=== PATIENT | male | born 1965 | race Caucasian/White ===

== ENCOUNTER 2017-10-09 16:19 | Emergency (ER) | payer OTHER ==
[2017-10-09] MEDS ORDERED: Nitrostat 0.4 MG (ED) SL ONE ×2 (16:45→17:06)
[2017-10-09] MEDS ORDERED: BABY ASPIRIN 81 MG CHEW PO ONE (16:45)
[2017-10-09] MEDS ORDERED: Sodium Chloride 0.9% 1000 ML 1,000 ML IV SCH (16:45)
--- NOTE | 2017-10-09 16:47 | ERPHSYRPT ---
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 pt ambulates with an upright steady gait, able to speak in clear full sentences. PT holding chest upon arrival. Physician History: PATIENT WITH A HISTORY OF HYPERTENSION, DIAGNOSED WITH A NONSTEMI 2 WEEKS AGO, HOSPITALIZED AT [facility]. MISSED HIS FOLLOWUP APPOINTMENT WITH [facility], NOW COMPLAINS OF SUBSTERNAL CHEST PAIN ASSOCIATED WITH DIAPHORESIS, PAIN SCALE 6/10. DENIES PALPITATIONS OR DYSPNEA. Timing/Duration: today Activities at Onset: activity Quality: pressure Location: substernal Chest Pain Radiation: neck Severity of Pain-Max: moderate Severity of Pain-Current: mild Modifying Factors: Improves With: exertion Associated Symptoms: diaphoresis Prior Chest Pain/Cardiac Workup: cardiac cath Nitro Today/Relief: 0.4 mg x 2, provided by ED Aspirin Treatment Today: no aspirin today, 81 mg x 4 Allergies/Adverse Reactions: No Known Drug Allergies Allergy (Verified 11/18/15 00:42) Home Medications: Aspirin 81 mg PO DAILY 11/18/15 [History] Lisinopril 10 mg PO DAILY 11/18/15 [History] Potassium Chloride 10 Meq Tab* [Klor Con 10 MEQ] 10 meq PO DAILY 11/18/15 [ History] Hx Tetanus, Diphtheria Vaccination/Date Given: Yes Hx Influenza Vaccination/Date Given: Yes Hx Pneumococcal Vaccination/Date Given: No Immunizations Up to Date: Yes - Review of Systems Constitutional: No Fever, No Chills Eyes: No Symptoms Ears, Nose, & Throat: No Symptoms Respiratory: No Cough, No Dyspnea Cardiac: Chest Pain Genitourinary Symptoms: No Dysuria Musculoskeletal: No Back Pain, No Neck Pain Skin: No Rash Neurological: No Dizziness, No Focal Weakness, No Sensory Changes Psychological: No Symptoms Endocrine: No Symptoms - Past Medical History Pertinent Past Medical History: Yes Neurological History: Stroke ENT History: Other Cardiac History: Hypertension, Myocardial Infarction ([place]), Other Respiratory History: No Pertinent History Endocrine Medical History: No Pertinent History Musculoskeletal History: Other GI Medical History: No Pertinent History History: No Pertinent History Psycho-Social History: Anxiety Male Reproductive Disorders: No Pertinent History Other Medical History: heart cath, "ministroke per pt report", back surgery when he was 16 - Past Surgical History Past Surgical History: Yes Neuro Surgical History: No Pertinent History Cardiac: Cardiac Catheterization Respiratory: No Pertinent History Gastrointestinal: Hernia Repair Genitourinary: No Pertinent History Musculoskeletal: Orthopedic Surgery Male Surgical History: No Pertinent History Other Surgical History: pt had bk surgery at 16. - Social History Smoking Status: Never smoker Exposure to second hand smoke: Yes Drug Use: none Patient Lives Alone: No - Nursing Vital Signs Nursing Vital Signs: Initial Vital Signs Temperature 98.6 F 10/09/17 16:23 Pulse Rate 90 10/09/17 16:23 Respiratory Rate 92 H 10/09/17 16:23 Blood Pressure 168/92 10/09/17 16:23 O2 Sat by Pulse Oximetry 97 10/09/17 16:23 Pain Scale Pain Intensity 7 - Physical Exam General Appearance: no apparent distress, alert Eye Exam: PERRL/EOMI, eyes nml inspection Ears, Nose, Throat Exam: normal ENT inspection, moist mucous membranes Neck Exam: normal inspection, non-tender, supple, full range of motion Respiratory Exam: normal breath sounds, lungs clear, No respiratory distress Cardiovascular Exam: regular rate/rhythm, normal heart sounds Gastrointestinal/Abdomen Exam: soft, No tenderness, No mass Back Exam: normal inspection, No CVA tenderness, No vertebral tenderness Extremity Exam: normal inspection, normal range of motion Neurologic Exam: alert, oriented x 3, cooperative, normal mood/affect, sensation nml, No motor deficits Skin Exam: normal color, warm, dry SpO2: 97 Oxygen Delivery: Room Air - Course EKG Interpreted by Me: RATE, Sinus Rhythm, NORMAL AXIS, Non-specific ST Changes (MINIMAL INFERIOR ST SEGMENT DEPRESSION) - Radiology Exams Chest X-ray Interpretation: Discussed w/ radiologist, Negative, No Infiltrates Ordered Tests: Active Orders 24 hr Category Date Time Status EKG-ER Only STAT Care 10/09/17 16:45 Active IV Insertion STAT Care 10/09/17 16:45 Active Oxygen-ED Only NASAL CANNULA 2 lpm Care 10/09/17 16:45 Active CHEST 1 VIEW (PORTABLE) Stat Exams 10/09/17 16:45 Completed CBC W DIFF Stat Lab 10/09/17 16:51 Completed CMP Stat Lab 10/09/17 16:51 Completed D-DIMER QUANTITATION Stat Lab 10/09/17 16:51 Completed NT PRO BNP Stat Lab 10/09/17 16:51 Completed PROTIME WITH INR Stat Lab 10/09/17 16:51 Completed TROPONIN Q3H Lab 10/09/17 16:51 Completed TROPONIN Q3H Lab 10/09/17 20:00 Completed TROPONIN Q3H Lab 10/09/17 22:45 Ordered TROPONIN Q3H Lab 10/10/17 01:45 Ordered TROPONIN Q3H Lab 10/10/17 04:45 Ordered Medication Summary Generic Name Dose Route Start Last Admin Trade Name Freq PRN Reason Stop Dose Admin Sodium Chloride 1,000 mls @ 100 mls/hr 10/09/17 16:45 10/09/17 17:11 Sodium Chloride 0.9% 1000 Ml IV 11/08/17 16:44 100 mls/hr .Q10H CIARAN Administration Discontinued Medications Generic Name Dose Route Start Last Admin Trade Name Freq PRN Reason Stop Dose Admin Aspirin 324 mg 10/09/17 16:45 10/09/17 17:11 Baby Aspirin 81 Mg Chew PO 10/09/17 16:46 324 mg STAT ONE Administration Aspirin Confirm 10/09/17 17:06 Baby Aspirin 81 Mg Chew Administered 10/09/17 17:07 Dose 324 mg .ROUTE .STK-MED ONE Fentanyl Citrate 50 mcg 10/09/17 18:44 10/09/17 18:55 Sublimaze 100 Mcg/2 Ml IV 10/09/17 18:45 50 mcg STAT ONE Administration Fentanyl Citrate Confirm 10/09/17 18:49 Sublimaze 100 Mcg/2 Ml Administered 10/09/17 18:50 Dose 100 mcg .ROUTE .STK-MED ONE Nitroglycerin 0.4 mg 10/09/17 16:45 10/09/17 17:13 Nitrostat 0.4 Mg (Ed) SL 10/09/17 16:46 0.4 mg STAT ONE Administration Nitroglycerin Confirm 10/09/17 17:06 Nitrostat 0.4 Mg (Ed) Administered 10/09/17 17:07 Dose 0.4 mg SL .STK-MED ONE Nitroglycerin 0.5 gm 10/09/17 18:44 10/09/17 18:52 Nitro-Bid 2% Ud Packets TOP 10/09/17 18:45 0.5 gm STAT ONE Administration Nitroglycerin Confirm 10/09/17 18:49 Nitro-Bid 2% Ud Packets Administered 10/09/17 18:50 Dose 1 gm .ROUTE .STK-MED ONE Ondansetron HCl 4 mg 10/09/17 18:45 10/09/17 18:53 Zofran 4 Mg/2 Ml Vial IV 10/09/17 18:46 4 mg STAT ONE Administration Ondansetron HCl Confirm 10/09/17 18:49 Zofran 4 Mg/2 Ml Vial Administered 10/09/17 18:50 Dose 4 mg .ROUTE .STK-MED ONE Lab/Rad Data: Laboratory Result Diagrams 10/09/17 16:51 10/09/17 16:51 Laboratory Results 10/09/17 10/09/17 10/09/17 Range/Units 20:00 16:51 16:51 WBC (4.0-10.5) K/mm3 RBC (4.1-5.6) M/mm3 Hgb (12.5-18.0) gm/dl Hct (42-50) % MCV (78-100) fl MCH (26-32) pg MCHC (32-36) g/dl RDW (11.5-14.0) % Plt Count (150-450) K/mm3 MPV (6-9.5) fl Gran % (36.0-66.0) % Eos # (Auto) (0-0.5) Absolute Lymphs (auto) (1.0-4.6) Absolute Monos (auto) (0.0-1.3) Lymphocytes % (24.0-44.0) % Monocytes % (0.0-12.0) % Eosinophils % (0.00-5.0) % Basophils % (0.0-0.4) % Absolute Granulocytes (1.4-6.9) Basophils # (0-0.4) PT 12.3 (8.83-12.87) SECONDS INR 1.06 (0.8-3.0) D-Dimer 317 (215-500) ng/mL Sodium 143 (137-145) mmol/L Potassium 3.7 (3.5-5.1) mmol/L Chloride 107 (98-107) mmol/L Carbon Dioxide 23 (22-30) mmol/L Anion Gap 16.0 H (5-15) MEQ/L BUN 25 H (9-20) mg/dL Creatinine 1.81 H (0.66-1.25) mg/dL Estimated GFR 42.1 ML/MIN Glucose 92 (74-106) mg/dL Calcium 9.5 (8.4-10.2) mg/dL Total Bilirubin 0.30 (0.2-1.3) mg/dL AST 20 (17-59) U/L ALT 16 (0-50) U/L Alkaline Phosphatase 84 (38-126) U/L Troponin I 0.019 (0.000-0.034) ng/mL NT-Pro-B Natriuret Pep 422 (0-900) pg/mL Serum Total Protein 7.5 (6.3-8.2) g/dL Albumin 4.5 (3.5-5.0) g/dL 10/09/17 10/09/17 Range/Units 16:51 16:51 WBC 13.6 H (4.0-10.5) K/mm3 RBC 4.19 (4.1-5.6) M/mm3 Hgb 12.5 (12.5-18.0) gm/dl Hct 37.0 L (42-50) % MCV 88.3 (78-100) fl MCH 29.8 (26-32) pg MCHC 33.8 (32-36) g/dl RDW 13.6 (11.5-14.0) % Plt Count 353 (150-450) K/mm3 MPV 9.2 (6-9.5) fl Gran % 72.0 H (36.0-66.0) % Eos # (Auto) 0.30 (0-0.5) Absolute Lymphs (auto) 2.50 (1.0-4.6) Absolute Monos (auto) 0.95 (0.0-1.3) Lymphocytes % 18.4 L (24.0-44.0) % Monocytes % 7.0 (0.0-12.0) % Eosinophils % 2.2 (0.00-5.0) % Basophils % 0.4 (0.0-0.4) % Absolute Granulocytes 9.78 H (1.4-6.9) Basophils # 0.06 (0-0.4) PT (8.83-12.87) SECONDS INR (0.8-3.0) D-Dimer (215-500) ng/mL Sodium (137-145) mmol/L Potassium (3.5-5.1) mmol/L Chloride (98-107) mmol/L Carbon Dioxide (22-30) mmol/L Anion Gap (5-15) MEQ/L BUN (9-20) mg/dL Creatinine (0.66-1.25) mg/dL Estimated GFR ML/MIN Glucose (74-106) mg/dL Calcium (8.4-10.2) mg/dL Total Bilirubin (0.2-1.3) mg/dL AST (17-59) U/L ALT (0-50) U/L Alkaline Phosphatase (38-126) U/L Troponin I 0.020 (0.000-0.034) ng/mL NT-Pro-B Natriuret Pep (0-900) pg/mL Serum Total Protein (6.3-8.2) g/dL Albumin (3.5-5.0) g/dL - Progress Progress Note: 10/09/17 19:33 PATIENT PAIN IMPROVED AFTER BABY ASA X 4, NTG SL 0.4MG AND FENTANYL 50MCG IV Discussed with DrAshley: Other (DISCUSSED WITH DR GUARDADO AT 2000 ACCEPTS TRANSFER TO [facility]IA [facility]) - Departure Time of Disposition: 21:03 Departure Disposition: Transfer Clinical Impression: ACUTE CHEST PAIN Condition: Stable Critical Care Time: No Referrals: DOCTOR,NO FAMILY [Primary Care Provider] -
[2017-10-09 16:59] LABS: BASOPHIL % 0.4 % (0.0-0.4); Basophil (Absolute #) 0.06 (0-0.4); Eosinophil % 2.2 % (0.00-5.0); Granulocyte Absolute (ANC) 9.78 (1.4-6.9); Hemoglobin 12.5 gm/dl (12.5-18.0); Lymphocytes % 18.4 % (24.0-44.0); Mean Cell Volume 88.3 fl (78-100); Mean Corpuscular Hemoglobin 29.8 pg (26-32); Mean Corpuscular Hgb Concent. 33.8 g/dl (32-36); Mean Platelet Volume 9.2 fl (6-9.5); Monocyte (Absolute #) 0.95 (0.0-1.3); Platelet Count 353 K/mm3 (150-450); Red Blood Count 4.19 M/mm3 (4.1-5.6); Red Cell Distribution Width 13.6 % (11.5-14.0); White Blood Count 13.6 K/mm3 (4.0-10.5)
[2017-10-09] MEDS ORDERED: Sodium Chloride 0.9% 1000 ML 1,000 ML ONE (17:06)
[2017-10-09] MEDS ORDERED: BABY ASPIRIN 81 MG CHEW ONE (17:06)
[2017-10-09 17:10] LABS: INR 1.06 (0.8-3.0)
--- NOTE | 2017-10-09 17:15 | XRAY ---
Exam: AP upright portable chest film from 10/09/2017. Comparison: Two-view chest from 11/18/2015. Indication: Shortness of breath, right arm numbness. Findings: The lungs are adequately expanded. The transverse heart size is within normal limits. Mild tortuosity of the descending thoracic aorta is seen representing no change. The remainder of the lexi and mediastinal structures appears unremarkable. Faint visualization of the minor fissure on the right is seen. There is nonspecific. No air space infiltrates, vascular congestion, pneumothorax, or pleural effusions are seen. No abnormal soft tissue lung nodularity is seen. EKG leads are noted in place. No acute osseous process is seen. There is minimal convexity of the lower thoracic spine toward the right representing no change. Impression: 1. No acute cardiopulmonary disease is seen. Prior tiny transverse strand of plate atelectasis within the medial right lower lung field has essentially resolved.
[2017-10-09 17:23] LABS: ALBUMIN 4.5 g/dL (3.5-5.0); BILIRUBIN,TOTAL 0.3 mg/dL (0.2-1.3); Calcium 9.5 mg/dL (8.4-10.2); Creatinine 1 1.81 mg/dL (0.66-1.25); Potassium 3.7 mmol/L (3.5-5.1); Total Protein 7.5 g/dL (6.3-8.2)
[2017-10-09] MEDS ORDERED: NITRO-BID 2% UD PACKETS TOP ONE (18:44)
[2017-10-09] MEDS ORDERED: SUBLIMAZE 100 MCG/2 ML IV ONE (18:44)
[2017-10-09] MEDS ORDERED: Zofran 4 MG/2 ML VIAL IV ONE (18:45)
[2017-10-09] MEDS ORDERED: NITRO-BID 2% UD PACKETS ONE (18:49)
[2017-10-09] MEDS ORDERED: SUBLIMAZE 100 MCG/2 ML ONE (18:49)
[2017-10-09] MEDS ORDERED: Zofran 4 MG/2 ML VIAL ONE (18:49)
[2017-10-09 20:21] VITALS: BP 176/94; PULSE 76
[2017-10-09 20:47] VITALS: O2SAT 97
== END 2017-10-09 21:14 | disposition short-term general hospital (02) ==
LOC: ED 16:19
DX: R07.89 Other chest pain (principal); I10 Essential (primary) hypertension; I25.2 Old myocardial infarction; Z79.899 Other long term (current) drug therapy; Z86.79 Personal history of other diseases of the circulatory system; F41.9 Anxiety disorder, unspecified
CPT/HCPCS: 36000; 36415; 71045; 80053; 83880; 84484; 85025; 85379; 85610; 93005; 96360; 96374; 96375; 99284; J2405; J3010; A9270-GY

== ENCOUNTER 2018-01-17 20:51 | Emergency (ER) | payer OTHER ==
--- NOTE | 2018-01-17 21:54 | ERPHSYRPT ---
- History of Present Illness Time Seen by Provider: 01/17/18 21:30 Historian: patient, family Exam Limitations: no limitations Physician History: 52 y/o white male presents with cp substernal sensation as something sitting on his chest. 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 cp has resolved. pt took 3 ntg. pt underwent a cardiac cath 2 months ago. per pt report 50% blockage. pt not on any other meds hes suppose to take because he lost his job and his insurance. pt denies cp now, denies soa, denies abd pain. he did not take any asa. Timing/Duration: today, hour(s) (1 hr ago), resolved prior to arrival Activities at Onset: none Quality: aching, fullness, pressure Location: substernal Chest Pain Radiation: no radiation Severity of Pain-Max: moderate Severity of Pain-Current: none Modifying Factors: Improves With: nitroglycerin Associated Symptoms: No nausea, No vomiting, No palpitations, No heartburn, No abdominal pain, No shortness of breath, No cough, No hurts to breathe, No diaphoresis, No chills, No fever, No fatigue, No weakness, No swelling/lump in chest, No syncope, No rash, No headache, No dizziness, No edema, No back pain Prior Chest Pain/Cardiac Workup: cardiac cath, heart attack Nitro Today/Relief: 0.4 mg x 3, provided at home, complete relief Aspirin Treatment Today: no aspirin today Allergies/Adverse Reactions: No Known Drug Allergies Allergy (Verified 11/18/15 00:42) Hx Tetanus, Diphtheria Vaccination/Date Given: Yes Hx Influenza Vaccination/Date Given: Yes Hx Pneumococcal Vaccination/Date Given: No - Review of Systems Constitutional: No Symptoms, No Fever, No Chills Eyes: No Symptoms, No Discharge Ears, Nose, & Throat: No Symptoms, No Ear Pain, No Ear Discharge Respiratory: No Symptoms, No Cough, No Dyspnea, No Stridor, No Wheezing Cardiac: Chest Pain, No Palpitations, No Syncope, No Orthopnea Abdominal/Gastrointestinal: No Symptoms, No Abdominal Pain, No Nausea, No Vomiting, No Diarrhea Genitourinary Symptoms: No Symptoms, No Dysuria, No Frequency, No Hematuria Musculoskeletal: No Symptoms, No Back Pain, No Neck Pain, No Deformity Skin: No Symptoms Neurological: No Symptoms, No Dizziness, No Gait Changes, No Headache Psychological: No Symptoms Endocrine: No Symptoms Hematologic/Lymphatic: No Symptoms Immunological/Allergic: No Symptoms All Other Systems: Reviewed and Negative - Past Medical History Pertinent Past Medical History: Yes Neurological History: Stroke ENT History: Other Cardiac History: Hypertension, Myocardial Infarction ([place]), Other Respiratory History: No Pertinent History Endocrine Medical History: No Pertinent History Musculoskeletal History: Other GI Medical History: No Pertinent History History: No Pertinent History Psycho-Social History: Anxiety Male Reproductive Disorders: No Pertinent History Other Medical History: heart cath, "ministroke per pt report", back surgery when he was 16 - Past Surgical History Past Surgical History: Yes Neuro Surgical History: No Pertinent History Cardiac: Cardiac Catheterization Respiratory: No Pertinent History Gastrointestinal: Hernia Repair Genitourinary: No Pertinent History Musculoskeletal: Orthopedic Surgery Male Surgical History: No Pertinent History Other Surgical History: pt had bk surgery at 16. - Social History Smoking Status: Never smoker Exposure to second hand smoke: Yes Drug Use: none Patient Lives Alone: No - Nursing Vital Signs Nursing Vital Signs: Initial Vital Signs Pulse Rate 96 H 01/17/18 21:49 Respiratory Rate 20 01/17/18 21:49 Blood Pressure 168/110 01/17/18 21:49 O2 Sat by Pulse Oximetry 100 01/17/18 21:49 Pain Scale Pain Intensity 0 - Physical Exam General Appearance: no apparent distress, alert, anxiety Eye Exam: PERRL/EOMI, eyes nml inspection Ears, Nose, Throat Exam: normal ENT inspection, TMs normal, moist mucous membranes Neck Exam: normal inspection, non-tender, supple, full range of motion Respiratory Exam: normal breath sounds, lungs clear, airway intact, No chest tenderness, No respiratory distress, No accessory muscle use, No rhonchi, No wheezing, No stridor Cardiovascular Exam: regular rate/rhythm, normal heart sounds, normal peripheral pulses Gastrointestinal/Abdomen Exam: soft, normal bowel sounds, rebound, No tenderness , No guarding Rectal Exam: not done Back Exam: normal inspection, normal range of motion, No CVA tenderness, No vertebral tenderness Extremity Exam: normal inspection, normal range of motion, pelvis stable Neurologic Exam: alert, oriented x 3, cooperative, bar pointer II-XII nml as tested Skin Exam: normal color, warm, dry Lymphatic Exam: No adenopathy SpO2 Interpretation: normal - Course Nursing assessment & vital signs reviewed: Yes EKG Interpreted by Me: RATE ([id number]), Sinus Tach, NORMAL AXIS, NORMAL INTERVALS, NORMAL QRS, NORMAL ST-T, Other (st segment changes.. compared to ekg 10/09/17 new sinus tach and ? st seg depression.) Ordered Tests: Active Orders 24 hr Category Date Time Status EKG-ER Only STAT Care 01/17/18 22:01 Active EKG-ER Only STAT Care 01/17/18 23:34 Active IV Insertion STAT Care 01/17/18 22:01 Active CHEST 1 VIEW (PORTABLE) Stat Exams 01/17/18 22:02 Taken CBC W DIFF Stat Lab 01/17/18 22:35 Completed CMP Stat Lab 01/17/18 22:35 Completed D-DIMER QUANTITATION Stat Lab 01/17/18 22:35 Completed NT PRO BNP Stat Lab 01/17/18 22:35 Completed PROTIME WITH INR Stat Lab 01/17/18 22:35 Completed TROPONIN Q3H Lab 01/17/18 22:35 Completed TROPONIN Q3H Lab 01/18/18 01:15 Ordered TROPONIN Q3H Lab 01/18/18 04:15 Ordered TROPONIN Q3H Lab 01/18/18 07:15 Ordered TROPONIN Q3H Lab 01/18/18 10:15 Ordered Medication Summary Generic Name Dose Route Start Last Admin Trade Name Freq PRN Reason Stop Dose Admin Sodium Chloride 1,000 mls @ 100 mls/hr 01/17/18 22:15 01/17/18 22:26 Sodium Chloride 0.9% 1000 Ml IV 02/16/18 22:14 100 mls/hr .Q10H CIARAN Administration Discontinued Medications Generic Name Dose Route Start Last Admin Trade Name Freq PRN Reason Stop Dose Admin Aspirin 324 mg 01/17/18 22:01 01/17/18 22:26 Baby Aspirin 81 Mg Chew PO 01/17/18 22:02 324 mg STAT ONE Administration Aspirin Confirm 01/17/18 22:12 Baby Aspirin 81 Mg Chew Administered 01/17/18 22:13 Dose 324 mg .ROUTE .STK-MED ONE Morphine Sulfate 2 mg 01/17/18 22:01 01/17/18 22:43 Morphine Sulfate 2 Mg Inj IV 01/17/18 22:02 Not Given STAT ONE Morphine Sulfate Confirm 01/17/18 22:12 Morphine Sulfate 2 Mg Inj Administered 01/17/18 22:13 Dose 2 mg .ROUTE .STK-MED ONE Nitroglycerin 0.4 mg 01/17/18 22:01 01/17/18 22:25 Nitrostat 0.4 Mg (Ed) SL 01/17/18 22:02 0.4 mg STAT ONE Administration Nitroglycerin Confirm 01/17/18 22:12 Nitrostat 0.4 Mg (Ed) Administered 01/17/18 22:13 Dose 0.4 mg SL .STK-MED ONE Ondansetron HCl 4 mg 01/17/18 22:01 01/17/18 22:26 Zofran 4 Mg/2 Ml Vial IV 01/17/18 22:02 4 mg STAT ONE Administration Ondansetron HCl Confirm 01/17/18 22:12 Zofran 4 Mg/2 Ml Vial Administered 01/17/18 22:13 Dose 4 mg .ROUTE .STK-MED ONE Potassium Bicarbonate 50 meq 01/17/18 23:35 01/17/18 23:45 K-Lyte 25 Meq PO 01/17/18 23:36 50 meq STAT ONE Administration Potassium Bicarbonate Confirm 01/17/18 23:37 K-Lyte 25 Meq Administered 01/17/18 23:38 Dose 50 meq .ROUTE .STK-MED ONE Lab/Rad Data: Laboratory Result Diagrams 01/17/18 22:35 01/17/18 22:35 Laboratory Results 01/17/18 01/17/18 01/17/18 Range/Units 22:35 22:35 22:35 WBC (4.0-10.5) K/mm3 RBC (4.1-5.6) M/mm3 Hgb (12.5-18.0) gm/dl Hct (42-50) % MCV (78-100) fl MCH (26-32) pg MCHC (32-36) g/dl RDW (11.5-14.0) % Plt Count (150-450) K/mm3 MPV (6-9.5) fl Gran % (36.0-66.0) % Eos # (Auto) (0-0.5) Absolute Lymphs (auto) (1.0-4.6) Absolute Monos (auto) (0.0-1.3) Lymphocytes % (24.0-44.0) % Monocytes % (0.0-12.0) % Eosinophils % (0.00-5.0) % Basophils % (0.0-0.4) % Absolute Granulocytes (1.4-6.9) Basophils # (0-0.4) PT 12.1 (8.83-12.87) SECONDS INR 1.04 (0.8-3.0) D-Dimer 326 (215-500) ng/mL Sodium 142 (137-145) mmol/L Potassium 3.2 L (3.5-5.1) mmol/L Chloride 106 (98-107) mmol/L Carbon Dioxide 26 (22-30) mmol/L Anion Gap 13.0 (5-15) MEQ/L BUN 17 (9-20) mg/dL Creatinine 0.81 (0.66-1.25) mg/dL Estimated GFR > 60.0 ML/MIN Glucose 115 H (74-106) mg/dL Calcium 9.1 (8.4-10.2) mg/dL Total Bilirubin 0.30 (0.2-1.3) mg/dL AST 21 (17-59) U/L ALT 16 (0-50) U/L Alkaline Phosphatase 93 (38-126) U/L Troponin I 0.063 H* (0.000-0.034) ng/mL NT-Pro-B Natriuret Pep 627 (0-900) pg/mL Serum Total Protein 7.2 (6.3-8.2) g/dL Albumin 4.2 (3.5-5.0) g/dL 01/17/18 Range/Units 22:35 WBC 13.0 H (4.0-10.5) K/mm3 RBC 4.65 (4.1-5.6) M/mm3 Hgb 14.0 (12.5-18.0) gm/dl Hct 40.5 L (42-50) % MCV 87.1 (78-100) fl MCH 30.1 (26-32) pg MCHC 34.6 (32-36) g/dl RDW 14.2 H (11.5-14.0) % Plt Count 331 (150-450) K/mm3 MPV 8.8 (6-9.5) fl Gran % 70.5 H (36.0-66.0) % Eos # (Auto) 0.51 H (0-0.5) Absolute Lymphs (auto) 2.40 (1.0-4.6) Absolute Monos (auto) 0.85 (0.0-1.3) Lymphocytes % 18.5 L (24.0-44.0) % Monocytes % 6.6 (0.0-12.0) % Eosinophils % 3.9 (0.00-5.0) % Basophils % 0.5 (0.0-0.4) % Absolute Granulocytes 9.12 H (1.4-6.9) Basophils # 0.07 (0-0.4) PT (8.83-12.87) SECONDS INR (0.8-3.0) D-Dimer (215-500) ng/mL Sodium (137-145) mmol/L Potassium (3.5-5.1) mmol/L Chloride (98-107) mmol/L Carbon Dioxide (22-30) mmol/L Anion Gap (5-15) MEQ/L BUN (9-20) mg/dL Creatinine (0.66-1.25) mg/dL Estimated GFR ML/MIN Glucose (74-106) mg/dL Calcium (8.4-10.2) mg/dL Total Bilirubin (0.2-1.3) mg/dL AST (17-59) U/L ALT (0-50) U/L Alkaline Phosphatase (38-126) U/L Troponin I (0.000-0.034) ng/mL NT-Pro-B Natriuret Pep (0-900) pg/mL Serum Total Protein (6.3-8.2) g/dL Albumin (3.5-5.0) g/dL - Progress Progress: improved, re-examined Air Movement: good Progress Note: 01/17/18 22:00 2130 i was able to first evaluate pt. this patient arrived at the same time a code arrest pt arrived. his cp has resolved completely. i did not think ekg showed elevation of st segment. i sent ekg to [place] ED to read same ekg per protocol. ED doctor agrees no st elevation. will repeat ekg. 01/18/18 00:12 pts 2nd and 3rd ekg show persistent but improved st depression, no st segment elevation. pt continues to have no cp. 01/18/18 00:[address] 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 i reviewed pt hx, condition, lab, ekg, and cxr results with dr. valdes. he accepts pt for transfer/admission. no further recommendations. dr. valdes said he would call transfer center. Antibiotics given: No Discussed with Dr.: Other (Dr. Valdes) Counseled pt/family regarding: lab results, diagnosis, need for follow-up, rad results - Departure Time of Disposition: 00:22 Departure Disposition: Home, Transfer Clinical Impression: Elevated troponin, Chest pain at rest, ST segment depression, Hypokalemia Condition: Stable Critical Care Time: Yes Critical Care Time(excluding separately billable procedures): 30-74 minutes Referrals: DOCTOR,NO FAMILY [Primary Care Provider] -
[2018-01-17] MEDS ORDERED: BABY ASPIRIN 81 MG CHEW PO ONE (22:01)
[2018-01-17] MEDS ORDERED: Zofran 4 MG/2 ML VIAL IV ONE (22:01)
[2018-01-17] MEDS ORDERED: Nitrostat 0.4 MG (ED) SL ONE ×2 (22:01→22:12)
[2018-01-17] MEDS ORDERED: MORPHINE SULFATE 2 MG INJ IV ONE (22:01)
[2018-01-17] MEDS ORDERED: Sodium Chloride 0.9% 1000 ML 1,000 ML ONE (22:12)
[2018-01-17] MEDS ORDERED: Zofran 4 MG/2 ML VIAL ONE (22:12)
[2018-01-17] MEDS ORDERED: BABY ASPIRIN 81 MG CHEW ONE (22:12)
[2018-01-17] MEDS ORDERED: MORPHINE SULFATE 2 MG INJ ONE (22:12)
[2018-01-17] MEDS ORDERED: Sodium Chloride 0.9% 1000 ML 1,000 ML IV SCH (22:15)
[2018-01-17 22:42] LABS: BASOPHIL % 0.5 % (0.0-0.4); Basophil (Absolute #) 0.07 (0-0.4); Eosinophil % 3.9 % (0.00-5.0); Eosinophil (Absolute #) 0.51 (0-0.5); Granulocyte Absolute (ANC) 9.12 (1.4-6.9); Granulocytes % 70.5 % (36.0-66.0); Hematocrit 40.5 % (42-50); Lymphocytes % 18.5 % (24.0-44.0); Mean Cell Volume 87.1 fl (78-100); Mean Corpuscular Hemoglobin 30.1 pg (26-32); Mean Corpuscular Hgb Concent. 34.6 g/dl (32-36); Mean Platelet Volume 8.8 fl (6-9.5); Monocyte (Absolute #) 0.85 (0.0-1.3); Monocytes % 6.6 % (0.0-12.0); Platelet Count 331 K/mm3 (150-450); Red Blood Count 4.65 M/mm3 (4.1-5.6); Red Cell Distribution Width 14.2 % (11.5-14.0)
[2018-01-17 22:52] LABS: INR 1.04 (0.8-3.0)
[2018-01-17 23:05] LABS: ALBUMIN 4.2 g/dL (3.5-5.0); ALKALINE PHOSPHATASE 93 U/L (38-126); BLOOD UREA NITROGEN 17 mg/dL (9-20); CHLORIDE 106 mmol/L (98-107); Calcium 9.1 mg/dL (8.4-10.2); Carbon Dioxide 26 mmol/L (22-30); Creatinine 1 0.81 mg/dL (0.66-1.25); Glucose 115 mg/dL (74-106); NT PRO BNP 627 pg/mL (0-900); Potassium 3.2 mmol/L (3.5-5.1); SGOT/AST 21 U/L (17-59); SGPT/ALT 16 U/L (0-50); SODIUM 142 mmol/L (137-145); Total Protein 7.2 g/dL (6.3-8.2)
[2018-01-17] MEDS ORDERED: K-LYTE 25 MEQ PO ONE (23:35)
[2018-01-17] MEDS ORDERED: K-LYTE 25 MEQ ONE (23:37)
[2018-01-17 23:48] VITALS: O2SAT 96
[2018-01-18 02:00] VITALS: BP 164/96; PULSE 80
--- NOTE | 2018-01-18 08:54 | XRAY ---
Indication: Chest pain. Hypertension. Comparison: October 09, 2017. Portable apical lordotic chest slightly uninflated and clear. Heart is not enlarged. New small hiatal hernia suggested. Bony thorax intact. Impression: Suspect new small hiatal hernia. No new/acute cardiopulmonary abnormalities.
== END 2018-01-18 01:55 | disposition short-term general hospital (02) ==
LOC: ED 20:51
DX: R77.8 Other specified abnormalities of plasma proteins (principal); R07.9 Chest pain, unspecified; E87.6 Hypokalemia; I25.2 Old myocardial infarction
CPT/HCPCS: 36000; 36415; 71045; 80053; 83880; 84484; 85025; 85379; 85610; 93005; 96374; 96375; 99285; J2270; J2405; A9270-GY

== ENCOUNTER 2018-02-19 11:29 | Emergency (ER) | payer OTHER ==
--- NOTE | 2018-02-19 12:39 | ERPHSYRPT ---
- History of Present Illness Time Seen by Provider: 02/19/18 12:29 Historian: patient Exam Limitations: no limitations Patient Subjective Stated Complaint: pt here for right sided abd pain for a week now,pain getting worse, was seen at [facility] twice for this problems,was given antibotics. he also co nausea and vomiting Triage Nursing Assessment: pt alert, resp easy, skin w/d/p. abd soft but tender to palpate, he states he vomited blood last week, but none now, no edema Physician History: The patient is a 53-year-old male complaining of nausea, vomiting, and right- sided abdominal pain. The day after he was seen at [facility] for vomiting. He was discharged to home. He had a UTI and given abx. Then on Monday while at work he vomited bright red blood and went back to [facility]. He was discharged home again. He tells me that he was told if he had pain in his right side of his abdomen to come back. Today he has pain on the right side of his abdomen. He hasn't been eating well because of the vomiting. They gave him Zofran which doesn't work real well. He denies shortness of breath or chest pain. He denies diarrhea. He denies fever. His past history is significant for stroke, [place], CAD, back surgery, and HTN. Timing/Duration: week(s) (1) Activities at Onset: none Quality: sharpness Abdominal Pain Onset Location: RLQ, LLQ Pain Radiation: no radiation Severity of Pain-Max: moderate Severity of Pain-Current: moderate Modifying Factors: Improves With: nothing Associated Symptoms: back, loss of appetite, nausea, vomiting Previous symptoms: same symptoms as today, recently seen, recently treated Allergies/Adverse Reactions: No Known Drug Allergies Allergy (Verified 02/19/18 12:18) Home Medications: Nitrofurantoin Macro 100 mg [Macrobid 100MG Capsule] 100 mg BID 02/19/18 [ History] Ondansetron ODT 4 MG [Zofran Odt 4 mg] 4 mg DAILY 02/19/18 [History] Hx Tetanus, Diphtheria Vaccination/Date Given: Yes Hx Influenza Vaccination/Date Given: Yes Hx Pneumococcal Vaccination/Date Given: No Immunizations Up to Date: Yes - Review of Systems Constitutional: No Fever, No Chills Eyes: No Symptoms Ears, Nose, & Throat: No Symptoms Respiratory: No Cough, No Dyspnea Cardiac: No Chest Pain, No Edema, No Syncope Abdominal/Gastrointestinal: Abdominal Pain, Nausea, Vomiting, No Diarrhea Genitourinary Symptoms: No Dysuria Musculoskeletal: No Back Pain, No Neck Pain Skin: No Rash Neurological: No Dizziness, No Focal Weakness, No Sensory Changes Psychological: No Symptoms Endocrine: No Symptoms Hematologic/Lymphatic: No Symptoms Immunological/Allergic: No Symptoms All Other Systems: Reviewed and Negative - Past Medical History Pertinent Past Medical History: Yes Neurological History: Stroke ENT History: Other Cardiac History: Hypertension, Myocardial Infarction ([place]), Other Respiratory History: No Pertinent History Endocrine Medical History: No Pertinent History Musculoskeletal History: Other GI Medical History: No Pertinent History History: No Pertinent History Psycho-Social History: Anxiety Male Reproductive Disorders: No Pertinent History Other Medical History: heart cath, "ministroke per pt report", back surgery when he was 16 - Past Surgical History Past Surgical History: Yes Neuro Surgical History: No Pertinent History Cardiac: Cardiac Catheterization Respiratory: No Pertinent History Gastrointestinal: Hernia Repair Genitourinary: No Pertinent History Musculoskeletal: Orthopedic Surgery Male Surgical History: No Pertinent History Other Surgical History: pt had bk surgery at 16. - Social History Smoking Status: Never smoker Exposure to second hand smoke: No Drug Use: none Patient Lives Alone: Yes - Nursing Vital Signs Nursing Vital Signs: Initial Vital Signs Temperature 97.7 F 02/19/18 12:11 Pulse Rate 74 02/19/18 12:11 Respiratory Rate 16 02/19/18 12:11 Blood Pressure 172/96 02/19/18 12:11 O2 Sat by Pulse Oximetry 97 02/19/18 12:11 Pain Scale Pain Intensity 4 - Physical Exam General Appearance: no apparent distress, alert Eye Exam: PERRL/EOMI, eyes nml inspection Ears, Nose, Throat Exam: normal ENT inspection, pharynx normal, moist mucous membranes Neck Exam: normal inspection, non-tender, supple, full range of motion Respiratory Exam: normal breath sounds, lungs clear, No respiratory distress Cardiovascular Exam: regular rate/rhythm, normal heart sounds Gastrointestinal/Abdomen Exam: soft, tenderness (RLQ), No mass Rectal Exam: not done Back Exam: normal inspection, normal range of motion, No CVA tenderness, No vertebral tenderness Extremity Exam: normal inspection, normal range of motion, pelvis stable Neurologic Exam: alert, oriented x 3, cooperative, normal mood/affect, nml cerebellar function, sensation nml, No motor deficits Skin Exam: normal color, warm, dry SpO2 Interpretation: normal SpO2: 97 Oxygen Delivery: Room Air - Course EKG Interpreted by Me: RATE, Sinus Rhythm, NORMAL AXIS, NORMAL INTERVALS, NORMAL QRS, NORMAL ST-T, Other (no comp to EKG from 01/17/18.) - CT Exams Abdomen/Pelvis CT Interpretation: Negative, Tele-radiologist Report (per Dr Leal), Other (fecal stasis without obstruction; stable small hiatal hernia; colonic diverticulosis; remaining CT neg.) Ordered Tests: Active Orders 24 hr Category Date Time Status Clean Catch Urine Specimen STAT Care 02/19/18 12:45 Active EKG-ER Only STAT Care 02/19/18 12:45 Active IV Insertion STAT Care 02/19/18 12:45 Active ABDOMEN AND PELVIS W/0 CONTRAS [CT] Stat Exams 02/19/18 13:29 Completed AMYLASE Stat Lab 02/19/18 12:30 Completed CBC W DIFF Stat Lab 02/19/18 12:30 Completed CMP Stat Lab 02/19/18 12:30 Completed LIPASE Stat Lab 02/19/18 12:30 Completed Lactic Acid Stat Lab 02/19/18 12:45 Completed TROPONIN Q3H Lab 02/20/18 00:45 Ordered TROPONIN Q3H Lab 02/19/18 12:30 Completed TROPONIN Q3H Lab 02/19/18 15:45 Ordered TROPONIN Q3H Lab 02/19/18 18:45 Ordered TROPONIN Q3H Lab 02/19/18 21:45 Ordered UA W/RFX UR CULTURE Stat Lab 02/19/18 13:04 Completed Urine Triage Profile Stat Lab 02/19/18 13:04 Completed Medication Summary Discontinued Medications Generic Name Dose Route Start Last Admin Trade Name Freq PRN Reason Stop Dose Admin Sodium Chloride 1,000 mls @ 999 mls/hr 02/19/18 12:45 02/19/18 13:13 Sodium Chloride 0.9% 1000 Ml IV 02/19/18 13:45 999 mls/hr .Q1H1M STA Administration Sodium Chloride Confirm 02/19/18 13:07 Sodium Chloride 0.9% 1000 Ml Administered 02/19/18 13:08 Dose 1,000 mls @ ud .ROUTE .STK-MED ONE Morphine Sulfate 4 mg 02/19/18 12:45 02/19/18 13:32 Morphine Sulfate 4 Mg Inj IV 02/19/18 12:46 Not Given STAT ONE Morphine Sulfate Confirm 02/19/18 13:07 Morphine Sulfate 4 Mg Inj Administered 02/19/18 13:08 Dose 4 mg .ROUTE .STK-MED ONE Pantoprazole Sodium 40 mg 02/19/18 12:45 02/19/18 13:10 Protonix 40 Mg Iv IV 02/19/18 12:46 40 mg STAT ONE Administration Pantoprazole Sodium Confirm 02/19/18 13:07 Protonix 40 Mg Iv Administered 02/19/18 13:08 Dose 40 mg IV .STK-MED ONE Promethazine HCl 12.5 mg 02/19/18 12:45 02/19/18 13:10 Phenergan 25 Mg Inj IV 02/19/18 12:46 12.5 mg STAT ONE Administration Promethazine HCl Confirm 02/19/18 13:07 Phenergan 25 Mg Inj Administered 02/19/18 13:08 Dose 25 mg .ROUTE .STK-MED ONE Lab/Rad Data: Laboratory Result Diagrams 02/19/18 12:30 02/19/18 12:30 Laboratory Results 02/19/18 02/19/18 02/19/18 Range/Units 13:04 13:04 12:45 WBC (4.0-10.5) K/mm3 RBC (4.1-5.6) M/mm3 Hgb (12.5-18.0) gm/dl Hct (42-50) % MCV (78-100) fl MCH (26-32) pg MCHC (32-36) g/dl RDW (11.5-14.0) % Plt Count (150-450) K/mm3 MPV (6-9.5) fl Gran % (36.0-66.0) % Eos # (Auto) (0-0.5) Absolute Lymphs (auto) (1.0-4.6) Absolute Monos (auto) (0.0-1.3) Lymphocytes % (24.0-44.0) % Monocytes % (0.0-12.0) % Eosinophils % (0.00-5.0) % Basophils % (0.0-0.4) % Absolute Granulocytes (1.4-6.9) Basophils # (0-0.4) Sodium (137-145) mmol/L Potassium (3.5-5.1) mmol/L Chloride (98-107) mmol/L Carbon Dioxide (22-30) mmol/L Anion Gap (5-15) MEQ/L BUN (9-20) mg/dL Creatinine (0.66-1.25) mg/dL Estimated GFR ML/MIN Glucose (74-106) mg/dL Lactic Acid 1.5 (0.4-2.0) Calcium (8.4-10.2) mg/dL Total Bilirubin (0.2-1.3) mg/dL AST (17-59) U/L ALT (0-50) U/L Alkaline Phosphatase (38-126) U/L Troponin I (0.000-0.034) ng/mL Serum Total Protein (6.3-8.2) g/dL Albumin (3.5-5.0) g/dL Amylase (30-110) U/L Lipase (23-300) U/L Urine Color YELLOW (YELLOW) Urine Appearance CLEAR (CLEAR) Urine pH 7.0 (5-6) Ur Specific [place] 1.014 (1.005-1.025) Urine Protein NEGATIVE (Negative) Urine Ketones NEGATIVE (NEGATIVE) Urine Blood NEGATIVE (0-5) Tuan/ul Urine Nitrite NEGATIVE (NEGATIVE) Urine Bilirubin NEGATIVE (NEGATIVE) Urine Urobilinogen NEGATIVE (0-1) mg/dL Ur Leukocyte Esterase NEGATIVE (NEGATIVE) Urine WBC (Auto) 0-2 (0-5) /HPF Urine RBC (Auto) 6-10 (0-2) /HPF U Epithel Cells (Auto) NONE (FEW) /HPF Urine Bacteria (Auto) NONE SEEN (NEGATIVE) /HPF Urine Mucus (Auto) SLIGHT (NEGATIVE) /HPF Urine Culture Reflexed NO (NO) Urine Glucose 50 (NEGATIVE) mg/dL Urine Opiates Level NEGATIVE (NEGATIVE) Ur Methadone NEGATIVE (NEGATIVE) Urine Barbiturates NEGATIVE (NEGATIVE) Ur Phencyclidine (PCP) NEGATIVE (NEGATIVE) Urine Amphetamine NEGATIVE (NEGATIVE) U Benzodiazepine Level NEGATIVE (NEGATIVE) Urine Cocaine NEGATIVE (NEGATIVE) Urine Marijuana (THC) NEGATIVE (NEGATIVE) 02/19/18 02/19/1802/19/18 Range/Units 12:30 12:30 12:30 WBC 10.8 H (4.0-10.5) K/mm3 RBC 4.52 (4.1-5.6) M/mm3 Hgb 13.4 (12.5-18.0) gm/dl Hct 39.8 L (42-50) % MCV 88.1 (78-100) fl MCH 29.6 (26-32) pg MCHC 33.7 (32-36) g/dl RDW 13.9 (11.5-14.0) % Plt Count 356 (150-450) K/mm3 MPV 9.0 (6-9.5) fl Gran % 65.7 (36.0-66.0) % Eos # (Auto) 0.46 (0-0.5) Absolute Lymphs (auto) 2.48 (1.0-4.6) Absolute Monos (auto) 0.69 (0.0-1.3) Lymphocytes % 23.0 L (24.0-44.0) % Monocytes % 6.4 (0.0-12.0) % Eosinophils % 4.3 (0.00-5.0) % Basophils % 0.6 (0.0-0.4) % Absolute Granulocytes 7.10 H (1.4-6.9) Basophils # 0.06 (0-0.4) Sodium 144 (137-145) mmol/L Potassium 3.3 L (3.5-5.1) mmol/L Chloride 107 (98-107) mmol/L Carbon Dioxide 26 (22-30) mmol/L Anion Gap 13.7 (5-15) MEQ/L BUN 17 (9-20) mg/dL Creatinine 0.67 (0.66-1.25) mg/dL Estimated GFR > 60.0 ML/MIN Glucose 94 (74-106) mg/dL Lactic Acid (0.4-2.0) Calcium 9.0 (8.4-10.2) mg/dL Total Bilirubin 0.70 (0.2-1.3) mg/dL AST 23 (17-59) U/L ALT 20 (0-50) U/L Alkaline Phosphatase 124 (38-126) U/L Troponin I < 0.012 (0.000-0.034) ng/mL Serum Total Protein 7.4 (6.3-8.2) g/dL Albumin 4.2 (3.5-5.0) g/dL Amylase 84 (30-110) U/L Lipase 52 (23-300) U/L Urine Color (YELLOW) Urine Appearance (CLEAR) Urine pH (5-6) Ur Specific [place] (1.005-1.025) Urine Protein (Negative) Urine Ketones (NEGATIVE) Urine Blood (0-5) Tuan/ul Urine Nitrite (NEGATIVE) Urine Bilirubin (NEGATIVE) Urine Urobilinogen (0-1) mg/dL Ur Leukocyte Esterase (NEGATIVE) Urine WBC (Auto) (0-5) /HPF Urine RBC (Auto) (0-2) /HPF U Epithel Cells (Auto) (FEW) /HPF Urine Bacteria (Auto) (NEGATIVE) /HPF Urine Mucus (Auto) (NEGATIVE) /HPF Urine Culture Reflexed (NO) Urine Glucose (NEGATIVE) mg/dL Urine Opiates Level (NEGATIVE) Ur Methadone (NEGATIVE) Urine Barbiturates (NEGATIVE) Ur Phencyclidine (PCP) (NEGATIVE) Urine Amphetamine (NEGATIVE) U Benzodiazepine Level (NEGATIVE) Urine Cocaine (NEGATIVE) Urine Marijuana (THC) (NEGATIVE) - Progress Progress: improved Progress Note: 02/19/18 15:06 The patient was given Protonix orally milligrams, Phenergan 12.5 mg, and fluids by IV in the ER. The patient declined morphine 4 mg. He has been resting comfortably and sleeping most of the time the ER. Counseled pt/family regarding: lab results, diagnosis, need for follow-up, rad results - Departure Time of Disposition: 15:06 Departure Disposition: Home Clinical Impression: Abdominal pain, Hypokalemia Condition: Stable Critical Care Time: No Referrals: EDWIN RATLIFF MD [Primary Care Provider] - Additional Instructions: You have abdominal pain from an unknown cause. You were given Protonix 40 mg, Phenergan 12.5 mg, and fluids by IV in the ER. You also had mildly low serum potassium. You were given potassium chloride 20 mEq orally. You declined morphine in the ER. Take tramadol 50 mg every 6 hours as needed. Take Phenergan 25 mg every 8 hours as needed. Follow-up with Dr. Ratliff as previously scheduled on . Prescriptions: Tramadol HCl 50 mg [Ultram 50 mg] 50 mg PO Q6H PRN PRN #10 tablet PRN Reason: Pain Promethazine HCl 25 mg [Phenergan 25 mg] 25 mg PO Q8H PRN PRN #12 tablet PRN Reason: Nausea/Vomiting
[2018-02-19] MEDS ORDERED: PROTONIX 40 MG IV IV ONE ×2 (12:45→13:07)
[2018-02-19] MEDS ORDERED: Sodium Chloride 0.9% 1000 ML 1,000 ML IV STA (12:45)
[2018-02-19] MEDS ORDERED: MORPHINE SULFATE 4 MG INJ IV ONE (12:45)
[2018-02-19] MEDS ORDERED: Phenergan 25 MG INJ IV ONE (12:45)
[2018-02-19 13:07] LABS: BASOPHIL % 0.6 % (0.0-0.4); Basophil (Absolute #) 0.06 (0-0.4); Eosinophil % 4.3 % (0.00-5.0); Eosinophil (Absolute #) 0.46 (0-0.5); Granulocytes % 65.7 % (36.0-66.0); Hematocrit 39.8 % (42-50); Hemoglobin 13.4 gm/dl (12.5-18.0); Lymphocyte (Absolute #) 2.48 (1.0-4.6); Mean Cell Volume 88.1 fl (78-100); Mean Corpuscular Hemoglobin 29.6 pg (26-32); Mean Corpuscular Hgb Concent. 33.7 g/dl (32-36); Monocyte (Absolute #) 0.69 (0.0-1.3); Monocytes % 6.4 % (0.0-12.0); Platelet Count 356 K/mm3 (150-450); Red Blood Count 4.52 M/mm3 (4.1-5.6); Red Cell Distribution Width 13.9 % (11.5-14.0); White Blood Count 10.8 K/mm3 (4.0-10.5)
[2018-02-19] MEDS ORDERED: Phenergan 25 MG INJ ONE (13:07)
[2018-02-19] MEDS ORDERED: Sodium Chloride 0.9% 1000 ML 1,000 ML ONE (13:07)
[2018-02-19] MEDS ORDERED: MORPHINE SULFATE 4 MG INJ ONE (13:07)
[2018-02-19 13:23] LABS: ALBUMIN 4.2 g/dL (3.5-5.0); ALKALINE PHOSPHATASE 124 U/L (38-126); AMYLASE 84 U/L (30-110); ANION GAP 13.7 MEQ/L (5-15); BLOOD UREA NITROGEN 17 mg/dL (9-20); CHLORIDE 107 mmol/L (98-107); Carbon Dioxide 26 mmol/L (22-30); Creatinine 1 0.67 mg/dL (0.66-1.25); Glucose 94 mg/dL (74-106); LIPASE 52 U/L (23-300); Potassium 3.3 mmol/L (3.5-5.1); SGOT/AST 23 U/L (17-59); SGPT/ALT 20 U/L (0-50); SODIUM 144 mmol/L (137-145); Total Protein 7.4 g/dL (6.3-8.2)
[2018-02-19 13:24] LABS: Appearance CLEAR (CLEAR); Bilirubin NEGATIVE (NEGATIVE); Blood NEGATIVE Ery/ul (0-5); Glucose 50 mg/dL (NEGATIVE); Ketones NEGATIVE (NEGATIVE); Leukocyte Esterase NEGATIVE (NEGATIVE); Nitrite NEGATIVE (NEGATIVE); Protein,Urine Dip NEGATIVE (Negative); Specific Gravity 1.014 (1.005-1.025); Urobilinogen NEGATIVE mg/dL (0-1)
[2018-02-19 13:31] LABS: Amphetamine,Urine NEGATIVE (NEGATIVE); Barbiturate,Urine NEGATIVE (NEGATIVE); Benzodiazepine,Urine NEGATIVE (NEGATIVE); Cocaine,Urine NEGATIVE (NEGATIVE); Methadone,Urine NEGATIVE (NEGATIVE); Opiate,Urine NEGATIVE (NEGATIVE); PCP,Urine NEGATIVE (NEGATIVE); THC,Urine NEGATIVE (NEGATIVE)
--- NOTE | 2018-02-19 13:36 | XRAY ---
Indication: Right lower quadrant pain 6 days. Nausea and vomiting. Multiple contiguous axial images obtained through the abdomen and pelvis without contrast as ordered. Comparison: August 06, 2010. Lung bases essentially clear. Heart is not enlarged. Again small hiatal hernia. Noncontrasted stomach and bowel loops appear nonobstructed. Normal appendix. Mild diffuse scattered colonic fecal debris throughout including rectum. Again mild scattered colonic diverticulosis without diverticulitis. No free fluid/air. Remaining liver, gallbladder, pancreas, spleen, adrenal glands, kidneys, ureters, and bladder appear unremarkable for noncontrast exam. Stable mild aortoiliac calcifications without AAA. Osseous structures intact again with mild degenerative changes throughout the spine. No ventral or inguinal hernias. Impression: 1. Fecal stasis without obstruction. 2. Stable small hiatal hernia and colonic diverticulosis. 3. Remaining CT abdomen/pelvis without contrast exam is negative. CT DI 23.42
[2018-02-19] MEDS ORDERED: Klor Con 10 MEQ PO ONE ×2 (14:55→15:13)
[2018-02-19 15:31] VITALS: BP 120/70; PULSE 70; O2SAT 98
== END 2018-02-19 15:50 | disposition home or self-care (01) ==
LOC: ED 11:29
DX: R10.31 Right lower quadrant pain (principal); R10.32 Left lower quadrant pain; E87.6 Hypokalemia; R11.2 Nausea with vomiting, unspecified; Z79.899 Other long term (current) drug therapy
CPT/HCPCS: 36415; 74176; 80053; 80307; 81001; 82150; 83605; 83690; 84484; 85025; 93005; 96360; 96374; 96375; 99284; J2270; J2550; A9270-GY

== ENCOUNTER 2018-06-30 19:48 | Emergency (ER) | payer MEDICAID, OTHER ==
[2018-06-30] MEDS: Nitrostat 0.4 MG Tablet SL PRN ×3 (20:00→21:50)
[2018-06-30] MEDS ORDERED: BABY ASPIRIN 81 MG CHEW PO ONE (20:01)
[2018-06-30] MEDS ORDERED: MORPHINE SULFATE 4 MG INJ IV ONE (20:07)
--- NOTE | 2018-06-30 20:13 | ERPHSYRPT ---
- History of Present Illness Time Seen by Provider: 06/30/18 19:55 Historian: patient Exam Limitations: no limitations Patient Subjective Stated Complaint: pt states he began having chest pain this morning while doing yard work and its gotten worse throughout the day. states he has been having pain into the lt arm also Triage Nursing Assessment: pt alert and oriented, asnwers questions approp. pt ambulatory with steady gait noted. respirations nonlabored with lungs cta. heart rate 96 on monitor sinus rhythm. skin pink warm and dry. Physician History: 53 y/o white male with h/o htn, mi, cadz, ministroke and anxiety presents with nonradiating central substernal cp since this am. pt underwent a cardiac cath which, per pt report, revealed 50% blockage. in 01/07 pt seen in this ED for cp. pt sent to [facility] for elevated troponin and ekg changes. 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 Timing/Duration: today Activities at Onset: none Quality: pressure, tightness Chest Pain Radiation: no radiation Severity of Pain-Max: moderate Severity of Pain-Current: mild Modifying Factors: Improves With: nothing Associated Symptoms: denies symptoms Prior Chest Pain/Cardiac Workup: cardiac cath Nitro Today/Relief: no nitro taken today Aspirin Treatment Today: 81 mg x 1, provided at home Allergies/Adverse Reactions: No Known Drug Allergies Allergy (Verified 06/30/18 20:06) Home Medications: Aspirin EC 81 mg [Ecotrin 81 mg] 81 mg PO DAILY 06/30/18 [History] Hx Tetanus, Diphtheria Vaccination/Date Given: Yes Hx Influenza Vaccination/Date Given: Yes Hx Pneumococcal Vaccination/Date Given: No Immunizations Up to Date: Yes - Review of Systems Constitutional: No Symptoms Eyes: No Symptoms Ears, Nose, & Throat: No Symptoms Respiratory: No Symptoms Cardiac: Chest Pain Abdominal/Gastrointestinal: No Symptoms Genitourinary Symptoms: No Symptoms Musculoskeletal: No Symptoms Skin: No Symptoms Neurological: No Symptoms Psychological: No Symptoms Endocrine: No Symptoms Hematologic/Lymphatic: No Symptoms Immunological/Allergic: No Symptoms All Other Systems: Reviewed and Negative - Past Medical History Pertinent Past Medical History: Yes Neurological History: Stroke ENT History: Other Cardiac History: Hypertension, Myocardial Infarction ([place]), Other Respiratory History: No Pertinent History Endocrine Medical History: No Pertinent History Musculoskeletal History: Other GI Medical History: No Pertinent History History: No Pertinent History Psycho-Social History: Anxiety Male Reproductive Disorders: No Pertinent History Other Medical History: heart cath, "ministroke per pt report", back surgery when he was 16 - Past Surgical History Past Surgical History: Yes Neuro Surgical History: No Pertinent History Cardiac: Cardiac Catheterization Respiratory: No Pertinent History Gastrointestinal: Hernia Repair Genitourinary: No Pertinent History Musculoskeletal: Orthopedic Surgery Male Surgical History: No Pertinent History Other Surgical History: pt had bk surgery at 16. - Social History Smoking Status: Never smoker Exposure to second hand smoke: No Drug Use: none Patient Lives Alone: No - Nursing Vital Signs Nursing Vital Signs: Initial Vital Signs Pulse Rate 96 H 06/30/18 19:49 Respiratory Rate 18 06/30/18 19:49 Blood Pressure 241/126 06/30/18 19:49 O2 Sat by Pulse Oximetry 99 06/30/18 19:49 Pain Scale Pain Intensity 9 - Physical Exam General Appearance: mild distress, alert, anxiety Eye Exam: PERRL/EOMI, eyes nml inspection Ears, Nose, Throat Exam: normal ENT inspection, moist mucous membranes Neck Exam: normal inspection, non-tender, supple, full range of motion Respiratory Exam: normal breath sounds, chest tenderness, lungs clear, airway intact, No respiratory distress Cardiovascular Exam: regular rate/rhythm, normal heart sounds, normal peripheral pulses Gastrointestinal/Abdomen Exam: soft, normal bowel sounds, No tenderness Rectal Exam: not done Back Exam: normal inspection, normal range of motion, No CVA tenderness, No vertebral tenderness Extremity Exam: normal inspection, normal range of motion, pelvis stable Neurologic Exam: alert, oriented x 3, cooperative, terminal system operator II-XII nml as tested Skin Exam: normal color, warm, dry Lymphatic Exam: No adenopathy SpO2 Interpretation: normal SpO2: 99 O2 Delivery: Room Air - Course EKG Interpreted by Me: RATE (95), Sinus Rhythm, NORMAL AXIS, NORMAL INTERVALS, Other (st segment depression II, V4, V5, V6) Ordered Tests: Active Orders 24 hr Category Date Time Status Warehouse Stocker STAT Care 06/30/18 20:05 Active EKG-ER Only STAT Care 06/30/18 20:01 Active IV Insertion STAT Care 06/30/18 20:01 Active CBC W DIFF Stat Lab 06/30/18 20:13 Completed CMP Stat Lab 06/30/18 20:13 Completed D-DIMER QUANTITATION Stat Lab 06/30/18 20:13 Completed NT PRO BNP Stat Lab 06/30/18 20:13 Completed TROPONIN Q3H Lab 06/30/18 20:13 Completed TROPONIN Q3H Lab 06/30/18 23:15 Ordered TROPONIN Q3H Lab 07/01/18 02:15 Ordered TROPONIN Q3H Lab 07/01/18 05:15 Ordered TROPONIN Q3H Lab 07/01/18 08:15 Ordered Medication Summary Generic Name Dose Route Start Last Admin Trade Name Freurvashi PRN Reason Stop Dose Admin Sodium Chloride 1,000 mls @ 50 mls/hr 06/30/18 20:15 06/30/18 20:16 Sodium Chloride 0.9% 1000 Ml IV 07/30/18 20:14 50 mls/hr .Q20H CIARAN Administration Potassium Chloride 20 meq in 100 mls @ 50 mls/hr 06/30/18 20:43 Potassium Chloride 20 Meq In Water 100ml IV 06/30/18 22:42 STAT ONE Nitroglycerin 0.4 mg 06/30/18 20:07 06/30/18 20:08 Nitrostat 0.4 Mg Tablet SL 07/30/18 20:06 0.4 mg Q5MIN PRN MR X 3 PRN Administration CHEST PAIN Discontinued Medications Generic Name Dose Route Start Last Admin Trade Name Wendy PRN Reason Stop Dose Admin Aspirin 243 mg 06/30/18 20:01 06/30/18 20:08 Baby Aspirin 81 Mg Chew PO 06/30/18 20:02 243 mg STAT ONE Administration Potassium Chloride Confirm 06/30/18 20:52 Potassium Chloride 20 Meq In Water 100ml Administered 06/30/18 20:53 Dose 100 mls @ ud IV .STK-MED ONE Morphine Sulfate 4 mg 06/30/18 20:07 06/30/18 20:17 Morphine Sulfate 4 Mg Inj IV 06/30/18 20:08 4 mg STAT ONE Administration Morphine Sulfate Confirm 06/30/18 20:15 Morphine Sulfate 4 Mg Inj Administered 06/30/18 20:16 Dose 4 mg .ROUTE .STK-MED ONE Potassium Bicarbonate 50 meq 06/30/18 20:42 K-Lyte 25 Meq PO 06/30/18 20:43 STAT ONE Potassium Bicarbonate Confirm 06/30/18 20:52 K-Lyte 25 Meq Administered 06/30/18 20:53 Dose 50 meq .ROUTE .STK-MED ONE Lab/Rad Data: Laboratory Result Diagrams 06/30/18 20:13 06/30/18 20:13 Laboratory Results 06/30/18 06/30/18 06/30/18 Range/Units 20:13 20:13 20:13 WBC (4.0-10.5) K/mm3 RBC (4.1-5.6) M/mm3 Hgb (12.5-18.0) gm/dl Hct (42-50) % MCV (78-100) fl MCH (26-32) pg MCHC (32-36) g/dl RDW (11.5-14.0) % Plt Count (150-450) K/mm3 MPV (6-9.5) fl Gran % (36.0-66.0) % Eos # (Auto) (0-0.5) Absolute Lymphs (auto) (1.0-4.6) Absolute Monos (auto) (0.0-1.3) Lymphocytes % (24.0-44.0) % Monocytes % (0.0-12.0) % Eosinophils % (0.00-5.0) % Basophils % (0.0-0.4) % Absolute Granulocytes (1.4-6.9) Basophils # (0-0.4) D-Dimer 394 (215-500) ng/mL Sodium 142 (137-145) mmol/L Potassium 2.8 L* (3.5-5.1) mmol/L Chloride 104 (98-107) mmol/L Carbon Dioxide 27 (22-30) mmol/L Anion Gap 14.2 (5-15) MEQ/L BUN 22 H (9-20) mg/dL Creatinine 0.87 (0.66-1.25) mg/dL Estimated GFR > 60.0 ML/MIN Glucose 87 (74-106) mg/dL Calcium 10.3 H (8.4-10.2) mg/dL Total Bilirubin 0.80 (0.2-1.3) mg/dL AST 29 (17-59) U/L ALT 22 (0-50) U/L Alkaline Phosphatase 119 (38-126) U/L Troponin I 0.057 H* (0.000-0.034) ng/mL NT-Pro-B Natriuret Pep 403 (0-900) pg/mL Serum Total Protein 8.3 H (6.3-8.2) g/dL Albumin 4.4 (3.5-5.0) g/dL 06/30/18 Range/Units 20:13 WBC 15.8 H (4.0-10.5) K/mm3 RBC 4.82 (4.1-5.6) M/mm3 Hgb 14.6 (12.5-18.0) gm/dl Hct 41.3 L (42-50) % MCV 85.7 (78-100) fl MCH 30.3 (26-32) pg MCHC 35.4 (32-36) g/dl RDW 14.4 H (11.5-14.0) % Plt Count 366 (150-450) K/mm3 MPV 8.9 (6-9.5) fl Gran % 74.6 H (36.0-66.0) % Eos # (Auto) 0.33 (0-0.5) Absolute Lymphs (auto) 2.59 (1.0-4.6) Absolute Monos (auto) 1.03 (0.0-1.3) Lymphocytes % 16.4 L (24.0-44.0) % Monocytes % 6.5 (0.0-12.0) % Eosinophils % 2.1 (0.00-5.0) % Basophils % 0.4 (0.0-0.4) % Absolute Granulocytes 11.73 H (1.4-6.9) Basophils # 0.07 (0-0.4) D-Dimer (215-500) ng/mL Sodium (137-145) mmol/L Potassium (3.5-5.1) mmol/L Chloride (98-107) mmol/L Carbon Dioxide (22-30) mmol/L Anion Gap (5-15) MEQ/L BUN (9-20) mg/dL Creatinine (0.66-1.25) mg/dL Estimated GFR ML/MIN Glucose (74-106) mg/dL Calcium (8.4-10.2) mg/dL Total Bilirubin (0.2-1.3) mg/dL AST (17-59) U/L ALT (0-50) U/L Alkaline Phosphatase (38-126) U/L Troponin I (0.000-0.034) ng/mL NT-Pro-B Natriuret Pep (0-900) pg/mL Serum Total Protein (6.3-8.2) g/dL Albumin (3.5-5.0) g/dL - Progress Progress: improved Air Movement: good Progress Note: 06/30/18 21:[address] barrios, hospitalist at [facility], and reviewed pt hx, condition, labs, ekg results. she accepts pt in transfer. recommends statin drug and lovenox. Blood Culture(s) Obtained: No Antibiotics given: No Counseled pt/family regarding: lab results, diagnosis - Departure Departure Disposition: Transfer Clinical Impression: Hypertensive urgency, Non-ST elevated myocardial infarction (non-STEMI), Elevated troponin, Hypokalemia, ST segment depression Condition: Stable Critical Care Time: Yes Critical Care Time(excluding separately billable procedures): 30-74 minutes Referrals: EDWIN RATLIFF MD [Primary Care Provider] -
[2018-06-30 20:14] LABS: BASOPHIL % 0.4 % (0.0-0.4); Basophil (Absolute #) 0.07 (0-0.4); Eosinophil % 2.1 % (0.00-5.0); Eosinophil (Absolute #) 0.33 (0-0.5); Granulocyte Absolute (ANC) 11.73 (1.4-6.9); Granulocytes % 74.6 % (36.0-66.0); Hematocrit 41.3 % (42-50); Hemoglobin 14.6 gm/dl (12.5-18.0); Lymphocyte (Absolute #) 2.59 (1.0-4.6); Lymphocytes % 16.4 % (24.0-44.0); Mean Cell Volume 85.7 fl (78-100); Mean Corpuscular Hemoglobin 30.3 pg (26-32); Mean Corpuscular Hgb Concent. 35.4 g/dl (32-36); Mean Platelet Volume 8.9 fl (6-9.5); Monocyte (Absolute #) 1.03 (0.0-1.3); Monocytes % 6.5 % (0.0-12.0); Platelet Count 366 K/mm3 (150-450); Red Blood Count 4.82 M/mm3 (4.1-5.6); Red Cell Distribution Width 14.4 % (11.5-14.0); White Blood Count 15.8 K/mm3 (4.0-10.5)
[2018-06-30] MEDS ORDERED: Sodium Chloride 0.9% 1000 ML 1,000 ML ONE (20:15)
[2018-06-30] MEDS ORDERED: MORPHINE SULFATE 4 MG INJ ONE (20:15)
[2018-06-30] MEDS ORDERED: Sodium Chloride 0.9% 1000 ML 1,000 ML IV SCH (20:15)
[2018-06-30 20:40] LABS: ALBUMIN 4.4 g/dL (3.5-5.0); ALKALINE PHOSPHATASE 119 U/L (38-126); ANION GAP 14.2 MEQ/L (5-15); BLOOD UREA NITROGEN 22 mg/dL (9-20); CHLORIDE 104 mmol/L (98-107); Calcium 10.3 mg/dL (8.4-10.2); Carbon Dioxide 27 mmol/L (22-30); Creatinine 1 0.87 mg/dL (0.66-1.25); Glucose 87 mg/dL (74-106); NT PRO BNP 403 pg/mL (0-900); SGOT/AST 29 U/L (17-59); SGPT/ALT 22 U/L (0-50); SODIUM 142 mmol/L (137-145); Total Protein 8.3 g/dL (6.3-8.2)
[2018-06-30 20:41] LABS: Potassium 2.8 mmol/L (3.5-5.1)
[2018-06-30] MEDS ORDERED: K-LYTE 25 MEQ PO ONE (20:42)
[2018-06-30] MEDS ORDERED: POTASSIUM CHLORIDE 20 mEq IN WATER 100ML 20 MEQ/100 ML BAG IV ONE (20:43)
[2018-06-30] MEDS ORDERED: POTASSIUM CHLORIDE 20 mEq IN WATER 100ML 100 ML IV ONE (20:52)
[2018-06-30] MEDS ORDERED: K-LYTE 25 MEQ ONE (20:52)
[2018-06-30] MEDS ORDERED: ENOXAPARIN SODIUM SQ STA (21:09)
[2018-06-30] MEDS ORDERED: Zetia 10 MG** 10 MG, ZOCOR 20MG** 40 MG PO SCH ×2 (21:23)
[2018-06-30] MEDS ORDERED: ENOXAPARIN SODIUM SQ ONE (21:23)
[2018-06-30] MEDS ORDERED: ZOCOR 20MG ONE (21:27)
[2018-06-30] MEDS ORDERED: Zetia 10 MG ONE (21:27)
[2018-06-30] MEDS ORDERED: LOPRESSOR 5 MG/5 ML INJECTION IV ONE ×2 (22:16→22:17)
[2018-06-30 22:26] VITALS: BP 184/120; PULSE 83; O2SAT 98
== END 2018-06-30 22:35 | disposition short-term general hospital (02) ==
LOC: ED 19:48
DX: I16.0 Hypertensive urgency (principal); I21.4 Non-ST elevation (NSTEMI) myocardial infarction; R74.8 Abnormal levels of other serum enzymes; E87.6 Hypokalemia; F32.9 Major depressive disorder, single episode, unspecified; Z79.82 Long term (current) use of aspirin; F41.9 Anxiety disorder, unspecified
CPT/HCPCS: 36000; 36415; 80053; 83880; 84484; 85025; 85379; 93005; 93041; 96360; 96361; 96365; 96372; 96374; 96375; 99285; 99291; J1650; J2270; J3480; A9270-GY

== ENCOUNTER 2018-07-27 22:07 | Emergency (ER) | payer MEDICAID ==
[2018-07-27] MEDS ORDERED: Zofran 4 MG/2 ML VIAL IV ONE (23:27)
--- NOTE | 2018-07-27 23:27 | ERPHSYRPT ---
- History of Present Illness Time Seen by Provider: 07/27/18 23:00 Source: patient Exam Limitations: clinical condition Patient Subjective Stated Complaint: Headache Triage Nursing Assessment: Patient ambulated back to ED and transferred to bed per self. Patient A+O X 3. Patient's skin pink, warm and dry. Patient complains of headache after waking up from sleeping at 2200. Patient states his pain is constant dull in the back of head 10/10. 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 Patient smile slightly droops to left side. Right eye equal and reactive with left eye sluggish. Patient states he was recently at [facility] from a stroke. Physician History: PATIENT WITH A HISTORY OF CVA WITH LEFT HEMIPARESIS COMPLAINS OF GENERALIZED HEADACHES FOR 6 MONTHS, RESIDUAL LEFT HEMIPARESIS. DENIES BLURRED VISION, SLURRED SPEECH, OR INCREASING NUMBNESS, TINGLING OR WEAKNESS IN EXTREMITIES, ADMITS TO NO RELIEF WITH CURRENT MEDICATIONS. EVALUATED IN [facility] ON 07/15/2018 WITH A MRI OF HIS BRAIN CONSISTENT WITH NO EVIDENCE OF ACUTE ISCHEMIA OR INFARCTION, ENCEPHALOMALACIA SEEN OF THE POSTERIOR RIGHT PARIETAL, RIGHT OCCIPITAL AND RIGHT TEMPORAL LOBES. PATIENT WAS EVALUATED BY HIS PRIMARY CARE PROVIDER TODAY IN HIS OFFICE. Timing/Duration: week(s) Quality: throbbing Head Pain Location: global Severity of Pain-Max: moderate Severity of Pain-Current: moderate Recent Head Trauma: chronic headaches Modifying Factors: Improves With: exposure to light Associated Symptoms: sensitive to light Previous symptoms: same symptoms as today Allergies/Adverse Reactions: No Known Drug Allergies Allergy (Verified 07/27/18 22:45) Home Medications: Aspirin EC 81 mg [Ecotrin 81 mg] 81 mg PO DAILY 06/30/18 [History] Hx Tetanus, Diphtheria Vaccination/Date Given: No Hx Influenza Vaccination/Date Given: Yes Hx Pneumococcal Vaccination/Date Given: No Immunizations Up to Date: Yes - Review of Systems Constitutional: No Fever, No Chills Eyes: No Symptoms Ears, Nose, & Throat: No Symptoms Respiratory: No Symptoms, No Cough, No Dyspnea Cardiac: No Symptoms, No Chest Pain, No Edema, No Syncope Abdominal/Gastrointestinal: No Symptoms, No Abdominal Pain, No Nausea, No Vomiting, No Diarrhea Genitourinary Symptoms: No Symptoms, No Dysuria Musculoskeletal: No Symptoms, No Back Pain, No Neck Pain Skin: No Symptoms, No Rash Neurological: Headache, No Dizziness, No Focal Weakness, No Sensory Changes Psychological: No Symptoms Endocrine: No Symptoms Hematologic/Lymphatic: No Symptoms All Other Systems: Reviewed and Negative - Past Medical History Pertinent Past Medical History: Yes Neurological History: Stroke ENT History: Other Cardiac History: Hypertension, Myocardial Infarction ([place]), Other Respiratory History: No Pertinent History Endocrine Medical History: No Pertinent History Musculoskeletal History: Other GI Medical History: No Pertinent History History: No Pertinent History Psycho-Social History: Anxiety Male Reproductive Disorders: No Pertinent History Other Medical History: heart cath, "ministroke per pt report", back surgery when he was 16 - Past Surgical History Past Surgical History: Yes Neuro Surgical History: No Pertinent History Cardiac: Cardiac Catheterization Respiratory: No Pertinent History Gastrointestinal: Hernia Repair Genitourinary: No Pertinent History Musculoskeletal: Orthopedic Surgery Male Surgical History: No Pertinent History Other Surgical History: pt had bk surgery at 16. - Social History Smoking Status: Never smoker Exposure to second hand smoke: Yes Drug Use: none Patient Lives Alone: No - Nursing Vital Signs Nursing Vital Signs: Initial Vital Signs Temperature 98.4 F 07/27/18 22:45 Pulse Rate 73 07/27/18 22:45 Respiratory Rate 23 07/27/18 22:45 Blood Pressure 134/81 07/27/18 22:45 O2 Sat by Pulse Oximetry 95 07/27/18 22:45 Pain Scale Pain Intensity 10 - Physical Exam General Appearance: mild distress Eye Exam: eyes nml inspection, other (LEFT PUPIL DILATED 3MM, RIGHT 2MM, REACTIVE) Ears, Nose, Throat Exam: normal ENT inspection, moist mucous membranes Neck Exam: normal inspection, supple, full range of motion, No meningismus Respiratory Exam: normal breath sounds, lungs clear Cardiovascular Exam: regular rate/rhythm, normal heart sounds Gastrointestinal/Abdominal Exam: soft, normal bowel sounds, No tenderness, No distention Back Exam: normal inspection, normal range of motion Mental Status Exam: alert, oriented x 3, cooperative medical scheduler Exam: normal hearing, normal speech, PERRL, No facial droop Coordination/Gait Exam: normal finger to nose, normal cerebellar function Motor/Sensory Exam: no sensory deficit (NO CHANGE IN PATIENT'S DEFICITS), weak motor strength LUE, weak motor strength LLE DTR Exam: bicep (R): 2+, bicep (L): 2+, tricep (R): 2+, tricep (L): 2+, knee (R) : 2+, knee (L): 2+, ankle (R): 2+, ankle (L): 2+ Skin Exam: normal color, warm, dry, No rash SpO2 Interpretation: normal SpO2: 95 - Course EKG Interpreted by Me: Sinus Rhythm - CT Exams Head CT Interpretation: Tele-radiologist Report (NO EVIDENCE OF ACUTE INTRACRANIAL ABNORMALITY, OLD RIGHT TEMPOROPARIETAL OCCIPITAL INFARCT AGAIN DEMONSTRATED WITH ASSOCIATED ENCEPHALOMALACIA) Ordered Tests: Active Orders 24 hr Category Date Time 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 Care 07/27/18 23:28 Active IV Insertion STAT Care 07/27/18 23:27 Active Oxygen-ED Only Nasal Cannula 2 lpm Care 07/27/18 23:27 Active HEAD WITHOUT CONTRAST [CT] Stat Exams 07/27/18 23:28 Taken BMP Stat Lab 07/27/18 00:39 Completed CBC W DIFF Stat Lab 07/27/18 00:39 Completed CULTURE,URINE Stat Lab 07/28/18 00:39 Received MAGNESIUM Stat Lab 07/27/18 00:39 Completed PROTIME WITH INR Stat Lab 07/27/18 00:39 Received UA W/RFX UR CULTURE Stat Lab 07/28/18 00:39 Completed Urine Triage Profile Stat Lab 07/28/18 00:39 Completed Medication Summary Generic Name Dose Route Start Last Admin Trade Name Freq PRN Reason Stop Dose Admin Sodium Chloride 1,000 mls @ 50 mls/hr 07/27/18 23:30 07/28/18 00:20 Sodium Chloride 0.9% 1000 Ml IV 08/26/18 23:29 50 mls/hr .Q20H CIARAN Administration Discontinued Medications Generic Name Dose Route Start Last Admin Trade Name Freq PRN Reason Stop Dose Admin Hydromorphone HCl 1 mg 07/27/18 23:30 07/28/18 00:23 Hydromorphone 1 Mg/Ml Ampule IV 07/27/18 23:31 1 mg STAT ONE Administration Hydromorphone HCl Confirm 07/28/18 00:11 Hydromorphone 1 Mg/Ml Ampule Administered 07/28/18 00:12 Dose 1 mg .ROUTE .STK-MED ONE Ondansetron HCl 4 mg 07/27/18 23:27 07/28/18 00:23 Zofran 4 Mg/2 Ml Vial IV 07/27/18 23:28 4 mg STAT ONE Administration Ondansetron HCl Confirm 07/28/18 00:11 Zofran 4 Mg/2 Ml Vial Administered 07/28/18 00:12 Dose 4 mg .ROUTE .STK-MED ONE Lab/Rad Data: Laboratory Result Diagrams 07/27/18 00:39 07/27/18 00:39 Laboratory Results 07/28/18 07/28/18 07/27/18 Range/Units 00:39 00:39 00:39 WBC (4.0-10.5) K/mm3 RBC (4.1-5.6) M/mm3 Hgb (12.5-18.0) gm/dl Hct (42-50) % MCV (78-100) fl MCH (26-32) pg MCHC (32-36) g/dl RDW (11.5-14.0) % Plt Count (150-450) K/mm3 MPV (6-9.5) fl Gran % (36.0-66.0) % Eos # (Auto) (0-0.5) Absolute Lymphs (auto) (1.0-4.6) Absolute Monos (auto) (0.0-1.3) Lymphocytes % (24.0-44.0) % Monocytes % (0.0-12.0) % Eosinophils % (0.00-5.0) % Basophils % (0.0-0.4) % Absolute Granulocytes (1.4-6.9) Basophils # (0-0.4) Sodium 142 (137-145) mmol/L Potassium 3.7 (3.5-5.1) mmol/L Chloride 105 (98-107) mmol/L Carbon Dioxide 26 (22-30) mmol/L Anion Gap 14.5 (5-15) MEQ/L BUN 25 H (9-20) mg/dL Creatinine 1.58 H (0.66-1.25) mg/dL Estimated GFR 49.0 ML/MIN Glucose 98 (74-106) mg/dL Calcium 9.5 (8.4-10.2) mg/dL Magnesium 1.9 (1.6-2.3) mg/dL Urine Color YELLOW (YELLOW) Urine Appearance SLIGHTLY CLOUDY (CLEAR) Urine pH 5.0 (5-6) Ur Specific [place] 1.017 (1.005-1.025) Urine Protein 30 (Negative) Urine Ketones NEGATIVE (NEGATIVE) Urine Blood SMALL (0-5) Tuan/ul Urine Nitrite NEGATIVE (NEGATIVE) Urine Bilirubin SMALL (NEGATIVE) Urine Urobilinogen 4 (0-1) mg/dL Ur Leukocyte Esterase NEGATIVE (NEGATIVE) Urine WBC (Auto) 3-5 (0-5) /HPF Urine RBC (Auto) 3-5 (0-2) /HPF U Hyaline Cast (Auto) 11-25 (0-2) /LPF U Epithel Cells (Auto) NONE (FEW) /HPF Urine Bacteria (Auto) NONE (NEGATIVE) /HPF Urine Mucus (Auto) SLIGHT (NEGATIVE) /HPF Urine Culture Reflexed YES (NO) Urine Glucose NEGATIVE (NEGATIVE) mg/dL Urine Opiates Level NEGATIVE (NEGATIVE) Ur Methadone NEGATIVE (NEGATIVE) Urine Barbiturates NEGATIVE (NEGATIVE) Ur Phencyclidine (PCP) NEGATIVE (NEGATIVE) Urine Amphetamine NEGATIVE (NEGATIVE) U Benzodiazepine Level NEGATIVE (NEGATIVE) Urine Cocaine NEGATIVE (NEGATIVE) Urine Marijuana (THC) NEGATIVE (NEGATIVE) 07/27/18 Range/Units 00:39 WBC 12.6 H (4.0-10.5) K/mm3 RBC 4.21 (4.1-5.6) M/mm3 Hgb 12.6 (12.5-18.0) gm/dl Hct 37.5 L (42-50) % MCV 89.1 (78-100) fl MCH 29.9 (26-32) pg MCHC 33.6 (32-36) g/dl RDW 13.8 (11.5-14.0) % Plt Count 305 (150-450) K/mm3 MPV 9.3 (6-9.5) fl Gran % 65.1 (36.0-66.0) % Eos # (Auto) 0.44 (0-0.5) Absolute Lymphs (auto) 2.89 (1.0-4.6) Absolute Monos (auto) 1.01 (0.0-1.3) Lymphocytes % 22.9 L (24.0-44.0) % Monocytes % 8.0 (0.0-12.0) % Eosinophils % 3.5 (0.00-5.0) % Basophils % 0.5 (0.0-0.4) % Absolute Granulocytes 8.24 H (1.4-6.9) Basophils # 0.06 (0-0.4) Sodium (137-145) mmol/L Potassium (3.5-5.1) mmol/L Chloride (98-107) mmol/L Carbon Dioxide (22-30) mmol/L Anion Gap (5-15) MEQ/L BUN (9-20) mg/dL Creatinine (0.66-1.25) mg/dL Estimated GFR ML/MIN Glucose (74-106) mg/dL Calcium (8.4-10.2) mg/dL Magnesium (1.6-2.3) mg/dL Urine Color (YELLOW) Urine Appearance (CLEAR) Urine pH (5-6) Ur Specific [place] (1.005-1.025) Urine Protein (Negative) Urine Ketones (NEGATIVE) Urine Blood (0-5) Tuan/ul Urine Nitrite (NEGATIVE) Urine Bilirubin (NEGATIVE) Urine Urobilinogen (0-1) mg/dL Ur Leukocyte Esterase (NEGATIVE) Urine WBC (Auto) (0-5) /HPF Urine RBC (Auto) (0-2) /HPF U Hyaline Cast (Auto) (0-2) /LPF U Epithel Cells (Auto) (FEW) /HPF Urine Bacteria (Auto) (NEGATIVE) /HPF Urine Mucus (Auto) (NEGATIVE) /HPF Urine Culture Reflexed (NO) Urine Glucose (NEGATIVE) mg/dL Urine Opiates Level (NEGATIVE) Ur Methadone (NEGATIVE) Urine Barbiturates (NEGATIVE) Ur Phencyclidine (PCP) (NEGATIVE) Urine Amphetamine (NEGATIVE) U Benzodiazepine Level (NEGATIVE) Urine Cocaine (NEGATIVE) Urine Marijuana (THC) (NEGATIVE) - Progress Progress: re-examined Progress Note: 07/28/18 01:17 IV NORMAL SALINE AT 100 ML/HR ZOFRAN 4MG IV, DILAUDID 1MG IV Discussed with : Gurinder (DISCUSSED RESULTS WITH DR RATLIFF AT 0115) - Departure Departure Disposition: Home Clinical Impression: CHRONIC RECURRENT CEPHALGIA Condition: Stable Critical Care Time: No Referrals: EDWIN RATLIFF MD [Primary Care Provider] - Additional Instructions: CONTINUE ALL CURRENT MEDICATIONS. FOLLOWUP WITH YOUR PRIMARY CARE PROVIDER FOR REFERRAL TO NEUROLOGIST. NORCO 5/325 EVERY 6 HOURS DISPENSED 2 TABLETS TAKE HOME.
[2018-07-27] MEDS ORDERED: Hydromorphone 1 mg/ml Ampule IV ONE (23:30)
[2018-07-27] MEDS ORDERED: Sodium Chloride 0.9% 1000 ML 1,000 ML IV SCH (23:30)
[2018-07-28] MEDS ORDERED: Zofran 4 MG/2 ML VIAL ONE (00:11)
[2018-07-28] MEDS ORDERED: Hydromorphone 1 mg/ml Ampule ONE (00:11)
[2018-07-28] MEDS ORDERED: Sodium Chloride 0.9% 1000 ML 1,000 ML ONE (00:12)
[2018-07-28 00:34] LABS: BASOPHIL % 0.5 % (0.0-0.4); Basophil (Absolute #) 0.06 (0-0.4); Eosinophil % 3.5 % (0.00-5.0); Eosinophil (Absolute #) 0.44 (0-0.5); Granulocyte Absolute (ANC) 8.24 (1.4-6.9); Granulocytes % 65.1 % (36.0-66.0); Hematocrit 37.5 % (42-50); Hemoglobin 12.6 gm/dl (12.5-18.0); Lymphocyte (Absolute #) 2.89 (1.0-4.6); Lymphocytes % 22.9 % (24.0-44.0); Mean Cell Volume 89.1 fl (78-100); Mean Corpuscular Hemoglobin 29.9 pg (26-32); Mean Corpuscular Hgb Concent. 33.6 g/dl (32-36); Mean Platelet Volume 9.3 fl (6-9.5); Monocyte (Absolute #) 1.01 (0.0-1.3); Platelet Count 305 K/mm3 (150-450); Red Blood Count 4.21 M/mm3 (4.1-5.6); Red Cell Distribution Width 13.8 % (11.5-14.0); White Blood Count 12.6 K/mm3 (4.0-10.5)
[2018-07-28 00:46] LABS: ANION GAP 14.5 MEQ/L (5-15); Calcium 9.5 mg/dL (8.4-10.2); Creatinine 1 1.58 mg/dL (0.66-1.25); MAGNESIUM 1.9 mg/dL (1.6-2.3); Potassium 3.7 mmol/L (3.5-5.1)
[2018-07-28 00:47] LABS: Appearance SLIGHTLY CLOUDY (CLEAR); Bilirubin SMALL (NEGATIVE); Blood SMALL Ery/ul (0-5); Glucose NEGATIVE (NEGATIVE); Ketones NEGATIVE (NEGATIVE); Leukocyte Esterase NEGATIVE (NEGATIVE); Mucus SLIGHT /HPF (NEGATIVE); Nitrite NEGATIVE (NEGATIVE); Protein,Urine Dip 30 (Negative); Specific Gravity 1.017 (1.005-1.025); Urobilinogen 4 mg/dL (0-1)
[2018-07-28 00:54] LABS: Amphetamine,Urine NEGATIVE (NEGATIVE); Barbiturate,Urine NEGATIVE (NEGATIVE); Benzodiazepine,Urine NEGATIVE (NEGATIVE); Cocaine,Urine NEGATIVE (NEGATIVE); Methadone,Urine NEGATIVE (NEGATIVE); Opiate,Urine NEGATIVE (NEGATIVE); PCP,Urine NEGATIVE (NEGATIVE); THC,Urine NEGATIVE (NEGATIVE)
[2018-07-28 01:10] VITALS: O2SAT 95
[2018-07-28 01:15] VITALS: BP 131/80; PULSE 64
[2018-07-28] MEDS ORDERED: NORCO 5/325 MG PO ONE (01:21)
[2018-07-28] MEDS ORDERED: NORCO 5/325 MG ONE (01:26)
--- NOTE | 2018-07-28 08:22 | XRAY ---
Indication: Severe headache. Right-sided stroke. Multiple contiguous axial images obtained through the head without contrast. Comparison: May 05, 2012. Stable old right temporoparietal infarct. Minimal periventricular degenerative micro-ischemia bilaterally. No acute intracranial hemorrhage, hydrocephalus, or mass effect. Fourth ventricle is midline without hydrocephalus. Garcia-white matter differentiation preserved. Bony calvarium intact with incidental old nasal bone fracture deformity. Mild mucosal thickening of both ethmoid sinuses. Remaining visualized paranasal sinuses and mastoid air cells are clear. Impression: 1. Stable old right temporal parietal infarct. Normal aging degenerative micro-ischemia. 2. No acute intracranial abnormalities. 3. Incidental paranasal sinus disease. Comment: Preliminary interpretation was made by [facility]. No discrepancy. CTDI 67.60
== END 2018-07-28 01:38 | disposition home or self-care (01) ==
LOC: ED 22:07
DX: R51 Headache (principal); I69.854 Hemiplegia and hemiparesis following other cerebrovascular disease affecting left non-dominant side; I10 Essential (primary) hypertension; I25.2 Old myocardial infarction; Z79.82 Long term (current) use of aspirin
CPT/HCPCS: 36000; 36415; 70450; 80048; 80307; 81001; 83735; 85025; 87086; 93041; 96360; 96374; 96375; 99284; J1170; J2405; A9270-GY

== ENCOUNTER 2018-07-29 12:26 | Observation (INO) | payer MEDICAID ==
[2018-07-29] MEDS ORDERED: Sodium Chloride 0.9% 1000 ML 1,000 ML IV SCH (12:45)
--- NOTE | 2018-07-29 12:56 | ERPHSYRPT ---
- History of Present Illness Time Seen by Provider: 07/29/18 12:45 Source: patient Exam Limitations: no limitations Patient Subjective Stated Complaint: Pt states "I have this heart monitor on from Dr. Jhon Whitney [facility], and I passed out this morning, then went to [employer] and I got a call from the monitoring people and they said to get to the ER." Triage Nursing Assessment: Pt presented through the front doors, alert and oriented X3, skin pwd. PT ambulates with an upright steady gait, able to speak in clear full sentences. Pt in no apparent respiratory distress. Pt stated he is extremely tired. Physician History: 53-year-old white male with history of CVA, high blood pressure, myocardial infarction, anxiety, heart catheter, many strokes, back surgery Who apparently has a electronic device monitor. He states that he passed out this morning at about 10:00 he does not know how long he was out. He states that he was contacted by the people who run the monitor telling him that he needed to proceed to the emergency room. He is denying any shortness of breath no chest pain he does state that he is tired. Past medical history includes CVA high blood pressure myocardial infarction, anxiety, heart catheter, mini stroke, back surgery Past surgical history includes cardiac catheter, orthopedic surgery, back surgery at 16 years old, hernia. Social history patient denies tobacco alcohol or illicit drug use. Timing/Duration: today (10:00 this morning) Severity: moderate Modifying Factors: Improves With: nothing Associated Symptoms: headaches (chronic headache), syncope, No nausea, No vomiting, No abdominal pain, No shortness of breath, No heartburn, No diaphoresis, No cough, No chills, No chest pain, No fever, No loss of appetite, No malaise, No rash, No seizure, No weakness, No other Allergies/Adverse Reactions: No Known Drug Allergies Allergy (Verified 07/27/18 22:45) Home Medications: Aspirin EC 81 mg [Ecotrin 81 mg] 81 mg PO DAILY 06/30/18 [History] Etodolac 400 mg [Lodine 400 mg] 400 mg PO DAILY 07/29/18 [History] Potassium Chloride 10 Meq Tab* [Klor Con 10 MEQ] 20 meq PO DAILY 07/29/18 [ History] Hx Tetanus, Diphtheria Vaccination/Date Given: Yes Hx Influenza Vaccination/Date Given: Yes Hx Pneumococcal Vaccination/Date Given: No Immunizations Up to Date: Yes - Review of Systems Constitutional: No Fever, No Chills Eyes: No Symptoms Ears, Nose, & Throat: No Symptoms Respiratory: No Cough, No Dyspnea Cardiac: Syncope, No Chest Pain, No Edema, No Palpitations, No Orthopnea Abdominal/Gastrointestinal: No Abdominal Pain, No Nausea, No Vomiting, No Diarrhea Genitourinary Symptoms: No Dysuria Musculoskeletal: No Back Pain, No Neck Pain Skin: No Rash Neurological: Dizziness, No Focal Weakness, No Sensory Changes Psychological: No Symptoms Endocrine: No Symptoms All Other Systems: Reviewed and Negative - Past Medical History Pertinent Past Medical History: Yes Neurological History: Stroke ENT History: Other Cardiac History: Hypertension, Myocardial Infarction ([place]), Other Respiratory History: No Pertinent History Endocrine Medical History: No Pertinent History Musculoskeletal History: Other GI Medical History: No Pertinent History History: No Pertinent History Psycho-Social History: Anxiety Male Reproductive Disorders: No Pertinent History Other Medical History: heart cath, "ministroke per pt report", back surgery when he was 16 - Past Surgical History Past Surgical History: Yes Neuro Surgical History: No Pertinent History Cardiac: Cardiac Catheterization Respiratory: No Pertinent History Gastrointestinal: Hernia Repair Genitourinary: No Pertinent History Musculoskeletal: Orthopedic Surgery Male Surgical History: No Pertinent History Other Surgical History: pt had bk surgery at 16. - Social History Smoking Status: Never smoker Exposure to second hand smoke: Yes Drug Use: none Patient Lives Alone: No - Nursing Vital Signs Nursing Vital Signs: Initial Vital Signs Temperature 97.8 F 07/29/18 12:27 Pulse Rate 80 07/29/18 12:27 Respiratory Rate 16 07/29/18 12:27 Blood Pressure 154/97 07/29/18 12:27 O2 Sat by Pulse Oximetry 98 07/29/18 12:27 Pain Scale Pain Intensity 0 - Physical Exam General Appearance: no apparent distress, alert Eye Exam: other (eyes left pupil permanently somewhat dilated, right pupil reactive extraocular muscles intact) Ears, Nose, Throat Exam: normal ENT inspection, TMs normal, pharynx normal, moist mucous membranes Neck Exam: normal inspection, non-tender, supple, full range of motion Respiratory Exam: normal breath sounds, lungs clear, No respiratory distress Cardiovascular Exam: regular rate/rhythm, normal heart sounds, normal peripheral pulses, capillary refill <2 sec Gastrointestinal/Abdomen Exam: soft, normal bowel sounds, No tenderness, No mass Back Exam: normal inspection, normal range of motion, No CVA tenderness, No vertebral tenderness Extremity Exam: normal inspection, normal range of motion, pelvis stable Neurologic Exam: alert, oriented x 3, cooperative, tax senior 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 II-XII nml as tested, normal mood/affect, nml cerebellar function, nml station & gait, sensation nml, No motor deficits Skin Exam: normal color, warm, dry, No rash SpO2 Interpretation: normal (98%) SpO2: 98 - Course Nursing assessment & vital signs reviewed: Yes EKG Interpreted by Me: RATE (69 bpm), Sinus Rhythm, NORMAL AXIS, Other (EKG: Sinus rhythm, 69 beats per minute, normal axis, left ventricular hypertrophy no acute ST or T wave changes compared to June 30, 2018) Ordered Tests: Active Orders 24 hr Category Date Time Status EKG-ER Only STAT Care 07/29/18 12:45 Active IV Insertion STAT Care 07/29/18 12:45 Active CBC W DIFF Stat Lab 07/29/18 13:24 Completed CMP Stat Lab 07/29/18 13:24 Completed D-DIMER QUANTITATION Stat Lab 07/29/18 13:24 Completed PROTIME WITH INR Stat Lab 07/29/18 13:24 Completed PTT Stat Lab 07/29/18 13:24 Completed TROPONIN Q3H Lab 07/29/18 13:24 Completed TROPONIN Q3H Lab 07/29/18 15:45 Ordered TROPONIN Q3H Lab 07/29/18 18:45 Ordered TROPONIN Q3H Lab 07/29/18 21:45 Ordered TROPONIN Q3H Lab 07/30/18 00:45 Ordered Medication Summary Generic Name Dose Route Start Last Admin Trade Name Freq PRN Reason Stop Dose Admin Sodium Chloride 1,000 mls @ 100 mls/hr 07/29/18 12:45 07/29/18 12:58 Sodium Chloride 0.9% 1000 Ml IV 08/28/18 12:44 100 mls/hr .Q10H CIARAN Administration Lab/Rad Data: Laboratory Result Diagrams 07/29/18 13:24 07/29/18 13:24 Laboratory Results 07/29/18 07/29/18 07/29/18 Range/Units 13:24 13:24 13:24 WBC 12.3 H (4.0-10.5) K/mm3 RBC 3.99 L (4.1-5.6) M/mm3 Hgb 12.1 L (12.5-18.0) gm/dl Hct 35.6 L (42-50) % MCV 89.2 (78-100) fl MCH 30.3 (26-32) pg MCHC 34.0 (32-36) g/dl RDW 13.4 (11.5-14.0) % Plt Count 282 (150-450) K/mm3 MPV 9.5 (6-9.5) fl Gran % 70.1 H (36.0-66.0) % Eos # (Auto) 0.46 (0-0.5) Absolute Lymphs (auto) 2.39 (1.0-4.6) Absolute Monos (auto) 0.79 (0.0-1.3) Lymphocytes % 19.4 L (24.0-44.0) % Monocytes % 6.4 (0.0-12.0) % Eosinophils % 3.7 (0.00-5.0) % Basophils % 0.4 (0.0-0.4) % Absolute Granulocytes 8.62 H (1.4-6.9) Basophils # 0.05 (0-0.4) PT 14.1 H (8.83-12.87) SECONDS INR 1.21 (0.8-3.0) APTT 31.4 (24.1-36.1) SECONDS D-Dimer < 215 L (215-500) ng/mL Sodium 141 (137-145) mmol/L Potassium 3.6 (3.5-5.1) mmol/L Chloride 106 (98-107) mmol/L Carbon Dioxide 24 (22-30) mmol/L Anion Gap 15.1 H (5-15) MEQ/L BUN 25 H (9-20) mg/dL Creatinine 1.08 (0.66-1.25) mg/dL Estimated GFR > 60.0 ML/MIN Glucose 93 (74-106) mg/dL Calcium 9.4 (8.4-10.2) mg/dL Total Bilirubin 0.40 (0.2-1.3) mg/dL AST 18 (17-59) U/L ALT 19 (0-50) U/L Alkaline Phosphatase 106 (38-126) U/L Troponin I (0.000-0.034) ng/mL Serum Total Protein 7.2 (6.3-8.2) g/dL Albumin 3.9 (3.5-5.0) g/dL 07/29/18 Range/Units 13:24 WBC (4.0-10.5) K/mm3 RBC (4.1-5.6) M/mm3 Hgb (12.5-18.0) gm/dl Hct (42-50) % MCV (78-100) fl MCH (26-32) pg MCHC (32-36) g/dl RDW (11.5-14.0) % Plt Count (150-450) K/mm3 MPV (6-9.5) fl Gran % (36.0-66.0) % Eos # (Auto) (0-0.5) Absolute Lymphs (auto) (1.0-4.6) Absolute Monos (auto) (0.0-1.3) Lymphocytes % (24.0-44.0) % Monocytes % (0.0-12.0) % Eosinophils % (0.00-5.0) % Basophils % (0.0-0.4) % Absolute Granulocytes (1.4-6.9) Basophils # (0-0.4) PT (8.83-12.87) SECONDS INR (0.8-3.0) APTT (24.1-36.1) SECONDS D-Dimer (215-500) ng/mL Sodium (137-145) mmol/L Potassium (3.5-5.1) mmol/L Chloride (98-107) mmol/L Carbon Dioxide (22-30) mmol/L Anion Gap (5-15) MEQ/L BUN (9-20) mg/dL Creatinine (0.66-1.25) mg/dL Estimated GFR ML/MIN Glucose (74-106) mg/dL Calcium (8.4-10.2) mg/dL Total Bilirubin (0.2-1.3) mg/dL AST (17-59) U/L ALT (0-50) U/L Alkaline Phosphatase (38-126) U/L Troponin I < 0.012 (0.000-0.034) ng/mL Serum Total Protein (6.3-8.2) g/dL Albumin (3.5-5.0) g/dL - Progress Progress: improved Progress Note: 07/29/18 14:58 53-year-old white male with a history of CVA, high blood pressure, myocardial infarction, heart catheter, mini stroke, back surgery. Patient arrives with complaint that he passed out this morning prior to discharge he apparently had a electronic device monitor and place and had pushed the button he went to [employer] and while at [employer] he was contacted by the pacemaker monitoring service and he was told to present to the emergency room. Patient arrives he has a chronic headache which he has had since his stroke in the past. He apparently had a MRI done at [facility] on July 15, 2018. Patient had a head CT done here 2 days ago when he presented with a complaint of a headache. The patient's nurse contacted the monitoring service for the patient's pacemaker they stated that there were no dysrhythmias at the time of his syncope this morning. Patient arrived he was alert oriented x3 his main complaint is that he feels extremely tired. He has full range of motion to his extremities and normal finger-nose and speech is normal. Patient's EKG remarkable for sinus rhythm 69 beats per minute normal axis left ventricular hypertrophy no acute ST or T wave changes Patient's white count 12.3 hemoglobin 12.1 hematocrit 35.6 platelets 282 Patient's chemistry sodium 141 potassium 36 chloride 106 bicarbonate 24 BUN 25 creatinine 108 glucose 93 troponin is within normal limits I discussed the patient's case with Dr. Ratliff he requests that I go ahead and place patient on observation. Will go ahead and order a neurologist consult on the patient we'll also go ahead and asked to have records from the patient's recent head CT at [facility] placed on the patient's chart. - Departure Departure Disposition: Observation Clinical Impression: Syncope Condition: Fair Critical Care Time: No Referrals: EDWIN RATLIFF MD [Primary Care Provider] -
[2018-07-29] MEDS ORDERED: Sodium Chloride 0.9% 1000 ML 1,000 ML ONE (12:57)
[2018-07-29 13:28] LABS: BASOPHIL % 0.4 % (0.0-0.4); Basophil (Absolute #) 0.05 (0-0.4); Eosinophil % 3.7 % (0.00-5.0); Eosinophil (Absolute #) 0.46 (0-0.5); Granulocyte Absolute (ANC) 8.62 (1.4-6.9); Granulocytes % 70.1 % (36.0-66.0); Hematocrit 35.6 % (42-50); Hemoglobin 12.1 gm/dl (12.5-18.0); Lymphocyte (Absolute #) 2.39 (1.0-4.6); Lymphocytes % 19.4 % (24.0-44.0); Mean Cell Volume 89.2 fl (78-100); Mean Corpuscular Hemoglobin 30.3 pg (26-32); Mean Platelet Volume 9.5 fl (6-9.5); Monocyte (Absolute #) 0.79 (0.0-1.3); Monocytes % 6.4 % (0.0-12.0); Platelet Count 282 K/mm3 (150-450); Red Blood Count 3.99 M/mm3 (4.1-5.6); Red Cell Distribution Width 13.4 % (11.5-14.0); White Blood Count 12.3 K/mm3 (4.0-10.5)
[2018-07-29 13:34] LABS: INR 1.21 (0.8-3.0); PROTIME 14.1 SECONDS (8.83-12.87)
[2018-07-29 13:37] LABS: PTT 31.4 SECONDS (24.1-36.1)
[2018-07-29 13:38] LABS: ALBUMIN 3.9 g/dL (3.5-5.0); ALKALINE PHOSPHATASE 106 U/L (38-126); ANION GAP 15.1 MEQ/L (5-15); BLOOD UREA NITROGEN 25 mg/dL (9-20); CHLORIDE 106 mmol/L (98-107); Calcium 9.4 mg/dL (8.4-10.2); Carbon Dioxide 24 mmol/L (22-30); Creatinine 1 1.08 mg/dL (0.66-1.25); Glucose 93 mg/dL (74-106); Potassium 3.6 mmol/L (3.5-5.1); SGOT/AST 18 U/L (17-59); SGPT/ALT 19 U/L (0-50); SODIUM 141 mmol/L (137-145); Total Protein 7.2 g/dL (6.3-8.2)
[2018-07-29 13:39] LABS: D-DIMER QUANTITATION < 215 ng/mL (215-500)
[2018-07-29] MEDS ORDERED: ENOXAPARIN SODIUM SQ ONE (21:22)
[2018-07-29] MEDS: Klor Con 10 MEQ PO SCH (21:43)
[2018-07-29] MEDS: Topamax 25 MG PO SCH (21:43)
[2018-07-29] MEDS: ZOCOR 20MG PO SCH (21:46)
[2018-07-29] MEDS: XARELTO 10 MG TABLET PO SCH (21:47)
[2018-07-29] MEDS ORDERED: ENOXAPARIN SODIUM SQ SCH (22:00)
[2018-07-29] MEDS: Sodium Chloride 0.9% 1000 ML 1,000 ML IV SCH (23:39)
[2018-07-30 00:34] LABS: Appearance CLEAR (CLEAR); Bilirubin NEGATIVE (NEGATIVE); Blood NEGATIVE Ery/ul (0-5); Glucose NEGATIVE (NEGATIVE); Ketones NEGATIVE (NEGATIVE); Leukocyte Esterase NEGATIVE (NEGATIVE); Nitrite NEGATIVE (NEGATIVE); Protein,Urine Dip NEGATIVE (Negative); Specific Gravity 1.012 (1.005-1.025); Urobilinogen 2 mg/dL (0-1)
[2018-07-30 00:47] LABS: Amphetamine,Urine NEGATIVE (NEGATIVE); Barbiturate,Urine NEGATIVE (NEGATIVE); Benzodiazepine,Urine NEGATIVE (NEGATIVE); Cocaine,Urine NEGATIVE (NEGATIVE); Methadone,Urine NEGATIVE (NEGATIVE); Opiate,Urine NEGATIVE (NEGATIVE); PCP,Urine NEGATIVE (NEGATIVE); THC,Urine NEGATIVE (NEGATIVE)
[2018-07-30 05:25] LABS: BASOPHIL % 0.4 % (0.0-0.4); Basophil (Absolute #) 0.05 (0-0.4); Eosinophil % 4.8 % (0.00-5.0); Eosinophil (Absolute #) 0.55 (0-0.5); Granulocyte Absolute (ANC) 7.38 (1.4-6.9); Granulocytes % 64.1 % (36.0-66.0); Hematocrit 36.7 % (42-50); Hemoglobin 12.3 gm/dl (12.5-18.0); Lymphocyte (Absolute #) 2.79 (1.0-4.6); Lymphocytes % 24.2 % (24.0-44.0); Mean Cell Volume 89.7 fl (78-100); Mean Corpuscular Hgb Concent. 33.5 g/dl (32-36); Mean Platelet Volume 9.1 fl (6-9.5); Monocyte (Absolute #) 0.75 (0.0-1.3); Monocytes % 6.5 % (0.0-12.0); Platelet Count 266 K/mm3 (150-450); Red Blood Count 4.09 M/mm3 (4.1-5.6); Red Cell Distribution Width 13.4 % (11.5-14.0); White Blood Count 11.5 K/mm3 (4.0-10.5)
[2018-07-30 06:00] LABS: ALBUMIN 3.6 g/dL (3.5-5.0); ALKALINE PHOSPHATASE 111 U/L (38-126); ANION GAP 13.1 MEQ/L (5-15); BLOOD UREA NITROGEN 18 mg/dL (9-20); CHLORIDE 111 mmol/L (98-107); Calcium 9.2 mg/dL (8.4-10.2); Carbon Dioxide 22 mmol/L (22-30); Cholesterol 164 mg/dL (50-200); Creatinine 1 0.92 mg/dL (0.66-1.25); Glucose 90 mg/dL (74-106); HDL CHOLESTEROL 25 mg/dL (40-60); LDL, DIRECT 102 mg/dL (30-100); MAGNESIUM 1.8 mg/dL (1.6-2.3); Potassium 3.9 mmol/L (3.5-5.1); Risk Ratio 6.6; SGOT/AST 17 U/L (17-59); SGPT/ALT 16 U/L (0-50); SODIUM 142 mmol/L (137-145); TRIGLYCERIDE 197 mg/dL (30-150); Total Protein 6.8 g/dL (6.3-8.2)
[2018-07-30 06:03] LABS: Erythrocyte Sedimentation Rate 26 mm/hr (0-15)
[2018-07-30] MEDS ORDERED: MEDICATION INTERVENTION MC SCH (07:15)
--- NOTE | 2018-07-30 08:41 | XRAY ---
Indication: Headache and dizziness. Possible aspiration. Comparison: January 17, 2018. AP/lateral chest obtained in wheelchair remains clear. Heart is not enlarged. Bony thorax intact again with mild degenerative changes. New electronic device projects over the cardiac silhouette. Impression: Nonacute hyperinflated chest with chronic features.
[2018-07-30] MEDS: Sodium Chloride 0.9% 1000 ML 1,000 ML IV SCH (09:43)
[2018-07-30] MEDS: XARELTO 10 MG TABLET PO SCH ×2 (09:44→21:39)
[2018-07-30] MEDS: ECOTRIN 81 MG PO SCH (09:45)
[2018-07-30] MEDS: Klor Con 10 MEQ PO SCH ×2 (09:45→21:39)
[2018-07-30] MEDS ORDERED: ETODOLAC 400 MG PO SCH (10:00)
--- NOTE | 2018-07-30 12:41 | PCM.HP ---
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 He states that he passed out this morning at about 10:00 he does not know how long he was out. He states that he was contacted by the people who run the monitor telling him that he needed to proceed to the emergency room. He is denying any shortness of breath no chest pain he does state that he is tired. Past medical history includes CVA high blood pressure myocardial infarction, anxiety, heart catheter, mini stroke, back surgery - Review of Systems Constitutional: No Fever, No Chills Eyes: No Symptoms Ears, Nose, & Throat: No Symptoms Respiratory: No Cough, No Short Of Breath Cardiac: No Chest Pain, No Edema, No Syncope Abdominal/Gastrointestinal: No Abdominal Pain, No Nausea, No Vomiting, No Diarrhea Genitourinary Symptoms: No Dysuria Musculoskeletal: No Back Pain, No Neck Pain Skin: No Rash Neurological: No Dizziness, No Focal Weakness, No Sensory Changes Psychological: No Symptoms Endocrine: No Symptoms Hematologic/Lymphatic: No Symptoms Immunological/Allergic: No Symptoms Medications & Allergies Home Medications: Home Medication List Aspirin EC 81 mg [Ecotrin 81 mg] 81 mg PO DAILY 06/30/18 [History Confirmed 07/29/18] Etodolac 400 mg [Lodine 400 mg] 400 mg PO BID 07/29/18 [History Confirmed ] Potassium Chloride 10 Meq Tab* [Klor Con 10 MEQ] 20 meq PO BID 07/29/18 [ History Confirmed 07/29/18] Allergies/Adverse Reactions: Allergies Allergy/AdvReac Type Severity Reaction Status Date / Time No Known Drug Allergies Allergy Verified 07/27/18 22:45 - Past Medical History Past Medical History: Yes Neurological History: Stroke ENT History: Other Cardiac History: Hypertension, Myocardial Infarction ([place]), Other Respiratory History: No Pertinent History Endocrine Medical History: No Pertinent History Musculoskelatal History: Other GI Medical History: GERD History: No Pertinent History Pyscho-Social History: Anxiety Male Reproductive Disorders: No Pertinent History Comment: heart cath, CVA, back surgery when he was 16, blood poisoning when in 4th grade, bitten by brown recluse spider, kidney stones x 9 - Past Surgical History Past Surgical History: Yes Neuro Surgical History: No Pertinent History Cardiac History: Cardiac Catheterization Respiratory Surgery: No Pertinent History GI Surgical History: Hernia Repair Genitourinary Surgical Hx: No Pertinent History Musculskeletal Surgical Hx: Orthopedic Surgery Male Surgical History: No Pertinent History Other Surgical History: pt had bk surgery at 16. - Social History Smoking Status: Never smoker Exposure to second hand smoke: Yes Alcohol: None Drug Use: none - Physical Exam Vital Signs: Vital Signs - 24 hr Temp Pulse Resp BP Pulse Ox 07/30/18 08:00 98.3 F 66 19 170/80 93 L 07/30/18 04:05 98.1 F 63 18 128/73 97 07/30/18 00:00 18 07/29/18 23:56 98.5 F 55 L 18 138/67 97 07/29/18 20:00 98.3 F 60 18 127/69 96 07/29/18 17:03 97.8 F 92 H 20 151/86 94 L 07/29/18 16:04 97.8 F 92 H 20 151/86 94 L 07/29/18 15:56 97.8 F 92 H 20 151/86 94 L 07/29/18 15:55 97.8 F 92 H 20 151/86 94 L 07/29/18 15:06 97.8 F 66 16 152/70 98 07/29/18 15:05 98 07/29/18 14:24 62 16 137/65 98 General Appearance: no apparent distress, alert Neurologic Exam: alert, oriented x 3, cooperative, normal mood/affect, nml cerebellar function, nml station & gait, sensation nml, No motor deficits Eye Exam: PERRL/EOMI, eyes nml inspection Ears, Nose, Throat Exam: normal ENT inspection, TMs normal, pharynx normal, moist mucous membranes Neck Exam: normal inspection, non-tender, supple, full range of motion Respiratory Exam: normal breath sounds, lungs clear, No respiratory distress Cardiovascular Exam: regular rate/rhythm, normal heart sounds, normal peripheral pulses Gastrointestinal/Abdomen Exam: soft, normal bowel sounds, No tenderness, No mass Back Exam: normal inspection, normal range of motion, No CVA tenderness, No vertebral tenderness Extremity Exam: normal inspection, normal range of motion, pelvis stable Skin Exam: normal color, warm, dry, No rash Lymphatic Exam: No adenopathy Results - Labs Lab/Micro Results: Lab Results-Last 24 Hours 07/29/18 07/29/18 07/29/18 Range/Units 00:22 00:22 13:24 WBC (4.0-10.5) K/mm3 RBC (4.1-5.6) M/mm3 Hgb (12.5-18.0) gm/dl Hct (42-50) % MCV (78-100) fl MCH (26-32) pg MCHC (32-36) g/dl RDW (11.5-14.0) % Plt Count (150-450) K/mm3 MPV (6-9.5) fl Gran % (36.0-66.0) % Eos # (Auto) (0-0.5) Absolute Lymphs (auto) (1.0-4.6) Absolute Monos (auto) (0.0-1.3) Lymphocytes % (24.0-44.0) % Monocytes % (0.0-12.0) % Eosinophils % (0.00-5.0) % Basophils % (0.0-0.4) % Absolute Granulocytes (1.4-6.9) Basophils # (0-0.4) ESR (0-15) mm/hr PT (8.83-12.87) SECONDS INR (0.8-3.0) APTT (24.1-36.1) SECONDS D-Dimer (215-500) ng/mL Sodium (137-145) mmol/L Potassium (3.5-5.1) mmol/L Chloride (98-107) mmol/L Carbon Dioxide (22-30) mmol/L Anion Gap (5-15) MEQ/L BUN (9-20) mg/dL Creatinine (0.66-1.25) mg/dL Estimated GFR ML/MIN Glucose (74-106) mg/dL Hemoglobin A1c (4.5-6.0) % Calcium (8.4-10.2) mg/dL Magnesium (1.6-2.3) mg/dL Total Bilirubin (0.2-1.3) mg/dL AST (17-59) U/L ALT (0-50) U/L Alkaline Phosphatase (38-126) U/L Troponin I < 0.012 (0.000-0.034) ng/mL Serum Total Protein (6.3-8.2) g/dL Albumin (3.5-5.0) g/dL Triglycerides (30-150) mg/dL Cholesterol (50-200) mg/dL LDL Cholesterol (30-100) mg/dL HDL Cholesterol (40-60) mg/dL Heart Disease Risk Ratio Urine Color YELLOW (YELLOW) Urine Appearance CLEAR (CLEAR) Urine pH 7.0 (5-6) Ur Specific Dutton 1.012 (1.005-1.025) Urine Protein NEGATIVE (Negative) Urine Ketones NEGATIVE (NEGATIVE) Urine Blood NEGATIVE (0-5) Tuan/ul Urine Nitrite NEGATIVE (NEGATIVE) Urine Bilirubin NEGATIVE (NEGATIVE) Urine Urobilinogen 2 (0-1) mg/dL Ur Leukocyte Esterase NEGATIVE (NEGATIVE) Urine WBC (Auto) NONE (0-5) /HPF Urine RBC (Auto) NONE (0-2) /HPF U Epithel Cells (Auto) NONE (FEW) /HPF Urine Bacteria (Auto) NONE (NEGATIVE) /HPF Urine Culture Reflexed NO (NO) Urine Glucose NEGATIVE (NEGATIVE) mg/dL Urine Opiates Level NEGATIVE (NEGATIVE) Ur Methadone NEGATIVE (NEGATIVE) Urine Barbiturates NEGATIVE (NEGATIVE) Ur Phencyclidine (PCP) NEGATIVE (NEGATIVE) Urine Amphetamine NEGATIVE (NEGATIVE) U Benzodiazepine Level NEGATIVE (NEGATIVE) Urine Cocaine NEGATIVE (NEGATIVE) Urine Marijuana (THC) NEGATIVE (NEGATIVE) 07/29/18 07/29/18 07/29/18 Range/Units 13:24 13:24 13:24 WBC 12.3 H (4.0-10.5) K/mm3 RBC 3.99 L (4.1-5.6) M/mm3 Hgb 12.1 L (12.5-18.0) gm/dl Hct 35.6 L (42-50) % MCV 89.2 (78-100) fl MCH 30.3 (26-32) pg MCHC 34.0 (32-36) g/dl RDW 13.4 (11.5-14.0) % Plt Count 282 (150-450) K/mm3 MPV 9.5 (6-9.5) fl Gran % 70.1 H (36.0-66.0) % Eos # (Auto) 0.46 (0-0.5) Absolute Lymphs (auto) 2.39 (1.0-4.6) Absolute Monos (auto) 0.79 (0.0-1.3) Lymphocytes % 19.4 L (24.0-44.0) % Monocytes % 6.4 (0.0-12.0) % Eosinophils % 3.7 (0.00-5.0) % Basophils % 0.4 (0.0-0.4) % Absolute Granulocytes 8.62 H (1.4-6.9) Basophils # 0.05 (0-0.4) ESR (0-15) mm/hr PT 14.1 H (8.83-12.87) SECONDS INR 1.21 (0.8-3.0) APTT 31.4 (24.1-36.1) SECONDS D-Dimer < 215 L (215-500) ng/mL Sodium 141 (137-145) mmol/L Potassium 3.6 (3.5-5.1) mmol/L Chloride 106 (98-107) mmol/L Carbon Dioxide 24 (22-30) mmol/L Anion Gap 15.1 H (5-15) MEQ/L BUN 25 H (9-20) mg/dL Creatinine 1.08 (0.66-1.25) mg/dL Estimated GFR > 60.0 ML/MIN Glucose 93 (74-106) mg/dL Hemoglobin A1c (4.5-6.0) % Calcium 9.4 (8.4-10.2) mg/dL Magnesium (1.6-2.3) mg/dL Total Bilirubin 0.40 (0.2-1.3) mg/dL AST 18 (17-59) U/L ALT 19 (0-50) U/L Alkaline Phosphatase 106 (38-126) U/L Troponin I (0.000-0.034) ng/mL Serum Total Protein 7.2 (6.3-8.2) g/dL Albumin 3.9 (3.5-5.0) g/dL Triglycerides (30-150) mg/dL Cholesterol (50-200) mg/dL LDL Cholesterol (30-100) mg/dL HDL Cholesterol (40-60) mg/dL Heart Disease Risk Ratio Urine Color (YELLOW) Urine Appearance (CLEAR) Urine pH (5-6) Ur Specific Dutton (1.005-1.025) Urine Protein (Negative) Urine Ketones (NEGATIVE) Urine Blood (0-5) Tuan/ul Urine Nitrite (NEGATIVE) Urine Bilirubin (NEGATIVE) Urine Urobilinogen (0-1) mg/dL Ur Leukocyte Esterase (NEGATIVE) Urine WBC (Auto) (0-5) /HPF Urine RBC (Auto) (0-2) /HPF U Epithel Cells (Auto) (FEW) /HPF Urine Bacteria (Auto) (NEGATIVE) /HPF Urine Culture Reflexed (NO) Urine Glucose (NEGATIVE) mg/dL Urine Opiates Level (NEGATIVE) Ur Methadone (NEGATIVE) Urine Barbiturates (NEGATIVE) Ur Phencyclidine (PCP) (NEGATIVE) Urine Amphetamine (NEGATIVE) U Benzodiazepine Level (NEGATIVE) Urine Cocaine (NEGATIVE) Urine Marijuana (THC) (NEGATIVE) 07/29/18 07/29/18 07/29/18 Range/Units 15:44 18:35 22:31 WBC (4.0-10.5) K/mm3 RBC (4.1-5.6) M/mm3 Hgb (12.5-18.0) gm/dl Hct (42-50) % MCV (78-100) fl MCH (26-32) pg MCHC (32-36) g/dl RDW (11.5-14.0) % Plt Count (150-450) K/mm3 MPV (6-9.5) fl Gran % (36.0-66.0) % Eos # (Auto) (0-0.5) Absolute Lymphs (auto) (1.0-4.6) Absolute Monos (auto) (0.0-1.3) Lymphocytes % (24.0-44.0) % Monocytes % (0.0-12.0) % Eosinophils % (0.00-5.0) % Basophils % (0.0-0.4) % Absolute Granulocytes (1.4-6.9) Basophils # (0-0.4) ESR (0-15) mm/hr PT (8.83-12.87) SECONDS INR (0.8-3.0) APTT (24.1-36.1) SECONDS D-Dimer (215-500) ng/mL Sodium (137-145) mmol/L Potassium (3.5-5.1) mmol/L Chloride (98-107) mmol/L Carbon Dioxide (22-30) mmol/L Anion Gap (5-15) MEQ/L BUN (9-20) mg/dL Creatinine (0.66-1.25) mg/dL Estimated GFR ML/MIN Glucose (74-106) mg/dL Hemoglobin A1c (4.5-6.0) % Calcium (8.4-10.2) mg/dL Magnesium (1.6-2.3) mg/dL Total Bilirubin (0.2-1.3) mg/dL AST (17-59) U/L ALT (0-50) U/L Alkaline Phosphatase (38-126) U/L Troponin I 0.012 < 0.012 0.013 (0.000-0.034) ng/mL Serum Total Protein (6.3-8.2) g/dL Albumin (3.5-5.0) g/dL Triglycerides (30-150) mg/dL Cholesterol (50-200) mg/dL LDL Cholesterol (30-100) mg/dL HDL Cholesterol (40-60) mg/dL Heart Disease Risk Ratio Urine Color (YELLOW) Urine Appearance (CLEAR) Urine pH (5-6) Ur Specific Dutton (1.005-1.025) Urine Protein (Negative) Urine Ketones (NEGATIVE) Urine Blood (0-5) Tuan/ul Urine Nitrite (NEGATIVE) Urine Bilirubin (NEGATIVE) Urine Urobilinogen (0-1) mg/dL Ur Leukocyte Esterase (NEGATIVE) Urine WBC (Auto) (0-5) /HPF Urine RBC (Auto) (0-2) /HPF U Epithel Cells (Auto) (FEW) /HPF Urine Bacteria (Auto) (NEGATIVE) /HPF Urine Culture Reflexed (NO) Urine Glucose (NEGATIVE) mg/dL Urine Opiates Level (NEGATIVE) Ur Methadone (NEGATIVE) Urine Barbiturates (NEGATIVE) Ur Phencyclidine (PCP) (NEGATIVE) Urine Amphetamine (NEGATIVE) U Benzodiazepine Level (NEGATIVE) Urine Cocaine (NEGATIVE) Urine Marijuana (THC) (NEGATIVE) 07/30/18 07/30/18 07/30/18 Range/Units 00:45 05:22 05:22 WBC 11.5 H (4.0-10.5) K/mm3 RBC 4.09 L (4.1-5.6) M/mm3 Hgb 12.3 L (12.5-18.0) gm/dl Hct 36.7 L (42-50) % MCV 89.7 (78-100) fl MCH 30.0 (26-32) pg MCHC 33.5 (32-36) g/dl RDW 13.4 (11.5-14.0) % Plt Count 266 (150-450) K/mm3 MPV 9.1 (6-9.5) fl Gran % 64.1 (36.0-66.0) % Eos # (Auto) 0.55 H (0-0.5) Absolute Lymphs (auto) 2.79 (1.0-4.6) Absolute Monos (auto) 0.75 (0.0-1.3) Lymphocytes % 24.2 (24.0-44.0) % Monocytes % 6.5 (0.0-12.0) % Eosinophils % 4.8 (0.00-5.0) % Basophils % 0.4 (0.0-0.4) % Absolute Granulocytes 7.38 H (1.4-6.9) Basophils # 0.05 (0-0.4) ESR 26 H (0-15) mm/hr PT (8.83-12.87) SECONDS INR (0.8-3.0) APTT (24.1-36.1) SECONDS D-Dimer (215-500) ng/mL Sodium 142 (137-145) mmol/L Potassium 3.9 (3.5-5.1) mmol/L Chloride 111 H (98-107) mmol/L Carbon Dioxide 22 (22-30) mmol/L Anion Gap 13.1 (5-15) MEQ/L BUN 18 (9-20) mg/dL Creatinine 0.92 (0.66-1.25) mg/dL Estimated GFR > 60.0 ML/MIN Glucose 90 (74-106) mg/dL Hemoglobin A1c (4.5-6.0) % Calcium 9.2 (8.4-10.2) mg/dL Magnesium 1.8 (1.6-2.3) mg/dL Total Bilirubin 0.70 (0.2-1.3) mg/dL AST 17 (17-59) U/L ALT 16 (0-50) U/L Alkaline Phosphatase 111 (38-126) U/L Troponin I 0.015 (0.000-0.034) ng/mL Serum Total Protein 6.8 (6.3-8.2) g/dL Albumin 3.6 (3.5-5.0) g/dL Triglycerides 197 H (30-150) mg/dL Cholesterol 164 (50-200) mg/dL LDL Cholesterol 102 H (30-100) mg/dL HDL Cholesterol 25 L (40-60) mg/dL Heart Disease Risk Ratio 6.6 Urine Color (YELLOW) Urine Appearance (CLEAR) Urine pH (5-6) Ur Specific Dutton (1.005-1.025) Urine Protein (Negative) Urine Ketones (NEGATIVE) Urine Blood (0-5) Tuan/ul Urine Nitrite (NEGATIVE) Urine Bilirubin (NEGATIVE) Urine Urobilinogen (0-1) mg/dL Ur Leukocyte Esterase (NEGATIVE) Urine WBC (Auto) (0-5) /HPF Urine RBC (Auto) (0-2) /HPF U Epithel Cells (Auto) (FEW) /HPF Urine Bacteria (Auto) (NEGATIVE) /HPF Urine Culture Reflexed (NO) Urine Glucose (NEGATIVE) mg/dL Urine Opiates Level (NEGATIVE) Ur Methadone (NEGATIVE) Urine Barbiturates (NEGATIVE) Ur Phencyclidine (PCP) (NEGATIVE) Urine Amphetamine (NEGATIVE) U Benzodiazepine Level (NEGATIVE) Urine Cocaine (NEGATIVE) Urine Marijuana (THC) (NEGATIVE) 07/30/18 Range/Units 05:22 WBC (4.0-10.5) K/mm3 RBC (4.1-5.6) M/mm3 Hgb (12.5-18.0) gm/dl Hct (42-50) % MCV (78-100) fl MCH (26-32) pg MCHC (32-36) g/dl RDW (11.5-14.0) % Plt Count (150-450) K/mm3 MPV (6-9.5) fl Gran % (36.0-66.0) % Eos # (Auto) (0-0.5) Absolute Lymphs (auto) (1.0-4.6) Absolute Monos (auto) (0.0-1.3) Lymphocytes % (24.0-44.0) % Monocytes % (0.0-12.0) % Eosinophils % (0.00-5.0) % Basophils % (0.0-0.4) % Absolute Granulocytes (1.4-6.9) Basophils # (0-0.4) ESR (0-15) mm/hr PT (8.83-12.87) SECONDS INR (0.8-3.0) APTT (24.1-36.1) SECONDS D-Dimer (215-500) ng/mL Sodium (137-145) mmol/L Potassium (3.5-5.1) mmol/L Chloride (98-107) mmol/L Carbon Dioxide (22-30) mmol/L Anion Gap (5-15) MEQ/L BUN (9-20) mg/dL Creatinine (0.66-1.25) mg/dL Estimated GFR ML/MIN Glucose (74-106) mg/dL Hemoglobin A1c 5.01 (4.5-6.0) % Calcium (8.4-10.2) mg/dL Magnesium (1.6-2.3) mg/dL Total Bilirubin (0.2-1.3) mg/dL AST (17-59) U/L ALT (0-50) U/L Alkaline Phosphatase (38-126) U/L Troponin I (0.000-0.034) ng/mL Serum Total Protein (6.3-8.2) g/dL Albumin (3.5-5.0) g/dL Triglycerides (30-150) mg/dL Cholesterol (50-200) mg/dL LDL Cholesterol (30-100) mg/dL HDL Cholesterol (40-60) mg/dL Heart Disease Risk Ratio Urine Color (YELLOW) Urine Appearance (CLEAR) Urine pH (5-6) Ur Specific Dutton (1.005-1.025) Urine Protein (Negative) Urine Ketones (NEGATIVE) Urine Blood (0-5) Tuan/ul Urine Nitrite (NEGATIVE) Urine Bilirubin (NEGATIVE) Urine Urobilinogen (0-1) mg/dL Ur Leukocyte Esterase (NEGATIVE) Urine WBC (Auto) (0-5) /HPF Urine RBC (Auto) (0-2) /HPF U Epithel Cells (Auto) (FEW) /HPF Urine Bacteria (Auto) (NEGATIVE) /HPF Urine Culture Reflexed (NO) Urine Glucose (NEGATIVE) mg/dL Urine Opiates Level (NEGATIVE) Ur Methadone (NEGATIVE) Urine Barbiturates (NEGATIVE) Ur Phencyclidine (PCP) (NEGATIVE) Urine Amphetamine (NEGATIVE) U Benzodiazepine Level (NEGATIVE) Urine Cocaine (NEGATIVE) Urine Marijuana (THC) (NEGATIVE) - Radiology Impressions Radiology Exams & Impressions: Radiology Procedures Category Date Time Status CHEST 2 VIEWS (PA AND LAT) Routine Exams 07/29/18 22:00 Completed ECHO W/2D AND DOPPLER [US] Routine Exams 07/30/18 12:15 Taken MRA BRAIN WITHOUT CONTRAST [MRI] Routine Exams 07/30/18 08:00 Taken MRA NECK WITH CONTRAST [MRI] Routine Exams 07/30/18 08:00 Taken Assessment/Plan (1) Syncope Current Visit: Yes Status: Acute Qualifiers: Syncope type: unspecified Qualified Code(s): R55 - Syncope and collapse Assessment & Plan: Last Vital Signs Temp 98.3 F 07/30/18 08:00 Pulse 66 07/30/18 08:00 Resp 19 07/30/18 08:00 BP 170/80 07/30/18 08:00 Pulse Ox 93 L 07/30/18 08:00 Allergies No Known Drug Allergies Allergy (Verified 07/27/18 22:45) Active Medications Hydrocodone Bitart/Acetaminophen (Kersey 10/325 Mg Tablet) 1 tab PO Q4H PRN PRN PRN Reason: PAIN Stop: 08/03/18 20:57 Aspirin (Ecotrin 81 Mg) 81 mg PO DAILY [facility] Stop: 08/29/18 09:59 Last Admin: 07/30/18 09:45 Dose: 81 mg Sodium Chloride (Sodium Chloride 0.9% 1000 Ml) 1,000 mls @ 100 mls/hr IV .Q10H [facility] Stop: 08/28/18 15:46 Last Admin: 07/30/18 09:43 Dose: 100 mls/hr Miscellaneous Information (Medication Intervention) 1 each MC .RN TO CHECK WITH PT [facility] Stop: 08/29/18 07:14 Potassium Chloride (Klor Con 10 Meq) 20 meq PO BID [facility] Stop: 08/28/18 21:59 Last Admin: 07/30/18 09:45 Dose: 20 meq Rivaroxaban (Xarelto 10 Mg Tablet) 15 mg PO BID [facility] Stop: 08/28/18 21:59 Last Admin: 07/30/18 09:44 Dose: 15 mg Simvastatin (Zocor 20mg) 20 mg PO HS [facility] Stop: 08/28/18 21:59 Last Admin: 07/29/18 21:46 Dose: 20 mg Topiramate (Topamax 25 Mg) 25 mg PO HS [facility] Stop: 08/28/18 21:59 Last Admin: 07/29/18 21:43 Dose: 25 mg Intake & Output 07/30/18 07/31/18 11:59 11:59 Intake Total 1711 Output Total 1350 Balance 361 Weight 96.1 kg Orders 07/29/18 20:49 Miscellaneous Nursing Order ROUTINE 07/29/18 20:58 Hydrocodone/APAP 10/325 mg [Kersey 10/325 MG Tablet] 1 tab PO Q4H PRN PRN 07/29/18 21:21 Nursing [Miscellaneous Nursing Order] ROUTINE 07/29/18 22:00 Potassium Chloride 10 Meq Tab* [Klor Con 10 MEQ] 20 meq PO BID Rivaroxaban 10 mg Tablet [Xarelto 10 mg Tablet] 15 mg PO BID Simvastatin 20Mg [Zocor 20Mg] 20 mg PO HS Topiramate 25 mg [Topamax 25 MG] 25 mg PO HS 07/30/18 05:22 C-Reactive Protein, Quant Routine 07/30/18 07:15 Medication Intervention 1 each MC .RN TO CHECK WITH PT 07/30/18 08:00 Cardio-Pulmonary Rehab .as ordered [employer] Seat/Discharge Plan ROUTINE MRA BRAIN WITHOUT CONTRAST [MRI] Routine MRA NECK WITH CONTRAST [MRI] Routine 07/30/18 10:00 Aspirin EC 81 mg [Ecotrin 81 mg] 81 mg PO DAILY 07/30/18 12:15 ECHO W/2D AND DOPPLER [US] Routine Lab Tests 07/29/18 07/29/18 07/29/18 00:22 00:22 13:24 WBC RBC Hgb Hct MCV MCH MCHC RDW Plt Count MPV Gran % Eos # (Auto) Absolute Lymphs (auto) Absolute Monos (auto) Lymphocytes % Monocytes % Eosinophils % Basophils % Absolute Granulocytes Basophils # ESR PT INR APTT D-Dimer Sodium Potassium Chloride Carbon Dioxide Anion Gap BUN Creatinine Estimated GFR Glucose Hemoglobin A1c Calcium Magnesium Total Bilirubin AST ALT Alkaline Phosphatase Troponin I < 0.012 Serum Total Protein Albumin Triglycerides Cholesterol LDL Cholesterol HDL Cholesterol Heart Disease Risk Ratio Urine Color YELLOW Urine Appearance CLEAR Urine pH 7.0 Ur Specific Dutton 1.012 Urine Protein NEGATIVE Urine Ketones NEGATIVE Urine Blood NEGATIVE Urine Nitrite NEGATIVE Urine Bilirubin NEGATIVE Urine Urobilinogen 2 Ur Leukocyte Esterase NEGATIVE Urine WBC (Auto) NONE Urine RBC (Auto) NONE U Epithel Cells (Auto) NONE Urine Bacteria (Auto) NONE Urine Culture Reflexed NO Urine Glucose NEGATIVE Urine Opiates Level NEGATIVE Ur Methadone NEGATIVE Urine Barbiturates NEGATIVE Ur Phencyclidine (PCP) NEGATIVE Urine Amphetamine NEGATIVE U Benzodiazepine Level NEGATIVE Urine Cocaine NEGATIVE Urine Marijuana (THC) NEGATIVE 07/29/18 07/29/18 07/29/18 13:24 13:24 13:24 WBC 12.3 H RBC 3.99 L Hgb 12.1 L Hct 35.6 L MCV 89.2 MCH 30.3 MCHC 34.0 RDW 13.4 Plt Count 282 MPV 9.5 Gran % 70.1 H Eos # (Auto) 0.46 Absolute Lymphs (auto) 2.39 Absolute Monos (auto) 0.79 Lymphocytes % 19.4 L Monocytes % 6.4 Eosinophils % 3.7 Basophils % 0.4 Absolute Granulocytes 8.62 H Basophils # 0.05 ESR PT 14.1 H INR 1.21 APTT 31.4 D-Dimer < 215 L Sodium 141 Potassium 3.6 Chloride 106 Carbon Dioxide 24 Anion Gap 15.1 H BUN 25 H Creatinine 1.08 Estimated GFR > 60.0 Glucose 93 Hemoglobin A1c Calcium 9.4 Magnesium Total Bilirubin 0.40 AST 18 ALT 19 Alkaline Phosphatase 106 Troponin I Serum Total Protein 7.2 Albumin 3.9 Triglycerides Cholesterol LDL Cholesterol HDL Cholesterol Heart Disease Risk Ratio Urine Color Urine Appearance Urine pH Ur Specific Dutton Urine Protein Urine Ketones Urine Blood Urine Nitrite Urine Bilirubin Urine Urobilinogen Ur Leukocyte Esterase Urine WBC (Auto) Urine RBC (Auto) U Epithel Cells (Auto) Urine Bacteria (Auto) Urine Culture Reflexed Urine Glucose Urine Opiates Level Ur Methadone Urine Barbiturates Ur Phencyclidine (PCP) Urine Amphetamine U Benzodiazepine Level Urine Cocaine Urine Marijuana (THC) 07/29/18 07/29/18 07/29/18 15:44 18:35 22:31 WBC RBC Hgb Hct MCV MCH MCHC RDW Plt Count MPV Gran % Eos # (Auto) Absolute Lymphs (auto) Absolute Monos (auto) Lymphocytes % Monocytes % Eosinophils % Basophils % Absolute Granulocytes Basophils # ESR PT INR APTT D-Dimer Sodium Potassium Chloride Carbon Dioxide Anion Gap BUN Creatinine Estimated GFR Glucose Hemoglobin A1c Calcium Magnesium Total Bilirubin AST ALT Alkaline Phosphatase Troponin I 0.012 < 0.012 0.013 Serum Total Protein Albumin Triglycerides Cholesterol LDL Cholesterol HDL Cholesterol Heart Disease Risk Ratio Urine Color Urine Appearance Urine pH Ur Specific Dutton Urine Protein Urine Ketones Urine Blood Urine Nitrite Urine Bilirubin Urine Urobilinogen Ur Leukocyte Esterase Urine WBC (Auto) Urine RBC (Auto) U Epithel Cells (Auto) Urine Bacteria (Auto) Urine Culture Reflexed Urine Glucose Urine Opiates Level Ur Methadone Urine Barbiturates Ur Phencyclidine (PCP) Urine Amphetamine U Benzodiazepine Level Urine Cocaine Urine Marijuana (THC) 07/30/18 07/30/18 07/30/18 00:45 05:22 05:22 WBC 11.5 H RBC 4.09 L Hgb 12.3 L Hct 36.7 L MCV 89.7 MCH 30.0 MCHC 33.5 RDW 13.4 Plt Count 266 MPV 9.1 Gran % 64.1 Eos # (Auto) 0.55 H Absolute Lymphs (auto) 2.79 Absolute Monos (auto) 0.75 Lymphocytes % 24.2 Monocytes % 6.5 Eosinophils % 4.8 Basophils % 0.4 Absolute Granulocytes 7.38 H Basophils # 0.05 ESR 26 H PT INR APTT D-Dimer Sodium 142 Potassium 3.9 Chloride 111 H Carbon Dioxide 22 Anion Gap 13.1 BUN 18 Creatinine 0.92 Estimated GFR > 60.0 Glucose 90 Hemoglobin A1c Calcium 9.2 Magnesium 1.8 Total Bilirubin 0.70 AST 17 ALT 16 Alkaline Phosphatase 111 Troponin I 0.015 Serum Total Protein 6.8 Albumin 3.6 Triglycerides 197 H Cholesterol 164 LDL Cholesterol 102 H HDL Cholesterol 25 L Heart Disease Risk Ratio 6.6 Urine Color Urine Appearance Urine pH Ur Specific [place] Urine Protein Urine Ketones Urine Blood Urine Nitrite Urine Bilirubin Urine Urobilinogen Ur Leukocyte Esterase Urine WBC (Auto) Urine RBC (Auto) U Epithel Cells (Auto) Urine Bacteria (Auto) Urine Culture Reflexed Urine Glucose Urine Opiates Level Ur Methadone Urine Barbiturates Ur Phencyclidine (PCP) Urine Amphetamine U Benzodiazepine Level Urine Cocaine Urine Marijuana (THC) 07/30/18 05:22 WBC RBC Hgb Hct MCV MCH MCHC RDW Plt Count MPV Gran % Eos # (Auto) Absolute Lymphs (auto) Absolute Monos (auto) Lymphocytes % Monocytes % Eosinophils % Basophils % Absolute Granulocytes Basophils # ESR PT INR APTT D-Dimer Sodium Potassium Chloride Carbon Dioxide Anion Gap BUN Creatinine Estimated GFR Glucose Hemoglobin A1c 5.01 Calcium Magnesium Total Bilirubin AST ALT Alkaline Phosphatase Troponin I Serum Total Protein Albumin Triglycerides Cholesterol LDL Cholesterol HDL Cholesterol Heart Disease Risk Ratio Urine Color Urine Appearance Urine pH Ur Specific [place] Urine Protein Urine Ketones Urine Blood Urine Nitrite Urine Bilirubin Urine Urobilinogen Ur Leukocyte Esterase Urine WBC (Auto) Urine RBC (Auto) U Epithel Cells (Auto) Urine Bacteria (Auto) Urine Culture Reflexed Urine Glucose Urine Opiates Level Ur Methadone Urine Barbiturates Ur Phencyclidine (PCP) Urine Amphetamine U Benzodiazepine Level Urine Cocaine Urine Marijuana (THC) Code(s): R55 - SYNCOPE AND COLLAPSE (2) History of CVA (cerebrovascular accident) without residual deficits Current Visit: Yes Status: Acute (3) HTN (hypertension) Current Visit: Yes Status: Chronic Qualifiers: Hypertension type: essential hypertension Qualified Code(s): I10 - Essential (primary) hypertension Code(s): I10 - ESSENTIAL (PRIMARY) HYPERTENSION
--- NOTE | 2018-07-30 12:47 | XRAY ---
Indication: Headache and syncope. Intermittent slurred speech. History old stroke. Conventional MRA [place] was performed. Axial diffusion images of the whole brain also performed. Comparison: None MRA neck reported separately. Distal internal carotid arteries are bilaterally symmetric without critical stenosis, dissection, or AV malformation. Normal carotid terminus bilaterally. Absent right MCA branch presumed occluded from known old right temporoparietal infarct. Remaining visualized anterior cerebral, left middle cerebral, and anterior communicating arteries are normal in MRA appearance. Faint/attenuated right posterior communicating artery. Left posterior communicating artery not seen either too small for resolution of scan, absent, or occluded. Examination of the posterior circulation demonstrates basilar artery normal in course and caliber. Absent right posterior cerebral artery presumed occluded from known old right temporoparietal occipital lobe infarcts. Normal MRA appearance to the basilar tip, left posterior cerebral, and superior cerebellar arteries. Diffusion images negative for restricted signal. Impression: 1. Absent right MCA and right [employer] both presumed occluded from known old infarcts. 2. Remaining MRA [place] is negative.
--- NOTE | 2018-07-30 12:48 | XRAY ---
Indication: Headache and syncope. Intermittent slurred speech. History old stroke. Conventional MRA carotid arteries of the neck was performed. Comparison: None Visualized aortic arch is normal in course and caliber with normal patent branching right brachiocephalic, left common carotid, and left subclavian arteries. Left and right MRA carotid arteries of the neck are normal in course and caliber. No critical stenosis, obstruction, or AV malformation. Vertebral basilar arteries demonstrates dominant larger right circulation. No critical stricture, obstruction, or AV malformation. MRA [place]/brain reported separately. Impression: Negative MRA carotid arteries of the neck.
[2018-07-30] MEDS: Norco 10/325 MG Tablet PO PRN (21:38)
[2018-07-30] MEDS: ZOCOR 20MG PO SCH (21:38)
[2018-07-30] MEDS: Topamax 25 MG PO SCH (21:39)
[2018-07-31] MEDS: Sodium Chloride 0.9% 1000 ML 1,000 ML IV SCH (00:51)
[2018-07-31 07:19] VITALS: BP 155/75; PULSE 86; O2SAT 99
[2018-07-31] MEDS: ECOTRIN 81 MG PO SCH (08:48)
[2018-07-31] MEDS: Klor Con 10 MEQ PO SCH (08:48)
[2018-07-31] MEDS: Norco 10/325 MG Tablet PO PRN (08:48)
[2018-07-31] MEDS: XARELTO 10 MG TABLET PO SCH (08:49)
--- NOTE | 2018-07-31 11:59 | PCM.DS ---
Discharge Summary Date of Admission: 07/29/18 15:46 Admitting Physician: EDWIN RATLIFF Consults: Consults on Case 07/29/18 15:47 Consult Neurology ROUTINE Primary Care Provider: EDWIN RATLIFF Allergies Allergies No Known Drug Allergies Allergy (Verified 07/27/18 22:45) Hospital Summary - Hospital Course Hospital Course: Chief Complaint Diagnosis Syncope Allergies Allergy/AdvReac Type Severity Reaction Status Date / Time No Known Drug Allergies Allergy Verified 07/27/18 22:45 Vital Signs (Last 24 hours) Temp Pulse Resp BP Pulse Ox 07/31/18 07:18 98 F 86 18 155/75 99 07/31/18 04:00 98.3 F 60 21 143/72 97 07/31/18 00:00 98.7 F 82 24 140/67 96 07/30/18 21:00 20 07/30/18 20:00 98.4 F 68 20 160/76 96 07/30/18 17:00 18 07/30/18 16:00 97.5 F 67 18 146/79 94 L 07/30/18 13:00 18 07/30/18 12:00 97.8 F 57 L 18 176/77 93 L Home Medications Medication Instructions Recorded Confirmed Last Taken Type Etodolac 400 mg [Lodine 400 mg] 400 mg PO BID 07/29/18 07/29/18 07/29/18 09:00 History Potassium Chloride 10 Meq Tab* 20 meq PO BID 07/29/18 07/29/18 07/29/18 09:00 History [Klor Con 10 MEQ] Rivaroxaban 10 mg Tablet 15 mg PO BID 30 Days #60 tablet 07/31/18 Unknown Rx [Xarelto 10 mg Tablet] Sertraline HCl 50 mg [Zoloft 50 50 mg PO HS #30 tab 07/31/18 Unknown Rx mg Tablet] Simvastatin 20Mg [Zocor 20Mg] 20 mg PO HS #30 tablet 07/31/18 Unknown Rx Topiramate 25 mg [Topamax 25 25 mg PO HS #30 capsule 07/31/18 Unknown Rx MG] Current Medications Discontinued Medications Generic Name Dose Route Start Last Admin Trade Name Freq PRN Reason Stop Dose Admin Hydrocodone Bitart/Acetaminophen 1 tab 07/29/18 20:58 07/31/18 08:48 Leona 10/325 Mg Tablet PO 08/03/18 20:57 1 tab Q4H PRN PRN Administration PAIN Aspirin 81 mg 07/30/18 10:00 07/31/18 08:48 Ecotrin 81 Mg PO 08/29/18 09:59 81 mg DAILY CIARAN Administration Enoxaparin Sodium 40 mg 07/29/18 22:00 Enoxaparin Sodium SQ 08/28/18 21:59 DAILY CIARAN Enoxaparin Sodium Confirm 07/29/18 21:22 Enoxaparin Sodium Administered 07/29/18 21:23 Dose 40 mg SQ .STK-MED ONE Sodium Chloride 1,000 mls @ 100 mls/hr 07/29/18 12:45 07/29/18 12:58 Sodium Chloride 0.9% 1000 Ml IV 08/28/18 12:44 100 mls/hr .Q10H CIARAN Administration Sodium Chloride Confirm 07/29/18 12:57 Sodium Chloride 0.9% 1000 Ml Administered 07/29/18 12:58 Dose 1,000 mls @ ud .ROUTE .STK-MED ONE Sodium Chloride 1,000 mls @ 100 mls/hr 07/29/18 15:47 07/31/18 00:51 Sodium Chloride 0.9% 1000 Ml IV 08/28/18 15:46 100 mls/hr .Q10H CIARAN Administration Miscellaneous Information 1 each 07/30/18 07:15 Medication Intervention 08/29/18 07:14 .RN TO CHECK WITH PT [facility] Potassium Chloride 20 meq 07/29/18 22:00 07/31/18 08:48 Klor Con 10 Meq PO 08/28/18 21:59 20 meq BID CIARAN Administration Rivaroxaban 15 mg 07/29/18 22:00 07/31/18 08:49 Xarelto 10 Mg Tablet PO 08/28/18 21:59 15 mg BID CIARAN Administration Simvastatin 20 mg 07/29/18 22:00 07/30/18 21:38 Zocor 20mg PO 08/28/18 21:59 20 mg HS CIARAN Administration Topiramate 25 mg 07/29/18 22:00 07/30/18 21:39 Topamax 25 Mg PO 08/28/18 21:59 25 mg HS CIARAN Administration Intake & Output (Last 24 hours) 07/28/18 07/29/18 07/30/18 07/31/18 11:59 11:59 11:59 11:59 Intake Total 1711 2979 Output Total 1350 2050 Balance 361 929 Weight 96.1 kg 95.4 kg Laboratory Results (Last 24 hours) 07/30/18 05:22 C-Reactive Prot, Quant 6.48 Orders (Last 24 hours) Category Date Time Status Discharge Routine Discharge 07/31/18 Ordered ECHO W/2D AND DOPPLER [US] Routine Exams 07/30/18 12:15 Taken Patient Care Notes (Last 24 hours) 07/31/18 10:39 Nursing Note by Kary Viera 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 Initialized on 07/31/18 10:39 - END OF NOTE 07/31/18 09:45 (created 07/31/18 10:33) Case Management Note by Lacey Velazco MD ORDER TO DC HOME TODAY, DENIES ADDNL NEEDS FOR DISCHARGE. INDEPENDENT WITH ALL ADL'S. Initialized on 07/31/18 10:33 - END OF NOTE 07/30/18 12:30 (created 07/30/18 13:01) Case Management Note by Lacey Velazco DR. ROUNDED AND EVALUATED, DISCUSSED TREATMENT AND PLAN OF CARE WITH PT. AWAIT RESULTS FOR DIAGNOSTICS ORDERED. PT VERBALIZED UNDERSTANDING, PT REPORTS THAT HE FEELS EXHAUSTED. DR. RATLIFF REPORTS THAT PT WILL LIKELY DC HOME TOMORROW. Initialized on 07/30/18 13:01 - END OF NOTE - Vitals & Intake/Output Vital Signs: Vital Signs Temperature 98 F 07/31/18 07:18 Pulse Rate 86 07/31/18 07:18 Respiratory Rate 18 07/31/18 07:18 Blood Pressure 155/75 07/31/18 07:18 O2 Sat by Pulse Oximetry 99 07/31/18 07:18 Intake & Output: Intake & Output 07/28/18 07/29/18 07/30/18 07/31/18 11:59 11:59 11:59 11:59 Intake Total 0174 2979 Output Total 7961 4790 Balance 361 929 Weight 96.1 kg 95.4 kg - Lab Result Diagrams: 07/30/18 05:22 07/30/18 05:22 Lab Results-Last 24 Hrs: Lab Results-Last 24 Hours 07/30/18 Range/Units 05:22 C-Reactive Prot, Quant 6.48 (0.00-10.00) mg/L - Radiology Exams Ordered Rad Exams-Entire Visit: Radiology Procedures Category Date Time Status CHEST 2 VIEWS (PA AND LAT) Routine Exams 07/29/18 22:00 Completed ECHO W/2D AND DOPPLER [US] Routine Exams 07/30/18 12:15 Taken MRA BRAIN WITHOUT CONTRAST [MRI] Routine Exams 07/30/18 08:00 Completed MRA NECK WITH CONTRAST [MRI] Routine Exams 07/30/18 08:00 Completed - Procedures and Test Procedures and Tests throughout Hospitalization: Therapy Orders & Screens 07/30/18 08:00 EEG 41-60 Minutes (Normal) ONCE Comment: recommended by neurologist Reason For Exam: syncope, headaches Diagnosis: Syncope Discharge Exam General Appearance: no apparent distress, alert Neurologic Exam: alert, oriented x 3, cooperative, normal mood/affect, nml cerebellar function, sensation nml, No motor deficits Eye Exam: PERRL, EOMI, eyes nml inspection Ears, Nose, Throat Exam: normal ENT inspection, pharynx normal, moist mucous membranes Neck Exam: normal inspection, non-tender, supple, full range of motion Respiratory Exam: normal breath sounds, lungs clear, No respiratory distress Cardiovascular Exam: regular rate/rhythm, normal heart sounds Gastrointestinal/Abdomen Exam: soft, No tenderness, No mass Male Genitalia Exam: deferred Rectal Exam: deferred Back Exam: normal inspection, normal range of motion, No CVA tenderness, No vertebral tenderness Extremity Exam: normal inspection, normal range of motion Skin Exam: normal color, warm, dry Final Diagnosis/Problem List - Final Discharge Diagnosis/Problem (1) Syncope Status: Resolved Code(s): R55 - SYNCOPE AND COLLAPSE (2) History of CVA (cerebrovascular accident) without residual deficits Status: Chronic (3) HTN (hypertension) Status: Chronic Code(s): I10 - ESSENTIAL (PRIMARY) HYPERTENSION - Discharge Discharge Date: 07/31/18 Disposition: Home, Self-Care Condition: Stable Prescriptions: New Topiramate 25 mg [Topamax 25 MG] 25 mg PO HS #30 capsule Rivaroxaban 10 mg Tablet [Xarelto 10 mg Tablet] 15 mg PO BID 30 Days # 60 tablet Simvastatin 20Mg [Zocor 20Mg] 20 mg PO HS #30 tablet Sertraline HCl 50 mg [Zoloft 50 mg Tablet] 50 mg PO HS #30 tab Continue Aspirin EC 81 mg [Ecotrin 81 mg] 81 mg PO DAILY Potassium Chloride 10 Meq Tab* [Klor Con 10 MEQ] 20 meq PO BID Etodolac 400 mg [Lodine 400 mg] 400 mg PO BID Instructions: Rivaroxaban, Syncope (Fainting) (DC), Cluster Headache (DC), Sertraline, Simvastatin, Topiramate Follow up with: EDWIN RATLIFF MD [Primary Care Provider] - 08/02/18 2:00 pm (KEEP FOLLOWUP APPOINTMENT WITH DR. RATLIFF THIS July AT 2:00 PM, AT [facility].) Forms: Discharge Instructions
== END 2018-07-31 10:42 | disposition home or self-care (01) ==
LOC: ED 12:26 → MED SURG 15:46
PROVIDERS: ADMIT General Practice; ATTEND General Practice
DX: R55 Syncope and collapse (principal); R42 Dizziness and giddiness; R51 Headache; I10 Essential (primary) hypertension; Z86.73 Personal history of transient ischemic attack (TIA), and cerebral infarction without residual deficits; Z79.899 Other long term (current) drug therapy; I25.2 Old myocardial infarction; Z79.01 Long term (current) use of anticoagulants
CPT/HCPCS: 36000; 36415; 70544; 70548; 71046; 80053; 80061; 80307; 81001; 83036; 83721; 83735; 84484; 85025; 85379; 85610; 85652; 85730; 86140; 93005; 93268; 93306; 95812; 99285; G0378; Q3014; J1650; A9270-GY

== ENCOUNTER 2018-08-06 20:57 | Emergency (ER) | payer MEDICAID ==
[2018-08-06] MEDS ORDERED: SUBLIMAZE 100 MCG/2 ML IV ONE (21:31)
[2018-08-06] MEDS ORDERED: Zofran 4 MG/2 ML VIAL IV ONE (21:31)
[2018-08-06] MEDS ORDERED: Sodium Chloride 0.9% 1000 ML 1,000 ML IV STA (21:31)
[2018-08-06] MEDS ORDERED: BENADRYL 50 MG/ML IV ONE (21:31)
--- NOTE | 2018-08-06 21:41 | ERPHSYRPT ---
- History of Present Illness Time Seen by Provider: 08/06/18 21:17 Source: patient Exam Limitations: no limitations Patient Subjective Stated Complaint: pt c/o headache....pt states, "I've had a headache since January, but today is the worst it's ever been". Pt has hx of stroke in January. Pt has rt sided neck pain and feels a pulse going thru his head today. Triage Nursing Assessment: pt aetox3, pleasant, pt ambulated into ER. Lungs clear, heart tones reg, abd soft with active bs x4 quad. Pt c/o headache to the front and back of head, feels an electrical pulsating in his head, and pain to both sides of neck. Lights and noise make it worse. Physician History: Pt has been c/o headaches since January last year. Apparently he was diagnosed with CVA, and developed chronic headaches. He was seen here 10 days ago with similar problem, CT head revealed old CVA, no bleeding. He takes Xarelto daily provided by his roll picker for Afib. He states, the [place] was given for his headaches does not control it anymore, and would not let him sleep. He denies other changes, the headache is located in the left occipital and cervial area, denies new weakness, numbness, seizures, LOC, no visual changes, slurred speech , other complaints, except vomited x4 today. Timing/Duration: constant, gradual onset Quality: sharpness, throbbing Head Pain Location: occipital Severity of Pain-Max: severe Severity of Pain-Current: severe Recent Head Trauma: frequent headaches, chronic headaches Associated Symptoms: nausea/vomiting Previous symptoms: same symptoms as today Allergies/Adverse Reactions: No Known Drug Allergies Allergy (Verified 07/27/18 22:45) Home Medications: Aspirin EC 81 mg [Ecotrin 81 mg] 81 mg PO DAILY 06/30/18 [History] Etodolac 400 mg [Lodine 400 mg] 400 mg PO BID 07/29/18 [History] Potassium Chloride 10 Meq Tab* [Klor Con 10 MEQ] 20 meq PO BID 07/29/18 [ History] Sildenafil Citrate [Viagra] 25 mg PO DAILY 08/06/18 [History] Hx Tetanus, Diphtheria Vaccination/Date Given: Yes Hx Influenza Vaccination/Date Given: Yes Hx Pneumococcal Vaccination/Date Given: Yes Immunizations Up to Date: No - Review of Systems Constitutional: No Symptoms Eyes: No Symptoms Ears, Nose, & Throat: No Symptoms Respiratory: No Symptoms Cardiac: No Symptoms Abdominal/Gastrointestinal: Nausea, Vomiting Genitourinary Symptoms: No Symptoms Musculoskeletal: No Symptoms Skin: No Symptoms Neurological: Dizziness, Headache Psychological: No Symptoms All Other Systems: Reviewed and Negative - Past Medical History Pertinent Past Medical History: Yes Neurological History: Stroke ENT History: Other Cardiac History: Hypertension, Myocardial Infarction ([place]), Other Respiratory History: No Pertinent History Endocrine Medical History: No Pertinent History Musculoskeletal History: Other GI Medical History: GERD History: No Pertinent History Psycho-Social History: Anxiety, Depression Male Reproductive Disorders: No Pertinent History Other Medical History: heart cath, CVA, back surgery when he was 16, blood poisoning when in 4th grade, bitten by brown recluse spider, kidney stones x 9 - Past Surgical History Past Surgical History: Yes Neuro Surgical History: No Pertinent History Cardiac: Cardiac Catheterization Respiratory: No Pertinent History Gastrointestinal: Hernia Repair Genitourinary: No Pertinent History Musculoskeletal: Orthopedic Surgery Male Surgical History: No Pertinent History Other Surgical History: pt had bk surgery at 16. - Social History Smoking Status: Never smoker Exposure to second hand smoke: Yes Drug Use: none Patient Lives Alone: No - Nursing Vital Signs Nursing Vital Signs: Initial Vital Signs Temperature 98.4 F 08/06/18 21:25 Pulse Rate 74 08/06/18 21:25 Respiratory Rate 18 08/06/18 21:25 Blood Pressure 177/93 08/06/18 21:25 O2 Sat by Pulse Oximetry 98 08/06/18 21:25 Pain Scale Pain Intensity 6 - Physical Exam General Appearance: no apparent distress Eye Exam: PERRL/EOMI, eyes nml inspection Ears, Nose, Throat Exam: normal ENT inspection, pharynx normal, moist mucous membranes Neck Exam: normal inspection, non-tender, supple, No meningismus, No carotid bruit, No JVD Respiratory Exam: normal breath sounds, lungs clear, airway intact, No chest tenderness Cardiovascular Exam: regular rate/rhythm, normal heart sounds, normal peripheral pulses, No murmur Gastrointestinal/Abdominal Exam: soft, normal bowel sounds, No tenderness Extremity Exam: normal inspection Mental Status Exam: alert, oriented x 3, 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: normal speech, PERRL, No facial weakness Coordination/Gait Exam: normal gait Motor/Sensory Exam: no motor deficit DTR Exam: bicep (R): 2+, bicep (L): 2+, knee (R): 2+, knee (L): 2+ Skin Exam: normal color, warm, dry, No rash, No petechiae, No cyanosis Lymphatic Exam: No adenopathy SpO2 Interpretation: normal SpO2: 98 O2 Delivery: Room Air - Course Nursing assessment & vital signs reviewed: Yes - CT Exams Head CT Interpretation: Tele-radiologist Report, Other (stable, old ,right temporo- parietal infarct,) Ordered Tests: Active Orders 24 hr Category Date Time Status IV Insertion STAT Care 08/06/18 21:31 Active HEAD WITHOUT CONTRAST [CT] Stat Exams 08/06/18 21:32 Taken CBC W DIFF Stat Lab 08/06/18 21:45 Completed CMP Stat Lab 08/06/18 21:45 Completed Erythrocyte Sedimentation Rate Stat Lab 08/06/18 21:45 Completed PROTIME WITH INR Stat Lab 08/06/18 21:45 Completed UA W/RFX UR CULTURE Stat Lab 08/06/18 21:45 Completed Urine Triage Profile Stat Lab 08/06/18 21:45 Completed Medication Summary Generic Name Dose Route Start Last Admin Trade Name Freq PRN Reason Stop Dose Admin Potassium Chloride 40 meq 08/06/18 23:15 Potassium Chloride 20 Meq Powder For Oral [place] PO 08/06/18 23:16 NOW ONE Discontinued Medications Generic Name Dose Route Start Last Admin Trade Name Freq PRN Reason Stop Dose Admin Diphenhydramine HCl 25 mg 08/06/18 21:31 08/06/18 21:45 Benadryl 50 Mg/Ml IV 08/06/18 21:32 25 mg STAT ONE Administration Diphenhydramine HCl Confirm 08/06/18 21:42 Benadryl 50 Mg/Ml Administered 08/06/18 21:43 Dose 50 mg .ROUTE .STK-MED ONE Fentanyl Citrate 50 mcg 08/06/18 21:31 08/06/18 21:46 Sublimaze 100 Mcg/2 Ml IV 08/06/18 21:32 50 mcg STAT ONE Administration Fentanyl Citrate Confirm 08/06/18 21:42 Sublimaze 100 Mcg/2 Ml Administered 08/06/18 21:43 Dose 100 mcg .ROUTE .STK-MED ONE Sodium Chloride 1,000 mls @ 999 mls/hr 08/06/18 21:31 08/06/18 22:46 Sodium Chloride 0.9% 1000 Ml IV 08/06/18 22:31 Infused .Q1H1M STA Infusion Sodium Chloride Confirm 08/06/18 21:43 Sodium Chloride 0.9% 1000 Ml Administered 08/06/18 21:44 Dose 1,000 mls @ ud .ROUTE .STK-MED ONE Morphine Sulfate 4 mg 08/06/18 22:42 08/06/18 22:47 Morphine Sulfate 4 Mg Inj IV 08/06/18 22:43 4 mg STAT ONE Administration Morphine Sulfate Confirm 08/06/18 22:45 Morphine Sulfate 4 Mg Inj Administered 08/06/18 22:46 Dose 4 mg .ROUTE .STK-MED ONE Ondansetron HCl 4 mg 08/06/18 21:31 08/06/18 21:46 Zofran 4 Mg/2 Ml Vial IV 08/06/18 21:32 4 mg STAT ONE Administration Ondansetron HCl Confirm 08/06/18 21:42 Zofran 4 Mg/2 Ml Vial Administered 08/06/18 21:43 Dose 4 mg .ROUTE .STK-MED ONE Lab/Rad Data: Laboratory Result Diagrams 08/06/18 21:45 08/06/18 21:45 Laboratory Results 08/06/18 08/06/18 08/06/18 Range/Units 21:45 21:45 21:45 WBC (4.0-10.5) K/mm3 RBC (4.1-5.6) M/mm3 Hgb (12.5-18.0) gm/dl Hct (42-50) % MCV (78-100) fl MCH (26-32) pg MCHC (32-36) g/dl RDW (11.5-14.0) % Plt Count (150-450) K/mm3 MPV (6-9.5) fl Gran % (36.0-66.0) % Eos # (Auto) (0-0.5) Absolute Lymphs (auto) (1.0-4.6) Absolute Monos (auto) (0.0-1.3) Lymphocytes % (24.0-44.0) % Monocytes % (0.0-12.0) % Eosinophils % (0.00-5.0) % Basophils % (0.0-0.4) % Absolute Granulocytes (1.4-6.9) Basophils # (0-0.4) ESR (0-15) mm/hr PT 21.0 H (8.83-12.87) SECONDS INR 1.84 (0.8-3.0) Sodium (137-145) mmol/L Potassium (3.5-5.1) mmol/L Chloride (98-107) mmol/L Carbon Dioxide (22-30) mmol/L Anion Gap (5-15) MEQ/L BUN (9-20) mg/dL Creatinine (0.66-1.25) mg/dL Estimated GFR ML/MIN Glucose (74-106) mg/dL Calcium (8.4-10.2) mg/dL Total Bilirubin (0.2-1.3) mg/dL AST (17-59) U/L ALT (0-50) U/L Alkaline Phosphatase (38-126) U/L Serum Total Protein (6.3-8.2) g/dL Albumin (3.5-5.0) g/dL Urine Color YELLOW (YELLOW) Urine Appearance CLEAR (CLEAR) Urine pH 7.0 (5-6) Ur Specific [place] 1.015 (1.005-1.025) Urine Protein NEGATIVE (Negative) Urine Ketones NEGATIVE (NEGATIVE) Urine Blood NEGATIVE (0-5) Tuan/ul Urine Nitrite NEGATIVE (NEGATIVE) Urine Bilirubin NEGATIVE (NEGATIVE) Urine Urobilinogen 4 (0-1) mg/dL Ur Leukocyte Esterase NEGATIVE (NEGATIVE) Urine WBC (Auto) 0-2 (0-5) /HPF Urine RBC (Auto) 11-15 (0-2) /HPF U Hyaline Cast (Auto) 0-2 (0-2) /LPF U Epithel Cells (Auto) RARE (FEW) /HPF Urine Bacteria (Auto) RARE (NEGATIVE) /HPF Urine Mucus (Auto) SLIGHT (NEGATIVE) /HPF Urine Culture Reflexed NO (NO) Urine Glucose NEGATIVE (NEGATIVE) mg/dL Urine Opiates Level POSITIVE (NEGATIVE) Ur Methadone NEGATIVE (NEGATIVE) Urine Barbiturates NEGATIVE (NEGATIVE) Ur Phencyclidine (PCP) NEGATIVE (NEGATIVE) Urine Amphetamine NEGATIVE (NEGATIVE) U Benzodiazepine Level NEGATIVE (NEGATIVE) Urine Cocaine NEGATIVE (NEGATIVE) Urine Marijuana (THC) NEGATIVE (NEGATIVE) 08/06/18 08/06/18 Range/Units 21:45 21:45 WBC 11.1 H (4.0-10.5) K/mm3 RBC 4.10 (4.1-5.6) M/mm3 Hgb 12.7 (12.5-18.0) gm/dl Hct 36.3 L (42-50) % MCV 88.5 (78-100) fl MCH 31.0 (26-32) pg MCHC 35.0 (32-36) g/dl RDW 13.9 (11.5-14.0) % Plt Count 325 (150-450) K/mm3 MPV 9.1 (6-9.5) fl Gran % 63.1 (36.0-66.0) % Eos # (Auto) 0.44 (0-0.5) Absolute Lymphs (auto) 2.83 (1.0-4.6) Absolute Monos (auto) 0.76 (0.0-1.3) Lymphocytes % 25.5 (24.0-44.0) % Monocytes % 6.9 (0.0-12.0) % Eosinophils % 4.0 (0.00-5.0) % Basophils % 0.5 (0.0-0.4) % Absolute Granulocytes 7.00 H (1.4-6.9) Basophils # 0.06 (0-0.4) ESR 28 H (0-15) mm/hr PT (8.83-12.87) SECONDS INR (0.8-3.0) Sodium 144 (137-145) mmol/L Potassium 3.2 L (3.5-5.1) mmol/L Chloride 108 H (98-107) mmol/L Carbon Dioxide 23 (22-30) mmol/L Anion Gap 16.7 H (5-15) MEQ/L BUN 18 (9-20) mg/dL Creatinine 1.07 (0.66-1.25) mg/dL Estimated GFR > 60.0 ML/MIN Glucose 106 (74-106) mg/dL Calcium 9.3 (8.4-10.2) mg/dL Total Bilirubin 0.50 (0.2-1.3) mg/dL AST 16 L (17-59) U/L ALT 17 (0-50) U/L Alkaline Phosphatase 108 (38-126) U/L Serum Total Protein 7.1 (6.3-8.2) g/dL Albumin 3.8 (3.5-5.0) g/dL Urine Color (YELLOW) Urine Appearance (CLEAR) Urine pH (5-6) Ur Specific [place] (1.005-1.025) Urine Protein (Negative) Urine Ketones (NEGATIVE) Urine Blood (0-5) Tuan/ul Urine Nitrite (NEGATIVE) Urine Bilirubin (NEGATIVE) Urine Urobilinogen (0-1) mg/dL Ur Leukocyte Esterase (NEGATIVE) Urine WBC (Auto) (0-5) /HPF Urine RBC (Auto) (0-2) /HPF U Hyaline Cast (Auto) (0-2) /LPF U Epithel Cells (Auto) (FEW) /HPF Urine Bacteria (Auto) (NEGATIVE) /HPF Urine Mucus (Auto) (NEGATIVE) /HPF Urine Culture Reflexed (NO) Urine Glucose (NEGATIVE) mg/dL Urine Opiates Level (NEGATIVE) Ur Methadone (NEGATIVE) Urine Barbiturates (NEGATIVE) Ur Phencyclidine (PCP) (NEGATIVE) Urine Amphetamine (NEGATIVE) U Benzodiazepine Level (NEGATIVE) Urine Cocaine (NEGATIVE) Urine Marijuana (THC) (NEGATIVE) - Progress Progress: improved Air Movement: good Progress Note: 08/06/18 23:01 Pt was given IV NS, Fentanyl, Benadryl, Zofran and Morphine, headache improved, nausea resolved, explained our findings, and after PO Potassium was replaced he is being discharged on Fioricet, advised to rest x 2-3 days, and follow up with his physician in 2-3 days. Blood Culture(s) Obtained: No Antibiotics given: No Counseled pt/family regarding: lab results, diagnosis, need for follow-up, rad results - Departure Departure Disposition: Home Clinical Impression: Headache Qualifiers: Headache type: unspecified Headache chronicity pattern: chronic headache Intractability: not intractable Qualified Code(s): R51 - Headache Condition: Stable Critical Care Time: No Referrals: EDWIN RATLIFF MD [Primary Care Provider] - Instructions: Headache, Adult (DC), Tension Headache Additional Instructions: Rest x 2-3 days, apply moist heat o sore neck area, and follow up with your physician in 2-3 days, return if severe headaches, vomiting, focal weakness, lethargy ! Prescriptions: Butalbital/Aspirin/Caffeine [[id number] Cap] 1 each PO TID PRN #10 capsule PRN Reason: Pain
[2018-08-06] MEDS ORDERED: SUBLIMAZE 100 MCG/2 ML ONE (21:42)
[2018-08-06] MEDS ORDERED: Zofran 4 MG/2 ML VIAL ONE (21:42)
[2018-08-06] MEDS ORDERED: BENADRYL 50 MG/ML ONE (21:42)
[2018-08-06] MEDS ORDERED: Sodium Chloride 0.9% 1000 ML 1,000 ML ONE (21:43)
[2018-08-06 21:52] LABS: BASOPHIL % 0.5 % (0.0-0.4); Basophil (Absolute #) 0.06 (0-0.4); Eosinophil (Absolute #) 0.44 (0-0.5); Granulocytes % 63.1 % (36.0-66.0); Hematocrit 36.3 % (42-50); Hemoglobin 12.7 gm/dl (12.5-18.0); Lymphocyte (Absolute #) 2.83 (1.0-4.6); Lymphocytes % 25.5 % (24.0-44.0); Mean Cell Volume 88.5 fl (78-100); Mean Platelet Volume 9.1 fl (6-9.5); Monocytes % 6.9 % (0.0-12.0); Platelet Count 325 K/mm3 (150-450); Red Cell Distribution Width 13.9 % (11.5-14.0); White Blood Count 11.1 K/mm3 (4.0-10.5)
[2018-08-06 21:57] LABS: Appearance CLEAR (CLEAR); Bacteria RARE /HPF (NEGATIVE); Bilirubin NEGATIVE (NEGATIVE); Blood NEGATIVE Ery/ul (0-5); Epithelial Cells RARE /HPF (FEW); Glucose NEGATIVE (NEGATIVE); Hyaline Casts 0-2 /LPF (0-2); Ketones NEGATIVE (NEGATIVE); Leukocyte Esterase NEGATIVE (NEGATIVE); Mucus SLIGHT /HPF (NEGATIVE); Nitrite NEGATIVE (NEGATIVE); Protein,Urine Dip NEGATIVE (Negative); Specific Gravity 1.015 (1.005-1.025); Urobilinogen 4 mg/dL (0-1); WBC 0-2 /HPF (0-5)
[2018-08-06 22:02] LABS: INR 1.84 (0.8-3.0)
[2018-08-06 22:07] LABS: ALBUMIN 3.8 g/dL (3.5-5.0); ALKALINE PHOSPHATASE 108 U/L (38-126); ANION GAP 16.7 MEQ/L (5-15); BLOOD UREA NITROGEN 18 mg/dL (9-20); CHLORIDE 108 mmol/L (98-107); Calcium 9.3 mg/dL (8.4-10.2); Carbon Dioxide 23 mmol/L (22-30); Creatinine 1 1.07 mg/dL (0.66-1.25); Glucose 106 mg/dL (74-106); Potassium 3.2 mmol/L (3.5-5.1); SGOT/AST 16 U/L (17-59); SGPT/ALT 17 U/L (0-50); SODIUM 144 mmol/L (137-145); Total Protein 7.1 g/dL (6.3-8.2)
[2018-08-06 22:10] LABS: Amphetamine,Urine NEGATIVE (NEGATIVE); Barbiturate,Urine NEGATIVE (NEGATIVE); Benzodiazepine,Urine NEGATIVE (NEGATIVE); Cocaine,Urine NEGATIVE (NEGATIVE); Methadone,Urine NEGATIVE (NEGATIVE); Opiate,Urine POSITIVE (NEGATIVE); PCP,Urine NEGATIVE (NEGATIVE); THC,Urine NEGATIVE (NEGATIVE)
[2018-08-06 22:12] LABS: Erythrocyte Sedimentation Rate 28 mm/hr (0-15)
[2018-08-06] MEDS ORDERED: MORPHINE SULFATE 4 MG INJ IV ONE (22:42)
[2018-08-06] MEDS ORDERED: MORPHINE SULFATE 4 MG INJ ONE (22:45)
[2018-08-06 22:53] VITALS: BP 170/102; PULSE 80
[2018-08-06 23:03] VITALS: O2SAT 98
[2018-08-06] MEDS ORDERED: PERCOCET TABLET 5/325MG PO STA (23:03)
[2018-08-06] MEDS ORDERED: PERCOCET TABLET 5/325MG ONE (23:13)
[2018-08-06] MEDS ORDERED: Klor Con 10 MEQ PO ONE ×2 (23:13→23:16)
[2018-08-06] MEDS ORDERED: POTASSIUM CHLORIDE 20 MEQ POWDER FOR ORAL SOL PO ONE (23:15)
--- NOTE | 2018-08-07 08:34 | XRAY ---
Indication: Severe headache, blurry vision, and weakness. Multiple contiguous axial images obtained through the head without contrast. Comparison: July 27, 2018. Stable minimal periventricular degenerative micro-ischemia and old right temporoparietal infarct. No acute intracranial hemorrhage, hydrocephalus, or mass effect. Fourth ventricle is midline. Garcia-white matter differentiation preserved. Bony calvarium intact. Again mild mucosal thickening of both ethmoid and both maxillary sinuses. Mastoid air cells are clear. Impression: 1. Stable degenerative micro-ischemia and old right temporoparietal infarct. 2. Again incidental paranasal sinus disease. 3. No new or acute intracranial abnormalities. CT DI 70.91
== END 2018-08-06 23:27 | disposition home or self-care (01) ==
LOC: ED 20:57
DX: R51 Headache (principal); R42 Dizziness and giddiness; I10 Essential (primary) hypertension; I25.2 Old myocardial infarction; K21.9 Gastro-esophageal reflux disease without esophagitis; Z79.899 Other long term (current) drug therapy
CPT/HCPCS: 36000; 36415; 70450; 80053; 80307; 81001; 85025; 85610; 85652; 96360; 96374; 96375; 99284; J1200; J2270; J2405; J3010; A9270-GY

== ENCOUNTER 2018-08-09 16:38 | Emergency (ER) | payer MEDICAID ==
[2018-08-09 17:12] VITALS: O2SAT 96
[2018-08-09 17:55] VITALS: PULSE 55
[2018-08-09] MEDS ORDERED: Hydromorphone 1 mg/ml Ampule IM ONE (19:18)
[2018-08-09] MEDS ORDERED: ZOFRAN ODT 4 MG PO ONE (19:19)
--- NOTE | 2018-08-09 19:24 | ERPHSYRPT ---
- History of Present Illness Time Seen by Provider: 08/09/18 19:15 Source: patient Exam Limitations: no limitations Patient Subjective Stated Complaint: continuous headache for months. was seen here 1 week ago for the same.. problems since having a stroke in January.. states has had 20 CT scans and 4 MRIs in the past 2 months and cannot find what is wrong. light sensitive. nausea with no vomiting Triage Nursing Assessment: alert and awake able to answer questions.. neuro intact. states his right pupil is dilated since his stroke. was seen here 1 week ago for the same. states is light sensitive. nausea with no vomiting. Physician History: 53 year old white male arrives with headache for months has had multiple imaging studies for same .headache and photophobia since thias am, positive nausea no fever Pmh included cva, hypertensionMi Gerd anxiety, depressionheart cath cva, back surgerykidney stones. Psh cardiac catheterization, hernia repair, orthopedic surgery back surgery. Timing/Duration: today Severity: moderate Modifying Factors: Improves With: eating, nothing. Worsens With: medication, movement, rest, acetaminophen, ibuprofen Associated Symptoms: nausea, headaches, No vomiting, No abdominal pain, No shortness of breath, No heartburn, No diaphoresis, No cough, No chills, No chest pain, No fever, No loss of appetite, No malaise, No rash, No syncope, No seizure Allergies/Adverse Reactions: No Known Drug Allergies Allergy (Verified 07/27/18 22:45) Home Medications: Aspirin EC 81 mg [Ecotrin 81 mg] 81 mg PO DAILY 06/30/18 [History] Etodolac 400 mg [Lodine 400 mg] 400 mg PO BID 07/29/18 [History] Potassium Chloride 10 Meq Tab* [Klor Con 10 MEQ] 20 meq PO BID 07/29/18 [ History] Sildenafil Citrate [Viagra] 25 mg PO DAILY 08/06/18 [History] Hx Tetanus, Diphtheria Vaccination/Date Given: Yes Hx Influenza Vaccination/Date Given: Yes Hx Pneumococcal Vaccination/Date Given: Yes - Review of Systems Constitutional: No Fever, No Chills Eyes: Photophobia, No Discharge, No Eye Pain, No Eye Redness, No Itchy, No Tearing, No Vision Changes, No Double Vision, No Foreign Body Sensation Ears, Nose, & Throat: No Symptoms Respiratory: No Cough, No Dyspnea Cardiac: No Chest Pain, No Edema, No Syncope Abdominal/Gastrointestinal: Nausea, No Abdominal Pain, No Vomiting, No Diarrhea Genitourinary Symptoms: No Dysuria Musculoskeletal: No Back Pain, No Neck Pain Skin: No Symptoms, No Rash Neurological: Headache, No Dizziness, No Focal Weakness, No Sensory Changes Psychological: No Symptoms Endocrine: No Symptoms All Other Systems: Reviewed and Negative - Past Medical History Pertinent Past Medical History: Yes Neurological History: Stroke ENT History: Other Cardiac History: Hypertension, Myocardial Infarction ([place]), Other Respiratory History: No Pertinent History Endocrine Medical History: No Pertinent History Musculoskeletal History: Other GI Medical History: GERD History: No Pertinent History Psycho-Social History: Anxiety, Depression Male Reproductive Disorders: No Pertinent History Other Medical History: heart cath, CVA, back surgery when he was 16, blood poisoning when in 4th grade, bitten by brown recluse spider, kidney stones x 9 - Past Surgical History Past Surgical History: Yes Neuro Surgical History: No Pertinent History Cardiac: Cardiac Catheterization Respiratory: No Pertinent History Gastrointestinal: Hernia Repair Genitourinary: No Pertinent History Musculoskeletal: Orthopedic Surgery Male Surgical History: No Pertinent History Other Surgical History: pt had bk surgery at 16. - Social History Smoking Status: Never smoker Exposure to second hand smoke: No Drug Use: none Patient Lives Alone: No - Nursing Vital Signs Nursing Vital Signs: Initial Vital Signs Pulse Rate 80 08/09/18 16:38 Respiratory Rate 16 08/09/18 16:38 Blood Pressure 111/60 08/09/18 16:38 O2 Sat by Pulse Oximetry 96 08/09/18 16:38 Pain Scale Pain Intensity 7 - Physical Exam General Appearance: mild distress, alert Eye Exam: PERRL/EOMI, eyes nml inspection, other (left pupil chronically dialated) Ears, Nose, Throat Exam: normal ENT inspection, TMs normal, pharynx normal, moist mucous membranes Neck Exam: normal inspection, non-tender, supple, full range of motion Respiratory Exam: normal breath sounds, lungs clear, No respiratory distress Cardiovascular Exam: regular rate/rhythm, normal heart sounds, normal peripheral pulses, capillary refill <2 sec Gastrointestinal/Abdomen Exam: soft, normal bowel sounds, No tenderness, No mass Back Exam: normal inspection, normal range of motion, No CVA tenderness, No vertebral tenderness Extremity Exam: normal inspection, normal range of motion, pelvis stable Neurologic Exam: alert, oriented x 3, cooperative, coupler II-XII nml as tested, normal mood/affect, nml cerebellar function, nml station & gait, sensation nml, No motor deficits Skin Exam: normal color, warm, dry, No rash Lymphatic Exam: No adenopathy SpO2 Interpretation: normal (96%) SpO2: 96 Ordered Tests: Medication Summary Discontinued Medications Generic Name Dose Route Start Last Admin Trade Name Wendy PRN Reason Stop Dose Admin Hydromorphone HCl 1 mg 08/09/18 19:18 08/09/18 19:38 Hydromorphone 1 Mg/Ml Ampule IM 08/09/18 19:19 1 mg STAT ONE Administration Hydromorphone HCl Confirm 08/09/18 19:31 Hydromorphone 1 Mg/Ml Ampule Administered 08/09/18 19:32 Dose 1 mg .ROUTE .STK-MED ONE Ondansetron HCl 4 mg 08/09/18 19:19 08/09/18 19:38 Zofran Odt 4 Mg PO 08/09/18 19:20 4 mg STAT ONE Administration Ondansetron HCl Confirm 08/09/18 19:31 Zofran Odt 4 Mg Administered 08/09/18 19:32 Dose 4 mg .ROUTE .STK-MED ONE - Progress Progress: improved Progress Note: 08/09/18 20:35 Patient is improved but not completely pain-free after hydromorphone 1 mg IM and Zofran 4 mg by mouth. Will discharge patient. Diagnosis migraine headache. Patient is to return home rest dark quiet room he has pain medications at home he is to followup with his family . Return for any problems. - Departure Departure Disposition: Home Clinical Impression: Migraine headache Qualifiers: Migraine type: unspecified Status migrainosus presence: without status migrainosus Intractability: not intractable Qualified Code(s): G43.909 - Migraine, unspecified, not intractable, without status migrainosus Condition: Fair Critical Care Time: No Referrals: EDWIN RATLIFF MD [Primary Care Provider] - Additional Instructions: Return home. Rest in a dark quiet room. 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 Followup with your family . Return for acute distress severe symptoms or for any problems.
[2018-08-09] MEDS ORDERED: ZOFRAN ODT 4 MG ONE (19:31)
[2018-08-09] MEDS ORDERED: Hydromorphone 1 mg/ml Ampule ONE (19:31)
[2018-08-09 20:55] VITALS: BP 110/56
== END 2018-08-09 20:58 | disposition home or self-care (01) ==
LOC: ED 16:38
DX: G43.909 Migraine, unspecified, not intractable, without status migrainosus (principal)
CPT/HCPCS: 96372; 99284; J1170; Q0162

== ENCOUNTER 2018-08-14 22:16 | Emergency (ER) | payer MEDICAID ==
--- NOTE | 2018-08-14 22:24 | ERPHSYRPT ---
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 he walked 30 minutes to this ED despite having cp. pt is under a lot of stress and has anxiety issues. cp is sharp and substernal without radiation. pt was here on 07/29/18 for same issue. Timing/Duration: hour(s) (1/2 hour tours captain) Quality: sharpness Location: substernal, central Chest Pain Radiation: no radiation Severity of Pain-Max: mild Severity of Pain-Current: mild Associated Symptoms: denies symptoms Prior Chest Pain/Cardiac Workup: cardiac cath, heart attack Nitro Today/Relief: no nitro taken today Aspirin Treatment Today: no aspirin today Allergies/Adverse Reactions: No Known Drug Allergies Allergy (Verified 08/14/18 22:18) Home Medications: Aspirin EC 81 mg [Ecotrin 81 mg] 81 mg PO DAILY 06/30/18 [History] Etodolac 400 mg [Lodine 400 mg] 400 mg PO BID 07/29/18 [History] Potassium Chloride 10 Meq Tab* [Klor Con 10 MEQ] 20 meq PO BID 07/29/18 [ History] Sildenafil Citrate [Viagra] 25 mg PO DAILY 08/06/18 [History] Hx Tetanus, Diphtheria Vaccination/Date Given: Yes Hx Influenza Vaccination/Date Given: Yes Hx Pneumococcal Vaccination/Date Given: Yes - Review of Systems Constitutional: No Symptoms Eyes: No Symptoms Ears, Nose, & Throat: No Symptoms Respiratory: No Symptoms Cardiac: Chest Pain Abdominal/Gastrointestinal: No Symptoms Genitourinary Symptoms: No Symptoms Musculoskeletal: No Symptoms Skin: No Symptoms Neurological: No Symptoms Psychological: No Symptoms Endocrine: No Symptoms Hematologic/Lymphatic: No Symptoms Immunological/Allergic: No Symptoms All Other Systems: Reviewed and Negative - Past Medical History Pertinent Past Medical History: Yes Neurological History: Stroke ENT History: Other Cardiac History: Hypertension, Myocardial Infarction ([place]), Other Respiratory History: No Pertinent History Endocrine Medical History: No Pertinent History Musculoskeletal History: Other GI Medical History: GERD History: No Pertinent History Psycho-Social History: Anxiety, Depression Male Reproductive Disorders: No Pertinent History Other Medical History: heart cath, CVA, back surgery when he was 16, blood poisoning when in 4th grade, bitten by brown recluse spider, kidney stones x 9 - Past Surgical History Past Surgical History: Yes Neuro Surgical History: No Pertinent History Cardiac: Cardiac Catheterization Respiratory: No Pertinent History Gastrointestinal: Hernia Repair Genitourinary: No Pertinent History Musculoskeletal: Orthopedic Surgery Male Surgical History: No Pertinent History Other Surgical History: pt had bk surgery at 16. - Social History Smoking Status: Never smoker Exposure to second hand smoke: No Drug Use: none Patient Lives Alone: No - Nursing Vital Signs Nursing Vital Signs: Initial Vital Signs Temperature 98.7 F 08/14/18 22:17 Pulse Rate 72 08/14/18 22:17 Respiratory Rate 18 08/14/18 22:17 Blood Pressure 138/82 08/14/18 22:17 O2 Sat by Pulse Oximetry 97 08/14/18 22:17 Pain Scale Pain Intensity 0 - Physical Exam General Appearance: no apparent distress, alert, anxiety Eye Exam: PERRL/EOMI Ears, Nose, Throat Exam: normal ENT inspection, moist mucous membranes Neck Exam: normal inspection, non-tender, supple, full range of motion Respiratory Exam: normal breath sounds, chest tenderness, lungs clear, airway intact, No respiratory distress Cardiovascular Exam: regular rate/rhythm, normal heart sounds, normal peripheral pulses Gastrointestinal/Abdomen Exam: soft, normal bowel sounds, No tenderness, No guarding Rectal Exam: not done Back Exam: normal inspection, normal range of motion, No CVA tenderness, No vertebral tenderness Extremity Exam: normal inspection, normal range of motion, pelvis stable Neurologic Exam: alert, oriented x 3, cooperative, chemical engraver II-XII nml as tested, nml cerebellar function, nml station & gait Skin Exam: normal color, warm, dry Lymphatic Exam: No adenopathy SpO2 Interpretation: normal SpO2: 97 O2 Delivery: Room Air - Course EKG Interpreted by Me: RATE (75), Sinus Rhythm, NORMAL AXIS, NORMAL INTERVALS, NORMAL QRS, Non-specific ST Changes, Other (no change from comparison ekg dated 07/29/18) Ordered Tests: Active Orders 24 hr Category Date Time Status Security Site Supervisor STAT Care 08/14/18 22:25 Active EKG-ER Only STAT Care 08/14/18 22:24 Active IV Insertion STAT Care 08/14/18 22:24 Active Pulse Oximetry (ED) STAT Care 08/14/18 23:08 Active CHEST 1 VIEW (PORTABLE) Stat Exams 08/14/18 23:09 Taken CBC W DIFF Stat Lab 08/14/18 22:33 Completed CMP Stat Lab 08/14/18 22:33 Completed D-DIMER QUANTITATION Stat Lab 08/14/18 22:33 Completed NT PRO BNP Stat Lab 08/14/18 22:33 Completed PROTIME WITH INR Stat Lab 08/14/18 22:33 Completed TROPONIN Q3H Lab 08/14/18 22:33 Completed TROPONIN Q3H Lab 08/15/18 01:30 Completed Medication Summary Discontinued Medications Generic Name Dose Route Start Last Admin Trade Name Freq PRN Reason Stop Dose Admin Al Hydrox/Mg Hydrox/Simethicone Confirm 08/15/18 01:40 Maalox Es 30 Ml Unit Dose Administered 08/15/18 01:41 Dose 30 ml .ROUTE .STK-MED ONE Aspirin 324 mg 08/14/18 22:24 08/14/18 22:36 Baby Aspirin 81 Mg Chew PO 08/14/18 22:25 162 mg STAT ONE Administration Aspirin Confirm 08/14/18 22:28 Baby Aspirin 81 Mg Chew Administered 08/14/18 22:29 Dose 162 mg .ROUTE .STK-MED ONE Sodium Chloride 1,000 mls @ 50 mls/hr 08/14/18 22:30 08/14/18 22:36 Sodium Chloride 0.9% 1000 Ml IV 09/13/18 22:29 50 mls/hr .Q20H CIARAN Administration Sodium Chloride Confirm 08/14/18 22:28 Sodium Chloride 0.9% 1000 Ml Administered 08/14/18 22:29 Dose 1,000 mls @ ud .ROUTE .STK-MED ONE Lidocaine HCl Confirm 08/15/18 01:40 Xylocaine Hcl Viscous * Administered 08/15/18 01:41 Dose 15 ml .ROUTE .STK-MED ONE Magnesium Hydroxide 45 ml 08/15/18 01:45 08/15/18 01:45 Gi Cocktail 45 Ml (Maalox/Lidocaine) PO 08/15/18 01:46 45 ml STAT ONE Administration Ondansetron HCl 4 mg 08/14/18 22:24 08/14/18 22:36 Zofran 4 Mg/2 Ml Vial IV 08/14/18 22:25 4 mg STAT ONE Administration Ondansetron HCl Confirm 08/14/18 22:28 Zofran 4 Mg/2 Ml Vial Administered 08/14/18 22:29 Dose 4 mg .ROUTE .STK-MED ONE Lab/Rad Data: Laboratory Result Diagrams 08/14/18 22:33 08/14/18 22:33 Laboratory Results 08/15/18 08/14/18 08/14/18 Range/Units 01:30 22:33 22:33 WBC (4.0-10.5) K/mm3 RBC (4.1-5.6) M/mm3 Hgb (12.5-18.0) gm/dl Hct (42-50) % MCV (78-100) fl MCH (26-32) pg MCHC (32-36) g/dl RDW (11.5-14.0) % Plt Count (150-450) K/mm3 MPV (6-9.5) fl Gran % (36.0-66.0) % Eos # (Auto) (0-0.5) Absolute Lymphs (auto) (1.0-4.6) Absolute Monos (auto) (0.0-1.3) Lymphocytes % (24.0-44.0) % Monocytes % (0.0-12.0) % Eosinophils % (0.00-5.0) % Basophils % (0.0-0.4) % Absolute Granulocytes (1.4-6.9) Basophils # (0-0.4) PT 22.0 H (8.83-12.87) SECONDS INR 1.92 (0.8-3.0) D-Dimer < 162 L (215-500) ng/mL Sodium (137-145) mmol/L Potassium (3.5-5.1) mmol/L Chloride (98-107) mmol/L Carbon Dioxide (22-30) mmol/L Anion Gap (5-15) MEQ/L BUN (9-20) mg/dL Creatinine (0.66-1.25) mg/dL Estimated GFR ML/MIN Glucose (74-106) mg/dL Calcium (8.4-10.2) mg/dL Total Bilirubin (0.2-1.3) mg/dL AST (17-59) U/L ALT (0-50) U/L Alkaline Phosphatase (38-126) U/L Troponin I 0.015 0.015 (0.000-0.034) ng/mL NT-Pro-B Natriuret Pep (0-900) pg/mL Serum Total Protein (6.3-8.2) g/dL Albumin (3.5-5.0) g/dL 08/14/18 08/14/18 Range/Units 22:33 22:33 WBC 14.5 H (4.0-10.5) K/mm3 RBC 3.98 L (4.1-5.6) M/mm3 Hgb 12.1 L (12.5-18.0) gm/dl Hct 35.5 L (42-50) % MCV 89.2 (78-100) fl MCH 30.4 (26-32) pg MCHC 34.1 (32-36) g/dl RDW 13.7 (11.5-14.0) % Plt Count 305 (150-450) K/mm3 MPV 9.5 (6-9.5) fl Gran % 67.4 H (36.0-66.0) % Eos # (Auto) 0.31 (0-0.5) Absolute Lymphs (auto) 3.08 (1.0-4.6) Absolute Monos (auto) 1.29 (0.0-1.3) Lymphocytes % 21.3 L (24.0-44.0) % Monocytes % 8.9 (0.0-12.0) % Eosinophils % 2.1 (0.00-5.0) % Basophils % 0.3 (0.0-0.4) % Absolute Granulocytes 9.73 H (1.4-6.9) Basophils # 0.05 (0-0.4) PT (8.83-12.87) SECONDS INR (0.8-3.0) D-Dimer (215-500) ng/mL Sodium 142 (137-145) mmol/L Potassium 3.4 L (3.5-5.1) mmol/L Chloride 105 (98-107) mmol/L Carbon Dioxide 23 (22-30) mmol/L Anion Gap 16.8 H (5-15) MEQ/L BUN 37 H (9-20) mg/dL Creatinine 2.15 H (0.66-1.25) mg/dL Estimated GFR 34.3 ML/MIN Glucose 64 L (74-106) mg/dL Calcium 9.7 (8.4-10.2) mg/dL Total Bilirubin 0.60 (0.2-1.3) mg/dL AST 15 L (17-59) U/L ALT 15 (0-50) U/L Alkaline Phosphatase 96 (38-126) U/L Troponin I (0.000-0.034) ng/mL NT-Pro-B Natriuret Pep 101 (0-900) pg/mL Serum Total Protein 7.4 (6.3-8.2) g/dL Albumin 4.2 (3.5-5.0) g/dL - Progress Progress: improved Air Movement: good Progress Note: 08/15/18 06:41 this is a delayed entry for 0200. computers went down. pts cp not sig per pt. 3 hour troponin unchanged and normal. pt has chronic angina and chronic leukocytosis. pt was discharged to home. Blood Culture(s) Obtained: No Antibiotics given: No Counseled pt/family regarding: lab results, diagnosis, need for follow-up, rad results - Departure Departure Disposition: Home Clinical Impression: Chest pain, Leukocytosis Condition: Stable Critical Care Time: No Referrals: EDWIN RATLIFF MD [Primary Care Provider] -
[2018-08-14] MEDS ORDERED: BABY ASPIRIN 81 MG CHEW ONE (22:28)
[2018-08-14] MEDS ORDERED: Zofran 4 MG/2 ML VIAL ONE (22:28)
[2018-08-14] MEDS ORDERED: Sodium Chloride 0.9% 1000 ML 1,000 ML ONE (22:28)
[2018-08-14 22:34] LABS: BASOPHIL % 0.3 % (0.0-0.4); Basophil (Absolute #) 0.05 (0-0.4); Eosinophil % 2.1 % (0.00-5.0); Eosinophil (Absolute #) 0.31 (0-0.5); Granulocyte Absolute (ANC) 9.73 (1.4-6.9); Granulocytes % 67.4 % (36.0-66.0); Hematocrit 35.5 % (42-50); Hemoglobin 12.1 gm/dl (12.5-18.0); Lymphocyte (Absolute #) 3.08 (1.0-4.6); Lymphocytes % 21.3 % (24.0-44.0); Mean Cell Volume 89.2 fl (78-100); Mean Corpuscular Hemoglobin 30.4 pg (26-32); Mean Corpuscular Hgb Concent. 34.1 g/dl (32-36); Mean Platelet Volume 9.5 fl (6-9.5); Monocyte (Absolute #) 1.29 (0.0-1.3); Monocytes % 8.9 % (0.0-12.0); Platelet Count 305 K/mm3 (150-450); Red Blood Count 3.98 M/mm3 (4.1-5.6); Red Cell Distribution Width 13.7 % (11.5-14.0); White Blood Count 14.5 K/mm3 (4.0-10.5)
[2018-08-14] MEDS: BABY ASPIRIN 81 MG CHEW PO ONE (22:36)
[2018-08-14] MEDS: Sodium Chloride 0.9% 1000 ML 1,000 ML IV SCH (22:36)
[2018-08-14] MEDS: Zofran 4 MG/2 ML VIAL IV ONE (22:36)
[2018-08-14 22:41] LABS: INR 1.92 (0.8-3.0)
[2018-08-14 23:00] LABS: ALBUMIN 4.2 g/dL (3.5-5.0); ANION GAP 16.8 MEQ/L (5-15); BILIRUBIN,TOTAL 0.6 mg/dL (0.2-1.3); Calcium 9.7 mg/dL (8.4-10.2); Creatinine 1 2.15 mg/dL (0.66-1.25); Potassium 3.4 mmol/L (3.5-5.1); Total Protein 7.4 g/dL (6.3-8.2)
[2018-08-15] MEDS ORDERED: XYLOCAINE HCl Viscous ONE (01:40)
[2018-08-15] MEDS ORDERED: MAALOX ES 30 ML UNIT DOSE ONE (01:40)
[2018-08-15] MEDS: GI COCKTAIL 45 ML (Maalox/Lidocaine) PO ONE (01:45)
[2018-08-15 03:33] VITALS: BP 149/76; PULSE 68
[2018-08-15 06:45] VITALS: O2SAT 97
--- NOTE | 2018-08-15 09:14 | XRAY ---
Indication: Chest pain. Comparison: July 29, 2018. Portable apical lordotic chest remains clear. Heart and mediastinal structures within normal limits. No new/acute findings.
== END 2018-08-15 02:50 | disposition home or self-care (01) ==
LOC: ED 22:16
DX: R07.9 Chest pain, unspecified (principal); D72.829 Elevated white blood cell count, unspecified; Z86.73 Personal history of transient ischemic attack (TIA), and cerebral infarction without residual deficits; Z79.899 Other long term (current) drug therapy
CPT/HCPCS: 36000; 36415; 71045; 80053; 82962; 83880; 84484; 85025; 85379; 85610; 93005; 93041; 96360; 96361; 96374; 99284; J2405; A9270-GY

== ENCOUNTER 2018-10-09 18:19 | Observation (INO) | payer MEDICAID ==
[2018-10-09 18:56] LABS: BASOPHIL % 0.6 % (0.0-0.4); Basophil (Absolute #) 0.08 (0-0.4); Eosinophil % 5.2 % (0.00-5.0); Eosinophil (Absolute #) 0.68 (0-0.5); Granulocyte Absolute (ANC) 8.77 (1.4-6.9); Granulocytes % 67.5 % (36.0-66.0); Hematocrit 38.9 % (42-50); Hemoglobin 13.2 gm/dl (12.5-18.0); Lymphocyte (Absolute #) 2.46 (1.0-4.6); Lymphocytes % 18.9 % (24.0-44.0); Mean Cell Volume 90.9 fl (78-100); Mean Corpuscular Hemoglobin 30.8 pg (26-32); Mean Corpuscular Hgb Concent. 33.9 g/dl (32-36); Monocyte (Absolute #) 1.01 (0.0-1.3); Monocytes % 7.8 % (0.0-12.0); Platelet Count 330 K/mm3 (150-450); Red Blood Count 4.28 M/mm3 (4.1-5.6); Red Cell Distribution Width 14.6 % (11.5-14.0)
--- NOTE | 2018-10-09 18:58 | ERPHSYRPT ---
- History of Present Illness Time Seen by Provider: 10/09/18 18:38 Historian: patient Exam Limitations: no limitations Patient Subjective Stated Complaint: STATES BEGAN HAVING CHEST PAIN APPROX ONE HOUR AGO. HX HEART DISEASE. ALSO HAVING A MIGRAINE Triage Nursing Assessment: AMBULATED TO ROOM PER SELF. SKIN W/D, COLOR NORMAL, RESP EASY. NO EDEMA NOTED. SB ON MONITOR Physician History: Pt started c/o mid sternal chest pain 2 hours ago, radiating to his left arm, denies severe SOB, nausea, vomiting, fever, other complaints. He did not take any medications. Activities at Onset: none Quality: pressure Location: substernal Chest Pain Radiation: arm (left) Severity of Pain-Max: moderate Severity of Pain-Current: moderate Modifying Factors: Improves With: nothing Associated Symptoms: denies symptoms Nitro Today/Relief: no nitro taken today Aspirin Treatment Today: no aspirin today Allergies/Adverse Reactions: No Known Drug Allergies Allergy (Verified 10/09/18 18:36) Home Medications: Aspirin EC 81 mg [Ecotrin 81 mg] 81 mg PO DAILY 06/30/18 [History] Etodolac 400 mg [Lodine 400 mg] 400 mg PO BID 07/29/18 [History] Potassium Chloride 10 Meq Tab* [Klor Con 10 MEQ] 20 meq PO BID 07/29/18 [ History] Sildenafil Citrate [Viagra] 25 mg PO DAILY 08/06/18 [History] Amlodipine Besylate [Norvasc] 10 mg PO DAILY 10/09/18 [History] Carvedilol [Coreg] 25 mg PO BID 10/09/18 [History] Hydrochlorothiazide 25 mg [hydroDIURIL 25 MG] 25 mg PO DAILY 10/09/18 [ History] Lisinopril 20 mg [Zestril 20 MG] 20 mg PO DAILY 10/09/18 [History] Hx Tetanus, Diphtheria Vaccination/Date Given: Yes Hx Influenza Vaccination/Date Given: Yes Hx Pneumococcal Vaccination/Date Given: Yes - Review of Systems Constitutional: No Symptoms Ears, Nose, & Throat: No Symptoms Respiratory: No Symptoms Cardiac: Chest Pain Abdominal/Gastrointestinal: No Symptoms Genitourinary Symptoms: No Symptoms Musculoskeletal: No Symptoms Skin: No Symptoms Neurological: No Symptoms All Other Systems: Reviewed and Negative - Past Medical History Pertinent Past Medical History: Yes Neurological History: Stroke ENT History: Other Cardiac History: Hypertension, Myocardial Infarction ([place]), Other Respiratory History: No Pertinent History Endocrine Medical History: No Pertinent History Musculoskeletal History: Other GI Medical History: GERD History: No Pertinent History Psycho-Social History: Anxiety, Depression Male Reproductive Disorders: No Pertinent History Other Medical History: heart cath, CVA, back surgery when he was 16, blood poisoning when in 4th grade, bitten by brown recluse spider, kidney stones x 9 - Past Surgical History Past Surgical History: Yes Neuro Surgical History: No Pertinent History Cardiac: Cardiac Catheterization Respiratory: No Pertinent History Gastrointestinal: Hernia Repair Genitourinary: No Pertinent History Musculoskeletal: Orthopedic Surgery Male Surgical History: No Pertinent History Other Surgical History: pt had bk surgery at 16. - Social History Smoking Status: Never smoker Exposure to second hand smoke: Yes Drug Use: none Patient Lives Alone: Yes - Nursing Vital Signs Nursing Vital Signs: Initial Vital Signs Temperature 98 F 10/09/18 18:25 Pulse Rate 58 L 10/09/18 18:25 Respiratory Rate 16 10/09/18 18:25 Blood Pressure 182/106 10/09/18 18:25 O2 Sat by Pulse Oximetry 96 10/09/18 18:25 Pain Scale Pain Intensity 8 - Physical Exam General Appearance: no apparent distress Ears, Nose, Throat Exam: normal ENT inspection, moist mucous membranes Neck Exam: normal inspection, non-tender, supple, No carotid bruit, No JVD Respiratory Exam: normal breath sounds, lungs clear, airway intact, No chest tenderness Cardiovascular Exam: regular rate/rhythm, normal heart sounds, normal peripheral pulses, No murmur Gastrointestinal/Abdomen Exam: soft, normal bowel sounds, No tenderness, No distention, No mass, No guarding Back Exam: normal inspection, No CVA tenderness Extremity Exam: normal inspection Neurologic Exam: alert, oriented x 3 Skin Exam: normal color, warm, dry, No rash, No diaphoresis Lymphatic Exam: No adenopathy SpO2 Interpretation: normal SpO2: 96 O2 Delivery: Room Air - Course Nursing assessment & vital signs reviewed: Yes EKG Interpreted by Me: RATE (60/min), Left [place] Comfort Deviation, NORMAL INTERVALS, NORMAL QRS, Non-specific ST Changes - Radiology Exams Chest X-ray Interpretation: Interpreted by me, Negative Ordered Tests: Active Orders 24 hr Category Date Time Status Supervisor Dumping STAT Care 10/09/18 18:45 Active EKG-ER Only STAT Care 10/09/18 18:44 Active IV Insertion STAT Care 10/09/18 18:44 Active Oxygen-ED Only Nasal Cannula 2 lpm Care 10/09/18 18:44 Active CHEST 1 VIEW (PORTABLE) Stat Exams 10/09/18 18:56 Taken CBC W DIFF Stat Lab 10/09/18 18:55 Completed CK-Creatinine Phosphokinase Stat Lab 10/09/18 18:55 Completed CMP Stat Lab 10/09/18 18:55 Completed D-DIMER QUANTITATION Stat Lab 10/09/18 18:55 Completed MAGNESIUM Stat Lab 10/09/18 18:55 Completed NT PRO BNP Stat Lab 10/09/18 18:55 Completed PROTIME WITH INR Stat Lab 10/09/18 18:55 Completed PTT Stat Lab 10/09/18 18:55 Completed TROPONIN Q3H Lab 10/09/18 18:55 Completed TROPONIN Q3H Lab 10/09/18 21:45 Ordered TROPONIN Q3H Lab 10/10/18 00:45 Ordered TROPONIN Q3H Lab 10/10/18 03:45 Ordered TROPONIN Q3H Lab 10/10/18 06:45 Ordered Medication Summary Generic Name Dose Route Start Last Admin Trade Name Freq PRN Reason Stop Dose Admin Aspirin 325 mg 10/10/18 20:47 Ecotrin 325 Mg PO 10/10/18 20:48 NOW ONE Discontinued Medications Generic Name Dose Route Start Last Admin Trade Name Freurvashi PRN Reason Stop Dose Admin Morphine Sulfate 4 mg 10/09/18 20:44 Morphine Sulfate 4 Mg Inj IV 10/09/18 20:45 STAT ONE Ondansetron HCl 4 mg 10/09/18 20:44 Zofran 4 Mg/2 Ml Vial IV 10/09/18 20:45 STAT ONE Lab/Rad Data: Laboratory Result Diagrams 10/09/18 18:55 10/09/18 18:55 Laboratory Results 10/09/18 10/09/18 10/09/18 Range/Units 18:55 18:55 18:55 WBC (4.0-10.5) K/mm3 RBC (4.1-5.6) M/mm3 Hgb (12.5-18.0) gm/dl Hct (42-50) % MCV (78-100) fl MCH (26-32) pg MCHC (32-36) g/dl RDW (11.5-14.0) % Plt Count (150-450) K/mm3 MPV (6-9.5) fl Gran % (36.0-66.0) % Eos # (Auto) (0-0.5) Absolute Lymphs (auto) (1.0-4.6) Absolute Monos (auto) (0.0-1.3) Lymphocytes % (24.0-44.0) % Monocytes % (0.0-12.0) % Eosinophils % (0.00-5.0) % Basophils % (0.0-0.4) % Absolute Granulocytes (1.4-6.9) Basophils # (0-0.4) PT 13.0 H (8.83-12.87) SECONDS INR 1.15 (0.8-3.0) APTT 29.7 (24.1-36.1) SECONDS D-Dimer 230 (215-500) ng/mL Sodium 142 (137-145) mmol/L Potassium 3.8 (3.5-5.1) mmol/L Chloride 111 H (98-107) mmol/L Carbon Dioxide 23 (22-30) mmol/L Anion Gap 12.3 (5-15) MEQ/L BUN 15 (9-20) mg/dL Creatinine 0.85 (0.66-1.25) mg/dL Estimated GFR > 60.0 ML/MIN Glucose 81 (74-106) mg/dL Calcium 9.5 (8.4-10.2) mg/dL Magnesium 2.1 (1.6-2.3) mg/dL Total Bilirubin 0.70 (0.2-1.3) mg/dL AST 25 (17-59) U/L ALT 14 (0-50) U/L Alkaline Phosphatase 74 (38-126) U/L Creatine Kinase 67 (55-170) U/L Troponin I < 0.012 (0.000-0.034) ng/mL NT-Pro-B Natriuret Pep 558 (0-900) pg/mL Serum Total Protein 7.6 (6.3-8.2) g/dL Albumin 4.2 (3.5-5.0) g/dL 10/09/18 Range/Units 18:55 WBC 13.0 H (4.0-10.5) K/mm3 RBC 4.28 (4.1-5.6) M/mm3 Hgb 13.2 (12.5-18.0) gm/dl Hct 38.9 L (42-50) % MCV 90.9 (78-100) fl MCH 30.8 (26-32) pg MCHC 33.9 (32-36) g/dl RDW 14.6 H (11.5-14.0) % Plt Count 330 (150-450) K/mm3 MPV 9.0 (6-9.5) fl Gran % 67.5 H (36.0-66.0) % Eos # (Auto) 0.68 H (0-0.5) Absolute Lymphs (auto) 2.46 (1.0-4.6) Absolute Monos (auto) 1.01 (0.0-1.3) Lymphocytes % 18.9 L (24.0-44.0) % Monocytes % 7.8 (0.0-12.0) % Eosinophils % 5.2 H (0.00-5.0) % Basophils % 0.6 (0.0-0.4) % Absolute Granulocytes 8.77 H (1.4-6.9) Basophils # 0.08 (0-0.4) PT (8.83-12.87) SECONDS INR (0.8-3.0) APTT (24.1-36.1) SECONDS D-Dimer (215-500) ng/mL Sodium (137-145) mmol/L Potassium (3.5-5.1) mmol/L Chloride (98-107) mmol/L Carbon Dioxide (22-30) mmol/L Anion Gap (5-15) MEQ/L BUN (9-20) mg/dL Creatinine (0.66-1.25) mg/dL Estimated GFR ML/MIN Glucose (74-106) mg/dL Calcium (8.4-10.2) mg/dL Magnesium (1.6-2.3) mg/dL Total Bilirubin (0.2-1.3) mg/dL AST (17-59) U/L ALT (0-50) U/L Alkaline Phosphatase (38-126) U/L Creatine Kinase (55-170) U/L Troponin I (0.000-0.034) ng/mL NT-Pro-B Natriuret Pep (0-900) pg/mL Serum Total Protein (6.3-8.2) g/dL Albumin (3.5-5.0) g/dL - Progress Progress: improved Air Movement: good Progress Note: 10/09/18 20:57 Pt states, he improved after Morphine and Zofran, no severe pain or distress, reviewed his labs and X ray results, called Dr Ratliff, discussed our findings and his current condition, he agreed to admit him for observation, patient was informed and agreed. Blood Culture(s) Obtained: No Antibiotics given: No Discussed with .: Gurinder Will see patient in: hospital (observation) Counseled pt/family regarding: lab results, diagnosis, need for follow-up, rad results - Departure Departure Disposition: Observation Clinical Impression: Chest pain Qualifiers: Chest pain type: unspecified Qualified Code(s): R07.9 - Chest pain, unspecified Condition: Stable Critical Care Time: No Referrals: EDWIN RATLIFF MD [Primary Care Provider] - Instructions: Chest Pain (DC)
[2018-10-09 19:04] LABS: INR 1.15 (0.8-3.0)
[2018-10-09 19:08] LABS: PTT 29.7 SECONDS (24.1-36.1)
[2018-10-09 19:17] LABS: ALBUMIN 4.2 g/dL (3.5-5.0); ALKALINE PHOSPHATASE 74 U/L (38-126); ANION GAP 12.3 MEQ/L (5-15); BLOOD UREA NITROGEN 15 mg/dL (9-20); CHLORIDE 111 mmol/L (98-107); CK-Creatinine Phosphokinase 67 U/L (55-170); Calcium 9.5 mg/dL (8.4-10.2); Carbon Dioxide 23 mmol/L (22-30); Creatinine 1 0.85 mg/dL (0.66-1.25); Glucose 81 mg/dL (74-106); MAGNESIUM 2.1 mg/dL (1.6-2.3); NT PRO BNP 558 pg/mL (0-900); Potassium 3.8 mmol/L (3.5-5.1); SGOT/AST 25 U/L (17-59); SGPT/ALT 14 U/L (0-50); SODIUM 142 mmol/L (137-145); Total Protein 7.6 g/dL (6.3-8.2)
[2018-10-09] MEDS ORDERED: MORPHINE SULFATE 4 MG INJ IV ONE (20:44)
[2018-10-09] MEDS ORDERED: Zofran 4 MG/2 ML VIAL IV ONE (20:44)
[2018-10-09] MEDS ORDERED: MILK OF MAGNESIA 30 ML PO PRN (21:01)
[2018-10-09] MEDS ORDERED: MAALOX ES 30 ML UNIT DOSE PO PRN (21:01)
[2018-10-09] MEDS ORDERED: Senokot-S Tablet PO PRN (21:01)
[2018-10-09] MEDS ORDERED: Zofran 4 MG/2 ML VIAL IV PRN (21:01)
[2018-10-09] MEDS ORDERED: MORPHINE SULFATE 4 MG INJ ONE (21:08)
[2018-10-09] MEDS ORDERED: Ecotrin 325 MG ONE (21:12)
[2018-10-09] MEDS: Ecotrin 325 MG PO ONE ×2 (21:17→21:27)
[2018-10-10] MEDS: TYLENOL 325 MG PO PRN ×3 (02:59→11:52)
[2018-10-10 04:36] LABS: Risk Ratio 7.2
--- NOTE | 2018-10-10 08:38 | XRAY ---
Indication: Chest pain. Comparison: August 14, 2018. Portable apical lordotic chest again demonstrates normal heart and lungs. Bony thorax intact with mild degenerative changes. No new/acute findings.
[2018-10-10] MEDS ORDERED: Ecotrin 325 MG PO SCH (10:00)
[2018-10-10] MEDS ORDERED: MEDICATION INTERVENTION PO SCH (10:30)
[2018-10-10] MEDS ORDERED: XARELTO 10 MG TABLET PO SCH (11:00)
[2018-10-10] MEDS ORDERED: hydroDIURIL 25 MG PO SCH (11:00)
[2018-10-10] MEDS ORDERED: NORVASC 5 MG PO SCH (11:00)
[2018-10-10] MEDS ORDERED: Zestril 20 MG PO SCH (11:00)
[2018-10-10] MEDS: Klor Con 10 MEQ PO SCH ×2 (11:01→21:48)
[2018-10-10] MEDS: ECOTRIN 81 MG PO SCH ×2 (11:02→11:03)
[2018-10-10] MEDS: COREG 12.5 MG PO SCH ×2 (11:03→21:48)
[2018-10-10] MEDS ORDERED: NAPROSYN 375 MG PO PRN (12:07)
--- NOTE | 2018-10-10 21:13 | PCM.SSS ---
History of Present Illness - Chief Complaint Chief Complaint: Chest Pain for 1-2 days History of Present Illness: is a 53 year old male.Pt started c/o mid sternal chest pain 2 hours ago, radiating to his left arm, denies severe SOB, nausea, vomiting, fever , other complaints. He did not take any medications. Activities at Onset: none Quality: pressure Location: substernal Chest Pain Radiation: arm (left) Severity of Pain-Max: moderate Severity of Pain-Current: moderate Modifying Factors: Improves With: nothing Associated Symptoms: denies symptoms Nitro Today/Relief: no nitro taken today Aspirin Treatment Today: no aspirin today - Review of Systems Constitutional: No Fever, No Chills Eyes: No Symptoms Ears, Nose, & Throat: No Symptoms Respiratory: No Cough, No Short Of Breath Cardiac: Chest Pain, No Edema, No Syncope Abdominal/Gastrointestinal: No Abdominal Pain, No Nausea, No Vomiting, No Diarrhea Genitourinary Symptoms: No Dysuria Musculoskeletal: No Back Pain, No Neck Pain Skin: No Rash Neurological: No Dizziness, No Focal Weakness, No Sensory Changes Psychological: No Symptoms Endocrine: No Symptoms Hematologic/Lymphatic: No Symptoms Immunological/Allergic: No Symptoms Medications & Allergies Home Medications: Home Medication List Aspirin EC 81 mg [Ecotrin 81 mg] 81 mg PO DAILY 06/30/18 [History Confirmed 10/09/18] Etodolac 400 mg [Lodine 400 mg] 400 mg PO BID 07/29/18 [History Confirmed ] Potassium Chloride 10 Meq Tab* [Klor Con 10 MEQ] 20 meq PO BID 07/29/18 [ History Confirmed 10/09/18] Sertraline HCl 50 mg [Zoloft 50 mg Tablet] 50 mg PO HS #30 tab 07/31/18 [Rx Confirmed 10/09/18] Sildenafil Citrate [Viagra] 25 mg PO DAILY 08/06/18 [History Confirmed 10/09/18] Carvedilol [Coreg] 25 mg PO BID 10/09/18 [History Confirmed 10/09/18] Hydrochlorothiazide 25 mg [hydroDIURIL 25 MG] 25 mg PO DAILY 10/09/18 [ History Confirmed 10/09/18] Rivaroxaban 10 mg Tablet [Xarelto 10 mg Tablet] 20 mg PO DAILY 10/10/18 [ History Confirmed 10/10/18] Amlodipine Besylate [Norvasc] 10 mg PO DAILY #30 tablet 10/11/18 [Rx] Lisinopril 20 mg [Zestril 20 MG] 20 mg PO DAILY #30 tablet 10/11/18 [Rx] Rivaroxaban 10 mg Tablet [Xarelto 10 mg Tablet] 20 mg PO DAILY #30 tablet 10/11/18 [Rx] Simvastatin 20Mg [Zocor 20Mg] 20 mg PO HS #30 tablet 10/11/18 [Rx] Topiramate 25 mg [Topamax 25 MG] 25 mg PO HS #30 capsule 10/11/18 [Rx] Allergies/Adverse Reactions: Allergies Allergy/AdvReac Type Severity Reaction Status Date / Time No Known Drug Allergies Allergy Verified 10/09/18 18:36 - Past Medical History Past Medical History: Yes Neurological History: Stroke ENT History: Other Cardiac History: Hypertension, Myocardial Infarction (HI), Other Respiratory History: No Pertinent History Endocrine Medical History: No Pertinent History Musculoskelatal History: Arthritis, Other GI Medical History: GERD History: Other Pyscho-Social History: Anxiety, Depression Male Reproductive Disorders: No Pertinent History Comment: CVA, blood poisoning when in 4th grade, bitten by brown recluse spider , kidney stones x 9 - Past Surgical History Past Surgical History: Yes Neuro Surgical History: No Pertinent History Cardiac History: Cardiac Catheterization Respiratory Surgery: No Pertinent History GI Surgical History: Hernia Repair Genitourinary Surgical Hx: No Pertinent History Musculskeletal Surgical Hx: Orthopedic Surgery Male Surgical History: No Pertinent History Other Surgical History: pt had bk surgery at 16. - Social History Smoking Status: Never smoker Exposure to second hand smoke: Yes Alcohol: None Drug Use: none - Physical Exam Vital Signs: Vital Signs - 24 hr Temp Pulse Resp BP Pulse Ox 10/10/18 20:25 92 L 10/10/18 16:00 99.1 F 63 20 126/61 99 10/10/18 12:00 99.0 F 54 L 18 185/84 92 L 10/10/18 08:29 98 10/10/18 08:00 98.0 F 60 19 175/91 95 10/10/18 04:20 98.2 F 58 L 18 170/80 95 10/10/18 03:00 95 10/09/18 23:46 97 10/09/18 23:13 98.0 F 47 L 20 178/90 98 General Appearance: no apparent distress, alert Neurologic Exam: alert, oriented x 3, cooperative, normal mood/affect, nml cerebellar function, nml station & gait, sensation nml, No motor deficits Eye Exam: PERRL/EOMI, eyes nml inspection Ears, Nose, Throat Exam: normal ENT inspection, TMs normal, pharynx normal, moist mucous membranes Neck Exam: normal inspection, non-tender, supple, full range of motion Respiratory Exam: normal breath sounds, lungs clear, No respiratory distress Cardiovascular Exam: regular rate/rhythm, normal heart sounds, normal peripheral pulses Gastrointestinal/Abdomen Exam: soft, normal bowel sounds, No tenderness, No mass Back Exam: normal inspection, normal range of motion, No CVA tenderness, No vertebral tenderness Extremity Exam: normal inspection, normal range of motion, pelvis stable Skin Exam: normal color, warm, dry, No rash Lymphatic Exam: No adenopathy Results - Labs Lab/Micro Results: Lab Results-Last 24 Hours 10/09/18 10/10/18 10/10/18 Range/Units 22:38 01:13 04:14 Troponin I 0.012 0.014 0.015 (0.000-0.034) ng/mL Triglycerides (30-150) mg/dL Cholesterol (50-200) mg/dL LDL Cholesterol (30-100) mg/dL HDL Cholesterol (40-60) mg/dL Heart Disease Risk Ratio 10/10/18 10/10/18 Range/Units 04:14 06:45 Troponin I 0.016 (0.000-0.034) ng/mL Triglycerides 297 H (30-150) mg/dL Cholesterol 170 (50-200) mg/dL LDL Cholesterol 101 H (30-100) mg/dL HDL Cholesterol 24 L (40-60) mg/dL Heart Disease Risk Ratio 7.2 - Radiology Impressions Radiology Exams & Impressions: Radiology Procedures Category Date Time Status CHEST 1 VIEW (PORTABLE) Stat Exams 10/09/18 18:56 Completed - Other Procedures and Tests Respiratory Therapy 10/09/18 21:02 Oxygen NASAL CANNULA 2 lpm 10/11/18 05:00 EKG DAILY 10/12/18 05:00 EKG DAILY 10/13/18 05:00 EKG DAILY Assessment/Plan (1) Non-ST elevated myocardial infarction (non-STEMI) Status: Acute Assessment & Plan: Abnormal Lab Results 10/10/18 Range/Units 04:14 Triglycerides 297 H (30-150) mg/dL LDL Cholesterol 101 H (30-100) mg/dL HDL Cholesterol 24 L (40-60) mg/dL Chief Complaint Diagnosis Chest Pain Allergies Allergy/AdvReac Type Severity Reaction Status Date / Time No Known Drug Allergies Allergy Verified 10/09/18 18:36 Vital Signs (Last 24 hours) Temp Pulse Resp BP Pulse Ox 10/10/18 20:25 92 L 10/10/18 16:00 99.1 F 63 20 126/61 99 10/10/18 12:00 99.0 F 54 L 18 185/84 92 L 10/10/18 08:29 98 10/10/18 08:00 98.0 F 60 19 175/91 95 10/10/18 04:20 98.2 F 58 L 18 170/80 95 10/10/18 03:00 95 10/09/18 23:46 97 10/09/18 23:13 98.0 F 47 L 20 178/90 98 Home Medications Medication Instructions Recorded Confirmed Last Taken Type Amlodipine Besylate [Norvasc] 10 mg PO DAILY 10/09/18 10/09/18 10/05/18 History Carvedilol [Coreg] 25 mg PO BID 10/09/18 10/09/18 10/09/18 History Hydrochlorothiazide 25 mg 25 mg PO DAILY 10/09/18 10/09/18 10/05/18 History [hydroDIURIL 25 MG] Lisinopril 20 mg [Zestril 20 20 mg PO DAILY 10/09/18 10/09/18 10/05/18 History MG] Rivaroxaban 10 mg Tablet 20 mg PO DAILY 10/10/18 10/10/18 10/10/18 History [Xarelto 10 mg Tablet] 15 mg Current Medications Generic Name Dose Route Start Last Admin Trade Name Freq PRN Reason Stop Dose Admin Acetaminophen 650 mg 10/09/18 21:01 10/10/18 11:52 Tylenol 325 Mg PO 11/08/18 21:00 650 mg Q4H PRN PRN Administration PAIN AND/OR FEVER Al Hydrox/Mg Hydrox/Simethicone 30 ml 10/09/18 21:01 Maalox Es 30 Ml Unit Dose PO 11/08/18 21:00 Q4H PRN PRN INDIGESTION Amlodipine Besylate 10 mg 10/10/18 11:00 10/10/18 11:02 Norvasc 5 Mg PO 11/09/18 10:59 10 mg DAILY CIARAN Administration Aspirin 81 mg 10/10/18 11:00 10/10/18 11:03 Ecotrin 81 Mg PO 11/09/18 10:59 81 mg DAILY CIARAN Administration Carvedilol 25 mg 10/10/18 11:00 10/10/18 11:03 Coreg 12.5 Mg PO 11/09/18 10:59 25 mg BID CIARAN Administration Hydrochlorothiazide 25 mg 10/10/18 11:00 10/10/18 11:03 Hydrodiuril 25 Mg PO 11/09/18 10:59 25 mg DAILY CI[facility]AN Administration Lisinopril 20 mg 10/10/18 11:00 10/10/18 11:02 Zestril 20 Mg PO 11/09/18 10:59 20 mg DAILY [facility]AN Administration Magnesium Hydroxide 30 - 60 ml 10/09/18 21:01 Milk Of Magnesia 30 Ml PO 11/08/18 21:00 QDP PRN CONSTIPATION Naproxen 375 mg 10/10/18 12:07 10/10/18 12:44 Naprosyn 375 Mg PO 11/09/18 12:14 375 mg TIDPRN PRN Administration PAIN Ondansetron HCl 4 mg 10/09/18 21:01 Zofran 4 Mg/2 Ml Vial IV 11/08/18 21:00 Q4H PRN PRN NAUSEA/VOMITING Potassium Chloride 20 meq 10/10/18 11:00 10/10/18 11:01 Klor Con 10 Meq PO 11/09/18 10:59 20 meq BID CIARAN Administration Rivaroxaban 20 mg 10/11/18 10:00 Xarelto 10 Mg Tablet PO 11/10/18 09:59 DAILY [facility]AN Senna/Docusate Sodium 2 udtab 10/09/18 21:01 Senokot-S Tablet PO 11/08/18 21:00 BID PRN PRN CONSTIPATION Sertraline HCl 50 mg 10/10/18 22:00 Zoloft 50 Mg Tablet PO 11/09/18 21:59 HS [facility] Simvastatin 20 mg 10/10/18 22:00 Zocor 20mg PO 11/09/18 21:59 HS [facility] Topiramate 25 mg 10/10/18 22:00 Topamax 25 Mg PO 11/09/18 21:59 HS [facility] Discontinued Medications Generic Name Dose Route Start Last Admin Trade Name Freq PRN Reason Stop Dose Admin Aspirin 325 mg 10/10/18 20:47 10/09/18 21:27 Ecotrin 325 Mg PO 10/10/18 20:48 325 mg NOW ONE Administration Aspirin 325 mg 10/10/18 10:00 Ecotrin 325 Mg PO 10/10/18 12:00 DAILY [facility] Aspirin Confirm 10/09/18 21:12 Ecotrin 325 Mg Administered 10/09/18 21:13 Dose 325 mg .ROUTE .STK-MED ONE Miscellaneous Information 1 each 10/10/18 10:30 Medication Intervention PO 11/09/18 10:29 .RN TO CHECK ON [facility] Morphine Sulfate 4 mg 10/09/18 20:44 10/09/18 21:09 Morphine Sulfate 4 Mg Inj IV 10/09/18 20:45 4 mg STAT ONE Administration Morphine Sulfate Confirm 10/09/18 21:08 Morphine Sulfate 4 Mg Inj Administered 10/09/18 21:09 Dose 4 mg .ROUTE .STK-MED ONE Ondansetron HCl 4 mg 10/09/18 20:44 10/09/18 21:09 Zofran 4 Mg/2 Ml Vial IV 10/09/18 20:45 4 mg STAT ONE Administration Rivaroxaban 15 mg 10/10/18 11:00 10/10/18 11:00 Xarelto 10 Mg Tablet PO 11/09/18 10:59 15 mg BID [facility] Administration Intake & Output (Last 24 hours) 10/08/18 10/09/18 10/10/18 10/11/18 11:59 11:59 11:59 11:59 Intake Total 200 800 Balance 200 800 Weight 93.7 kg Laboratory Results (Last 24 hours) 10/10/18 10/10/18 10/10/18 06:45 04:14 04:14 Troponin I 0.016 0.015 Triglycerides 297 H Cholesterol 170 LDL Cholesterol 101 H HDL Cholesterol 24 L Heart Disease Risk Ratio 7.2 10/10/18 10/09/18 01:13 22:38 Troponin I 0.014 0.012 Triglycerides Cholesterol LDL Cholesterol HDL Cholesterol Heart Disease Risk Ratio Orders (Last 24 hours) Category Date Time Status Bedrest with BRP/BSC ROUTINE Activity 10/09/18 21:01 Active Code Status Order ROUTINE Care 10/09/18 21:01 Active IV Care Q6H Care 10/09/18 21:01 Active Implement Chest Pain Pathway ROUTINE Care 10/09/18 21:[address] in Observation ROUTINE Care 10/09/18 21:02 Active Bruce Pierre, Apply ROUTINE Care 10/09/18 21:01 Active Telemetry q6h Care 10/09/18 21:01 Active Weight,Daily 0600 Care 10/09/18 21:01 Active Cardio-Pulmonary Rehab .as ordered Cons 10/09/18 23:13 Active Consult Cardiology ROUTINE Cons 10/10/18 09:55 Completed LIPID PROFILE AM.LAB Lab 10/10/18 04:14 Completed TROPONIN Q3H Lab 10/09/18 22:38 Completed TROPONIN Q3H Lab 10/10/18 01:13 Completed TROPONIN Q3H Lab 10/10/18 04:14 Completed TROPONIN Q3H Lab 10/10/18 06:45 Completed Acetaminophen 325 mg [Tylenol 325 mg] Med 10/09/18 21:01 Active 650 mg PO Q4H PRN PRN Amlodipine Besylate 5 mg [Norvasc 5 mg] Med 10/10/18 11:00 Active 10 mg PO DAILY Aspirin EC 325 mg [Ecotrin 325 MG] Med 10/09/18 21:12 Discontinued 325 mg .ROUTE .STK-MED ONE Aspirin EC 325 mg [Ecotrin 325 MG] Med 10/10/18 10:00 Discontinued 325 mg PO DAILY Aspirin EC 325 mg [Ecotrin 325 MG] Med 10/10/18 20:47 Discontinued 325 mg PO NOW ONE Aspirin EC 81 mg [Ecotrin 81 mg] Med 10/10/18 11:00 Active 81 mg PO DAILY Carvedilol 12.5 mg [Coreg 12.5 mg] Med 10/10/18 11:00 Active 25 mg PO BID Hydrochlorothiazide 25 mg [hydroDIURIL 25 MG] Med 10/10/18 11:00 Active 25 mg PO DAILY Lisinopril 20 mg [Zestril 20 MG] Med 10/10/18 11:00 Active 20 mg PO DAILY Mag Hydrox/Al Hydrox/Simeth [Maalox Es 30 ml Unit Med 10/09/18 21:01 Active Dose] 30 ml PO Q4H PRN PRN Magnesium Hydroxide 30 ml [Milk of Magnesia 30 ml Med 10/09/18 21:01 Active ] 30 - 60 ml PO QDP PRN Medication Intervention Med 10/10/18 10:30 Discontinued 1 each PO .RN TO CHECK ON Morphine Sulfate 4 mg Inj Med 10/09/18 21:08 Discontinued 4 mg .ROUTE .STK-MED ONE Morphine Sulfate 4 mg Inj Med 10/09/18 20:44 Discontinued 4 mg IV STAT ONE Naproxen 375 mg [Naprosyn 375 mg] Med 10/10/18 12:07 Active 375 mg PO TIDPRN PRN Ondansetron HCl 4 mg/2 ml [Zofran 4 MG/2 ML VIAL] Med 10/09/18 21:01 Active 4 mg IV Q4H PRN PRN Ondansetron HCl 4 mg/2 ml [Zofran 4 MG/2 ML VIAL] Med 10/09/18 20:44 Discontinued 4 mg IV STAT ONE Potassium Chloride 10 Meq Tab* [Klor Con 10 MEQ] Med 10/10/18 11:00 Active 20 meq PO BID Rivaroxaban 10 mg Tablet [Xarelto 10 mg Tablet] Med 10/10/18 11:00 Discontinued 15 mg PO BID Rivaroxaban 10 mg Tablet [Xarelto 10 mg Tablet] Med 10/11/18 10:00 Ordered 20 mg PO DAILY Senna/Docusate Sodium Tab [Senokot-S Tablet] Med 10/09/18 21:01 Active 2 udtab PO BID PRN PRN Sertraline HCl 50 mg [Zoloft 50 mg Tablet] Med 10/10/18 22:00 Active 50 mg PO HS Simvastatin 20Mg [Zocor 20Mg] Med 10/10/18 22:00 Active 20 mg PO HS Topiramate 25 mg [Topamax 25 MG] Med 10/10/18 22:00 Active 25 mg PO HS EKG DAILY RT 10/11/18 05:00 Active EKG DAILY RT 10/12/18 05:00 Active EKG DAILY RT 10/13/18 05:00 Active EKG Q8HX2,QAMX3,PRN RT 10/09/18 21:01 Completed EKG ROUTINE RT 10/10/18 02:30 Completed Oxygen NASAL CANNULA 2 lpm RT 10/09/18 21:02 Active Pulse Oximetry Q4H RT 10/09/18 21:01 Active Patient Care Notes (Last 24 hours) 10/10/18 20:27 Nursing Note by Nicko Mcallister Received in report that pt told Dr Abimael Kang that he did not have a phone. Last night during admission process this nurse witnessed pt using a cellphone, he also had a panel fitter and asked if he could plug it in the outlet and did so Initialized on 10/10/18 20:27 - END OF NOTE 10/10/18 18:25 (created 10/10/18 18:50) Nursing Note by Mary Sandoval Dr, tele cardiology completed with pt. Recommendations to keep home meds the same; xarlto home dose is 20 mg daily not 15 mg BID; pt did not know how med was changed on his home med list. Dr Jhon Kang would like the cyanide case hardener review pt's meds; most are $4.00 at [facility]; $10.00 for 3 months supply and Xarlto $1.[address] Jhon Kang reminded pt that they have set him up 4 times to get his meds. Pt stated he was just now waiting on his medicaid. Pt stated he didn't have a car or phone and living with friends. stated that as far as he was concerning at this time pt could be discharged and he would see him next Monday at [facility]'s office; just show up on Monday without an appointment since pt not having away to be contacted. Initialized on 10/10/18 18:50 - END OF NOTE 10/10/18 12:19 Nursing Note by Mary Sandoval Dr aware of pt's c/o chest pain ; new order received. Initialized on 10/10/18 12:19 - END OF NOTE Code(s): I21.4 - NON-ST ELEVATION (NSTEMI) MYOCARDIAL INFARCTION (2) Chest pain Status: Acute Qualifiers: Chest pain type: unspecified Qualified Code(s): R07.9 - Chest pain, unspecified Code(s): R07.9 - CHEST PAIN, UNSPECIFIED (3) Chest pain at rest Status: Acute Code(s): R07.9 - CHEST PAIN, UNSPECIFIED (4) Elevated troponin Status: Acute Code(s): R79.89 - OTHER SPECIFIED ABNORMAL FINDINGS OF BLOOD CHEMISTRY (5) Hypertensive urgency Status: Acute Code(s): I10 - ESSENTIAL (PRIMARY) HYPERTENSION (6) History of CVA (cerebrovascular accident) without residual deficits Status: Chronic Hospital Summary - Hospital Course Hospital Course: Chief Complaint Diagnosis Chest Pain for 1-2 days Allergies Allergy/AdvReac Type Severity Reaction Status Date / Time No Known Drug Allergies Allergy Verified 10/09/18 18:36 Vital Signs (Last 24 hours) Temp Pulse Resp BP Pulse Ox 10/11/18 08:00 98.5 F 50 L 18 145/76 97 10/11/18 07:07 94 L 10/11/18 04:24 98.1 F 53 L 18 144/80 96 10/11/18 00:10 98.0 F 60 16 120/72 96 10/10/18 20:25 92 L 10/10/18 20:00 98.2 F 55 L 18 155/75 95 Home Medications Medication Instructions Recorded Confirmed Last Taken Type Carvedilol [Coreg] 25 mg PO BID 10/09/18 10/09/18 10/09/18 History Hydrochlorothiazide 25 mg 25 mg PO DAILY 10/09/18 10/09/18 10/05/18 History [hydroDIURIL 25 MG] Rivaroxaban 10 mg Tablet 20 mg PO DAILY 10/10/18 10/10/18 10/10/18 History [Xarelto 10 mg Tablet] 15 mg Amlodipine Besylate [Norvasc] 10 mg PO DAILY #30 tablet 10/11/18 Unknown Rx Lisinopril 20 mg [Zestril 20 20 mg PO DAILY #30 tablet 10/11/18 Unknown Rx MG] Rivaroxaban 10 mg Tablet 20 mg PO DAILY #30 tablet 10/11/18 Unknown Rx [Xarelto 10 mg Tablet] Simvastatin 20Mg [Zocor 20Mg] 20 mg PO HS #30 tablet 10/11/18 Unknown Rx Topiramate 25 mg [Topamax 25 25 mg PO HS #30 capsule 10/11/18 Unknown Rx MG] Current Medications Discontinued Medications Generic Name Dose Route Start Last Admin Trade Name [facility] PRN Reason Stop Dose Admin Acetaminophen 650 mg 10/09/18 21:01 10/11/18 02:51 Tylenol 325 Mg PO 11/08/18 21:00 650 mg Q4H PRN PRN Administration PAIN AND/OR FEVER Al Hydrox/Mg Hydrox/Simethicone 30 ml 10/09/18 21:01 Maalox Es 30 Ml Unit Dose PO 11/08/18 21:00 Q4H PRN PRN INDIGESTION Amlodipine Besylate 10 mg 10/10/18 11:00 10/10/18 11:02 Norvasc 5 Mg PO 11/09/18 10:59 10 mg DAILY CIARAN Administration Aspirin 325 mg 10/10/18 20:47 10/09/18 21:27 Ecotrin 325 Mg PO 10/10/18 20:48 325 mg NOW ONE Administration Aspirin 325 mg 10/10/18 10:00 Ecotrin 325 Mg PO 10/10/18 12:00 DAILY [facility] Aspirin Confirm 10/09/18 21:12 Ecotrin 325 Mg Administered 10/09/18 21:13 Dose 325 mg .ROUTE .STK-MED ONE Aspirin 81 mg 10/10/18 11:00 10/10/18 11:03 Ecotrin 81 Mg PO 11/09/18 10:59 81 mg DAILY CIARAN Administration Carvedilol 25 mg 10/10/18 11:00 10/10/18 21:48 Coreg 12.5 Mg PO 11/09/18 10:59 25 mg BID CIARAN Administration Hydrochlorothiazide 25 mg 10/10/18 11:00 10/10/18 11:03 Hydrodiuril 25 Mg PO 11/09/18 10:59 25 mg DAILY CIARAN Administration Lisinopril 20 mg 10/10/18 11:00 10/10/18 11:02 Zestril 20 Mg PO 11/09/18 10:59 20 mg DAILY CIARAN Administration Magnesium Hydroxide 30 - 60 ml 10/09/18 21:01 Milk Of Magnesia 30 Ml PO 11/08/18 21:00 QDP PRN CONSTIPATION Miscellaneous Information 1 each 10/10/18 10:30 Medication Intervention PO 11/09/18 10:29 .RN TO CHECK ON [facility] Morphine Sulfate 4 mg 10/09/18 20:44 10/09/18 21:09 Morphine Sulfate 4 Mg Inj IV 10/09/18 20:45 4 mg STAT ONE Administration Morphine Sulfate Confirm 10/09/18 21:08 Morphine Sulfate 4 Mg Inj Administered 10/09/18 21:09 Dose 4 mg .ROUTE .STK-MED ONE Naproxen 375 mg 10/10/18 12:07 10/10/18 12:44 Naprosyn 375 Mg PO 11/09/18 12:14 375 mg TIDPRN PRN Administration PAIN Ondansetron HCl 4 mg 10/09/18 20:44 10/09/18 21:09 Zofran 4 Mg/2 Ml Vial IV 10/09/18 20:45 4 mg STAT ONE Administration Ondansetron HCl 4 mg 10/09/18 21:01 Zofran 4 Mg/2 Ml Vial IV 11/08/18 21:00 Q4H PRN PRN NAUSEA/VOMITING Potassium Chloride 20 meq 10/10/18 11:00 10/10/18 21:48 Klor Con 10 Meq PO 11/09/18 10:59 20 meq BID CIARAN Administration Rivaroxaban 15 mg 10/10/18 11:00 10/10/18 11:00 Xarelto 10 Mg Tablet PO 11/09/18 10:59 15 mg BID CIARAN Administration Rivaroxaban 20 mg 10/11/18 10:00 Xarelto 10 Mg Tablet PO 11/10/18 09:59 DAILY CIARAN Senna/Docusate Sodium 2 udtab 10/09/18 21:01 Senokot-S Tablet PO 11/08/18 21:00 BID PRN PRN CONSTIPATION Sertraline HCl 50 mg 10/10/18 22:00 10/10/18 21:48 Zoloft 50 Mg Tablet PO 11/09/18 21:59 50 mg HS CIARAN Administration Simvastatin 20 mg 10/10/18 22:00 10/10/18 21:49 Zocor 20mg PO 11/09/18 21:59 20 mg HS CIARAN Administration Topiramate 25 mg 10/10/18 22:00 10/10/18 21:49 Topamax 25 Mg PO 11/09/18 21:59 25 mg HS CIARAN Administration Intake & Output (Last 24 hours) 10/09/18 10/10/18 10/11/18 10/12/18 11:59 11:59 11:59 11:59 Intake Total 200 1560 Balance 200 1560 Weight 93.7 kg 93.3 kg Orders (Last 24 hours) Category Date Time Status Discharge Routine Discharge 10/11/18 Ordered Aspirin EC 325 mg [Ecotrin 325 MG] Med 10/10/18 20:47 Discontinued 325 mg PO NOW ONE Rivaroxaban 10 mg Tablet [Xarelto 10 mg Tablet] Med 10/11/18 10:00 Discontinued 20 mg PO DAILY Sertraline HCl 50 mg [Zoloft 50 mg Tablet] Med 10/10/18 22:00 Discontinued 50 mg PO HS Simvastatin 20Mg [Zocor 20Mg] Med 10/10/18 22:00 Discontinued 20 mg PO HS Topiramate 25 mg [Topamax 25 MG] Med 10/10/18 22:00 Discontinued 25 mg PO HS EKG DAILY RT 10/11/18 05:00 Completed EKG DAILY RT 10/12/18 05:00 Active EKG DAILY RT 10/13/18 05:00 Active Patient Care Notes (Last 24 hours) 10/11/18 09:37 (created 10/11/18 09:38) Nursing Note by Mary Sandoval Discharged at this time. Initialized on 10/11/18 09:38 - END OF NOTE 10/11/18 09:28 Nursing Note by Mary Sandoval Discharge instructions and education given and understood. Initialized on 10/11/18 09:28 - END OF NOTE 10/10/18 20:27 Nursing Note by Nicko Mcallister Received in report that pt told Dr Abimael Kang that he did not have a phone. Last night during admission process this nurse witnessed pt using a cellphone, he also had a panel fitter and asked if he could plug it in the outlet and did so Initialized on 10/10/18 20:27 - END OF NOTE 10/10/18 18:25 (created 10/10/18 18:50) Nursing Note by Mary Sandoval Dr, tele cardiology completed with pt. Recommendations to keep home meds the same; xarlto home dose is 20 mg daily not 15 mg BID; pt did not know how med was changed on his home med list. Dr Jhon Kang would like the cyanide case hardener review pt's meds; most are $4.00 at [facility]; $10.00 for 3 months supply and Xarlto $1.[address] Jhon Kang reminded pt that they have set him up 4 times to get his meds. Pt stated he was just now waiting on his medicaid. Pt stated he didn't have a car or phone and living with friends. stated that as far as he was concerning at this time pt could be discharged and he would see him next Monday at [facility]'s office; just show up on Monday without an appointment since pt not having away to be contacted. Initialized on 10/10/18 18:50 - END OF NOTE - Vitals & Intake/Output Vital Signs: Vital Signs Temperature 99.1 F 10/10/18 16:00 Pulse Rate 63 10/10/18 16:00 Respiratory Rate 20 10/10/18 16:00 Blood Pressure 126/61 10/10/18 16:00 O2 Sat by Pulse Oximetry 92 L 10/10/18 20:25 Oxygen-Last Documented O2 Percentage 2 Liters = 28% Intake & Output: Intake & Output 10/08/18 10/09/18 10/10/18 10/11/18 11:59 11:59 11:59 11:59 Intake Total 200 800 Balance 200 800 Weight 93.7 kg - Lab Result Diagrams: 10/09/18 18:55 10/09/18 18:55 Lab Results-Last 24 Hrs: Lab Results-Last 24 Hours 10/09/18 10/10/18 10/10/18 Range/Units 22:38 01:13 04:14 Troponin I 0.012 0.014 0.015 (0.000-0.034) ng/mL Triglycerides (30-150) mg/dL Cholesterol (50-200) mg/dL LDL Cholesterol (30-100) mg/dL HDL Cholesterol (40-60) mg/dL Heart Disease Risk Ratio 10/10/18 10/10/18 Range/Units 04:14 06:45 Troponin I 0.016 (0.000-0.034) ng/mL Triglycerides 297 H (30-150) mg/dL Cholesterol 170 (50-200) mg/dL LDL Cholesterol 101 H (30-100) mg/dL HDL Cholesterol 24 L (40-60) mg/dL Heart Disease Risk Ratio 7.2 - Radiology Exams Ordered Rad Exams-Entire Visit: Radiology Procedures Category Date Time Status CHEST 1 VIEW (PORTABLE) Stat Exams 10/09/18 18:56 Completed - Procedures and Test Procedures and Tests throughout Hospitalization: Therapy Orders & Screens 10/09/18 21:01 EKG Q8HX2,QAMX3,PRN Comment: 10/09/18 21:02 Oxygen NASAL CANNULA 2 lpm Comment: chest pain Diagnosis: CP R/O HI 10/10/18 02:30 EKG ROUTINE Comment: Diagnosis: Chest Pain 10/11/18 05:00 EKG DAILY Comment: Diagnosis: Chest Pain 10/12/18 05:00 EKG DAILY Comment: Diagnosis: Chest Pain 10/13/18 05:00 EKG DAILY Comment: Diagnosis: Chest Pain - Discharge Discharge Date: 10/11/18 Disposition: Home, Self-Care Condition: Stable Prescriptions: New Rivaroxaban 10 mg Tablet [Xarelto 10 mg Tablet] 20 mg PO DAILY #30 tablet Continue Aspirin EC 81 mg [Ecotrin 81 mg] 81 mg PO DAILY Potassium Chloride 10 Meq Tab* [Klor Con 10 MEQ] 20 meq PO BID Etodolac 400 mg [Lodine 400 mg] 400 mg PO BID Sertraline HCl 50 mg [Zoloft 50 mg Tablet] 50 mg PO HS #30 tab Sildenafil Citrate [Viagra] 25 mg PO DAILY Hydrochlorothiazide 25 mg [hydroDIURIL 25 MG] 25 mg PO DAILY Carvedilol [Coreg] 25 mg PO BID Rivaroxaban 10 mg Tablet [Xarelto 10 mg Tablet] 20 mg PO DAILY Amlodipine Besylate [Norvasc] 10 mg PO DAILY #30 tablet Topiramate 25 mg [Topamax 25 MG] 25 mg PO HS #30 capsule Lisinopril 20 mg [Zestril 20 MG] 20 mg PO DAILY #30 tablet Simvastatin 20Mg [Zocor 20Mg] 20 mg PO HS #30 tablet Instructions: Angina, Chest Pain Additional Instructions: [facility] in. Follow up with: EDWIN RATLIFF MD [Primary Care Provider] - 10/18/18 3:00 pm Forms: Discharge Instructions
[2018-10-10] MEDS ORDERED: ZOLOFT 50 MG TABLET PO SCH (22:00)
[2018-10-10] MEDS ORDERED: ETODOLAC 400 MG PO SCH (22:00)
[2018-10-10] MEDS ORDERED: Topamax 25 MG PO SCH (22:00)
[2018-10-10] MEDS ORDERED: ZOCOR 20MG PO SCH (22:00)
[2018-10-11] MEDS: TYLENOL 325 MG PO PRN (02:51)
[2018-10-11 08:09] VITALS: BP 145/76; PULSE 50; O2SAT 97
[2018-10-11] MEDS ORDERED: SILDENAFIL CITRATE 25 MG PO SCH (10:00)
[2018-10-11] MEDS ORDERED: XARELTO 10 MG TABLET PO SCH (10:00)
[2018-10-11] MEDS ORDERED: NON-FORMULARY ITEM (Amlodipine Besylate [Norvasc] 10 MG) PO SCH (10:00)
--- NOTE | 2018-10-11 13:27 | CONS ---
CONSULT DATE: 10/10/2018 REASON FOR TELE-CARDIOLOGY CONSULT: Chest pain, hypertension. HISTORY: Carlos Garland is very well known to me from multiple previous hospitalizations. He has a history of severe hypertension with medication noncompliance. He has had multiple hospitalizations for hypertensive urgency/emergency. Due to medication noncompliance he reports being in and out of jobs and has not been able to afford his medications in the past. He was started on all generic medications except for Xarelto which was started for paroxysmal atrial fibrillation and in fact, even his Xarelto is provided by the inpatient [facility] for $1 a month. Despite every effort, he continues to complain that he is unable to obtain or afford his medication. He presented to [facility] with chest pain and severely elevated blood pressures. He was resumed on his home medications and his blood pressure has normalized. His troponins are negative. EKG unremarkable. Renal function is stable. His previous echo from June 2018 demonstrated preserved ejection fraction with mild concentric left ventricular hypertrophy and he also underwent cardiac catheterization on 10/27/2017 which demonstrated mild to moderate nonobstructive pulmonary disease with 50% lesion in the mid LAD and 50% mid right coronary artery stenosis and distal 60% right PDA stenosis. His ejection fraction was 55 to 60%. He has been complaining of intermittent dull chest pains but as noted his troponins have been negative. He denies any orthopnea, paroxysmal nocturnal dyspnea or any other congestive heart failure symptoms. His blood pressure is in the 120/80's while I was interviewing him via video conference. PAST MEDICAL HISTORY: As noted in the history of present illness. REVIEW OF SYSTEMS: Fourteen system review performed. Pertinent positives as noted in history of present illness otherwise negative. MEDICATIONS: Hospital medications reviewed, see EMR for full details. He apparently has been on Xarelto 50 mg b.i.d. However, he has not had any recent thrombus and I advised the nurse to reduce this to 20 mg daily. SOCIAL HISTORY: He has been in and out of jobs. There are significant socioeconomic barriers to his health care as he has had significant issues obtaining his medications despite being placed on very inexpensive generic medications and being provided Xarelto for $1 a month. PHYSICAL EXAMINATION: Vital signs reviewed and they are stable. Blood pressure is now normal. GENERAL: No acute distress. Conversant in bed. HEENT: Eyes- Nonicteric sclera, conjunctiva normal. NEURO: Grossly nonfocal per gross examination over video conferencing. LAB DATA AND TESTS: Laboratory data reviewed. EKG personally reviewed. No ischemic changes. IMPRESSION: 1) Hypertensive urgency/emergency due to medication noncompliance. 2) History of mild to moderate two-vessel coronary disease which is stable. 3) Paroxysmal atrial fibrillation for which he is on Xarelto. 4) History of transient ischemic attack/stroke. 5) Recurrent issues with medication noncompliance. RECOMMENDATIONS: Continue Coreg 25 mg b.i.d., lisinopril 20 mg daily and reduce Xarelto to 20 mg daily for treatment of paroxysmal atrial fibrillation. I have explained to the patient that he needs to contact me or his primary care provider regarding issues with medications including getting low supply. He should not call us after the fact. I advised him to call us one to two weeks prior to him running out of medication. There has been extensive effort by case management at [facility] as well as [facility] to insure that this patient receives his medication. He is not on any expensive medications except for Xarelto which has been provided to him for $1 a month at the [facility]. When he is on his medications his blood pressure is well controlled and this is clearly recurrent noncompliance. I have explained to the patient that this could all be avoided if he gets his medicines and he does not provide any real explanation other than he cannot drive. He lost his car and he is out of a job. However, he does live with friends around the [facility] and I have advised him that he should ask them to give him a ride to the pharmacy to get his medicines at least once every three months. I advised that he receive three months supplies of his medications to limit the issues in obtaining medications with more frequent refills considering his socioeconomic issues. Otherwise, I feel he is stable for discharge from a cardiovascular perspective and I will see him in my [place] outreach clinic next Monday at noon.
== END 2018-10-11 09:37 | disposition home or self-care (01) ==
LOC: ED 18:19 → MED SURG 22:00
PROVIDERS: ADMIT General Practice; ATTEND General Practice
DX: I21.3 ST elevation (STEMI) myocardial infarction of unspecified site (principal); R07.9 Chest pain, unspecified; I16.0 Hypertensive urgency; I10 Essential (primary) hypertension; Z91.14 Patient's other noncompliance with medication regimen; I48.0 Paroxysmal atrial fibrillation; Z79.01 Long term (current) use of anticoagulants; Z86.73 Personal history of transient ischemic attack (TIA), and cerebral infarction without residual deficits; I25.2 Old myocardial infarction; Z79.899 Other long term (current) drug therapy
CPT/HCPCS: 36000; 36415; 71045; 80053; 80061; 82550; 83721; 83735; 83880; 84484; 85025; 85379; 85610; 85730; 93005; 93041; 93268; 94760; 96374; 96375; 99285; G0378; Q3014; J2270; J2405; A9270-GY

== ENCOUNTER 2020-01-04 17:08 | Emergency (ER) | payer MEDICAID, OTHER ==
--- NOTE | 2020-01-04 17:27 | ERPHSYRPT ---
- History of Present Illness Time Seen by Provider: 01/04/20 17:27 Source: patient Exam Limitations: no limitations Patient Subjective Stated Complaint: pt here for pain to left ankle today. twisted ankle trying not to step on dog, Triage Nursing Assessment: pt co pain to knee. alert, resp easy, skin w/d/p. face pradeep in place, no swelling or bruising noted to knee Physician History: This is a 54-year-old white male who was moving to avoid his dog to keep from tripping and twisted his left knee. This occurred prior to arrival today. He is having pain in his left knee. He did not fall. There is no other complaints of injured areas to his body. Occurred: this morning Quality: intermittent, aching Severity of Pain-Max: mild Severity of Pain-Current: mild Lower Extremities Pain: knee: left Modifying Factors: Improves With: movement Associated Symptoms: other (To bear weight) Allergies/Adverse Reactions: No Known Drug Allergies Allergy (Verified 01/04/20 17:15) Home Medications: Aspirin EC 81 mg [Ecotrin 81 mg] 81 mg PO DAILY 06/30/18 [History] Etodolac 400 mg [Lodine 400 mg] 400 mg PO BID 07/29/18 [History] Potassium Chloride 10 Meq Tab* [Klor Con 10 MEQ] 20 meq PO BID 07/29/18 [History] Sildenafil Citrate [Viagra] 25 mg PO DAILY 08/06/18 [History] Carvedilol [Coreg] 25 mg PO BID 10/09/18 [History] Hydrochlorothiazide 25 mg [hydroDIURIL 25 MG] 25 mg PO DAILY 10/09/18 [History] Hx Tetanus, Diphtheria Vaccination/Date Given: No Hx Influenza Vaccination/Date Given: No Hx Pneumococcal Vaccination/Date Given: Yes Travel Risk - International Travel Have you traveled outside of the country in past 3 weeks: No - Coronavirus Screening Are you exhibiting any of the following symptoms?: No Close contact with a COVID-19 positive Pt in past 14-21 Days: No - Review of Systems Constitutional: No Symptoms Eyes: No Symptoms Ears, Nose, & Throat: No Symptoms Respiratory: No Symptoms Cardiac: No Symptoms Abdominal/Gastrointestinal: No Symptoms Genitourinary Symptoms: No Symptoms Musculoskeletal: Injury (Left knee) Skin: No Symptoms Neurological: No Symptoms Psychological: No Symptoms Endocrine: No Symptoms Hematologic/Lymphatic: No Symptoms Immunological/Allergic: No Symptoms All Other Systems: Reviewed and Negative - Past Medical History Pertinent Past Medical History: Yes Neurological History: Stroke ENT History: Other Cardiac History: Hypertension, Myocardial Infarction ([place]), Other Respiratory History: No Pertinent History Endocrine Medical History: No Pertinent History Musculoskeletal History: Arthritis, Other GI Medical History: GERD History: Other Psycho-Social History: Anxiety, Depression Male Reproductive Disorders: No Pertinent History Other Medical History: CVA, blood poisoning when in 4th grade, bitten by brown recluse spider, kidney stones x 9 - Past Surgical History Past Surgical History: Yes Neuro Surgical History: No Pertinent History Cardiac: Cardiac Catheterization Respiratory: No Pertinent History Gastrointestinal: Hernia Repair Genitourinary: No Pertinent History Musculoskeletal: Orthopedic Surgery Male Surgical History: No Pertinent History Other Surgical History: pt had bk surgery at 16. - Social History Smoking Status: Never smoker Exposure to second hand smoke: Yes Drug Use: none Patient Lives Alone: No - Nursing Vital Signs Nursing Vital Signs: Initial Vital Signs Temperature 97.8 F 01/04/20 17:16 Pulse Rate 99 H 01/04/20 17:16 Respiratory Rate 18 01/04/20 17:16 Blood Pressure 131/82 01/04/20 17:16 O2 Sat by Pulse Oximetry 95 01/04/20 17:16 Pain Scale Pain Intensity 8 - Physical Exam General Appearance: no apparent distress, alert, anxiety Eyes, Ears, Nose, Throat Exam: normal ENT inspection, moist mucous membranes Neck Exam: normal inspection, non-tender, supple, full range of motion Cardiovascular/Respiratory Exam: chest non-tender Gastrointestinal/Abdominal Exam: non-tender Back Exam: normal inspection, normal range of motion, No CVA tenderness, No vertebral tenderness Hips Exam: bilateral: non-tender, normal inspection, normal range of motion, no evidence of injury Legs Exam: bilateral leg: non-tender, normal inspection, normal range of motion, no evidence of injury Knees Exam: right knee: non-tender, normal range of motion, left knee: normal inspection, no evidence of injury, pain, soft tissue tenderness Ankle Exam: bilateral ankle: non-tender, normal inspection, normal range of motion, no evidence of injury Foot Exam: bilateral foot: non-tender, normal inspection, normal range of motion, no evidence of injury Neuro/Tendon Exam: normal sensation, normal motor functions, normal tendon functions Mental Status Exam: alert, oriented x 3, cooperative Skin Exam: normal color, warm, dry SpO2 Interpretation: normal SpO2: 95 O2 Delivery: Room Air - Course Nursing assessment & vital signs reviewed: Yes Ordered Tests: Active Orders 24 hr Category Date Time Status KNEE (1 OR 2 VIEW) Stat Exams 01/04/20 17:29 Taken - Progress Progress: unchanged, pain not gone completely, re-examined Progress Note: 01/04/20 18:15 X-ray left knee does not reveal an acute fracture or dislocation. Patient is refusing any kind of narcotic. He only wants knee support and crutches. Counseled pt/family regarding: diagnosis, need for follow-up, rad results - Departure Departure Disposition: Home Clinical Impression: Sprain of left knee Condition: Stable Critical Care Time: No Referrals: EDWIN RATLIFF MD [Primary Care Provider] - [facility] M-F [id number] Additional Instructions: Weightbearing as tolerated. Use crutches and Jairo wrap for comfort and to assist ambulation. Follow-up with [facility] orthopedic clinic or your primary care physician for further management. Use ice pack to the left knee 3 times a day for the next 48 hours. If not allergic, use Tylenol, ibuprofen for pain control.
[2020-01-04 17:32] VITALS: O2SAT 95
[2020-01-04 18:24] VITALS: BP 135/82; PULSE 88
--- NOTE | 2020-01-04 21:52 | XRAY ---
Indication: Pain following tripping injury. Comparison: None 2 view left knee demonstrates minimal posterior vascular calcifications. No other bony, articular, or soft tissue abnormalities.
== END 2020-01-04 18:30 | disposition home or self-care (01) ==
LOC: ED 17:08
DX: S83.92XA Sprain of unspecified site of left knee, initial encounter (principal); X50.1XXA Overexertion from prolonged static or awkward postures, initial encounter; Y93.K9 Activity, other involving animal care; M25.572 Pain in left ankle and joints of left foot
CPT/HCPCS: 73560; 99284

== ENCOUNTER 2021-02-12 23:34 | Emergency (ER) | payer MEDICARE, OTHER ==
--- NOTE | 2021-02-12 23:45 | ERPHSYRPT ---
- History of Present Illness Time Seen by Provider: 02/12/21 23:40 Source: patient, EMS Exam Limitations: no limitations Physician History: pt has frequent migraines but this one was more and like when he had a prior CVA several years ago. old visual defect left eye with pupil dilatoin without change per pr. speech is normal face is symmetrical with grimace and smile, no pronator drift or weakness of gri[p. no CP or SOB but has reported dizzy feeling so will ask for teleneuro but gait/coord hand coord appear normal chest clear , abd nontender without peritoneal signs or masses. Timing/Duration: today Quality: aching, dullness Severity of Pain-Max: moderate Severity of Pain-Current: moderate Recent Head Trauma: frequent headaches, chronic headaches Modifying Factors: Improves With: exposure to light, noise Associated Symptoms: dizziness Previous symptoms: different symptoms Allergies/Adverse Reactions: No Known Drug Allergies Allergy (Verified 02/12/21 23:36) Home Medications: Aspirin EC 81 mg [Ecotrin 81 mg] 81 mg PO DAILY 06/30/18 [History] Etodolac 400 mg [Lodine 400 mg] 400 mg PO BID 07/29/18 [History] Potassium Chloride 10 Meq Tab* [Klor Con 10 MEQ] 20 meq PO BID 07/29/18 [Hist ory] Sildenafil Citrate [Viagra] 25 mg PO DAILY 08/06/18 [History] Hydrochlorothiazide 25 mg [hydroDIURIL 25 MG] 25 mg PO DAILY 10/09/18 [History] carvediloL [Coreg] 25 mg PO BID 10/09/18 [History] Hx Tetanus, Diphtheria Vaccination/Date Given: No Hx Influenza Vaccination/Date Given: No Hx Pneumococcal Vaccination/Date Given: Yes - Review of Systems Constitutional: No Fever, No Chills Eyes: No Symptoms Ears, Nose, & Throat: No Symptoms Respiratory: No Cough, No Dyspnea Cardiac: No Chest Pain, No Edema, No Syncope Abdominal/Gastrointestinal: No Abdominal Pain, No Nausea, No Vomiting, No Diarrhea Genitourinary Symptoms: No Dysuria Musculoskeletal: No Back Pain, No Neck Pain Skin: No Symptoms, No Rash Neurological: No Dizziness, No Focal Weakness, No Sensory Changes Psychological: No Symptoms Endocrine: No Symptoms Hematologic/Lymphatic: No Symptoms Immunological/Allergic: No Symptoms All Other Systems: Reviewed and Negative - Past Medical History Pertinent Past Medical History: Yes Neurological History: Stroke ENT History: Other Cardiac History: Hypertension, Myocardial Infarction ([place]), Other Respiratory History: No Pertinent History Endocrine Medical History: No Pertinent History Musculoskeletal History: Arthritis, Other GI Medical History: GERD History: Other Psycho-Social History: Anxiety, Depression Male Reproductive Disorders: No Pertinent History Other Medical History: CVA, blood poisoning when in 4th grade, bitten by brown recluse spider, kidney stones x 9 - Past Surgical History Past Surgical History: Yes Neuro Surgical History: No Pertinent History Cardiac: Cardiac Catheterization Respiratory: No Pertinent History Gastrointestinal: Hernia Repair Genitourinary: No Pertinent History Musculoskeletal: Orthopedic Surgery Male Surgical History: No Pertinent History Other Surgical History: pt had bk surgery at 16. - Social History Smoking Status: Never smoker Exposure to second hand smoke: Yes Drug Use: none Patient Lives Alone: No - Nursing Vital Signs Nursing Vital Signs: Initial Vital Signs Temperature 98.3 F 02/12/21 23:38 Pulse Rate 107 H 02/12/21 23:38 Respiratory Rate 20 02/12/21 23:38 Blood Pressure 228/75 02/12/21 23:38 O2 Sat by Pulse Oximetry 97 02/12/21 23:38 Pain Scale Pain Intensity 5 - Physical Exam General Appearance: no apparent distress Eye Exam: other (old defect by Hx left puil and visual colmenares) Ears, Nose, Throat Exam: normal ENT inspection, moist mucous membranes Neck Exam: normal inspection, supple, full range of motion, No meningismus Respiratory Exam: normal breath sounds, lungs clear Cardiovascular Exam: regular rate/rhythm, normal heart sounds Gastrointestinal/Abdominal Exam: soft, No tenderness, No distention Back Exam: normal inspection, normal range of motion Extremity Exam: normal inspection, normal range of motion Mental Status Exam: alert, oriented x 3, 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: normal speech, PERRL, No facial droop Coordination/Gait Exam: normal finger to nose, normal cerebellar function Motor/Sensory Exam: no motor deficit, no sensory deficit DTR Exam: bicep (R): 2+, bicep (L): 2+, tricep (R): 2+, tricep (L): 2+, knee (R): 2+, knee (L): 2+, ankle (R): 2+, ankle (L): 2+ Skin Exam: normal color, warm, dry, No rash SpO2 Interpretation: normal SpO2: 96 O2 Delivery: Room Air - Course Nursing assessment & vital signs reviewed: Yes EKG Interpreted by Me: Sinus Tach, NORMAL INTERVALS, Non-specific ST Changes, Other (apc) Ordered Tests: Active Orders 24 hr Category Date Time Status EKG-ER Only STAT Care 02/12/21 23:47 Active IV Insertion STAT Care 02/12/21 23:47 Active NPO (ED) STAT Care 02/12/21 23:47 Active Pulse Oximetry (ED) STAT Care 02/12/21 23:47 Active Tele-Health Consult ROUTINE Cons 02/12/21 23:51 Active HEAD WITHOUT CONTRAST [CT] Stat Exams 02/12/21 23:46 Taken SED RATE [Erythrocyte Sedimentation Rate] Stat Lab 02/13/21 00:10 Completed TROPONIN Q3H Lab 02/13/21 03:25 Received TROPONIN Q3H Lab 02/13/21 05:47 Ordered TROPONIN Q3H Lab 02/13/21 08:47 Ordered TROPONIN Q3H Lab 02/13/21 11:47 Ordered Medication Summary Discontinued Medications Generic Name Dose Route Start Last Admin Trade Name Freq PRN Reason Stop Dose Admin Diphenhydramine HCl 25 mg 02/12/21 23:49 02/13/21 00:09 Diphenhydramine Hcl 50 Mg/Ml Vial IV 02/12/21 23:50 25 mg STAT ONE Administration Diphenhydramine HCl Confirm 02/12/21 23:53 Diphenhydramine Hcl 50 Mg/Ml Vial Administered 02/12/21 23:54 Dose 50 mg .ROUTE .STK-MED ONE Potassium Chloride 20 meq in 100 mls @ 50 mls/hr 02/13/21 00:50 02/13/21 01:07 Potassium Chloride 20 Meq In Water 100ml IV 02/13/21 02:49 50 mls/hr STAT ONE Administration Potassium Chloride Confirm 02/13/21 01:04 Potassium Chloride 20 Meq In Water 100ml Administered 02/13/21 01:05 Dose 100 mls @ ud IV .STK-MED ONE Metoclopramide HCl 10 mg 02/12/21 23:49 02/13/21 00:10 Metoclopramide Hcl 10 Mg/2 Ml Vial IV 02/12/21 23:50 10 mg STAT ONE Administration Metoclopramide HCl Confirm 02/12/21 23:53 Metoclopramide Hcl 10 Mg/2 Ml Vial Administered 02/12/21 23:54 Dose 10 mg .ROUTE .STK-MED ONE Potassium Bicarbonate 25 meq 02/13/21 00:50 02/13/21 01:07 Potassium Bicarbonate 25 Meq Tab PO 02/13/21 00:51 25 meq STAT ONE Administration Potassium Bicarbonate Confirm 02/13/21 01:04 Potassium Bicarbonate 25 Meq Tab Administered 02/13/21 01:05 Dose 25 meq .ROUTE .STK-MED ONE Lab/Rad Data: Laboratory Result Diagrams 02/12/21 00:10 02/12/21 00:10 Laboratory Results 02/13/21 02/12/21 02/12/21 Range/Units 00:10 00:10 00:10 WBC 18.3 H (4.0-10.5) K/mm3 RBC 4.67 (4.1-5.6) M/mm3 Hgb 13.6 (12.5-18.0) gm/dl Hct 41.1 L (42-50) % MCV 88.0 (78-100) fl MCH 29.1 (26-32) pg MCHC 33.1 (32-36) g/dl RDW 14.6 H (11.5-14.0) % Plt Count 399 (150-450) K/mm3 MPV 8.8 (7.5-11.0) fl Segmented Neutrophils 74 H (36.-66.) % Lymphocytes (Manual) 17 L (24-44) % Monocytes (Manual) 8 (0.0-12.0) % Eosinophils (Manual) 1 (0.00-3.0) % Platelet Estimate NORMAL (NORMAL) RBC Morphology NORMAL ESR 51 H (0-15) mm/hr Sodium 136 L (137-145) mmol/L Potassium 2.7 L* (3.5-5.1) mmol/L Chloride 106 (98-107) mmol/L Carbon Dioxide 19 L (22-30) mmol/L Anion Gap 14.1 (5-15) MEQ/L BUN 26 H (9-20) mg/dL Creatinine 1.47 H (0.66-1.25) mg/dL Estimated GFR 52.9 ML/MIN Glucose 183 H (74-106) mg/dL Calcium 8.9 (8.4-10.2) mg/dL Total Bilirubin 0.50 (0.2-1.3) mg/dL AST 27 (17-59) U/L ALT 21 (0-50) U/L Alkaline Phosphatase 98 (38-126) U/L Troponin I (0.000-0.034) ng/mL Serum Total Protein 6.9 (6.3-8.2) g/dL Albumin 3.4 L (3.5-5.0) g/dL 02/12/21 Range/Units 00:10 WBC (4.0-10.5) K/mm3 RBC (4.1-5.6) M/mm3 Hgb (12.5-18.0) gm/dl Hct (42-50) % MCV (78-100) fl MCH (26-32) pg MCHC (32-36) g/dl RDW (11.5-14.0) % Plt Count (150-450) K/mm3 MPV (7.5-11.0) fl Segmented Neutrophils (36.-66.) % Lymphocytes (Manual) (24-44) % Monocytes (Manual) (0.0-12.0) % Eosinophils (Manual) (0.00-3.0) % Platelet Estimate (NORMAL) RBC Morphology ESR (0-15) mm/hr Sodium (137-145) mmol/L Potassium (3.5-5.1) mmol/L Chloride (98-107) mmol/L Carbon Dioxide (22-30) mmol/L Anion Gap (5-15) MEQ/L BUN (9-20) mg/dL Creatinine (0.66-1.25) mg/dL Estimated GFR ML/MIN Glucose (74-106) mg/dL Calcium (8.4-10.2) mg/dL Total Bilirubin (0.2-1.3) mg/dL AST (17-59) U/L ALT (0-50) U/L Alkaline Phosphatase (38-126) U/L Troponin I 0.062 H* (0.000-0.034) ng/mL Serum Total Protein (6.3-8.2) g/dL Albumin (3.5-5.0) g/dL - Progress Progress: improved, re-examined Air Movement: good Progress Note: 02/13/21 03:25 awaiting teleneuro which is requiring some time . 02/13/21 04:[address] Hennessy Cardiology at [facility] and pt and all agree best to transfer to [facility] for further cardiac workup and monitoring. Blood Culture(s) Obtained: No Antibiotics given: Yes Discussed with Dr.: Other (Dr. Hennessy - cardiology [facility]) Will see patient in: hospital (full admit) Counseled pt/family regarding: lab results, diagnosis, need for follow-up, rad results - Departure Departure Disposition: Transfer Clinical Impression: Non-ST elevated myocardial infarction (non-STEMI), Hypokalemia, Elevated troponin, Headache, Old cerebrovascular accident (CVA) without late effect Condition: Good Critical Care Time: No Referrals: EDWIN RATLIFF MD [Primary Care Provider] - Follow up/PCP as directed
[2021-02-12] MEDS ORDERED: BENADRYL 50 MG/ML IV ONE (23:49)
[2021-02-12] MEDS ORDERED: Reglan 10 MG/2 ML IV ONE (23:49)
[2021-02-12] MEDS ORDERED: BENADRYL 50 MG/ML ONE (23:53)
[2021-02-12] MEDS ORDERED: Reglan 10 MG/2 ML ONE (23:53)
[2021-02-13 00:25] LABS: Hematocrit 41.1 % (42-50); Hemoglobin 13.6 gm/dl (12.5-18.0); Mean Corpuscular Hemoglobin 29.1 pg (26-32); Mean Corpuscular Hgb Concent. 33.1 g/dl (32-36); Mean Platelet Volume 8.8 fl (7.5-11.0); Platelet Count 399 K/mm3 (150-450); Red Blood Count 4.67 M/mm3 (4.1-5.6); Red Cell Distribution Width 14.6 % (11.5-14.0); White Blood Count 18.3 K/mm3 (4.0-10.5)
[2021-02-13 00:38] LABS: ALBUMIN 3.4 g/dL (3.5-5.0); ANION GAP 14.1 MEQ/L (5-15); BILIRUBIN,TOTAL 0.5 mg/dL (0.2-1.3); Calcium 8.9 mg/dL (8.4-10.2); Creatinine 1 1.47 mg/dL (0.66-1.25); EST GLOMERULAR FILTRATION RATE 52.9 ML/MIN; Total Protein 6.9 g/dL (6.3-8.2)
[2021-02-13 00:49] LABS: Potassium 2.7 mmol/L (3.5-5.1)
[2021-02-13] MEDS ORDERED: K-LYTE 25 MEQ PO ONE (00:50)
[2021-02-13] MEDS ORDERED: POTASSIUM CHLORIDE 20 mEq IN WATER 100ML 20 MEQ/100 ML BAG IV ONE (00:50)
[2021-02-13] MEDS ORDERED: K-LYTE 25 MEQ ONE (01:04)
[2021-02-13] MEDS ORDERED: POTASSIUM CHLORIDE 20 mEq IN WATER 100ML 100 ML IV ONE (01:04)
[2021-02-13 01:28] LABS: Eosinophil 1 % (0.00-3.0); Lymphocytes 17 % (24-44); Monocyte 8 % (0.0-12.0); Neutrophils 74 % (36.-66.); Platelet Estimate NORMAL (NORMAL); Total Cells Counted 100
[2021-02-13 03:25] VITALS: O2SAT 96
[2021-02-13 04:14] VITALS: BP 108/62; PULSE 87
--- NOTE | 2021-02-13 08:32 | XRAY ---
Indication: Headache and dizziness. Stroke. Multiple contiguous axial images obtained through the head without contrast. Comparison: August 06, 2018. Again old right temporoparietal infarct and progressive worsening mild periventricular degenerative micro-ischemia bilaterally. No acute intracranial hemorrhage, hydrocephalus, or mass effect. Fourth ventricle is midline. Garcia-white matter differentiation preserved. Bony calvarium intact. Again mild mucosal thickening of both ethmoid and both maxillary sinuses. Mastoid air cells are clear. Impression: 1. Again old right temporoparietal infarct, degenerative micro-ischemia, and paranasal sinuses disease. 2. No new/acute intracranial abnormalities. Comment: Preliminary interpretation made by [facility]. No critical discrepancy.
== END 2021-02-13 04:48 | disposition short-term general hospital (02) ==
LOC: ED 23:34
DX: I21.4 Non-ST elevation (NSTEMI) myocardial infarction (principal); I10 Essential (primary) hypertension; I25.2 Old myocardial infarction; E87.6 Hypokalemia; R77.8 Other specified abnormalities of plasma proteins; R51.9 Headache, unspecified; Z86.73 Personal history of transient ischemic attack (TIA), and cerebral infarction without residual deficits; Z79.899 Other long term (current) drug therapy
CPT/HCPCS: 36000; 36415; 70450; 80053; 84484; 85025; 85652; 93005; 94760; 96374; 99285; J1200; J3480; A9270-GY

== ENCOUNTER 2021-07-15 09:11 | Day surgery (SDC) | payer MEDICARE, OTHER ==
--- NOTE | 2021-07-08 08:36 | HP ---
DATE OF SURGERY: 07/15/2021 HISTORY OF PRESENT ILLNESS: The patient is a 56-year-old male who presents with bilateral breast pain and nodules. The patient had an ultrasound mammogram demonstrating bilateral breast tissue with some suspicious masses not indicated on location from the nipple. It looks like they did give a Bi-RADS IV score suspicious for abnormality recommending a biopsy. I believe that the patient's sister has had breast cancer. PAST MEDICAL HISTORY: Atrial fibrillation, stroke, myocardial infarction, coronary artery disease, hyperlipidemia, hypertension. PAST SURGICAL HISTORY: Spinal fusion. Hernia repair. Stent. ALLERGIES: NKDA. MEDICATIONS: Aspirin, amlodipine, Xarelto, carvedilol, hydrochlorothiazide, Topamax, sildenafil, tadalafil. FAMILY HISTORY: Heart disease, diabetes, hypertension, stroke. SOCIAL HISTORY: None. REVIEW OF SYSTEMS: CONSTITUTIONAL: Denies fever or chills. CHEST: Denies shortness of breath. CVS: Denies chest pain. ABDOMEN: Denies abdominal pain. PHYSICAL EXAMINATION: GENERAL: No acute distress. CHEST: Nonlabored. No shortness of breath. CVS: Regular rate and rhythm. ABDOMEN: Soft. IMPRESSION: Bilateral breast masses favoring abnormality. PLAN: Bilateral breast mass biopsy with Dr. Roger Benitez. As dictated by Felicia Fermin NP.
[~2021-07-15 09:11] MED LIST: Lactated Ringers 1,000 ML IV ONE; Sensorcaine 0.25% 10 ML ONE
[2021-07-15] MEDS ORDERED: CEFAZOLIN 2 GM-D5W BAG** 2 GM/50 ML ML IV SCH (09:30)
[2021-07-15] MEDS ORDERED: Lactated Ringers 1,000 ML IV SCH (09:30)
[2021-07-15 10:05] VITALS: BP 119/71; PULSE 80; O2SAT 100
== END 2021-07-15 09:52 | disposition still patient (30) ==
LOC: SDC 09:11
PROVIDERS: ATTEND Surgery
DX: Z53.8 Procedure and treatment not carried out for other reasons (principal); Z83.3 Family history of diabetes mellitus
CPT/HCPCS: 82947

== ENCOUNTER 2021-07-15 09:56 | Emergency (ER) | payer MEDICARE, OTHER ==
[2021-07-15] MEDS ORDERED: Sodium Chloride 0.9% 1000 ML 1,000 ML IV STA (10:07)
--- NOTE | 2021-07-15 10:14 | ERPHSYRPT ---
- History of Present Illness Time Seen by Provider: 07/15/21 10:10 Source: patient Exam Limitations: no limitations Patient Subjective Stated Complaint: Weakness Triage Nursing Assessment: Patient brought down to ER per outpatient surgery on stretcher. Patient getting ready to have biopsey's of gabrielle breasts to rule on malignency. Patient has been NPO all night and has held his xarelto for 2 days. RNs stated patient's blood pressure dropped and O2 dropped in the 80s which required O2 at 2 liters. RNs also stated patient's skin was hernandez. Patient A+O X 3. Patient's skin pale, cool and dry. Patient complains of being thirsty and very tired. Patient denies pain or discomfort. Physician History: Patient is a 56-year-old male presents to our ED from preop holding. Patient was being prepped for a surgical procedure. Patient informs us that he was going to have bilateral breast biopsy to rule out breast malignancy. While in preop area staff observed patient's vitals to be abnormal. Patient's blood pressure was low. Oxygen was in the 80s. Patient appeared hernandez and diaphoretic. Patient complains of feeling tired and thirsty. Patient states he has not slept at all because of anxiety from today's surgery. Patient has been n.p.o. Patient has a history of atrial fibrillation. Patient's Xarelto has been held for 2 days. Patient denies pain. Symptoms are mild to moderate in intensity. No specific worsening or improving factors. Patient voices no other complaints or concerns at this time. Timing/Duration: today Severity: moderate Modifying Factors: Improves With: nothing Associated Symptoms: denies symptoms, diaphoresis, No nausea, No vomiting, No abdominal pain, No shortness of breath, No chest pain, No headaches, No syncope, No seizure Allergies/Adverse Reactions: No Known Drug Allergies Allergy (Verified 07/15/21 10:00) Home Medications: Aspirin EC 81 mg [Ecotrin 81 mg] 81 mg PO DAILY 06/30/18 [History] Potassium Chloride Tab* [Klor Con] 20 meq PO BID 07/29/18 [History] Hydrochlorothiazide 25 mg [hydroDIURIL 25 MG] 25 mg PO DAILY 10/09/18 [History] Carvedilol [Coreg] 25 mg PO DAILY 07/08/21 [History] Rivaroxaban [Xarelto] 20 mg PO DAILY 07/08/21 [History] Topiramate 25 mg [Topamax 25 MG] 100 mg PO BID 07/08/21 [History] Hx Tetanus, Diphtheria Vaccination/Date Given: No Hx Influenza Vaccination/Date Given: No Hx Pneumococcal Vaccination/Date Given: Yes Immunizations Up to Date: Yes Travel Risk - International Travel Have you traveled outside of the country in past 3 weeks: No - Coronavirus Screening Are you exhibiting any of the following symptoms?: No Close contact with a COVID-19 positive Pt in past 14-21 Days: No - Vaccine Status Have you recieved a Covid-19 vaccination: No - Review of Systems Constitutional: No Symptoms, No Fever, No Chills Eyes: No Symptoms Ears, Nose, & Throat: No Symptoms Respiratory: No Symptoms, No Cough, No Dyspnea Cardiac: No Symptoms, No Chest Pain, No Edema, No Syncope Abdominal/Gastrointestinal: No Symptoms, No Abdominal Pain, No Nausea, No Vomiting, No Diarrhea Genitourinary Symptoms: No Symptoms, No Dysuria Musculoskeletal: No Symptoms, No Back Pain, No Neck Pain Skin: No Symptoms, No Rash Neurological: No Symptoms, No Dizziness, No Focal Weakness, No Sensory Changes Psychological: No Symptoms Endocrine: No Symptoms Hematologic/Lymphatic: No Symptoms Immunological/Allergic: No Symptoms All Other Systems: Reviewed and Negative - Past Medical History Pertinent Past Medical History: Yes Neurological History: Stroke ENT History: Other Cardiac History: Arrhythmia, Hypertension, Myocardial Infarction (MS), Other Respiratory History: No Pertinent History Endocrine Medical History: No Pertinent History Musculoskeletal History: Arthritis, Other GI Medical History: GERD History: Other Psycho-Social History: No Pertinent History Male Reproductive Disorders: No Pertinent History Other Medical History: CVA, blood poisoning when in 4th grade, bitten by brown recluse spider, kidney stones x 9,A-FIB - Past Surgical History Past Surgical History: Yes Neuro Surgical History: No Pertinent History Cardiac: Cardiac Catheterization Respiratory: No Pertinent History Gastrointestinal: Hernia Repair Genitourinary: No Pertinent History Musculoskeletal: Orthopedic Surgery Male Surgical History: No Pertinent History Other Surgical History: pt had bk surgery at 16. SPINAL FUSION, HEART CATH, HERNIA REPAIR, lithotripsy multiple times - Social History Smoking Status: Never smoker Exposure to second hand smoke: Yes Drug Use: none Patient Lives Alone: No - Nursing Vital Signs Nursing Vital Signs: Initial Vital Signs Temperature 97.8 F 07/15/21 10:02 Pulse Rate 64 07/15/21 10:02 Respiratory Rate 21 07/15/21 10:02 Blood Pressure 83/49 07/15/21 10:02 O2 Sat by Pulse Oximetry 95 07/15/21 10:02 Pain Scale Pain Intensity 0 - Physical Exam General Appearance: no apparent distress, alert Eye Exam: PERRL/EOMI, eyes nml inspection Ears, Nose, Throat Exam: normal ENT inspection, TMs normal, pharynx normal, moist mucous membranes Neck Exam: normal inspection, non-tender, supple, full range of motion Respiratory Exam: normal breath sounds, lungs clear, airway intact, No respiratory distress Cardiovascular Exam: regular rate/rhythm, normal heart sounds, normal peripheral pulses Gastrointestinal/Abdomen Exam: soft, normal bowel sounds, No tenderness, No mass Back Exam: normal inspection, normal range of motion, No CVA tenderness, No vertebral tenderness Extremity Exam: normal inspection, normal range of motion, pelvis stable Neurologic Exam: alert, oriented x 3, cooperative, normal mood/affect, nml cerebellar function, nml station & gait, sensation nml, No motor deficits Skin Exam: normal color, warm, dry, No rash Lymphatic Exam: No adenopathy SpO2 Interpretation: normal SpO2: 95 O2 Delivery: Room Air - Course Nursing assessment & vital signs reviewed: Yes EKG Interpreted by Me: RATE ([id number]), Sinus Rhythm, NORMAL AXIS, NORMAL INTERVALS Ordered Tests: Active Orders 24 hr Category Date Time Status AMA [Release AMA] OM.NOW Care 07/15/21 10:39 Ordered [employer] Underwriter STAT Care 07/15/21 10:07 Active EKG-ER Only STAT Care 07/15/21 10:05 Active IV Insertion STAT Care 07/15/21 10:05 Active Pulse Oximetry (ED) STAT Care 07/15/21 10:05 Active CBC W DIFF Stat Lab 07/15/21 10:16 Received CMP Stat Lab 07/15/21 10:16 Received NT PRO BNP Stat Lab 07/15/21 10:16 Received TROPONIN Q3H Lab 07/15/21 10:16 Received TROPONIN Q3H Lab 07/15/21 13:15 Ordered TROPONIN Q3H Lab 07/15/21 16:15 Ordered TROPONIN Q3H Lab 07/15/21 19:15 Ordered TROPONIN Q3H Lab 07/15/21 22:15 Ordered UA W/RFX CULTURE Stat Lab 07/15/21 Ordered Medication Summary Generic Name Dose Route Start Last Admin Trade Name Wendy PRN Reason Stop Dose Admin Sodium Chloride 1,000 mls @ 999 mls/hr 07/15/21 10:07 Sodium Chloride 0.9% 1000 Ml IV 07/15/21 11:07 .Q1H1M STA - Progress Progress: improved Progress Note: Patient requesting to leave AMA. Patient states he is thirsty and hungry. We offered to give him something to eat and drink if he would be willing to stay to complete his work-up. Patient states that he just wants to go home and rest. Labs still pending. Patient receiving IV fluids. Blood pressure up to 105 systolic. Oxygen saturation on monitor is 100%. Heart rate is 66. Blood pressure 102/75. Significant other at bedside. Patient is adamant about going home and getting some rest. Patient states he wants to get something to eat as well. Patient is of sound mind. Patient is appropriate to make informed and independent medical decisions. Patient understands that leaving AGAINST MEDICAL ADVICE can result in delayed diagnosis, increased risk of morbidity, mortality, short and long-term disability including . In spite of these risks, patient has decided to leave AGAINST MEDICAL ADVICE. Patient understands that he may return to our ED at any point if he reconsiders. Patient agrees to follow-up with his primary care doctor within 48 hours for reevaluation. Patient voices no other complaints or concerns at this time. We will release patient AGAINST MEDICAL ADVICE per their request. Portions of this note were created with voice recognition technology. There may be grammatical, spelling, punctuation or sound alike errors 07/15/21 10:40 - Departure Departure Disposition: AMA Clinical Impression: Hypotension, Generalized weakness, Hypoxia Condition: Stable Critical Care Time: No Referrals: EDWIN RATLIFF MD [Primary Care Provider] - Follow up/PCP as directed Additional Instructions: Please follow-up with your family doctor within 48 hours for reevaluation. Discharge/Care Plan FATMATA PHELAN was seen on 07/15/21 in the Emergency Room. The patient was counseled regarding Diagnosis,Lab results, Imaging studies, need for follow up and when to return to the Emergency Room. Prescriptions given: Discharge Note I have spoken with the patient and/or caregivers. I have explained the patient's condition, diagnosis and treatment plan based on the information available to me at this time. I have answered the patient's and/or caregiver's questions and addressed any concerns. The patient and/or caregivers have as good understanding of the patient's diagnosis, condition and treatment plan as can be expected at this point. The vital signs have been stable. The patient's condition is stable and appropriate for discharge from the emergency department. The patient will pursue further outpatient evaluation with the primary care physician or other designated or consulting physician as outlined in the discharge instructions. The patient and/or caregivers are agreeable to this plan of care and follow-up instructions have been explained in detail. The patient and/or caregivers have received these instruction. The patient/and or caregivers are aware that any significant change in condition or worsening of symptoms should prompt an immediate return to this or the closest emergency department or call 911.
[2021-07-15 10:49] LABS: Absolute Neutrophil Ct (ANC) 12.11 x10^3/uL (1.4-6.9); Eosinophil % 4.2 % (0.00-5.0); Hematocrit 39.7 % (42-50); Hemoglobin 13.5 g/dL (12.5-18.0); Lymphocyte (Absolute #) 2.74 x10^3/uL (1.0-4.6); Lymphocytes % 16.5 % (24.0-44.0); Mean Cell Volume 87.4 fL (78-100); Mean Corpuscular Hemoglobin 29.7 pg (26-32); Mean Platelet Volume 9.1 fL (7.5-11.0); Monocyte (Absolute #) 0.79 x10^3/uL (0.0-1.3); Monocytes % 4.8 % (0.0-12.0); Neutrophil % 73.1 % (36.0-66.0); Platelet Count 414 x10^3/uL (150-450); Red Blood Count 4.54 x10^6/uL (4.1-5.6); Red Cell Distribution Width 14.3 % (11.5-14.0); White Blood Count 16.6 x10^3/uL (4.0-10.5)
[2021-07-15 10:53] VITALS: BP 102/75; PULSE 65; O2SAT 99
[2021-07-15 11:03] LABS: ALBUMIN 3.3 g/dL (3.5-5.0); ANION GAP 13.2 MEQ/L (5-15); Calcium 9.2 mg/dL (8.4-10.2); Creatinine 1 1.87 mg/dL (0.66-1.25); EST GLOMERULAR FILTRATION RATE 39.9 ML/MIN; Potassium 3.3 mmol/L (3.5-5.1); Total Protein 6.5 g/dL (6.3-8.2)
== END 2021-07-15 10:55 | disposition left against medical advice (07) ==
LOC: ED 09:56
DX: I95.9 Hypotension, unspecified (principal); R53.1 Weakness; R09.02 Hypoxemia; Z79.01 Long term (current) use of anticoagulants; Z79.899 Other long term (current) drug therapy; I10 Essential (primary) hypertension
CPT/HCPCS: 36415; 80053; 82947; 83880; 84484; 85025; 93005; 93041; 94760; 99284

== ENCOUNTER 2022-08-01 15:00 | Emergency (ER) | payer MEDICARE, OTHER ==
[2022-08-01] MEDS ORDERED: CARDIZEM DRIP 100 MG/100 ML D5W 100 ML IV PRN (15:14)
[2022-08-01] MEDS ORDERED: CARDIZEM DRIP 100 MG/100 ML D5W 100 ML IV ONE (15:29)
--- NOTE | 2022-08-01 15:35 | XRAY ---
Indication: Dyspnea. Comparison: October 09, 2018 Portable chest now demonstrates cardiomegaly, diffuse central vascular congestion, and small bilateral effusions right greater than left favoring cardiac decompensation/CHF. Superimposed pneumonia not completely excluded. Bony thorax intact.
[2022-08-01 15:48] LABS: BASOPHIL % 0.4 % (0.0-0.4); Basophil (Absolute #) 0.07 x10^3/uL (0-0.4); Eosinophil % 0.1 % (0.00-5.0); Eosinophil (Absolute #) 0.01 x10^3/uL (0-0.5); Hematocrit 37.4 % (42-50); Hemoglobin 11.9 g/dL (12.5-18.0); IMMATURE GRAN # 0.19 x10^3u/L (0.00-0.03); Lymphocytes % 8.1 % (24.0-44.0); Mean Cell Volume 88.2 fL (78-100); Mean Corpuscular Hemoglobin 28.1 pg (26-32); Mean Corpuscular Hgb Concent. 31.8 g/dL (32-36); Mean Platelet Volume 8.8 fL (7.5-11.0); Monocyte (Absolute #) 0.65 x10^3/uL (0.0-1.3); Monocytes % 3.3 % (0.0-12.0); Neutrophil % 87.1 % (36.0-66.0); Platelet Count 427 x10^3/uL (150-450); Red Blood Count 4.24 x10^6/uL (4.1-5.6); Red Cell Distribution Width 15.3 % (11.5-14.0); White Blood Count 19.8 x10^3/uL (4.0-10.5)
--- NOTE | 2022-08-01 15:49 | ERPHSYRPT ---
- History of Present Illness Source: patient, EMS Exam Limitations: no limitations Patient Subjective Stated Complaint: Patient states " I have been getting worse with not being able to breath for last couple of days and I have been having intermittent fevers last couple of days. Triage Nursing Assessment: . Physician History: 57 yo WM brought into ER by EMS for dyspnea/Afib w RVR. Pt was given IV Cardizem 15mg/10mg Iv in route. He has been dyspneic x 3 days and states that he has had a cough that has resolved and a fever. He denies chest p ain/N/V/D/melena/hematochezia/abdominal pain. Pt has a PMH of Afib/HTN but denies DM/DE/CAD. Timing/Duration: other (3 days) Activities at Onset: rest Severity of Dyspnea-Max: moderate Severity of Dyspnea-Current: moderate Possible Cause: occasional episodes Modifying Factors: Improves With: activity Associated Symptoms: denies symptoms Allergies/Adverse Reactions: No Known Drug Allergies Allergy (Verified 08/01/22 15:27) Home Medications: Aspirin EC 81 mg [Ecotrin 81 mg] 81 mg PO DAILY 06/30/18 [History] Potassium Chloride Tab* [Klor Con] 20 meq PO BID 07/29/18 [History] Hydrochlorothiazide 25 mg [hydroDIURIL 25 MG] 25 mg PO DAILY 10/09/18 [His tory] Carvedilol [Coreg] 25 mg PO DAILY 07/08/21 [History] Rivaroxaban [Xarelto] 20 mg PO DAILY 07/08/21 [History] Topiramate 25 mg [Topamax 25 MG] 100 mg PO BID 07/08/21 [History] Hx Tetanus, Diphtheria Vaccination/Date Given: No Hx Influenza Vaccination/Date Given: No Hx Pneumococcal Vaccination/Date Given: Yes Immunizations Up to Date: Yes Travel Risk - International Travel Have you traveled outside of the country in past 3 weeks: No - Coronavirus Screening Are you exhibiting any of the following symptoms?: Yes Symptoms: Fever, Shortness of Breath Close contact with a COVID-19 positive Pt in past 14-21 Days: No - Vaccine Status Have you recieved a Covid-19 vaccination: No - Review of Systems Constitutional: No Symptoms, Fever, Chills, Malaise Eyes: No Symptoms Ears, Nose, & Throat: No Symptoms Respiratory: No Symptoms, Cough, Dyspnea Cardiac: No Symptoms, Palpitations Abdominal/Gastrointestinal: No Symptoms Genitourinary Symptoms: No Symptoms Musculoskeletal: No Symptoms Skin: No Symptoms Neurological: No Symptoms Psychological: No Symptoms Endocrine: No Symptoms Hematologic/Lymphatic: No Symptoms Immunological/Allergic: No Symptoms - Past Medical History Pertinent Past Medical History: Yes Neurological History: Stroke ENT History: Other Cardiac History: Arrhythmia, Hypertension, Myocardial Infarction (DE), Other Respiratory History: No Pertinent History Endocrine Medical History: No Pertinent History Musculoskeletal History: Arthritis, Other GI Medical History: GERD History: Other Psycho-Social History: No Pertinent History Male Reproductive Disorders: No Pertinent History Other Medical History: CVA, blood poisoning when in 4th grade, bitten by brown recluse spider, kidney stones x 9,A-FIB - Past Surgical History Past Surgical History: Yes Neuro Surgical History: No Pertinent History Cardiac: Cardiac Catheterization Respiratory: No Pertinent History Gastrointestinal: Hernia Repair Genitourinary: No Pertinent History Musculoskeletal: Orthopedic Surgery Male Surgical History: No Pertinent History Other Surgical History: pt had bk surgery at 16. SPINAL FUSION, HEART CATH, HERNIA REPAIR, lithotripsy multiple times - Social History Smoking Status: Never smoker Exposure to second hand smoke: Yes Drug Use: none Patient Lives Alone: No - Nursing Vital Signs Nursing Vital Signs: Initial Vital Signs Temperature 98.0 F 08/01/22 15:01 Pulse Rate 88 08/01/22 15:01 Respiratory Rate 24 08/01/22 15:01 Blood Pressure 138/94 08/01/22 15:01 O2 Sat by Pulse Oximetry 88 L 08/01/22 15:01 Pain Scale Pain Intensity 5 Low sats/hypertensive - Physical Exam General Appearance: mild distress Eye Exam: PERRL/EOMI, eyes nml inspection Ears, Nose, Throat Exam: hearing grossly normal, normal ENT inspection, normal pharynx Neck Exam: normal inspection, non-tender, supple, full range of motion, No Brudzinski, No Kernig's, No meningismus, No carotid bruit Respiratory Exam: crackles/rales (L base/scattered wheezes) Cardiovascular/Chest Exam: irregular (Ir-Ir) Abdominal/Gastrointestinal Exam: soft, normal bowel sounds, No tenderness Extremity Exam: non-tender, normal range of motion, normal inspection, normal capillary refill Peripheral Pulses Exam: carotid (R): 2+, carotid (L): 2+ Neurologic Exam: alert, oriented x 3, 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, 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, sensation nml, No motor deficits, No sensory deficit Skin Exam: normal color, warm, dry Lymphatic Exam: No adenopathy SpO2 Interpretation: hypoxic SpO2: 88 - Course Nursing assessment & vital signs reviewed: Yes EKG Interpreted by Me: RATE (Afib/Rate 91/Normal QT0QTc/Poor Rwave pregression V1-V2/Flat Twaves/No acute ST segment changes) - Radiology Exams Chest X-ray Interpretation: Reviewed by me, Discussed w/ radiologist (CHF) Ordered Tests: Active Orders 24 hr Category Date Time Status EKG-ER Only STAT Care 08/01/22 15:13 Active CHEST 1 VIEW (PORTABLE) Stat Exams 08/01/22 15:13 Completed ABG [ARTERIAL BLOOD GASES] Stat Lab 08/01/22 16:15 Completed BLOOD CULTURE Stat Lab 08/01/22 17:10 Received CBC W DIFF Stat Lab 08/01/22 15:35 Completed CMP Stat Lab 08/01/22 15:45 Completed Lactic Acid Stat Lab 08/01/22 15:33 Completed NT PRO BNPII Stat Lab 08/01/22 15:45 Completed PROTIME WITH INR Stat Lab 08/01/22 15:35 Completed PTT Stat Lab 08/01/22 15:35 Completed TROPONIN Q4H Lab 08/01/22 15:35 Completed TROPONIN Q4H Lab 08/01/22 19:15 Ordered TROPONIN Q4H Lab 08/01/22 23:15 Ordered Medication Summary Generic Name Dose Route Start Last Admin Trade Name Freq PRN Reason Stop Dose Admin Diltiazem HCl 100 mls @ 5 mls/hr 08/01/22 15:14 08/01/22 15:32 Cardizem Drip 100 Mg/100 Ml D5w IV 08/31/22 15:13 5 mg/hr .Q20H PRN 5 mls/hr HEART RATE/ A-FIB Administration Protocol 5 MG/HR Discontinued Medications Generic Name Dose Route Start Last Admin Trade Name Freq PRN Reason Stop Dose Admin Aspirin 324 mg 08/01/22 17:17 08/01/22 17:23 Aspirin 81 Mg Tab.Chew PO 08/01/22 17:18 324 mg STAT ONE Administration Furosemide 60 mg 08/01/22 15:51 08/01/22 15:54 Furosemide 40 Mg/4 Ml Vial IV 08/01/22 15:52 60 mg STAT ONE Administration Furosemide Confirm 08/01/22 15:53 Furosemide 40 Mg/4 Ml Vial Administered 08/01/22 15:54 Dose 80 mg .ROUTE .STK-MED ONE Furosemide 40 mg 08/01/22 17:09 08/01/22 17:23 Furosemide 40 Mg/4 Ml Vial IV 08/01/22 17:10 40 mg STAT ONE Administration Furosemide Confirm 08/01/22 17:21 Furosemide 40 Mg/4 Ml Vial Administered 08/01/22 17:22 Dose 40 mg .ROUTE .STK-MED ONE Ceftriaxone Sodium/Dextrose 1 g in 50 mls @ 100 mls/hr 08/01/22 16:45 08/01/22 17:22 Rocephin 1 Gm-D5w 50 Ml Bag IV 08/01/22 17:14 100 mls/hr STAT STA 100 mls/hr Administration Ceftriaxone Sodium/Dextrose Confirm 08/01/22 17:21 Rocephin 1 Gm-D5w 50 Ml Bag Administered 08/01/22 17:22 Dose 1 g in 50 mls @ ud IV .STK-MED ONE Nitroglycerin 0.4 mg 08/01/22 17:17 08/01/22 17:23 Nitroglycerin 0.4 Mg (Ed) 0.4 Mg Tab.Subl SL 08/01/22 17:18 0.4 mg STAT ONE Administration Lab/Rad Data: Laboratory Result Diagrams 08/01/22 15:35 08/01/22 15:45 Laboratory Results 08/01/22 08/01/22 08/01/22 Range/Units 16:15 15:45 15:35 WBC (4.0-10.5) x10^3/uL RBC (4.1-5.6) x10^6/uL Hgb (12.5-18.0) g/dL Hct (42-50) % MCV (78-100) fL MCH (26-32) pg MCHC (32-36) g/dL RDW (11.5-14.0) % Plt Count (150-450) x10^3/uL MPV (7.5-11.0) fL Gran % (36.0-66.0) % Immature Gran % (Auto) (0.00-0.4) % Nucleat RBC Rel Count (0.00-0.1) % Eos # (Auto) (0-0.5) x10^3/uL Immature Gran # (Auto) (0.00-0.03) x10^3u/L Absolute Lymphs (auto) (1.0-4.6) x10^3/uL Absolute Monos (auto) (0.0-1.3) x10^3/uL Absolute Nucleated RBC (0.00-0.01) x10^3u/L Lymphocytes % (24.0-44.0) % Monocytes % (0.0-12.0) % Eosinophils % (0.00-5.0) % Basophils % (0.0-0.4) % Absolute Granulocytes (1.4-6.9) x10^3/uL Basophils # (0-0.4) x10^3/uL PT (9.4-12.5) SECONDS INR (0.8-3.0) APTT (25.1-36.5) SECONDS Puncture Site LEFT RADIAL pCO2 32 L (35-45) mmHg pO2 92 (75-100) mmHg Base Excess -2.9 L (-2.0-2.0) O2 Saturation 96.2 (94-100) g/dF ABG pH 7.42 (7.35-7.45) ABG HCO3 20.8 L (22-28) ABG O2 Sat (Measured) 98.2 (95-100) % Timur Test YES A-a Gradient 581 a/A Ratio 0.14 Hemoglobin 12.8 Carboxyhemoglobin 1.2 (0.0-6.9) % THgb Methemoglobin 0.8 L (1.4-1.5) % Temperature 37.0 C POC O2 Flow Rate 100 % Sodium 142 (137-145) mmol/L Potassium 3.5 3.3 L (3.5-5.1) mmol/L Chloride 108 H (98-107) mmol/L Carbon Dioxide 22 (22-30) mmol/L Anion Gap 15.1 H (5-15) MEQ/L BUN 25 H (9-20) mg/dL Creatinine 1.39 H (0.66-1.25) mg/dL Estimated GFR 56.0 ML/MIN Glucose 157 H (74-106) mg/dL Lactic Acid (0.4-2.0) Calcium 8.5 (8.4-10.2) mg/dL Total Bilirubin 0.70 (0.2-1.3) mg/dL AST 57 (17-59) U/L ALT 51 H (0-50) U/L Alkaline Phosphatase 99 (38-126) U/L Troponin I (0.000-0.034) ng/mL NT-Pro-B Natriuret Pep 6230 (<300) pg/mL Serum Total Protein 7.5 (6.3-8.2) g/dL Albumin 3.7 (3.5-5.0) g/dL Influenza Type A Ag NEGATIVE (NEGATIVE) Influenza Type B Ag NEGATIVE (NEGATIVE) RSV (PCR) NEGATIVE (NEGATIVE) SARS-CoV-2 (PCR) NEGATIVE (NEGATIVE) 08/01/22 08/01/22 08/01/22 Range/Units 15:35 15:35 15:35 WBC 19.8 H (4.0-10.5) x10^3/uL RBC 4.24 (4.1-5.6) x10^6/uL Hgb 11.9 L (12.5-18.0) g/dL Hct 37.4 L (42-50) % MCV 88.2 (78-100) fL MCH 28.1 (26-32) pg MCHC 31.8 L (32-36) g/dL RDW 15.3 H (11.5-14.0) % Plt Count 427 (150-450) x10^3/uL MPV 8.8 (7.5-11.0) fL Gran % 87.1 H (36.0-66.0) % Immature Gran % (Auto) 1.0 H (0.00-0.4) % Nucleat RBC Rel Count 0.0 (0.00-0.1) % Eos # (Auto) 0.01 (0-0.5) x10^3/uL Immature Gran # (Auto) 0.19 H (0.00-0.03) x10^3u/L Absolute Lymphs (auto) 1.60 (1.0-4.6) x10^3/uL Absolute Monos (auto) 0.65 (0.0-1.3) x10^3/uL Absolute Nucleated RBC 0.00 (0.00-0.01) x10^3u/L Lymphocytes % 8.1 L (24.0-44.0) % Monocytes % 3.3 (0.0-12.0) % Eosinophils % 0.1 (0.00-5.0) % Basophils % 0.4 (0.0-0.4) % Absolute Granulocytes 17.30 H (1.4-6.9) x10^3/uL Basophils # 0.07 (0-0.4) x10^3/uL PT 10.9 (9.4-12.5) SECONDS INR 1.00 (0.8-3.0) APTT 25.0 L (25.1-36.5) SECONDS Puncture Site pCO2 (35-45) mmHg pO2 (75-100) mmHg Base Excess (-2.0-2.0) O2 Saturation (94-100) g/dF ABG pH (7.35-7.45) ABG HCO3 (22-28) ABG O2 Sat (Measured) (95-100) % Timur Test A-a Gradient a/A Ratio Hemoglobin Carboxyhemoglobin (0.0-6.9) % THgb Methemoglobin (1.4-1.5) % Temperature C POC O2 Flow Rate % Sodium (137-145) mmol/L Potassium (3.5-5.1) mmol/L Chloride (98-107) mmol/L Carbon Dioxide (22-30) mmol/L Anion Gap (5-15) MEQ/L BUN (9-20) mg/dL Creatinine (0.66-1.25) mg/dL Estimated GFR ML/MIN Glucose (74-106) mg/dL Lactic Acid (0.4-2.0) Calcium (8.4-10.2) mg/dL Total Bilirubin (0.2-1.3) mg/dL AST (17-59) U/L ALT (0-50) U/L Alkaline Phosphatase (38-126) U/L Troponin I 0.084 H* (0.000-0.034) ng/mL NT-Pro-B Natriuret Pep (<300) pg/mL Serum Total Protein (6.3-8.2) g/dL Albumin (3.5-5.0) g/dL Influenza Type A Ag (NEGATIVE) Influenza Type B Ag (NEGATIVE) RSV (PCR) (NEGATIVE) SARS-CoV-2 (PCR) (NEGATIVE) 08/01/22 Range/Units 15:33 WBC (4.0-10.5) x10^3/uL RBC (4.1-5.6) x10^6/uL Hgb (12.5-18.0) g/dL Hct (42-50) % MCV (78-100) fL MCH (26-32) pg MCHC (32-36) g/dL RDW (11.5-14.0) % Plt Count (150-450) x10^3/uL MPV (7.5-11.0) fL Gran % (36.0-66.0) % Immature Gran % (Auto) (0.00-0.4) % Nucleat RBC Rel Count (0.00-0.1) % Eos # (Auto) (0-0.5) x10^3/uL Immature Gran # (Auto) (0.00-0.03) x10^3u/L Absolute Lymphs (auto) (1.0-4.6) x10^3/uL Absolute Monos (auto) (0.0-1.3) x10^3/uL Absolute Nucleated RBC (0.00-0.01) x10^3u/L Lymphocytes % (24.0-44.0) % Monocytes % (0.0-12.0) % Eosinophils % (0.00-5.0) % Basophils % (0.0-0.4) % Absolute Granulocytes (1.4-6.9) x10^3/uL Basophils # (0-0.4) x10^3/uL PT (9.4-12.5) SECONDS INR (0.8-3.0) APTT (25.1-36.5) SECONDS Puncture Site pCO2 (35-45) mmHg pO2 (75-100) mmHg Base Excess (-2.0-2.0) O2 Saturation (94-100) g/dF ABG pH (7.35-7.45) ABG HCO3 (22-28) ABG O2 Sat (Measured) (95-100) % Timur Test A-a Gradient a/A Ratio Hemoglobin Carboxyhemoglobin (0.0-6.9) % THgb Methemoglobin (1.4-1.5) % Temperature C POC O2 Flow Rate % Sodium (137-145) mmol/L Potassium (3.5-5.1) mmol/L Chloride (98-107) mmol/L Carbon Dioxide (22-30) mmol/L Anion Gap (5-15) MEQ/L BUN (9-20) mg/dL Creatinine (0.66-1.25) mg/dL Estimated GFR ML/MIN Glucose (74-106) mg/dL Lactic Acid 2.7 H (0.4-2.0) Calcium (8.4-10.2) mg/dL Total Bilirubin (0.2-1.3) mg/dL AST (17-59) U/L ALT (0-50) U/L Alkaline Phosphatase (38-126) U/L Troponin I (0.000-0.034) ng/mL NT-Pro-B Natriuret Pep (<300) pg/mL Serum Total Protein (6.3-8.2) g/dL Albumin (3.5-5.0) g/dL Influenza Type A Ag (NEGATIVE) Influenza Type B Ag (NEGATIVE) RSV (PCR) (NEGATIVE) SARS-CoV-2 (PCR) (NEGATIVE) - Progress Air Movement: poor Progress Note: 08/01/22 17:[address] [facility] 08/01/22 17:50 Nursing note and vital signs reviewed No food or housing insecurities noted Cardizem drip 5mg/Hr upon arrival for Afib w RVR Lasix 60mg IV, and later 40mg IV for CHF/200ml diuresis at time of transfer Leija placed per nursing to monitor urine output Blood cultures x2/1gm Iv Rocephin for possible pneumonia ASA 324mg po chewable/SKL NTG x1 for blood pressure Pt [facility] for Afib w RVR/CHF/Possible NSTEMI/possible pneumonia Pt 's O2 titrated w Non-rebreather face mask at 10L. Sats 96% upon transfer 08/01/22 17:55 Blood Culture(s) Obtained: Yes Antibiotics given: Yes Counseled pt/family regarding: lab results, diagnosis, need for follow-up, rad results Medical Desision Making - Independent Historian Additional History obtained from: EMS - Diagnostic Testing Diagnostic test were ordered, analyzed, and reviewed by me: Yes Radiological Interpretation: Reviewed by me - Risk of complications The pt has a high risk of morbidity or mortality based on: Drug therapy requiring intensive monitoring for toxicity, Decision regarding hospitilization or escalation of hosp level of care - Departure Departure Disposition: Transfer Clinical Impression: Atrial fibrillation with rapid ventricular response, CHF (congestive heart failure), NSTEMI (non-ST elevated myocardial infarction), Pneumonia Condition: Stable Critical Care Time: Yes Critical Care Time(excluding separately billable procedures): Critical 165-194 mins Referrals: EDWIN RATLIFF MD [Primary Care Provider] - Follow up/PCP as directed Instructions: Heart Failure
[2022-08-01] MEDS ORDERED: Lasix 40 MG/4 ML IV ONE ×2 (15:51→17:09)
[2022-08-01] MEDS ORDERED: Lasix 40 MG/4 ML ONE ×2 (15:53→17:21)
[2022-08-01 16:09] LABS: PROTIME 10.9 SECONDS (9.4-12.5)
[2022-08-01 16:16] LABS: ALBUMIN 3.7 g/dL (3.5-5.0); ANION GAP 15.1 MEQ/L (5-15); BILIRUBIN,TOTAL 0.7 mg/dL (0.2-1.3); Calcium 8.5 mg/dL (8.4-10.2); Creatinine 1 1.39 mg/dL (0.66-1.25); Potassium 3.3 mmol/L (3.5-5.1); Total Protein 7.5 g/dL (6.3-8.2)
[2022-08-01 16:17] LABS: A-aADO2 581; ABG HEMOGLOBIN 12.8; ABG POTASSIUM 3.5 (3.5-5.1); ARTERIAL BLD GAS O2 SATURATION 98.2 % (95-100); ARTERIAL BLOOD GAS BASE EXCESS -2.9 (-2.0-2.0); ARTERIAL BLOOD GAS FIO2 100 %; ARTERIAL BLOOD GAS PCO2 32 mmHg (35-45); ARTERIAL BLOOD GAS PO2 92 mmHg (75-100); ARTERIAL BLOOD GAS pH 7.42 (7.35-7.45); CARBOXYHEMOGLOBIN 1.2 % THgb (0.0-6.9); HCO3- 20.8 (22-28); HGB O2 SAT 96.2 g/dF (94-100); Methhemoglobin 0.8 % (1.4-1.5); paO2 pAO1 0.14
[2022-08-01 16:18] LABS: ABG SITE LEFT RADIAL
[2022-08-01 16:20] LABS: ALLEN TEST OK? YES
[2022-08-01 16:26] LABS: INFLUENZA A NEGATIVE (NEGATIVE); INFLUENZA B NEGATIVE (NEGATIVE); RESPIRATORY SYNCTIAL VIRUS NEGATIVE (NEGATIVE); SARS-CoV-2 Xpert Express NEGATIVE (NEGATIVE)
[2022-08-01] MEDS ORDERED: ROCEPHIN 1 Gm-D5w 50 ml Bag** 1 G/50 ML IVPB IV STA (16:45)
[2022-08-01 17:13] VITALS: BP 184/119; PULSE 94
[2022-08-01] MEDS ORDERED: Nitrostat 0.4 MG (ED) SL ONE (17:17)
[2022-08-01] MEDS ORDERED: BABY ASPIRIN 81 MG CHEW PO ONE (17:17)
[2022-08-01] MEDS ORDERED: ROCEPHIN 1 Gm-D5w 50 ml Bag** 1 G/50 ML IVPB IV ONE (17:21)
[2022-08-01 17:24] VITALS: O2SAT 88
== END 2022-08-01 17:45 | disposition short-term general hospital (02) ==
LOC: ED 15:00
DX: I48.20 Chronic atrial fibrillation, unspecified (principal); I11.0 Hypertensive heart disease with heart failure; I50.9 Heart failure, unspecified; I21.4 Non-ST elevation (NSTEMI) myocardial infarction; J18.9 Pneumonia, unspecified organism; R06.00 Dyspnea, unspecified; Z79.01 Long term (current) use of anticoagulants; Z79.899 Other long term (current) drug therapy; Z28.310 Unvaccinated for COVID-19; Z20.828 Contact with and (suspected) exposure to other viral communicable diseases
CPT/HCPCS: 0241U; 36000; 36415; 36600; 51702; 71045; 80053; 82375; 82803; 83605; 83880; 84484; 85025; 85610; 85730; 87040; 93005; 96365; 96367; 96374; 96376; 99285; 99291; 99292; J0696; J1940; A9270-GY

== ENCOUNTER 2022-11-27 14:46 | Observation (INO) | payer MEDICARE, OTHER ==
--- NOTE | 2022-11-27 15:08 | ERPHSYRPT ---
- History of Present Illness Time Seen by Provider: 11/27/22 15:02 Source: patient Exam Limitations: no limitations Physician History: I was responding to multiple calls for transfer of a critical cardiac pt and was delayed to log that I had seen this pt. Occurred: just prior to arrival Reason for Fall: slipped, fell from standing pos Injuries/Pain Location: head, face, neck Loss of Consciousness: brief (seconds), dazed Severity of Pain-Max: moderate Severity of Pain-Current: moderate Modifying Factors: Improves With: movement Allergies/Adverse Reactions: No Known Drug Allergies Allergy (Verified 11/27/22 15:01) Home Medications: Aspirin EC 81 mg [Ecotrin 81 mg] 81 mg PO DAILY 06/30/18 [History] Potassium Chloride Tab* [Klor Con] 20 meq PO BID 07/29/18 [History] Hydrochlorothiazide 25 mg [hydroDIURIL 25 MG] 25 mg PO DAILY 10/09/18 [History] Rivaroxaban [Xarelto] 20 mg PO HS 07/08/21 [History] Topiramate 25 mg [Topamax 25 MG] 100 mg PO BID 07/08/21 [History] carvediloL [Coreg] 25 mg PO BID 07/08/21 [History] Hx Tetanus, Diphtheria Vaccination/Date Given: No Hx Influenza Vaccination/Date Given: Yes Hx Pneumococcal Vaccination/Date Given: Yes Travel Risk - Vaccine Status Have you recieved a Covid-19 vaccination: Yes 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 - Vaccination Dates Date of 2cond Vaccination (if applicable): 2022 Dates if Unknown: na - Review of Systems Constitutional: Fatigue, Malaise, No Fever, No Chills Eyes: No Symptoms Ears, Nose, & Throat: No Symptoms Respiratory: Dyspnea, No Cough Cardiac: No Chest Pain, No Edema, No Syncope Abdominal/Gastrointestinal: No Abdominal Pain, No Nausea, No Vomiting, No Di arrhea Genitourinary Symptoms: No Dysuria Musculoskeletal: Neck Pain, Fall, Injury, No Back Pain Skin: No Rash Neurological: No Dizziness, No Focal Weakness, No Sensory Changes Psychological: No Symptoms Endocrine: No Symptoms Hematologic/Lymphatic: No Symptoms Immunological/Allergic: No Symptoms All Other Systems: Reviewed and Negative - Past Medical History Pertinent Past Medical History: Yes Neurological History: Stroke ENT History: No Pertinent History Cardiac History: Arrhythmia, Deep Vein Thrombosis, Hypertension, Myocardial Infarction ([place]), Other Respiratory History: No Pertinent History Endocrine Medical History: No Pertinent History Musculoskeletal History: Arthritis, Other GI Medical History: Diverticulitis, Diverticulosis, GERD History: Other Psycho-Social History: No Pertinent History Male Reproductive Disorders: No Pertinent History, Prostate Problems Other Medical History: CVA, blood poisoning when in 4th grade, bitten by brown recluse spider, kidney stones x 9,A-FIB - Past Surgical History Past Surgical History: Yes Neuro Surgical History: No Pertinent History Cardiac: Cardiac Catheterization, Cardiac Stent Respiratory: No Pertinent History Gastrointestinal: Hernia Repair Genitourinary: No Pertinent History Musculoskeletal: Orthopedic Surgery Male Surgical History: No Pertinent History Other Surgical History: pt had bk surgery at 16. SPINAL FUSION, HEART CATH, HERNIA REPAIR, lithotripsy multiple times, 5 stents - Social History Smoking Status: Never smoker Exposure to second hand smoke: Yes Drug Use: none Patient Lives Alone: No - Nursing Vital Signs Nursing Vital Signs: Initial Vital Signs Pulse Rate 76 11/27/22 15:02 Respiratory Rate 18 11/27/22 15:02 Blood Pressure 95/69 11/27/22 15:02 O2 Sat by Pulse Oximetry 88 L 11/27/22 15:02 Pain Scale Pain Intensity 0 - [place] Coma Score Best Eye Response ([place]): (3) open to voice Best Verbal Response ([place]): (5) oriented Best Motor Response ([place]): (6) obeys commands [place] Total: 14 - Physical Exam General Appearance: no apparent distress Eye Exam: PERRL/EOMI ENT Exam: airway nml Neck Exam: trachea midline, full range of motion, normal alignment, normal inspection, pain on movement of neck, tenderness Respiratory/Chest Exam: rhonchi Cardiovascular Exam: regular rate/rhythm Gastrointestinal Exam: soft, No tenderness, No distention, No mass, No guarding Rectal Exam: deferred Back Exam: vertebral tenderness (neck) Extremity Exam: normal inspection, normal range of motion, capillary refill <3 sec Peripheral Pulses: carotid (R): 2+, carotid (L): 2+, femoral (R): 2+, femoral (L): 2+, dorsalis-pedis (R): 2+, dorsalis-pedis (L): 2+ Neurologic Exam: alert, oriented x 3, cooperative, 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 ) Chest CT Interpretation: Tele-radiologist Report, Pneumonia Ordered Tests: Active Orders 24 hr Category Date Time Status EKG-ER Only STAT Care 11/27/22 15:17 Active IV Insertion STAT Care 11/27/22 15:17 Active CERVICAL SPINE WO CONTRAST [CT] Stat Exams 11/27/22 15:16 Completed CHEST WITHOUT CONTRAST [CT] Stat Exams 11/27/22 18:24 Completed FACIAL BONES WO CONTRAST [CT] Stat Exams 11/27/22 15:16 Completed HEAD WITHOUT CONTRAST [CT] Stat Exams 11/27/22 15:15 Completed CBC W DIFF Stat Lab 11/27/22 15:52 Completed CMP Stat Lab 11/27/22 15:55 Completed Lactic Acid Stat Lab 11/27/22 16:00 Completed Lactic Acid Stat Lab 11/27/22 18:01 Completed NT PRO BNPII Stat Lab 11/27/22 15:55 Completed T4 (Thyroxine) Stat Lab 11/27/22 15:55 Completed TROPONIN Q4H Lab 11/27/22 15:55 Completed TROPONIN Q4H Lab 11/27/22 19:24 Completed TROPONIN Q4H Lab 11/27/22 23:30 Ordered TSH [TSH, 3RD Generation] Stat Lab 11/27/22 15:55 Completed UA W/RFX UR CULTURE Stat Lab 11/27/22 15:17 Completed Medication Summary Generic Name Dose Route Start Last Admin Trade Name Freq PRN Reason Stop Dose Admin Sodium Chloride 1,000 mls @ 50 mls/hr 11/27/22 15:30 11/27/22 15:42 Sodium Chloride 0.9% 1000 Ml IV 12/27/22 15:29 50 mls/hr .Q20H CIARAN Administration Ceftriaxone Sodium/Dextrose 1 g in 50 mls @ 100 mls/hr 11/27/22 21:21 11/27/22 21:37 Rocephin 1 Gm-D5w 50 Ml Bag IV 11/27/22 21:50 100 mls/hr STAT STA 100 mls/hr Administration Vancomycin HCl 1 gm in 200 mls @ 125 mls/hr 11/27/22 21:43 Vancomycin 1 Gram/200 Ml Bag IV 11/27/22 23:18 STAT ONE Piperacillin Sod/Tazobactam 100 mls @ 200 mls/hr 11/27/22 21:44 Sod 4.5 gm/ Sodium Chloride IV 11/27/22 22:13 STAT ONE Discontinued Medications Generic Name Dose Route Start Last Admin Trade Name Kaneq PRN Reason Stop Dose Admin Diphtheria/Tetanus/Acell Pertussis 0.5 ml 11/27/22 15:27 11/27/22 15:47 Tdap --Diph,Pertuss(Acell),Tet Vac/Pf 0.5 Ml Vial IM 11/27/22 15:28 0.5 ml .ONCE ONE Administration Diphtheria/Tetanus/Acell Pertussis Confirm 11/27/22 15:46 Tdap --Diph,Pertuss(Acell),Tet Vac/Pf 0.5 Ml Vial Administered 11/27/22 15:47 Dose 0.5 ml IM .STK-MED ONE Ceftriaxone Sodium/Dextrose Confirm 11/27/22 21:30 Rocephin 1 Gm-D5w 50 Ml Bag Administered 11/27/22 21:31 Dose 1 g in 50 mls @ ud IV .STK-MED ONE Lab/Rad Data: Laboratory Result Diagrams 11/27/22 15:52 11/27/22 15:55 Laboratory Results 11/27/22 11/27/22 11/27/22 Range/Units 19:24 18:01 16:00 WBC (4.0-10.5) x10^3/uL RBC (4.1-5.6) x10^6/uL Hgb (12.5-18.0) g/dL Hct (42-50) % MCV (78-100) fL MCH (26-32) pg MCHC (32-36) g/dL RDW (11.5-14.0) % Plt Count (150-450) x10^3/uL MPV (7.5-11.0) fL Gran % (36.0-66.0) % Immature Gran % (Auto) (0.00-0.4) % Nucleat RBC Rel Count (0.00-0.1) % Eos # (Auto) (0-0.5) x10^3/uL Immature Gran # (Auto) (0.00-0.03) x10^3u/L Absolute Lymphs (auto) (1.0-4.6) x10^3/uL Absolute Monos (auto) (0.0-1.3) x10^3/uL Absolute Nucleated RBC (0.00-0.01) x10^3u/L Lymphocytes % (24.0-44.0) % Monocytes % (0.0-12.0) % Eosinophils % (0.00-5.0) % Basophils % (0.0-0.4) % Absolute Granulocytes (1.4-6.9) x10^3/uL Basophils # (0-0.4) x10^3/uL Sodium (137-145) mmol/L Potassium (3.5-5.1) mmol/L Chloride (98-107) mmol/L Carbon Dioxide (22-30) mmol/L Anion Gap (5-15) MEQ/L BUN (9-20) mg/dL Creatinine (0.66-1.25) mg/dL Estimated GFR ML/MIN Glucose (74-106) mg/dL Lactic Acid 3.6 H 3.6 H (0.4-2.0) Calcium (8.4-10.2) mg/dL Total Bilirubin (0.2-1.3) mg/dL AST (17-59) U/L ALT (0-50) U/L Alkaline Phosphatase (38-126) U/L Troponin I 0.054 H* (0.000-0.034) ng/mL NT-Pro-B Natriuret Pep (<300) pg/mL Serum Total Protein (6.3-8.2) g/dL Albumin (3.5-5.0) g/dL Thyroxine (T4) (5.53-10.96) ug/dL TSH 3rd Generation (0.47-4.68) mIU/L Urine Color (Yellow) Urine Appearance (Clear) Urine pH (4.6-8.0) Ur Specific [place] (1.005-1.030) Urine Protein (Negative) Urine Glucose (UA) (Negative) mg/dL Urine Ketones (Negative) Urine Blood (Negative) Urine Nitrite (Negative) Urine Bilirubin (Negative) Urine Urobilinogen (0.2) mg/dL Ur Leukocyte Esterase (Negative) U Hyaline Cast (Auto) (0-2) /LPF Urine Microscopic RBC (0-5) /HPF Urine Microscopic WBC (0-5) /HPF Ur Epithelial Cells (None Seen) /HPF Urine Bacteria (None Seen) /HPF Urine Culture Reflexed (NO) Influenza Type A Ag (NEGATIVE) Influenza Type B Ag (NEGATIVE) RSV (PCR) (NEGATIVE) SARS-CoV-2 (PCR) (NEGATIVE) Slides for Path Review 11/27/22 11/27/22 11/27/22 Range/Units 15:58 15:55 15:55 WBC (4.0-10.5) x10^3/uL RBC (4.1-5.6) x10^6/uL Hgb (12.5-18.0) g/dL Hct (42-50) % MCV (78-100) fL MCH (26-32) pg MCHC (32-36) g/dL RDW (11.5-14.0) % Plt Count (150-450) x10^3/uL MPV (7.5-11.0) fL Gran % (36.0-66.0) % Immature Gran % (Auto) (0.00-0.4) % Nucleat RBC Rel Count (0.00-0.1) % Eos # (Auto) (0-0.5) x10^3/uL Immature Gran # (Auto) (0.00-0.03) x10^3u/L Absolute Lymphs (auto) (1.0-4.6) x10^3/uL Absolute Monos (auto) (0.0-1.3) x10^3/uL Absolute Nucleated RBC (0.00-0.01) x10^3u/L Lymphocytes % (24.0-44.0) % Monocytes % (0.0-12.0) % Eosinophils % (0.00-5.0) % Basophils % (0.0-0.4) % Absolute Granulocytes (1.4-6.9) x10^3/uL Basophils # (0-0.4) x10^3/uL Sodium (137-145) mmol/L Potassium (3.5-5.1) mmol/L Chloride (98-107) mmol/L Carbon Dioxide (22-30) mmol/L Anion Gap (5-15) MEQ/L BUN (9-20) mg/dL Creatinine (0.66-1.25) mg/dL Estimated GFR ML/MIN Glucose (74-106) mg/dL Lactic Acid (0.4-2.0) Calcium (8.4-10.2) mg/dL Total Bilirubin (0.2-1.3) mg/dL AST (17-59) U/L ALT (0-50) U/L Alkaline Phosphatase (38-126) U/L Troponin I 0.060 H* (0.000-0.034) ng/mL NT-Pro-B Natriuret Pep 36848 (<300) pg/mL Serum Total Protein (6.3-8.2) g/dL Albumin (3.5-5.0) g/dL Thyroxine (T4) 9.24 (5.53-10.96) ug/dL TSH 3rd Generation 3.690 (0.47-4.68) mIU/L Urine Color (Yellow) Urine Appearance (Clear) Urine pH (4.6-8.0) Ur Specific [place] (1.005-1.030) Urine Protein (Negative) Urine Glucose (UA) (Negative) mg/dL Urine Ketones (Negative) Urine Blood (Negative) Urine Nitrite (Negative) Urine Bilirubin (Negative) Urine Urobilinogen (0.2) mg/dL Ur Leukocyte Esterase (Negative) U Hyaline Cast (Auto) (0-2) /LPF Urine Microscopic RBC (0-5) /HPF Urine Microscopic WBC (0-5) /HPF Ur Epithelial Cells (None Seen) /HPF Urine Bacteria (None Seen) /HPF Urine Culture Reflexed (NO) Influenza Type A Ag NEGATIVE (NEGATIVE) Influenza Type B Ag NEGATIVE (NEGATIVE) RSV (PCR) NEGATIVE (NEGATIVE) SARS-CoV-2 (PCR) NEGATIVE (NEGATIVE) Slides for Path Review 11/27/22 11/27/22 11/27/22 Range/Units 15:55 15:52 15:17 WBC 16.0 H (4.0-10.5) x10^3/uL RBC 4.06 L (4.1-5.6) x10^6/uL Hgb 8.5 L (12.5-18.0) g/dL Hct 31.3 L (42-50) % MCV 77.1 L (78-100) fL MCH 20.9 L (26-32) pg MCHC 27.2 L (32-36) g/dL RDW 22.4 H (11.5-14.0) % Plt Count 398 (150-450) x10^3/uL MPV 9.5 (7.5-11.0) fL Gran % 84.9 H (36.0-66.0) % Immature Gran % (Auto) 0.7 H (0.00-0.4) % Nucleat RBC Rel Count 0.6 H (0.00-0.1) % Eos # (Auto) 0.02 (0-0.5) x10^3/uL Immature Gran # (Auto) 0.11 H (0.00-0.03) x10^3u/L Absolute Lymphs (auto) 1.41 (1.0-4.6) x10^3/uL Absolute Monos (auto) 0.81 (0.0-1.3) x10^3/uL Absolute Nucleated RBC 0.10 H (0.00-0.01) x10^3u/L Lymphocytes % 8.8 L (24.0-44.0) % Monocytes % 5.1 (0.0-12.0) % Eosinophils % 0.1 (0.00-5.0) % Basophils % 0.4 (0.0-0.4) % Absolute Granulocytes 13.53 H (1.4-6.9) x10^3/uL Basophils # 0.07 (0-0.4) x10^3/uL Sodium 139 (137-145) mmol/L Potassium 4.3 (3.5-5.1) mmol/L Chloride 107 (98-107) mmol/L Carbon Dioxide 17 L (22-30) mmol/L Anion Gap 19.1 H (5-15) MEQ/L BUN 34 H (9-20) mg/dL Creatinine 1.61 H (0.66-1.25) mg/dL Estimated GFR 47.2 ML/MIN Glucose 105 (74-106) mg/dL Lactic Acid (0.4-2.0) Calcium 8.3 L (8.4-10.2) mg/dL Total Bilirubin 2.10 H (0.2-1.3) mg/dL AST 37 (17-59) U/L ALT 31 (0-50) U/L Alkaline Phosphatase 97 (38-126) U/L Troponin I (0.000-0.034) ng/mL NT-Pro-B Natriuret Pep (<300) pg/mL Serum Total Protein 6.4 (6.3-8.2) g/dL Albumin 3.3 L (3.5-5.0) g/dL Thyroxine (T4) (5.53-10.96) ug/dL TSH 3rd Generation (0.47-4.68) mIU/L Urine Color Yellow (Yellow) Urine Appearance Clear (Clear) Urine pH 6.0 (4.6-8.0) Ur Specific [place] 1.010 (1.005-1.030) Urine Protein 100 A (Negative) Urine Glucose (UA) Negative (Negative) mg/dL Urine Ketones Negative (Negative) Urine Blood Negative (Negative) Urine Nitrite Negative (Negative) Urine Bilirubin Negative (Negative) Urine Urobilinogen 1.0 A (0.2) mg/dL Ur Leukocyte Esterase Negative (Negative) U Hyaline Cast (Auto) 11-20 (0-2) /LPF Urine Microscopic RBC 0-2 (0-5) /HPF Urine Microscopic WBC 0-2 (0-5) /HPF Ur Epithelial Cells Rare (None Seen) /HPF Urine Bacteria None Seen (None Seen) /HPF Urine Culture Reflexed NO (NO) Influenza Type A Ag (NEGATIVE) Influenza Type B Ag (NEGATIVE) RSV (PCR) (NEGATIVE) SARS-CoV-2 (PCR) (NEGATIVE) Slides for Path Review YES - Progress Progress: improved, re-examined Progress Note: 11/27/22 21:20 pt is feeling better, we will try for admission for new need for O2 and treat for pneumonia. 11/27/22 21:37 Consulted with hospitalist for considering admission for new O 2 requirement and pneumonia - also underlying CHF Discussed with Dr. Kang and he will place him in on Vanc and zosyn in Obs. Pt and agree. Counseled pt/family regarding: lab results, diagnosis, need for follow-up, rad results Medical Desision Making - Independent Historian Additional History obtained from: Family - Discussion of managment Reviewed:: Test results, Need for additional workup Agreed on:: Treatment plan, need for follow-up - Diagnostic Testing Diagnostic test were ordered, analyzed, and reviewed by me: Yes - Risk of complications The pt has a mod risk of morbidity or mortality based on: Need for prescription drug management The pt has a high risk of morbidity or mortality based on: Decision regarding hospitilization or escalation of hosp level of care - Departure Departure Disposition: Observation Clinical Impression: Pneumonia, History of CVA (cerebrovascular accident) without residual deficits, Elevated troponin, CHF (congestive heart failure), new O2 requirement Condition: Good Critical Care Time: No Referrals: EDWIN RATLIFF MD [Primary Care Provider] - Follow up/PCP as directed Instructions: Preventing falls in adults, Heart Failure
[2022-11-27] MEDS ORDERED: Adacel Vial IM ONE ×2 (15:27→15:46)
[2022-11-27] MEDS ORDERED: Sodium Chloride 0.9% 1000 ML 1,000 ML IV SCH (15:30)
[2022-11-27] MEDS ORDERED: Sodium Chloride 0.9% 1000 ML 1,000 ML ONE (15:40)
[2022-11-27 16:02] LABS: Absolute Neutrophil Ct (ANC) 13.53 x10^3/uL (1.4-6.9); BASOPHIL % 0.4 % (0.0-0.4); Basophil (Absolute #) 0.07 x10^3/uL (0-0.4); Eosinophil % 0.1 % (0.00-5.0); Eosinophil (Absolute #) 0.02 x10^3/uL (0-0.5); Hematocrit 31.3 % (42-50); Hemoglobin 8.5 g/dL (12.5-18.0); IMMATURE GRAN # 0.11 x10^3u/L (0.00-0.03); IMMATURE GRAN % 0.7 % (0.00-0.4); Lymphocyte (Absolute #) 1.41 x10^3/uL (1.0-4.6); Lymphocytes % 8.8 % (24.0-44.0); Mean Cell Volume 77.1 fL (78-100); Mean Corpuscular Hemoglobin 20.9 pg (26-32); Mean Corpuscular Hgb Concent. 27.2 g/dL (32-36); Mean Platelet Volume 9.5 fL (7.5-11.0); Monocyte (Absolute #) 0.81 x10^3/uL (0.0-1.3); Monocytes % 5.1 % (0.0-12.0); NUCLEATED RBC % 0.6 % (0.00-0.1); Neutrophil % 84.9 % (36.0-66.0); Platelet Count 398 x10^3/uL (150-450); Red Blood Count 4.06 x10^6/uL (4.1-5.6); Red Cell Distribution Width 22.4 % (11.5-14.0)
[2022-11-27 16:18] LABS: ALBUMIN 3.3 g/dL (3.5-5.0); ANION GAP 19.1 MEQ/L (5-15); BILIRUBIN,TOTAL 2.1 mg/dL (0.2-1.3); Calcium 8.3 mg/dL (8.4-10.2); Creatinine 1 1.61 mg/dL (0.66-1.25); EST GLOMERULAR FILTRATION RATE 47.2 ML/MIN; Potassium 4.3 mmol/L (3.5-5.1); Total Protein 6.4 g/dL (6.3-8.2)
[2022-11-27 16:22] LABS: Appearance Clear (Clear); Bacteria None Seen /HPF (None Seen); Bilirubin Negative (Negative); Blood Negative (Negative); Epithelial Cells Rare /HPF (None Seen); Glucose, Urine Negative (Negative); Ketones Negative (Negative); Leukocyte Esterase Negative (Negative); Nitrite Negative (Negative); Protein,Urine Dip 100 (Negative); RBC 0-2 /HPF (0-5); WBC 0-2 /HPF (0-5)
[2022-11-27 16:23] LABS: ADD URINE CULTURE? NO (NO)
[2022-11-27 16:37] LABS: INFLUENZA A NEGATIVE (NEGATIVE); INFLUENZA B NEGATIVE (NEGATIVE); RESPIRATORY SYNCTIAL VIRUS NEGATIVE (NEGATIVE); SARS-CoV-2 Xpert Express NEGATIVE (NEGATIVE)
--- NOTE | 2022-11-27 16:38 | XRAY ---
CLINICAL HISTORY:fell on face with LOC COMPARISON:None. TECHNIQUE:An axial non-contrast CT scan of the brain was performed from the skull base to the high parietal region. FINDINGS: Large hypodense areas of CSF-like density at the right temporal and parietal regions, likely representing encephalomalacia/old infarcts. There are bilateral cerebral ill-defined hypodense areas noted in the subcortical and periventricular white matter bilaterally, suggestive of microvascular ischemic changes. The ventricular system, cortical sulci, and basal cisterns are prominent and consistent with mild brain involutional changes. Garcia-white matter differentiation is maintained. No midline shifts or deformity. No intracerebral or extra axial hematoma. Normal CT appearance of the posterior fossa structures namely the cerebellar hemispheres, brainstem, and cerebellar peduncles. The IACs are unremarkable. The cerebello-pontine angles are clear. The pituitary gland, the pineal gland, and the optic chiasm are unremarkable. The osseous structures in the skull base are unremarkable. No definite calvarium fractures. Nasal bones fractures with mucosal thickening at the maxillary antra. IMPRESSION: 1. Large hypodense areas of CSF-like density at the right temporal and parietal regions, likely representing encephalomalacia/old infarcts. 2. No acute cerebrovascular abnormality, If strong clinical suspicion of stroke then suggest MRI with diffusion-weighted imaging. 3. No intracerebral or extra-axial hematoma or skull fractures. 4. Mild microvascular ischemic changes and brain involutional changes. 5. Nasal bones fractures with mucosal thickening at the maxillary antra, for correlation with CT facial bones done on the same day. [facility] ER was called at [phone] at 4:22 PM EST, 11/27/2022 and results were verbally communicated to Dr. Casas. Electronically Signed by: Luis Alfredo Whitlock MD. (11/27/2022 15:36:40 ANALYTICAL LAB ANALYST)
[2022-11-27 16:49] LABS: T4 (Thyroxine) 9.24 ug/dL (5.53-10.96); TSH, 3RD Generation 3.69 mIU/L (0.47-4.68)
--- NOTE | 2022-11-27 16:50 | XRAY ---
CLINICAL HISTORY:fell on face - on blood thinner COMPARISON:None. TECHNIQUE:A non-contrast CT scan of the facial bones was performed, with sagittal and coronal multiplanar reconstruction. FINDINGS: Nasal bones fractures with mild displacement. Nasal septum small fracture with deviated nasal septum. Evidence of previous sinus surgery with bilateral maxillary antrostomy. Moderate mucosal thickening at the maxillary mantra bilaterally and right frontal sinus. Clear left frontal, sphenoid, and ethmoid sinuses. Small osteoma at the left ethmoidal air cells. Hypertrophied left inferior nasal turbinate. No evidence of tatiana bullosa. The nasopharynx is unremarkable. IMPRESSION: 1. Nasal bones fractures with mild displacement. 2. Nasal septum small fracture with deviated nasal septum. 3. Evidence of previous sinus surgery with bilateral maxillary antrostomy. 4. Moderate mucosal thickening at the maxillary mantra bilaterally and right frontal sinus. [facility] ER was called at [phone] at 4:46 PM EST, 11/27/2022 and results were verbally communicated to Dr. Casas. Electronically Signed by: Luis Alfredo Whitlock MD. (11/27/2022 15:50:11 DIRECTOR EDUCATION)
[2022-11-27 16:54] LABS: TROPONIN 0.06 ng/mL (0.000-0.034)
--- NOTE | 2022-11-27 17:32 | XRAY ---
CLINICAL HISTORY:neck pain LOC after fall COMPARISON:None. TECHNIQUE:Thin axial CT of the cervical spine was performed with sagittal and coronal reconstructions without contrast. FINDINGS: Motion artifacts are seen. Alignment and osseous structures: Straightening of the cervical curve with reversal noted in the upper cervical levels. There is mild decrease in heights of the C4, C5, and C6 vertebral bodies. The C4-C5 to C6-C7 intervertebral disc spaces are slightly reduced. The rest of the vertebral bodies are normal in height. The rest of the intervertebral disc spaces are normal. No lytic lesion. The craniovertebral measures are unremarkable. C6 vertebral body focal sclerotic lesion likely bony ensotosis. Level by Level analysis: C2-C3: No central canal and left neuroforaminal stenosis. C3-C4: No central canal or neuroforaminal stenosis. C4-C5: No central canal or neuroforaminal stenosis. C5-C6: There is mild neuroforaminal stenosis in the right C6-C7: No central canal or neuroforaminal stenosis. IMPRESSION: 1. Motion artifacts are seen. 2. Spondylotic changes of the cervical spine with reversal at the upper cervical spine and reduced C4-C5 to C5-C7 intervertebral disc spaces 3. Relative decreased height of C4, C5, and C6 vertebral bodies. 4. C6 vertebral body focal sclerotic lesion likely bony ensotosis. 5. Mild right neural foraminal stenosis, C5-C6 level 6. MRI is suggested if clinically warranted. Electronically Signed by: Luis Alfredo Whitlock MD. (11/27/2022 16:31:05 SERVICE ADVOCATE CONTACT)
[2022-11-27 18:27] LABS: Slide Review 1 YES
--- NOTE | 2022-11-27 20:11 | XRAY ---
CLINICAL HISTORY:new O2 requirement short of breath COMPARISON:None. TECHNIQUE:Contiguous axial CT images of the chest were acquired without administration of intravenous contrast. Coronal and sagittal reconstructions were obtained. FINDINGS: Ground-glass opacities are seen in the posterior basal segment of both lower lobes which could represent pneumonia or sequelae of previous inflammatory process. There is bilateral pleural effusion. The proximal right oblique fissure is thickened, consider seepage of fluid versus atelectasis. Non-calcified pulmonary nodules are noted in the anterior segment of the right upper lobe measuring 3.0 and 4.0 mm, and the superior segment of the right upper lobe measuring 4.3 mm. There is a 1.1 mm lymph node in short-axis diameter in the right lower paratracheal region. Heart size is normal, and there is no pericardial effusion. There is no definite mass lesion in the chest wall. Perihepatic and perisplenic free fluid are seen. Within the partially visualized gallbladder, a small hyperdensity is noted, which may represent stone. There is subcutaneous fat stranding along the lateral aspects of both upper abdominal salgado. Multilevel Schmorl?s nodes are noted in the thoracic spine. There is a mix osteolytic and sclerosis at the T9 vertebral body, to consider intraosseous hemangioma. IMPRESSION: 1. Mild ground-glass opacities in the posterior basal segment of both lower lobes which could represent pneumonia or sequelae of a previous inflammatory process. 2. Bilateral pleural effusion, mild. 3. Non-calcified pulmonary nodules with the largest measuring 4.3 mm in the right upper lobe. Follow-up is suggested. 4. Right lower paratracheal lymphadenopathy may be reactive. 5. Minimal ascites along the liver edge. 6. Consider gallbladder stone. Ultrasound correlation is suggested. 7. Subcutaneous edema along the lateral aspects of both upper abdominal salgado. 8. The rest of the findings as detailed above. Electronically Signed by: Luis Alfredo Whitlock MD. (11/27/2022 19:09:49 STUMMEL SELECTOR)
[2022-11-27] MEDS ORDERED: ROCEPHIN 1 Gm-D5w 50 ml Bag** 1 G/50 ML IVPB IV STA (21:21)
[2022-11-27] MEDS ORDERED: ROCEPHIN 1 Gm-D5w 50 ml Bag** 1 G/50 ML IVPB IV ONE (21:30)
[2022-11-27] MEDS ORDERED: VANCOMYCIN 1 GRAM/200 ML BAG 1 GM/200 ML PIGGYBACK IV ONE (21:43)
[2022-11-27] MEDS ORDERED: PIPERACILLIN/TAZOBACTAM 4.5 GM in Sodium Chloride 100ML MINI-BAG PLUS 100 ML IV ONE (21:44)
[2022-11-27] MEDS ORDERED: Lasix 40 MG/4 ML IV SCH (23:30)
--- NOTE | 2022-11-27 23:30 | PCM.HP ---
History of Present Illness - Chief Complaint Chief Complaint: Shortness of Breath History of Present Illness: is a 57 year old male with heart failure, history of DVT on Xarelto, Afib who presents with 3 weeks of progressive dyspnea, swelling in legs. He was recently admitted for a heart failure exacerbation and reports similar symptoms. No fever, cough, chest pain. Takes his medications as prescribed though is not monitoring his home salt intake and water intake. - Review of Systems Constitutional: No Fever, No Chills Eyes: No Symptoms Ears, Nose, & Throat: No Symptoms Respiratory: No Cough, No Short Of Breath Cardiac: Orthopnea, No Chest Pain, No Edema, No Syncope Abdominal/Gastrointestinal: No Abdominal Pain, No Nausea, No Vomiting, No Diarrhea Genitourinary Symptoms: No Dysuria Musculoskeletal: No Back Pain, No Neck Pain Skin: No Rash Neurological: No Dizziness, No Focal Weakness, No Sensory Changes Psychological: No Symptoms Endocrine: No Symptoms Hematologic/Lymphatic: No Symptoms Immunological/Allergic: No Symptoms Medications & Allergies Home Medications: Home Medication List Aspirin EC 81 mg [Ecotrin 81 mg] 81 mg PO DAILY 06/30/18 [History Confirmed 11/27/22] Potassium Chloride Tab* [Klor Con] 20 meq PO BID 07/29/18 [History Confirmed ] Hydrochlorothiazide 25 mg [hydroDIURIL 25 MG] 25 mg PO DAILY 10/09/18 [History Confirmed 11/27/22] Amlodipine Besylate [Norvasc] 10 mg PO DAILY #30 tablet 10/11/18 [Rx Confirmed 11/27/22] Rivaroxaban [Xarelto] 20 mg PO HS 07/08/21 [History Confirmed 11/27/22] Topiramate 25 mg [Topamax 25 MG] 100 mg PO BID 07/08/21 [History Confirmed 11/27/22] carvediloL [Coreg] 25 mg PO BID 07/08/21 [History Confirmed 11/27/22] Furosemide 40 mg [Lasix 40 MG] 40 mg PO DAILY 30 Days #30 tablet 11/19/22 [Rx Confirmed 11/27/22] Allergies/Adverse Reactions: Allergies Allergy/AdvReac Type Severity Reaction Status Date / Time No Known Drug Allergies Allergy Verified 11/27/22 15:01 - Past Medical History Past Medical History: Yes Neurological History: Stroke ENT History: No Pertinent History Cardiac History: Arrhythmia, Deep Vein Thrombosis, Hypertension, Myocardial Infarction ([place]), Other Respiratory History: No Pertinent History Endocrine Medical History: No Pertinent History Musculoskelatal History: Arthritis, Other GI Medical History: Diverticulitis, Diverticulosis, GERD History: Other Pyscho-Social History: No Pertinent History Male Reproductive Disorders: Prostate Problems Comment: CVA, blood poisoning when in 4th grade, bitten by brown recluse spider, kidney stones x 9,A-FIB - Past Surgical History Past Surgical History: Yes Neuro Surgical History: No Pertinent History Cardiac History: Cardiac Catheterization, Cardiac Stent Respiratory Surgery: No Pertinent History GI Surgical History: Hernia Repair Genitourinary Surgical Hx: No Pertinent History Musculskeletal Surgical Hx: Orthopedic Surgery Male Surgical History: No Pertinent History Other Surgical History: pt had bk surgery at 16. SPINAL FUSION, HEART CATH, HERNIA REPAIR, lithotripsy multiple times, 5 stents - Social History Smoking Status: Never smoker Exposure to second hand smoke: Yes Alcohol: None Drug Use: none - Physical Exam Vital Signs: Vital Signs - 24 hr Temp Pulse Resp BP BP Pulse Ox 11/27/22 22:58 97 F 81 26 H 116/74 98 11/27/22 22:38 99 11/27/22 22:36 99 11/27/22 22:02 109/83 11/27/22 21:48 93 L 11/27/22 21:33 77 26 H 135/95 93 L 11/27/22 21:01 70 13 117/80 94 L 11/27/22 20:00 77 35 H 104/67 96 11/27/22 19:00 83 18 120/95 120/95 100 11/27/22 16:00 79 16 107/81 100 11/27/22 15:02 76 18 95/69 88 L General Appearance: no apparent distress, alert Neurologic Exam: alert, oriented x 3, cooperative, normal mood/affect, nml cerebellar function, nml station & gait, sensation nml, No motor deficits Eye Exam: PERRL/EOMI, eyes nml inspection Ears, Nose, Throat Exam: normal ENT inspection, TMs normal, pharynx normal, moist mucous membranes Neck Exam: normal inspection, non-tender, supple, full range of motion Respiratory Exam: normal breath sounds, lungs clear, No respiratory distress Cardiovascular Exam: regular rate/rhythm, normal heart sounds, normal peripheral pulses Gastrointestinal/Abdomen Exam: soft, normal bowel sounds, No tenderness, No mass Back Exam: normal inspection, normal range of motion, No CVA tenderness, No vertebral tenderness Extremity Exam: normal inspection, normal range of motion, pelvis stable Skin Exam: normal color, warm, dry, No rash Lymphatic Exam: No adenopathy Results - Labs Lab/Micro Results: Lab Results-Last 24 Hours 11/27/22 11/27/22 11/27/22 Range/Units 15:17 15:52 15:55 WBC 16.0 H (4.0-10.5) x10^3/uL RBC 4.06 L (4.1-5.6) x10^6/uL Hgb 8.5 L (12.5-18.0) g/dL Hct 31.3 L (42-50) % MCV 77.1 L (78-100) fL MCH 20.9 L (26-32) pg MCHC 27.2 L (32-36) g/dL RDW 22.4 H (11.5-14.0) % Plt Count 398 (150-450) x10^3/uL MPV 9.5 (7.5-11.0) fL Gran % 84.9 H (36.0-66.0) % Immature Gran % (Auto) 0.7 H (0.00-0.4) % Nucleat RBC Rel Count 0.6 H (0.00-0.1) % Eos # (Auto) 0.02 (0-0.5) x10^3/uL Immature Gran # (Auto) 0.11 H (0.00-0.03) x10^3u/L Absolute Lymphs (auto) 1.41 (1.0-4.6) x10^3/uL Absolute Monos (auto) 0.81 (0.0-1.3) x10^3/uL Absolute Nucleated RBC 0.10 H (0.00-0.01) x10^3u/L Lymphocytes % 8.8 L (24.0-44.0) % Monocytes % 5.1 (0.0-12.0) % Eosinophils % 0.1 (0.00-5.0) % Basophils % 0.4 (0.0-0.4) % Absolute Granulocytes 13.53 H (1.4-6.9) x10^3/uL Basophils # 0.07 (0-0.4) x10^3/uL Sodium 139 (137-145) mmol/L Potassium 4.3 (3.5-5.1) mmol/L Chloride 107 (98-107) mmol/L Carbon Dioxide 17 L (22-30) mmol/L Anion Gap 19.1 H (5-15) MEQ/L BUN 34 H (9-20) mg/dL Creatinine 1.61 H (0.66-1.25) mg/dL Estimated GFR 47.2 ML/MIN Glucose 105 (74-106) mg/dL Lactic Acid (0.4-2.0) Calcium 8.3 L (8.4-10.2) mg/dL Total Bilirubin 2.10 H (0.2-1.3) mg/dL AST 37 (17-59) U/L ALT 31 (0-50) U/L Alkaline Phosphatase 97 (38-126) U/L Troponin I (0.000-0.034) ng/mL NT-Pro-B Natriuret Pep (<300) pg/mL Serum Total Protein 6.4 (6.3-8.2) g/dL Albumin 3.3 L (3.5-5.0) g/dL Thyroxine (T4) (5.53-10.96) ug/dL TSH 3rd Generation (0.47-4.68) mIU/L Urine Color Yellow (Yellow) Urine Appearance Clear (Clear) Urine pH 6.0 (4.6-8.0) Ur Specific [place] 1.010 (1.005-1.030) Urine Protein 100 A (Negative) Urine Glucose (UA) Negative (Negative) mg/dL Urine Ketones Negative (Negative) Urine Blood Negative (Negative) Urine Nitrite Negative (Negative) Urine Bilirubin Negative (Negative) Urine Urobilinogen 1.0 A (0.2) mg/dL Ur Leukocyte Esterase Negative (Negative) U Hyaline Cast (Auto) 11-20 (0-2) /LPF Urine Microscopic RBC 0-2 (0-5) /HPF Urine Microscopic WBC 0-2 (0-5) /HPF Ur Epithelial Cells Rare (None Seen) /HPF Urine Bacteria None Seen (None Seen) /HPF Urine Culture Reflexed NO (NO) Influenza Type A Ag (NEGATIVE) Influenza Type B Ag (NEGATIVE) RSV (PCR) (NEGATIVE) SARS-CoV-2 (PCR) (NEGATIVE) Slides for Path Review YES 11/27/22 11/27/22 11/27/22 Range/Units 15:55 15:55 15:58 WBC (4.0-10.5) x10^3/uL RBC (4.1-5.6) x10^6/uL Hgb (12.5-18.0) g/dL Hct (42-50) % MCV (78-100) fL MCH (26-32) pg MCHC (32-36) g/dL RDW (11.5-14.0) % Plt Count (150-450) x10^3/uL MPV (7.5-11.0) fL Gran % (36.0-66.0) % Immature Gran % (Auto) (0.00-0.4) % Nucleat RBC Rel Count (0.00-0.1) % Eos # (Auto) (0-0.5) x10^3/uL Immature Gran # (Auto) (0.00-0.03) x10^3u/L Absolute Lymphs (auto) (1.0-4.6) x10^3/uL Absolute Monos (auto) (0.0-1.3) x10^3/uL Absolute Nucleated RBC (0.00-0.01) x10^3u/L Lymphocytes % (24.0-44.0) % Monocytes % (0.0-12.0) % Eosinophils % (0.00-5.0) % Basophils % (0.0-0.4) % Absolute Granulocytes (1.4-6.9) x10^3/uL Basophils # (0-0.4) x10^3/uL Sodium (137-145) mmol/L Potassium (3.5-5.1) mmol/L Chloride (98-107) mmol/L Carbon Dioxide (22-30) mmol/L Anion Gap (5-15) MEQ/L BUN (9-20) mg/dL Creatinine (0.66-1.25) mg/dL Estimated GFR ML/MIN Glucose (74-106) mg/dL Lactic Acid (0.4-2.0) Calcium (8.4-10.2) mg/dL Total Bilirubin (0.2-1.3) mg/dL AST (17-59) U/L ALT (0-50) U/L Alkaline Phosphatase (38-126) U/L Troponin I 0.060 H* (0.000-0.034) ng/mL NT-Pro-B Natriuret Pep 74581 (<300) pg/mL Serum Total Protein (6.3-8.2) g/dL Albumin (3.5-5.0) g/dL Thyroxine (T4) 9.24 (5.53-10.96) ug/dL TSH 3rd Generation 3.690 (0.47-4.68) mIU/L Urine Color (Yellow) Urine Appearance (Clear) Urine pH (4.6-8.0) Ur Specific [place] (1.005-1.030) Urine Protein (Negative) Urine Glucose (UA) (Negative) mg/dL Urine Ketones (Negative) Urine Blood (Negative) Urine Nitrite (Negative) Urine Bilirubin (Negative) Urine Urobilinogen (0.2) mg/dL Ur Leukocyte Esterase (Negative) U Hyaline Cast (Auto) (0-2) /LPF Urine Microscopic RBC (0-5) /HPF Urine Microscopic WBC (0-5) /HPF Ur Epithelial Cells (None Seen) /HPF Urine Bacteria (None Seen) /HPF Urine Culture Reflexed (NO) Influenza Type A Ag NEGATIVE (NEGATIVE) Influenza Type B Ag NEGATIVE (NEGATIVE) RSV (PCR) NEGATIVE (NEGATIVE) SARS-CoV-2 (PCR) NEGATIVE (NEGATIVE) Slides for Path Review 11/27/22 11/27/22 11/27/22 Range/Units 16:00 18:01 19:24 WBC (4.0-10.5) x10^3/uL RBC (4.1-5.6) x10^6/uL Hgb (12.5-18.0) g/dL Hct (42-50) % MCV (78-100) fL MCH (26-32) pg MCHC (32-36) g/dL RDW (11.5-14.0) % Plt Count (150-450) x10^3/uL MPV (7.5-11.0) fL Gran % (36.0-66.0) % Immature Gran % (Auto) (0.00-0.4) % Nucleat RBC Rel Count (0.00-0.1) % Eos # (Auto) (0-0.5) x10^3/uL Immature Gran # (Auto) (0.00-0.03) x10^3u/L Absolute Lymphs (auto) (1.0-4.6) x10^3/uL Absolute Monos (auto) (0.0-1.3) x10^3/uL Absolute Nucleated RBC (0.00-0.01) x10^3u/L Lymphocytes % (24.0-44.0) % Monocytes % (0.0-12.0) % Eosinophils % (0.00-5.0) % Basophils % (0.0-0.4) % Absolute Granulocytes (1.4-6.9) x10^3/uL Basophils # (0-0.4) x10^3/uL Sodium (137-145) mmol/L Potassium (3.5-5.1) mmol/L Chloride (98-107) mmol/L Carbon Dioxide (22-30) mmol/L Anion Gap (5-15) MEQ/L BUN (9-20) mg/dL Creatinine (0.66-1.25) mg/dL Estimated GFR ML/MIN Glucose (74-106) mg/dL Lactic Acid 3.6 H 3.6 H (0.4-2.0) Calcium (8.4-10.2) mg/dL Total Bilirubin (0.2-1.3) mg/dL AST (17-59) U/L ALT (0-50) U/L Alkaline Phosphatase (38-126) U/L Troponin I 0.054 H* (0.000-0.034) ng/mL NT-Pro-B Natriuret Pep (<300) pg/mL Serum Total Protein (6.3-8.2) g/dL Albumin (3.5-5.0) g/dL Thyroxine (T4) (5.53-10.96) ug/dL TSH 3rd Generation (0.47-4.68) mIU/L Urine Color (Yellow) Urine Appearance (Clear) Urine pH (4.6-8.0) Ur Specific [place] (1.005-1.030) Urine Protein (Negative) Urine Glucose (UA) (Negative) mg/dL Urine Ketones (Negative) Urine Blood (Negative) Urine Nitrite (Negative) Urine Bilirubin (Negative) Urine Urobilinogen (0.2) mg/dL Ur Leukocyte Esterase (Negative) U Hyaline Cast (Auto) (0-2) /LPF Urine Microscopic RBC (0-5) /HPF Urine Microscopic WBC (0-5) /HPF Ur Epithelial Cells (None Seen) /HPF Urine Bacteria (None Seen) /HPF Urine Culture Reflexed (NO) Influenza Type A Ag (NEGATIVE) Influenza Type B Ag (NEGATIVE) RSV (PCR) (NEGATIVE) SARS-CoV-2 (PCR) (NEGATIVE) Slides for Path Review - Radiology Impressions Radiology Exams & Impressions: Radiology Procedures Category Date Time Status CERVICAL SPINE WO CONTRAST [CT] Stat Exams 11/27/22 15:16 Completed CHEST WITHOUT CONTRAST [CT] Stat Exams 11/27/22 18:24 Completed FACIAL BONES WO CONTRAST [CT] Stat Exams 11/27/22 15:16 Completed HEAD WITHOUT CONTRAST [CT] Stat Exams 11/27/22 15:15 Completed - Other Procedures and Tests Respiratory Therapy 11/27/22 22:35 BiPap/CPAP ROUTINE Oxygen Nasal Cannula 2 lpm Assessment/Plan (1) CHF (congestive heart failure) Current Visit: Yes Status: Acute Assessment & Plan: 1. Lasix 40 mg IV BID 2. Continue home cardiac medications Code(s): I50.9 - HEART FAILURE, UNSPECIFIED Telemedicine Encounter - Telemedicine Encounter Telemedicine Encounter: The entirety of this encounter was performed via Telemedicine"
[2022-11-28 06:24] LABS: ALBUMIN 3.3 g/dL (3.5-5.0); ANION GAP 17.4 MEQ/L (5-15); BILIRUBIN,TOTAL 1.2 mg/dL (0.2-1.3); Calcium 8.1 mg/dL (8.4-10.2); Creatinine 1 1.97 mg/dL (0.66-1.25); EST GLOMERULAR FILTRATION RATE 37.4 ML/MIN; Total Protein 6.4 g/dL (6.3-8.2)
[2022-11-28] MEDS ORDERED: Tums EX 750 MG PO PRN (07:57)
[2022-11-28 08:08] LABS: Hematocrit 31.6 % (42-50); Hemoglobin 8.8 g/dL (12.5-18.0); Mean Cell Volume 76.3 fL (78-100); Mean Corpuscular Hemoglobin 21.3 pg (26-32); Mean Corpuscular Hgb Concent. 27.8 g/dL (32-36); Mean Platelet Volume 9.8 fL (7.5-11.0); Platelet Count 442 x10^3/uL (150-450); Red Blood Count 4.14 x10^6/uL (4.1-5.6); Red Cell Distribution Width 22.3 % (11.5-14.0); White Blood Count 15.3 x10^3/uL (4.0-10.5)
[2022-11-28 08:12] VITALS: O2SAT 95
[2022-11-28 09:26] LABS: Slide Review YES
[2022-11-28] MEDS ORDERED: NON-FORMULARY ITEM (Amlodipine Besylate [Norvasc] 10 MG Tablet) PO SCH (10:00)
[2022-11-28] MEDS ORDERED: NORVASC 5 MG PO SCH (10:00)
[2022-11-28] MEDS ORDERED: NON-FORMULARY ITEM (Topiramate 25 Mg*** [Topamax 25 Mg***] 25 MG Capsule) PO SCH (10:00)
[2022-11-28] MEDS ORDERED: ECOTRIN 81 MG PO SCH (10:00)
[2022-11-28] MEDS ORDERED: TOPIRAMATE PO SCH (10:00)
[2022-11-28] MEDS ORDERED: NON-FORMULARY ITEM (Carvedilol [Coreg] 25 MG Tablet) PO SCH (10:00)
[2022-11-28] MEDS ORDERED: Klor Con PO SCH (10:00)
[2022-11-28] MEDS ORDERED: Lasix 40 MG/4 ML IV SCH (10:00)
[2022-11-28] MEDS ORDERED: COREG 12.5 MG PO SCH (10:00)
[2022-11-28] MEDS ORDERED: hydroDIURIL 25 MG PO SCH (10:00)
[2022-11-28] MEDS ORDERED: Zithromax 500 MG/ 250 ML NaCl Premix 500 MG/250 ML IVPB IV SCH (10:00)
[2022-11-28 11:11] VITALS: PULSE 87; RESP 30; TEMP 97.1
--- NOTE | 2022-11-28 11:35 | PCM.NOTE ---
Date and Time: 11/28/22 1127 Subjective Assessment: is a 57 year old male with heart failure, history of DVT on Xarelto, Afib who presents with 3 weeks of progressive dyspnea, swelling in legs. He was recently admitted for a heart failure exacerbation and reports similar symptoms. No fever, cough, chest pain. Takes his medications as prescribed though is not monitoring his home salt intake and water intake. He has not been wearing his Cpap at night as he explains his mask does not fit correctly. RT is able to let him take this mask home at OR so he can wear. Lactic acid remains elevated. Kidney function worse with lasix overnight. Will hold Lasix today and restart tomorrow if able. 2nd trop did go up last night and then trended down. Pt denies any chest pain. Cardiology consulted. Pt's HR went into the 30's last night and he also had a 2 runs of v-tach. BC x2 ordered as WBC remains elevated, procal elevated, and chest XR shows possible infiltrates. Antibiotics restarted. Pt denies Cp, Abd. pain, N/V/D. - Review of Systems Constitutional: No Fever, No Chills Eyes: No Symptoms Ears, Nose, & Throat: No Symptoms Respiratory: Short Of Breath, No Cough Cardiac: No Chest Pain, No Edema, No Syncope Abdominal/Gastrointestinal: No Abdominal Pain, No Nausea, No Vomiting, No Diarrhea Genitourinary Symptoms: No Dysuria Musculoskeletal: No Back Pain, No Neck Pain Skin: No Rash Neurological: No Dizziness, No Focal Weakness, No Sensory Changes Psychological: No Symptoms Endocrine: No Symptoms Hematologic/Lymphatic: No Symptoms Immunological/Allergic: No Symptoms Objective Exam General Appearance: mild distress, alert Neurologic Exam: alert, oriented x 3, cooperative, normal mood/affect, nml cerebellar function, sensation nml, No motor deficits Skin Exam: normal color, warm, dry Eye Exam: PERRL, EOMI, eyes nml inspection Ears, Nose, Throat Exam: normal ENT inspection, pharynx normal, moist mucous membranes Neck Exam: normal inspection, non-tender, supple, full range of motion Respiratory Exam: lungs clear, diminished breath sounds (BLLL), No respiratory distress Cardiovascular Exam: regular rate/rhythm, normal heart sounds Gastrointestinal/Abdomen Exam: soft, No tenderness, No mass Extremity Exam: normal inspection, normal range of motion Back Exam: normal inspection, normal range of motion, No CVA tenderness, No vertebral tenderness Male Genitalia Exam: deferred Rectal Exam: deferred OBJECTIVE DATA Vital Signs: Vital Signs - 24 hr Temp Pulse Resp BP BP Pulse Ox 11/28/22 11:06 97.1 F 87 30 H 113/75 95 11/28/22 08:11 95 11/28/22 06:53 97.5 F 70 18 121/77 97 11/28/22 03:55 97.7 F 86 24 97/62 97 11/27/22 22:58 97 F 81 26 H 116/74 98 11/27/22 22:38 99 11/27/22 22:36 99 11/27/22 22:02 109/83 11/27/22 21:48 93 L 11/27/22 21:33 77 26 H 135/95 93 L 11/27/22 21:01 70 13 117/80 94 L 11/27/22 20:00 77 35 H 104/67 96 11/27/22 19:00 83 18 120/95 120/95 100 11/27/22 16:00 79 16 107/81 100 11/27/22 15:02 76 18 95/69 88 L Pain Assessment - Last Documented Pain Intensity 0 Intake and Output: Intake & Output 11/25/22 11/26/22 11/27/22 11/28/22 11:59 11:59 11:59 11:59 Intake Total 300 Output Total 750 Balance -450 Weight 111 kg Lab Results: Lab Results-Last 24 Hours 11/27/22 11/27/22 11/27/22 Range/Units 00:06 15:17 15:52 WBC 16.0 H (4.0-10.5) x10^3/uL RBC 4.06 L (4.1-5.6) x10^6/uL Hgb 8.5 L (12.5-18.0) g/dL Hct 31.3 L (42-50) % MCV 77.1 L (78-100) fL MCH 20.9 L (26-32) pg MCHC 27.2 L (32-36) g/dL RDW 22.4 H (11.5-14.0) % Plt Count 398 (150-450) x10^3/uL MPV 9.5 (7.5-11.0) fL Gran % 84.9 H (36.0-66.0) % Immature Gran % (Auto) 0.7 H (0.00-0.4) % Nucleat RBC Rel Count 0.6 H (0.00-0.1) % Eos # (Auto) 0.02 (0-0.5) x10^3/uL Immature Gran # (Auto) 0.11 H (0.00-0.03) x10^3u/L Absolute Lymphs (auto) 1.41 (1.0-4.6) x10^3/uL Absolute Monos (auto) 0.81 (0.0-1.3) x10^3/uL Absolute Nucleated RBC 0.10 H (0.00-0.01) x10^3u/L Lymphocytes % 8.8 L (24.0-44.0) % Monocytes % 5.1 (0.0-12.0) % Eosinophils % 0.1 (0.00-5.0) % Basophils % 0.4 (0.0-0.4) % Absolute Granulocytes 13.53 H (1.4-6.9) x10^3/uL Basophils # 0.07 (0-0.4) x10^3/uL Sodium (137-145) mmol/L Potassium (3.5-5.1) mmol/L Chloride (98-107) mmol/L Carbon Dioxide (22-30) mmol/L Anion Gap (5-15) MEQ/L BUN (9-20) mg/dL Creatinine (0.66-1.25) mg/dL Estimated GFR ML/MIN Glucose (74-106) mg/dL POC Glucometer (74 to 106) mg/dL Lactic Acid (0.4-2.0) Calcium (8.4-10.2) mg/dL Phosphorus (2.5-4.5) mg/dL Magnesium (1.6-2.3) mg/dL Total Bilirubin (0.2-1.3) mg/dL AST (17-59) U/L ALT (0-50) U/L Alkaline Phosphatase (38-126) U/L Troponin I 0.048 H* (0.000-0.034) ng/mL NT-Pro-B Natriuret Pep (<300) pg/mL Serum Total Protein (6.3-8.2) g/dL Albumin (3.5-5.0) g/dL Procalcitonin (0.030-0.080) ng/mL Thyroxine (T4) (5.53-10.96) ug/dL TSH 3rd Generation (0.47-4.68) mIU/L Urine Color Yellow (Yellow) Urine Appearance Clear (Clear) Urine pH 6.0 (4.6-8.0) Ur Specific [place] 1.010 (1.005-1.030) Urine Protein 100 A (Negative) Urine Glucose (UA) Negative (Negative) mg/dL Urine Ketones Negative (Negative) Urine Blood Negative (Negative) Urine Nitrite Negative (Negative) Urine Bilirubin Negative (Negative) Urine Urobilinogen 1.0 A (0.2) mg/dL Ur Leukocyte Esterase Negative (Negative) U Hyaline Cast (Auto) 11-20 (0-2) /LPF Urine Microscopic RBC 0-2 (0-5) /HPF Urine Microscopic WBC 0-2 (0-5) /HPF Ur Epithelial Cells Rare (None Seen) /HPF Urine Bacteria None Seen (None Seen) /HPF Urine Culture Reflexed NO (NO) Influenza Type A Ag (NEGATIVE) Influenza Type B Ag (NEGATIVE) RSV (PCR) (NEGATIVE) SARS-CoV-2 (PCR) (NEGATIVE) Slides for Path Review YES 11/27/22 11/27/22 11/27/22 Range/Units 15:55 15:55 15:55 WBC (4.0-10.5) x10^3/uL RBC (4.1-5.6) x10^6/uL Hgb (12.5-18.0) g/dL Hct (42-50) % MCV (78-100) fL MCH (26-32) pg MCHC (32-36) g/dL RDW (11.5-14.0) % Plt Count (150-450) x10^3/uL MPV (7.5-11.0) fL Gran % (36.0-66.0) % Immature Gran % (Auto) (0.00-0.4) % Nucleat RBC Rel Count (0.00-0.1) % Eos # (Auto) (0-0.5) x10^3/uL Immature Gran # (Auto) (0.00-0.03) x10^3u/L Absolute Lymphs (auto) (1.0-4.6) x10^3/uL Absolute Monos (auto) (0.0-1.3) x10^3/uL Absolute Nucleated RBC (0.00-0.01) x10^3u/L Lymphocytes % (24.0-44.0) % Monocytes % (0.0-12.0) % Eosinophils % (0.00-5.0) % Basophils % (0.0-0.4) % Absolute Granulocytes (1.4-6.9) x10^3/uL Basophils # (0-0.4) x10^3/uL Sodium 139 (137-145) mmol/L Potassium 4.3 (3.5-5.1) mmol/L Chloride 107 (98-107) mmol/L Carbon Dioxide 17 L (22-30) mmol/L Anion Gap 19.1 H (5-15) MEQ/L BUN 34 H (9-20) mg/dL Creatinine 1.61 H (0.66-1.25) mg/dL Estimated GFR 47.2 ML/MIN Glucose 105 (74-106) mg/dL POC Glucometer (74 to 106) mg/dL Lactic Acid (0.4-2.0) Calcium 8.3 L (8.4-10.2) mg/dL Phosphorus (2.5-4.5) mg/dL Magnesium (1.6-2.3) mg/dL Total Bilirubin 2.10 H (0.2-1.3) mg/dL AST 37 (17-59) U/L ALT 31 (0-50) U/L Alkaline Phosphatase 97 (38-126) U/L Troponin I 0.060 H* (0.000-0.034) ng/mL NT-Pro-B Natriuret Pep 72569 (<300) pg/mL Serum Total Protein 6.4 (6.3-8.2) g/dL Albumin 3.3 L (3.5-5.0) g/dL Procalcitonin (0.030-0.080) ng/mL Thyroxine (T4) 9.24 (5.53-10.96) ug/dL TSH 3rd Generation 3.690 (0.47-4.68) mIU/L Urine Color (Yellow) Urine Appearance (Clear) Urine pH (4.6-8.0) Ur Specific [place] (1.005-1.030) Urine Protein (Negative) Urine Glucose (UA) (Negative) mg/dL Urine Ketones (Negative) Urine Blood (Negative) Urine Nitrite (Negative) Urine Bilirubin (Negative) Urine Urobilinogen (0.2) mg/dL Ur Leukocyte Esterase (Negative) U Hyaline Cast (Auto) (0-2) /LPF Urine Microscopic RBC (0-5) /HPF Urine Microscopic WBC (0-5) /HPF Ur Epithelial Cells (None Seen) /HPF Urine Bacteria (None Seen) /HPF Urine Culture Reflexed (NO) Influenza Type A Ag (NEGATIVE) Influenza Type B Ag (NEGATIVE) RSV (PCR) (NEGATIVE) SARS-CoV-2 (PCR) (NEGATIVE) Slides for Path Review 11/27/22 11/27/22 11/27/22 Range/Units 15:58 16:00 18:01 WBC (4.0-10.5) x10^3/uL RBC (4.1-5.6) x10^6/uL Hgb (12.5-18.0) g/dL Hct (42-50) % MCV (78-100) fL MCH (26-32) pg MCHC (32-36) g/dL RDW (11.5-14.0) % Plt Count (150-450) x10^3/uL MPV (7.5-11.0) fL Gran % (36.0-66.0) % Immature Gran % (Auto) (0.00-0.4) % Nucleat RBC Rel Count (0.00-0.1) % Eos # (Auto) (0-0.5) x10^3/uL Immature Gran # (Auto) (0.00-0.03) x10^3u/L Absolute Lymphs (auto) (1.0-4.6) x10^3/uL Absolute Monos (auto) (0.0-1.3) x10^3/uL Absolute Nucleated RBC (0.00-0.01) x10^3u/L Lymphocytes % (24.0-44.0) % Monocytes % (0.0-12.0) % Eosinophils % (0.00-5.0) % Basophils % (0.0-0.4) % Absolute Granulocytes (1.4-6.9) x10^3/uL Basophils # (0-0.4) x10^3/uL Sodium (137-145) mmol/L Potassium (3.5-5.1) mmol/L Chloride (98-107) mmol/L Carbon Dioxide (22-30) mmol/L Anion Gap (5-15) MEQ/L BUN (9-20) mg/dL Creatinine (0.66-1.25) mg/dL Estimated GFR ML/MIN Glucose (74-106) mg/dL POC Glucometer (74 to 106) mg/dL Lactic Acid 3.6 H 3.6 H (0.4-2.0) Calcium (8.4-10.2) mg/dL Phosphorus (2.5-4.5) mg/dL Magnesium (1.6-2.3) mg/dL Total Bilirubin (0.2-1.3) mg/dL AST (17-59) U/L ALT (0-50) U/L Alkaline Phosphatase (38-126) U/L Troponin I (0.000-0.034) ng/mL NT-Pro-B Natriuret Pep (<300) pg/mL Serum Total Protein (6.3-8.2) g/dL Albumin (3.5-5.0) g/dL Procalcitonin (0.030-0.080) ng/mL Thyroxine (T4) (5.53-10.96) ug/dL TSH 3rd Generation (0.47-4.68) mIU/L Urine Color (Yellow) Urine Appearance (Clear) Urine pH (4.6-8.0) Ur Specific [place] (1.005-1.030) Urine Protein (Negative) Urine Glucose (UA) (Negative) mg/dL Urine Ketones (Negative) Urine Blood (Negative) Urine Nitrite (Negative) Urine Bilirubin (Negative) Urine Urobilinogen (0.2) mg/dL Ur Leukocyte Esterase (Negative) U Hyaline Cast (Auto) (0-2) /LPF Urine Microscopic RBC (0-5) /HPF Urine Microscopic WBC (0-5) /HPF Ur Epithelial Cells (None Seen) /HPF Urine Bacteria (None Seen) /HPF Urine Culture Reflexed (NO) Influenza Type A Ag NEGATIVE (NEGATIVE) Influenza Type B Ag NEGATIVE (NEGATIVE) RSV (PCR) NEGATIVE (NEGATIVE) SARS-CoV-2 (PCR) NEGATIVE (NEGATIVE) Slides for Path Review 11/27/22 11/28/22 11/28/22 Range/Units 19:24 05:30 05:30 WBC (4.0-10.5) x10^3/uL RBC (4.1-5.6) x10^6/uL Hgb (12.5-18.0) g/dL Hct (42-50) % MCV (78-100) fL MCH (26-32) pg MCHC (32-36) g/dL RDW (11.5-14.0) % Plt Count (150-450) x10^3/uL MPV (7.5-11.0) fL Gran % (36.0-66.0) % Immature Gran % (Auto) (0.00-0.4) % Nucleat RBC Rel Count (0.00-0.1) % Eos # (Auto) (0-0.5) x10^3/uL Immature Gran # (Auto) (0.00-0.03) x10^3u/L Absolute Lymphs (auto) (1.0-4.6) x10^3/uL Absolute Monos (auto) (0.0-1.3) x10^3/uL Absolute Nucleated RBC (0.00-0.01) x10^3u/L Lymphocytes % (24.0-44.0) % Monocytes % (0.0-12.0) % Eosinophils % (0.00-5.0) % Basophils % (0.0-0.4) % Absolute Granulocytes (1.4-6.9) x10^3/uL Basophils # (0-0.4) x10^3/uL Sodium 141 (137-145) mmol/L Potassium 4.0 (3.5-5.1) mmol/L Chloride 107 (98-107) mmol/L Carbon Dioxide 20 L (22-30) mmol/L Anion Gap 17.4 H (5-15) MEQ/L BUN 46 H (9-20) mg/dL Creatinine 1.97 H (0.66-1.25) mg/dL Estimated GFR 37.4 ML/MIN Glucose 127 H (74-106) mg/dL POC Glucometer (74 to 106) mg/dL Lactic Acid (0.4-2.0) Calcium 8.1 L (8.4-10.2) mg/dL Phosphorus (2.5-4.5) mg/dL Magnesium 2.2 (1.6-2.3) mg/dL Total Bilirubin 1.20 (0.2-1.3) mg/dL AST 42 (17-59) U/L ALT 33 (0-50) U/L Alkaline Phosphatase 93 (38-126) U/L Troponin I 0.054 H* (0.000-0.034) ng/mL NT-Pro-B Natriuret Pep (<300) pg/mL Serum Total Protein 6.4 (6.3-8.2) g/dL Albumin 3.3 L (3.5-5.0) g/dL Procalcitonin (0.030-0.080) ng/mL Thyroxine (T4) (5.53-10.96) ug/dL TSH 3rd Generation (0.47-4.68) mIU/L Urine Color (Yellow) Urine Appearance (Clear) Urine pH (4.6-8.0) Ur Specific [place] (1.005-1.030) Urine Protein (Negative) Urine Glucose (UA) (Negative) mg/dL Urine Ketones (Negative) Urine Blood (Negative) Urine Nitrite (Negative) Urine Bilirubin (Negative) Urine Urobilinogen (0.2) mg/dL Ur Leukocyte Esterase (Negative) U Hyaline Cast (Auto) (0-2) /LPF Urine Microscopic RBC (0-5) /HPF Urine Microscopic WBC (0-5) /HPF Ur Epithelial Cells (None Seen) /HPF Urine Bacteria (None Seen) /HPF Urine Culture Reflexed (NO) Influenza Type A Ag (NEGATIVE) Influenza Type B Ag (NEGATIVE) RSV (PCR) (NEGATIVE) SARS-CoV-2 (PCR) (NEGATIVE) Slides for Path Review 11/28/22 11/28/22 11/28/22 Range/Units 05:30 05:30 05:30 WBC 15.3 H (4.0-10.5) x10^3/uL RBC 4.14 (4.1-5.6) x10^6/uL Hgb 8.8 L (12.5-18.0) g/dL Hct 31.6 L (42-50) % MCV 76.3 L (78-100) fL MCH 21.3 L (26-32) pg MCHC 27.8 L (32-36) g/dL RDW 22.3 H (11.5-14.0) % Plt Count 442 (150-450) x10^3/uL MPV 9.8 (7.5-11.0) fL Gran % (36.0-66.0) % Immature Gran % (Auto) (0.00-0.4) % Nucleat RBC Rel Count (0.00-0.1) % Eos # (Auto) (0-0.5) x10^3/uL Immature Gran # (Auto) (0.00-0.03) x10^3u/L Absolute Lymphs (auto) (1.0-4.6) x10^3/uL Absolute Monos (auto) (0.0-1.3) x10^3/uL Absolute Nucleated RBC (0.00-0.01) x10^3u/L Lymphocytes % (24.0-44.0) % Monocytes % (0.0-12.0) % Eosinophils % (0.00-5.0) % Basophils % (0.0-0.4) % Absolute Granulocytes (1.4-6.9) x10^3/uL Basophils # (0-0.4) x10^3/uL Sodium (137-145) mmol/L Potassium (3.5-5.1) mmol/L Chloride (98-107) mmol/L Carbon Dioxide (22-30) mmol/L Anion Gap (5-15) MEQ/L BUN (9-20) mg/dL Creatinine (0.66-1.25) mg/dL Estimated GFR ML/MIN Glucose (74-106) mg/dL POC Glucometer (74 to 106) mg/dL Lactic Acid (0.4-2.0) Calcium (8.4-10.2) mg/dL Phosphorus 4.9 H (2.5-4.5) mg/dL Magnesium (1.6-2.3) mg/dL Total Bilirubin (0.2-1.3) mg/dL AST (17-59) U/L ALT (0-50) U/L Alkaline Phosphatase (38-126) U/L Troponin I (0.000-0.034) ng/mL NT-Pro-B Natriuret Pep (<300) pg/mL Serum Total Protein (6.3-8.2) g/dL Albumin (3.5-5.0) g/dL Procalcitonin 0.681 H (0.030-0.080) ng/mL Thyroxine (T4) (5.53-10.96) ug/dL TSH 3rd Generation (0.47-4.68) mIU/L Urine Color (Yellow) Urine Appearance (Clear) Urine pH (4.6-8.0) Ur Specific [place] (1.005-1.030) Urine Protein (Negative) Urine Glucose (UA) (Negative) mg/dL Urine Ketones (Negative) Urine Blood (Negative) Urine Nitrite (Negative) Urine Bilirubin (Negative) Urine Urobilinogen (0.2) mg/dL Ur Leukocyte Esterase (Negative) U Hyaline Cast (Auto) (0-2) /LPF Urine Microscopic RBC (0-5) /HPF Urine Microscopic WBC (0-5) /HPF Ur Epithelial Cells (None Seen) /HPF Urine Bacteria (None Seen) /HPF Urine Culture Reflexed (NO) Influenza Type A Ag (NEGATIVE) Influenza Type B Ag (NEGATIVE) RSV (PCR) (NEGATIVE) SARS-CoV-2 (PCR) (NEGATIVE) Slides for Path Review YES 11/28/22 11/28/22 Range/Units 05:32 06:45 WBC (4.0-10.5) x10^3/uL RBC (4.1-5.6) x10^6/uL Hgb (12.5-18.0) g/dL Hct (42-50) % MCV (78-100) fL MCH (26-32) pg MCHC (32-36) g/dL RDW (11.5-14.0) % Plt Count (150-450) x10^3/uL MPV (7.5-11.0) fL Gran % (36.0-66.0) % Immature Gran % (Auto) (0.00-0.4) % Nucleat RBC Rel Count (0.00-0.1) % Eos # (Auto) (0-0.5) x10^3/uL Immature Gran # (Auto) (0.00-0.03) x10^3u/L Absolute Lymphs (auto) (1.0-4.6) x10^3/uL Absolute Monos (auto) (0.0-1.3) x10^3/uL Absolute Nucleated RBC (0.00-0.01) x10^3u/L Lymphocytes % (24.0-44.0) % Monocytes % (0.0-12.0) % Eosinophils % (0.00-5.0) % Basophils % (0.0-0.4) % Absolute Granulocytes (1.4-6.9) x10^3/uL Basophils # (0-0.4) x10^3/uL Sodium (137-145) mmol/L Potassium (3.5-5.1) mmol/L Chloride (98-107) mmol/L Carbon Dioxide (22-30) mmol/L Anion Gap (5-15) MEQ/L BUN (9-20) mg/dL Creatinine (0.66-1.25) mg/dL Estimated GFR ML/MIN Glucose (74-106) mg/dL POC Glucometer 131 H (74 to 106) mg/dL Lactic Acid 3.6 H (0.4-2.0) Calcium (8.4-10.2) mg/dL Phosphorus (2.5-4.5) mg/dL Magnesium (1.6-2.3) mg/dL Total Bilirubin (0.2-1.3) mg/dL AST (17-59) U/L ALT (0-50) U/L Alkaline Phosphatase (38-126) U/L Troponin I (0.000-0.034) ng/mL NT-Pro-B Natriuret Pep (<300) pg/mL Serum Total Protein (6.3-8.2) g/dL Albumin (3.5-5.0) g/dL Procalcitonin (0.030-0.080) ng/mL Thyroxine (T4) (5.53-10.96) ug/dL TSH 3rd Generation (0.47-4.68) mIU/L Urine Color (Yellow) Urine Appearance (Clear) Urine pH (4.6-8.0) Ur Specific [place] (1.005-1.030) Urine Protein (Negative) Urine Glucose (UA) (Negative) mg/dL Urine Ketones (Negative) Urine Blood (Negative) Urine Nitrite (Negative) Urine Bilirubin (Negative) Urine Urobilinogen (0.2) mg/dL Ur Leukocyte Esterase (Negative) U Hyaline Cast (Auto) (0-2) /LPF Urine Microscopic RBC (0-5) /HPF Urine Microscopic WBC (0-5) /HPF Ur Epithelial Cells (None Seen) /HPF Urine Bacteria (None Seen) /HPF Urine Culture Reflexed (NO) Influenza Type A Ag (NEGATIVE) Influenza Type B Ag (NEGATIVE) RSV (PCR) (NEGATIVE) SARS-CoV-2 (PCR) (NEGATIVE) Slides for Path Review Radiology Exams: Radiology Procedures Category Date Time Status CERVICAL SPINE WO CONTRAST [CT] Stat Exams 11/27/22 15:16 Completed CHEST WITHOUT CONTRAST [CT] Stat Exams 11/27/22 18:24 Completed ECHO W/2D AND DOPPLER [US] Routine Exams 11/28/22 09:37 Taken FACIAL BONES WO CONTRAST [CT] Stat Exams 11/27/22 15:16 Completed HEAD WITHOUT CONTRAST [CT] Stat Exams 11/27/22 15:15 Completed Assessment/Plan (1) CHF (congestive heart failure) Current Visit: Yes Status: Acute Assessment & Plan: - BNP 53168 - Lasix 40mg IV BID started last night on admisssion- held today due to kidney function - resume tomorrow if able. - tele - O2 PRN - Echo - Cardiology consult - Continue ASA, Coreg, Norvasc, Xarelto - 2 runs of v-tach last night and HR in 30's last night Code(s): I50.9 - HEART FAILURE, UNSPECIFIED (2) Pneumonia Current Visit: Yes Status: Acute Assessment & Plan: - Procal elevated at 0.681 - BC x2 - ceftriaxone and zithromax daily - Chest CT 11/27: IMPRESSION: 1. Mild ground-glass opacities in the posterior basal segment of both lower lobes which could represent pneumonia or sequelae of a previous inflammatory process. 2. Bilateral pleural effusion, mild. 3. Non-calcified pulmonary nodules with the largest measuring 4.3 mm in the right upper lobe. Follow-up is suggested. 4. Right lower paratracheal lymphadenopathy may be reactive. 5. Minimal ascites along the liver edge. 6. Consider gallbladder stone. Ultrasound correlation is suggested. 7. Subcutaneous edema along the lateral aspects of both upper abdominal salgado. 8. The rest of the findings as detailed above. - Will need to f/u with Pulm OP Code(s): J18.9 - PNEUMONIA, UNSPECIFIED ORGANISM (3) Acute on chronic renal failure Current Visit: Yes Status: Acute Assessment & Plan: - Creat 37.4- baseline 56 - BUN 46, GRF 37.4- worse today- trend - Lasix held today Code(s): N17.9 - ACUTE KIDNEY FAILURE, UNSPECIFIED; N18.9 - CHRONIC KIDNEY DISEASE, UNSPECIFIED (4) Anasarca Current Visit: Yes Status: Acute Assessment & Plan: - 2:2 CHF and SERA - improved today with lasix overnight - no pitting edema in extremities today. - abd. distended. Code(s): R60.1 - GENERALIZED EDEMA (5) Elevated troponin Current Visit: Yes Status: Acute Assessment & Plan: - 0.048, 0.060, 0.054 - cardiology consulted - tele - denies CP - echo Code(s): R79.89 - OTHER SPECIFIED ABNORMAL FINDINGS OF BLOOD CHEMISTRY (6) Lactic acidosis Current Visit: No Status: Acute Assessment & Plan: - LA remains the same since last night at 3.6 - unable to give fluid bolus due to CHF. Code(s): E87.20 - ACIDOSIS, UNSPECIFIED (7) Sleep apnea Current Visit: No Status: Chronic Assessment & Plan: - Cpap - May take home mask used in hospital at d/c per RT Code(s): G47.30 - SLEEP APNEA, UNSPECIFIED (8) HTN (hypertension) Current Visit: No Status: Chronic Qualifiers: Hypertension type: essential hypertension Qualified Code(s): I10 - Essential (primary) hypertension Assessment & Plan: - Controlled - Continue home meds Code(s): I10 - ESSENTIAL (PRIMARY) HYPERTENSION (9) Nasal bone fractures Current Visit: Yes Status: Acute Assessment & Plan: - As seen on CT nasal bone fxs with mild displacement. - Will need to f/u with ENT OP. Code(s): S02.2XXA - FRACTURE OF NASAL BONES, INIT ENCNTR FOR CLOSED FRACTURE (10) Fall at home Current Visit: Yes Status: Acute Assessment & Plan: - CT cervical spine - no new acute findings. - Pt reports he fell by slipping on a decorative rug in home. - PT eval VTE: Xarelto D/C plan: 1-2 days- pending cardiology recommendations Next of kin: Jackie Roman [phone] Code status: Full Code(s): W19.XXXA - UNSPECIFIED FALL, INITIAL ENCOUNTER; Y92.009 - UNSP PLACE IN [facility] [address]
[2022-11-28] MEDS ORDERED: Mylicon DROPS PO PRN (11:55)
[2022-11-28] MEDS ORDERED: TYLENOL 325 MG PO PRN (11:56)
[2022-11-28 12:33] LABS: A-aADO2 116; ABG HEMOGLOBIN 9.2; ABG POTASSIUM 4.8 (3.5-5.1); ARTERIAL BLD GAS O2 SATURATION 99.2 % (95-100); ARTERIAL BLOOD GAS BASE EXCESS -9.5 (-2.0-2.0); ARTERIAL BLOOD GAS FIO2 40 %; ARTERIAL BLOOD GAS PCO2 20 mmHg (35-45); ARTERIAL BLOOD GAS PO2 144 mmHg (75-100); ARTERIAL BLOOD GAS pH 7.43 (7.35-7.45); CARBOXYHEMOGLOBIN 0.4 % THgb (0.0-6.9); HCO3- 13.3 (22-28); HGB O2 SAT 98.1 g/dF (94-100); Methhemoglobin 0.6 % (1.4-1.5); paO2 pAO1 0.55
[2022-11-28 12:34] LABS: ABG SITE RIGHT RADIAL; ALLEN TEST OK? YES
[2022-11-28] MEDS ORDERED: Sodium Chloride 0.9% 1000 ML 1,000 ML ONE (12:43)
[2022-11-28] MEDS ORDERED: Zemuron 100 MG/10 ML IV STA (12:56)
[2022-11-28] MEDS ORDERED: Versed 50 MG/ 10 Ml MDV*** 50 MG in Sodium Chloride 0.9% 250 ML 240 ML IV PRN (12:56)
[2022-11-28] MEDS ORDERED: VERSED 5 MG/5 ML IV STA (12:56)
[2022-11-28] MEDS ORDERED: Zemuron 100 MG/10 ML 100 MG in Sodium Chloride 0.9% 90 ML IV PRN (12:56)
[2022-11-28 13:01] LABS: Hematocrit 34.1 % (42-50); Hemoglobin 9.3 g/dL (12.5-18.0); Mean Cell Volume 76.8 fL (78-100); Mean Corpuscular Hemoglobin 20.9 pg (26-32); Mean Corpuscular Hgb Concent. 27.3 g/dL (32-36); Mean Platelet Volume 9.6 fL (7.5-11.0); Platelet Count 473 x10^3/uL (150-450); Red Blood Count 4.44 x10^6/uL (4.1-5.6); Red Cell Distribution Width 22.7 % (11.5-14.0); White Blood Count 17.7 x10^3/uL (4.0-10.5)
[2022-11-28] MEDS ORDERED: VERSED 5 MG/5 ML IV PRN (13:06)
[2022-11-28] MEDS ORDERED: NOREPINEPHRINE 8 MG/250 ML-D5W 8 MG/250 ML PLAST..BAG IV PRN (13:08)
[2022-11-28] MEDS ORDERED: Sodium Chloride 0.9% 1000 ML 1,000 ML IV SCH (13:15)
[2022-11-28 13:19] LABS: ALBUMIN 3.6 g/dL (3.5-5.0); ANION GAP 20.9 MEQ/L (5-15); BILIRUBIN,TOTAL 1.2 mg/dL (0.2-1.3); Calcium 8.2 mg/dL (8.4-10.2); Creatinine 1 2.39 mg/dL (0.66-1.25); MAGNESIUM 2.5 mg/dL (1.6-2.3); Potassium 4.7 mmol/L (3.5-5.1); Total Protein 6.9 g/dL (6.3-8.2)
[2022-11-28 13:50] LABS: INR 1.72 (0.8-3.0); PTT 28.9 SECONDS (25.1-36.5)
--- NOTE | 2022-11-28 13:57 | PCM.DS ---
Discharge Summary Date of Admission: 11/27/22 22:14 Date of Discharge: 11/28/22 Admitting Physician: LUANA DIAZ MD Consults: Consults on Case 11/28/22 08:00 Consult Cardiology ROUTINE Primary Care Provider: EDWIN RATLIFF Allergies Allergies No Known Drug Allergies Allergy (Verified 11/27/22 15:01) Hospital Summary - Hospital Course Hospital Course: is a 57 year old male with heart failure, history of DVT on Xarelto, Afib who presents with 3 weeks of progressive dyspnea, swelling in legs. He was recently admitted for a heart failure exacerbation and reports similar symptoms. No fever, cough, chest pain. Takes his medications as prescribed though is not monitoring his home salt intake and water intake. He has not been wearing his Cpap at night as he explains his mask does not fit correctly. RT is able to let him take this mask home at [place] so he can wear. Lactic acid remains elevated. Kidney function worse with lasix overnight. Will hold Lasix today and restart tomorrow if able. 2nd trop did go up last night and then trended down. Pt denies any chest pain. Cardiology consulted. Pt's HR went into the 30's last night and he also had a 2 runs of v-tach. BC x2 ordered as WBC remains elevated, procal elevated, and chest XR shows possible infiltrates. Antibiotics restarted. Pt denies Cp, Abd. pain, N/V/D. Rapid response called at 12:25. Prior to this pt was up to bedside commode and became weak and frausto per nurse. Pt became bradycardic and unresponsive. Pt was intubated by RT and placed on vent. Pt moved to ICU. Bp low and started on levophed gtt. Stat labs ordered. Art line placed by RT. CT head ordered stat. Pt reported a H/A this morning. Pt accepted at [facility] and bed ready. Ambulance called. Pt pending tx. - Vitals & Intake/Output Vital Signs: Vital Signs Temperature 97.1 F 11/28/22 11:06 Pulse Rate 87 11/28/22 11:06 Respiratory Rate 30 H 11/28/22 11:06 Blood Pressure 113/75 11/28/22 11:06 O2 Sat by Pulse Oximetry 95 11/28/22 11:06 Intake & Output: Intake & Output 1011/27/22 11/28/22 11/29/22 11:59 11:59 11:59 11:59 Intake Total 300 Output Total 750 Balance -450 Weight 111 kg - Lab Result Diagrams: 11/28/22 12:45 11/28/22 12:45 Lab Results-Last 24 Hrs: Lab Results-Last 24 Hours 11/27/22 11/27/22 11/27/22 Range/Units 00:06 15:17 15:52 WBC 16.0 H (4.0-10.5) x10^3/uL RBC 4.06 L (4.1-5.6) x10^6/uL Hgb 8.5 L (12.5-18.0) g/dL Hct 31.3 L (42-50) % MCV 77.1 L (78-100) fL MCH 20.9 L (26-32) pg MCHC 27.2 L (32-36) g/dL RDW 22.4 H (11.5-14.0) % Plt Count 398 (150-450) x10^3/uL MPV 9.5 (7.5-11.0) fL Gran % 84.9 H (36.0-66.0) % Immature Gran % (Auto) 0.7 H (0.00-0.4) % Nucleat RBC Rel Count 0.6 H (0.00-0.1) % Eos # (Auto) 0.02 (0-0.5) x10^3/uL Immature Gran # (Auto) 0.11 H (0.00-0.03) x10^3u/L Absolute Lymphs (auto) 1.41 (1.0-4.6) x10^3/uL Absolute Monos (auto) 0.81 (0.0-1.3) x10^3/uL Absolute Nucleated RBC 0.10 H (0.00-0.01) x10^3u/L Lymphocytes % 8.8 L (24.0-44.0) % Monocytes % 5.1 (0.0-12.0) % Eosinophils % 0.1 (0.00-5.0) % Basophils % 0.4 (0.0-0.4) % Absolute Granulocytes 13.53 H (1.4-6.9) x10^3/uL Basophils # 0.07 (0-0.4) x10^3/uL Puncture Site pCO2 (35-45) mmHg pO2 (75-100) mmHg Base Excess (-2.0-2.0) O2 Saturation (94-100) g/dF ABG pH (7.35-7.45) ABG HCO3 (22-28) ABG O2 Sat (Measured) (95-100) % Timur Test A-a Gradient a/A Ratio Hemoglobin Carboxyhemoglobin (0.0-6.9) % THgb Methemoglobin (1.4-1.5) % Temperature C POC O2 Flow Rate % Sodium (137-145) mmol/L Potassium (3.5-5.1) mmol/L Chloride (98-107) mmol/L Carbon Dioxide (22-30) mmol/L Anion Gap (5-15) MEQ/L BUN (9-20) mg/dL Creatinine (0.66-1.25) mg/dL Estimated GFR ML/MIN Glucose (74-106) mg/dL POC Glucometer (74 to 106) mg/dL Lactic Acid (0.4-2.0) Calcium (8.4-10.2) mg/dL Phosphorus (2.5-4.5) mg/dL Magnesium (1.6-2.3) mg/dL Total Bilirubin (0.2-1.3) mg/dL AST (17-59) U/L ALT (0-50) U/L Alkaline Phosphatase (38-126) U/L Troponin I 0.048 H* (0.000-0.034) ng/mL NT-Pro-B Natriuret Pep (<300) pg/mL Serum Total Protein (6.3-8.2) g/dL Albumin (3.5-5.0) g/dL Procalcitonin (0.030-0.080) ng/mL Thyroxine (T4) (5.53-10.96) ug/dL TSH 3rd Generation (0.47-4.68) mIU/L Urine Color Yellow (Yellow) Urine Appearance Clear (Clear) Urine pH 6.0 (4.6-8.0) Ur Specific [place] 1.010 (1.005-1.030) Urine Protein 100 A (Negative) Urine Glucose (UA) Negative (Negative) mg/dL Urine Ketones Negative (Negative) Urine Blood Negative (Negative) Urine Nitrite Negative (Negative) Urine Bilirubin Negative (Negative) Urine Urobilinogen 1.0 A (0.2) mg/dL Ur Leukocyte Esterase Negative (Negative) U Hyaline Cast (Auto) 11-20 (0-2) /LPF Urine Microscopic RBC 0-2 (0-5) /HPF Urine Microscopic WBC 0-2 (0-5) /HPF Ur Epithelial Cells Rare (None Seen) /HPF Urine Bacteria None Seen (None Seen) /HPF Urine Culture Reflexed NO (NO) Influenza Type A Ag (NEGATIVE) Influenza Type B Ag (NEGATIVE) RSV (PCR) (NEGATIVE) SARS-CoV-2 (PCR) (NEGATIVE) Slides for Path Review YES 11/27/22 11/27/22 11/27/22 Range/Units 15:55 15:55 15:55 WBC (4.0-10.5) x10^3/uL RBC (4.1-5.6) x10^6/uL Hgb (12.5-18.0) g/dL Hct (42-50) % MCV (78-100) fL MCH (26-32) pg MCHC (32-36) g/dL RDW (11.5-14.0) % Plt Count (150-450) x10^3/uL MPV (7.5-11.0) fL Gran % (36.0-66.0) % Immature Gran % (Auto) (0.00-0.4) % Nucleat RBC Rel Count (0.00-0.1) % Eos # (Auto) (0-0.5) x10^3/uL Immature Gran # (Auto) (0.00-0.03) x10^3u/L Absolute Lymphs (auto) (1.0-4.6) x10^3/uL Absolute Monos (auto) (0.0-1.3) x10^3/uL Absolute Nucleated RBC (0.00-0.01) x10^3u/L Lymphocytes % (24.0-44.0) % Monocytes % (0.0-12.0) % Eosinophils % (0.00-5.0) % Basophils % (0.0-0.4) % Absolute Granulocytes (1.4-6.9) x10^3/uL Basophils # (0-0.4) x10^3/uL Puncture Site pCO2 (35-45) mmHg pO2 (75-100) mmHg Base Excess (-2.0-2.0) O2 Saturation (94-100) g/dF ABG pH (7.35-7.45) ABG HCO3 (22-28) ABG O2 Sat (Measured) (95-100) % Timur Test A-a Gradient a/A Ratio Hemoglobin Carboxyhemoglobin (0.0-6.9) % THgb Methemoglobin (1.4-1.5) % Temperature C POC O2 Flow Rate % Sodium 139 (137-145) mmol/L Potassium 4.3 (3.5-5.1) mmol/L Chloride 107 (98-107) mmol/L Carbon Dioxide 17 L (22-30) mmol/L Anion Gap 19.1 H (5-15) MEQ/L BUN 34 H (9-20) mg/dL Creatinine 1.61 H (0.66-1.25) mg/dL Estimated GFR 47.2 ML/MIN Glucose 105 (74-106) mg/dL POC Glucometer (74 to 106) mg/dL Lactic Acid (0.4-2.0) Calcium 8.3 L (8.4-10.2) mg/dL Phosphorus (2.5-4.5) mg/dL Magnesium (1.6-2.3) mg/dL Total Bilirubin 2.10 H (0.2-1.3) mg/dL AST 37 (17-59) U/L ALT 31 (0-50) U/L Alkaline Phosphatase 97 (38-126) U/L Troponin I 0.060 H* (0.000-0.034) ng/mL NT-Pro-B Natriuret Pep 85149 (<300) pg/mL Serum Total Protein 6.4 (6.3-8.2) g/dL Albumin 3.3 L (3.5-5.0) g/dL Procalcitonin (0.030-0.080) ng/mL Thyroxine (T4) 9.24 (5.53-10.96) ug/dL TSH 3rd Generation 3.690 (0.47-4.68) mIU/L Urine Color (Yellow) Urine Appearance (Clear) Urine pH (4.6-8.0) Ur Specific [place] (1.005-1.030) Urine Protein (Negative) Urine Glucose (UA) (Negative) mg/dL Urine Ketones (Negative) Urine Blood (Negative) Urine Nitrite (Negative) Urine Bilirubin (Negative) Urine Urobilinogen (0.2) mg/dL Ur Leukocyte Esterase (Negative) U Hyaline Cast (Auto) (0-2) /LPF Urine Microscopic RBC (0-5) /HPF Urine Microscopic WBC (0-5) /HPF Ur Epithelial Cells (None Seen) /HPF Urine Bacteria (None Seen) /HPF Urine Culture Reflexed (NO) Influenza Type A Ag (NEGATIVE) Influenza Type B Ag (NEGATIVE) RSV (PCR) (NEGATIVE) SARS-CoV-2 (PCR) (NEGATIVE) Slides for Path Review 11/27/22 11/27/22 11/27/22 Range/Units 15:58 16:00 18:01 WBC (4.0-10.5) x10^3/uL RBC (4.1-5.6) x10^6/uL Hgb (12.5-18.0) g/dL Hct (42-50) % MCV (78-100) fL MCH (26-32) pg MCHC (32-36) g/dL RDW (11.5-14.0) % Plt Count (150-450) x10^3/uL MPV (7.5-11.0) fL Gran % (36.0-66.0) % Immature Gran % (Auto) (0.00-0.4) % Nucleat RBC Rel Count (0.00-0.1) % Eos # (Auto) (0-0.5) x10^3/uL Immature Gran # (Auto) (0.00-0.03) x10^3u/L Absolute Lymphs (auto) (1.0-4.6) x10^3/uL Absolute Monos (auto) (0.0-1.3) x10^3/uL Absolute Nucleated RBC (0.00-0.01) x10^3u/L Lymphocytes % (24.0-44.0) % Monocytes % (0.0-12.0) % Eosinophils % (0.00-5.0) % Basophils % (0.0-0.4) % Absolute Granulocytes (1.4-6.9) x10^3/uL Basophils # (0-0.4) x10^3/uL Puncture Site pCO2 (35-45) mmHg pO2 (75-100) mmHg Base Excess (-2.0-2.0) O2 Saturation (94-100) g/dF ABG pH (7.35-7.45) ABG HCO3 (22-28) ABG O2 Sat (Measured) (95-100) % Timur Test A-a Gradient a/A Ratio Hemoglobin Carboxyhemoglobin (0.0-6.9) % THgb Methemoglobin (1.4-1.5) % Temperature C POC O2 Flow Rate % Sodium (137-145) mmol/L Potassium (3.5-5.1) mmol/L Chloride (98-107) mmol/L Carbon Dioxide (22-30) mmol/L Anion Gap (5-15) MEQ/L BUN (9-20) mg/dL Creatinine (0.66-1.25) mg/dL Estimated GFR ML/MIN Glucose (74-106) mg/dL POC Glucometer (74 to 106) mg/dL Lactic Acid 3.6 H 3.6 H (0.4-2.0) Calcium (8.4-10.2) mg/dL Phosphorus (2.5-4.5) mg/dL Magnesium (1.6-2.3) mg/dL Total Bilirubin (0.2-1.3) mg/dL AST (17-59) U/L ALT (0-50) U/L Alkaline Phosphatase (38-126) U/L Troponin I (0.000-0.034) ng/mL NT-Pro-B Natriuret Pep (<300) pg/mL Serum Total Protein (6.3-8.2) g/dL Albumin (3.5-5.0) g/dL Procalcitonin (0.030-0.080) ng/mL Thyroxine (T4) (5.53-10.96) ug/dL TSH 3rd Generation (0.47-4.68) mIU/L Urine Color (Yellow) Urine Appearance (Clear) Urine pH (4.6-8.0) Ur Specific [place] (1.005-1.030) Urine Protein (Negative) Urine Glucose (UA) (Negative) mg/dL Urine Ketones (Negative) Urine Blood (Negative) Urine Nitrite (Negative) Urine Bilirubin (Negative) Urine Urobilinogen (0.2) mg/dL Ur Leukocyte Esterase (Negative) U Hyaline Cast (Auto) (0-2) /LPF Urine Microscopic RBC (0-5) /HPF Urine Microscopic WBC (0-5) /HPF Ur Epithelial Cells (None Seen) /HPF Urine Bacteria (None Seen) /HPF Urine Culture Reflexed (NO) Influenza Type A Ag NEGATIVE (NEGATIVE) Influenza Type B Ag NEGATIVE (NEGATIVE) RSV (PCR) NEGATIVE (NEGATIVE) SARS-CoV-2 (PCR) NEGATIVE (NEGATIVE) Slides for Path Review 11/27/22 11/28/22 11/28/22 Range/Units 19:24 05:30 05:30 WBC (4.0-10.5) x10^3/uL RBC (4.1-5.6) x10^6/uL Hgb (12.5-18.0) g/dL Hct (42-50) % MCV (78-100) fL MCH (26-32) pg MCHC (32-36) g/dL RDW (11.5-14.0) % Plt Count (150-450) x10^3/uL MPV (7.5-11.0) fL Gran % (36.0-66.0) % Immature Gran % (Auto) (0.00-0.4) % Nucleat RBC Rel Count (0.00-0.1) % Eos # (Auto) (0-0.5) x10^3/uL Immature Gran # (Auto) (0.00-0.03) x10^3u/L Absolute Lymphs (auto) (1.0-4.6) x10^3/uL Absolute Monos (auto) (0.0-1.3) x10^3/uL Absolute Nucleated RBC (0.00-0.01) x10^3u/L Lymphocytes % (24.0-44.0) % Monocytes % (0.0-12.0) % Eosinophils % (0.00-5.0) % Basophils % (0.0-0.4) % Absolute Granulocytes (1.4-6.9) x10^3/uL Basophils # (0-0.4) x10^3/uL Puncture Site pCO2 (35-45) mmHg pO2 (75-100) mmHg Base Excess (-2.0-2.0) O2 Saturation (94-100) g/dF ABG pH (7.35-7.45) ABG HCO3 (22-28) ABG O2 Sat (Measured) (95-100) % Timur Test A-a Gradient a/A Ratio Hemoglobin Carboxyhemoglobin (0.0-6.9) % THgb Methemoglobin (1.4-1.5) % Temperature C POC O2 Flow Rate % Sodium 141 (137-145) mmol/L Potassium 4.0 (3.5-5.1) mmol/L Chloride 107 (98-107) mmol/L Carbon Dioxide 20 L (22-30) mmol/L Anion Gap 17.4 H (5-15) MEQ/L BUN 46 H (9-20) mg/dL Creatinine 1.97 H (0.66-1.25) mg/dL Estimated GFR 37.4 ML/MIN Glucose 127 H (74-106) mg/dL POC Glucometer (74 to 106) mg/dL Lactic Acid (0.4-2.0) Calcium 8.1 L (8.4-10.2) mg/dL Phosphorus (2.5-4.5) mg/dL Magnesium 2.2 (1.6-2.3) mg/dL Total Bilirubin 1.20 (0.2-1.3) mg/dL AST 42 (17-59) U/L ALT 33 (0-50) U/L Alkaline Phosphatase 93 (38-126) U/L Troponin I 0.054 H* (0.000-0.034) ng/mL NT-Pro-B Natriuret Pep (<300) pg/mL Serum Total Protein 6.4 (6.3-8.2) g/dL Albumin 3.3 L (3.5-5.0) g/dL Procalcitonin (0.030-0.080) ng/mL Thyroxine (T4) (5.53-10.96) ug/dL TSH 3rd Generation (0.47-4.68) mIU/L Urine Color (Yellow) Urine Appearance (Clear) Urine pH (4.6-8.0) Ur Specific [place] (1.005-1.030) Urine Protein (Negative) Urine Glucose (UA) (Negative) mg/dL Urine Ketones (Negative) Urine Blood (Negative) Urine Nitrite (Negative) Urine Bilirubin (Negative) Urine Urobilinogen (0.2) mg/dL Ur Leukocyte Esterase (Negative) U Hyaline Cast (Auto) (0-2) /LPF Urine Microscopic RBC (0-5) /HPF Urine Microscopic WBC (0-5) /HPF Ur Epithelial Cells (None Seen) /HPF Urine Bacteria (None Seen) /HPF Urine Culture Reflexed (NO) Influenza Type A Ag (NEGATIVE) Influenza Type B Ag (NEGATIVE) RSV (PCR) (NEGATIVE) SARS-CoV-2 (PCR) (NEGATIVE) Slides for Path Review 11/28/22 11/28/22 11/28/22 Range/Units 05:30 05:30 05:30 WBC 15.3 H (4.0-10.5) x10^3/uL RBC 4.14 (4.1-5.6) x10^6/uL Hgb 8.8 L (12.5-18.0) g/dL Hct 31.6 L (42-50) % MCV 76.3 L (78-100) fL MCH 21.3 L (26-32) pg MCHC 27.8 L (32-36) g/dL RDW 22.3 H (11.5-14.0) % Plt Count 442 (150-450) x10^3/uL MPV 9.8 (7.5-11.0) fL Gran % (36.0-66.0) % Immature Gran % (Auto) (0.00-0.4) % Nucleat RBC Rel Count (0.00-0.1) % Eos # (Auto) (0-0.5) x10^3/uL Immature Gran # (Auto) (0.00-0.03) x10^3u/L Absolute Lymphs (auto) (1.0-4.6) x10^3/uL Absolute Monos (auto) (0.0-1.3) x10^3/uL Absolute Nucleated RBC (0.00-0.01) x10^3u/L Lymphocytes % (24.0-44.0) % Monocytes % (0.0-12.0) % Eosinophils % (0.00-5.0) % Basophils % (0.0-0.4) % Absolute Granulocytes (1.4-6.9) x10^3/uL Basophils # (0-0.4) x10^3/uL Puncture Site pCO2 (35-45) mmHg pO2 (75-100) mmHg Base Excess (-2.0-2.0) O2 Saturation (94-100) g/dF ABG pH (7.35-7.45) ABG HCO3 (22-28) ABG O2 Sat (Measured) (95-100) % Timur Test A-a Gradient a/A Ratio Hemoglobin Carboxyhemoglobin (0.0-6.9) % THgb Methemoglobin (1.4-1.5) % Temperature C POC O2 Flow Rate % Sodium (137-145) mmol/L Potassium (3.5-5.1) mmol/L Chloride (98-107) mmol/L Carbon Dioxide (22-30) mmol/L Anion Gap (5-15) MEQ/L BUN (9-20) mg/dL Creatinine (0.66-1.25) mg/dL Estimated GFR ML/MIN Glucose (74-106) mg/dL POC Glucometer (74 to 106) mg/dL Lactic Acid (0.4-2.0) Calcium (8.4-10.2) mg/dL Phosphorus 4.9 H (2.5-4.5) mg/dL Magnesium (1.6-2.3) mg/dL Total Bilirubin (0.2-1.3) mg/dL AST (17-59) U/L ALT (0-50) U/L Alkaline Phosphatase (38-126) U/L Troponin I (0.000-0.034) ng/mL NT-Pro-B Natriuret Pep (<300) pg/mL Serum Total Protein (6.3-8.2) g/dL Albumin (3.5-5.0) g/dL Procalcitonin 0.681 H (0.030-0.080) ng/mL Thyroxine (T4) (5.53-10.96) ug/dL TSH 3rd Generation (0.47-4.68) mIU/L Urine Color (Yellow) Urine Appearance (Clear) Urine pH (4.6-8.0) Ur Specific [place] (1.005-1.030) Urine Protein (Negative) Urine Glucose (UA) (Negative) mg/dL Urine Ketones (Negative) Urine Blood (Negative) Urine Nitrite (Negative) Urine Bilirubin (Negative) Urine Urobilinogen (0.2) mg/dL Ur Leukocyte Esterase (Negative) U Hyaline Cast (Auto) (0-2) /LPF Urine Microscopic RBC (0-5) /HPF Urine Microscopic WBC (0-5) /HPF Ur Epithelial Cells (None Seen) /HPF Urine Bacteria (None Seen) /HPF Urine Culture Reflexed (NO) Influenza Type A Ag (NEGATIVE) Influenza Type B Ag (NEGATIVE) RSV (PCR) (NEGATIVE) SARS-CoV-2 (PCR) (NEGATIVE) Slides for Path Review YES 11/28/22 11/28/22 11/28/22 Range/Units 05:32 06:45 12:32 WBC (4.0-10.5) x10^3/uL RBC (4.1-5.6) x10^6/uL Hgb (12.5-18.0) g/dL Hct (42-50) % MCV (78-100) fL MCH (26-32) pg MCHC (32-36) g/dL RDW (11.5-14.0) % Plt Count (150-450) x10^3/uL MPV (7.5-11.0) fL Gran % (36.0-66.0) % Immature Gran % (Auto) (0.00-0.4) % Nucleat RBC Rel Count (0.00-0.1) % Eos # (Auto) (0-0.5) x10^3/uL Immature Gran # (Auto) (0.00-0.03) x10^3u/L Absolute Lymphs (auto) (1.0-4.6) x10^3/uL Absolute Monos (auto) (0.0-1.3) x10^3/uL Absolute Nucleated RBC (0.00-0.01) x10^3u/L Lymphocytes % (24.0-44.0) % Monocytes % (0.0-12.0) % Eosinophils % (0.00-5.0) % Basophils % (0.0-0.4) % Absolute Granulocytes (1.4-6.9) x10^3/uL Basophils # (0-0.4) x10^3/uL Puncture Site RIGHT RADIAL pCO2 20 L* (35-45) mmHg pO2 144 H* (75-100) mmHg Base Excess -9.5 L (-2.0-2.0) O2 Saturation 98.1 (94-100) g/dF ABG pH 7.43 (7.35-7.45) ABG HCO3 13.3 L* (22-28) ABG O2 Sat (Measured) 99.2 (95-100) % Timur Test YES A-a Gradient 116 a/A Ratio 0.55 Hemoglobin 9.2 Carboxyhemoglobin 0.4 (0.0-6.9) % THgb Methemoglobin 0.6 L (1.4-1.5) % Temperature 37.0 C POC O2 Flow Rate 40 % Sodium (137-145) mmol/L Potassium 4.8 (3.5-5.1) mmol/L Chloride (98-107) mmol/L Carbon Dioxide (22-30) mmol/L Anion Gap (5-15) MEQ/L BUN (9-20) mg/dL Creatinine (0.66-1.25) mg/dL Estimated GFR ML/MIN Glucose (74-106) mg/dL POC Glucometer 131 H (74 to 106) mg/dL Lactic Acid 3.6 H (0.4-2.0) Calcium (8.4-10.2) mg/dL Phosphorus (2.5-4.5) mg/dL Magnesium (1.6-2.3) mg/dL Total Bilirubin (0.2-1.3) mg/dL AST (17-59) U/L ALT (0-50) U/L Alkaline Phosphatase (38-126) U/L Troponin I (0.000-0.034) ng/mL NT-Pro-B Natriuret Pep (<300) pg/mL Serum Total Protein (6.3-8.2) g/dL Albumin (3.5-5.0) g/dL Procalcitonin (0.030-0.080) ng/mL Thyroxine (T4) (5.53-10.96) ug/dL TSH 3rd Generation (0.47-4.68) mIU/L Urine Color (Yellow) Urine Appearance (Clear) Urine pH (4.6-8.0) Ur Specific [place] (1.005-1.030) Urine Protein (Negative) Urine Glucose (UA) (Negative) mg/dL Urine Ketones (Negative) Urine Blood (Negative) Urine Nitrite (Negative) Urine Bilirubin (Negative) Urine Urobilinogen (0.2) mg/dL Ur Leukocyte Esterase (Negative) U Hyaline Cast (Auto) (0-2) /LPF Urine Microscopic RBC (0-5) /HPF Urine Microscopic WBC (0-5) /HPF Ur Epithelial Cells (None Seen) /HPF Urine Bacteria (None Seen) /HPF Urine Culture Reflexed (NO) Influenza Type A Ag (NEGATIVE) Influenza Type B Ag (NEGATIVE) RSV (PCR) (NEGATIVE) SARS-CoV-2 (PCR) (NEGATIVE) Slides for Path Review 11/28/22 11/28/22 11/28/22 Range/Units 12:34 12:45 12:45 WBC 17.7 H (4.0-10.5) x10^3/uL RBC 4.44 (4.1-5.6) x10^6/uL Hgb 9.3 L (12.5-18.0) g/dL Hct 34.1 L (42-50) % MCV 76.8 L (78-100) fL MCH 20.9 L (26-32) pg MCHC 27.3 L (32-36) g/dL RDW 22.7 H (11.5-14.0) % Plt Count 473 H (150-450) x10^3/uL MPV 9.6 (7.5-11.0) fL Gran % (36.0-66.0) % Immature Gran % (Auto) (0.00-0.4) % Nucleat RBC Rel Count (0.00-0.1) % Eos # (Auto) (0-0.5) x10^3/uL Immature Gran # (Auto) (0.00-0.03) x10^3u/L Absolute Lymphs (auto) (1.0-4.6) x10^3/uL Absolute Monos (auto) (0.0-1.3) x10^3/uL Absolute Nucleated RBC (0.00-0.01) x10^3u/L Lymphocytes % (24.0-44.0) % Monocytes % (0.0-12.0) % Eosinophils % (0.00-5.0) % Basophils % (0.0-0.4) % Absolute Granulocytes (1.4-6.9) x10^3/uL Basophils # (0-0.4) x10^3/uL Puncture Site pCO2 (35-45) mmHg pO2 (75-100) mmHg Base Excess (-2.0-2.0) O2 Saturation (94-100) g/dF ABG pH (7.35-7.45) ABG HCO3 (22-28) ABG O2 Sat (Measured) (95-100) % [place]ur Test A-a Gradient a/A Ratio Hemoglobin Carboxyhemoglobin (0.0-6.9) % THgb Methemoglobin (1.4-1.5) % Temperature C POC O2 Flow Rate % Sodium 142 (137-145) mmol/L Potassium 4.7 (3.5-5.1) mmol/L Chloride 107 (98-107) mmol/L Carbon Dioxide 18 L (22-30) mmol/L Anion Gap 20.9 H (5-15) MEQ/L BUN 50 H (9-20) mg/dL Creatinine 2.39 H (0.66-1.25) mg/dL Estimated GFR 30.0 ML/MIN Glucose 120 H (74-106) mg/dL POC Glucometer (74 to 106) mg/dL Lactic Acid 5.1 H (0.4-2.0) Calcium 8.2 L (8.4-10.2) mg/dL Phosphorus (2.5-4.5) mg/dL Magnesium 2.5 H (1.6-2.3) mg/dL Total Bilirubin 1.20 (0.2-1.3) mg/dL AST 46 (17-59) U/L ALT 34 (0-50) U/L Alkaline Phosphatase 103 (38-126) U/L Troponin I (0.000-0.034) ng/mL NT-Pro-B Natriuret Pep 66249 (<300) pg/mL Serum Total Protein 6.9 (6.3-8.2) g/dL Albumin 3.6 (3.5-5.0) g/dL Procalcitonin (0.030-0.080) ng/mL Thyroxine (T4) (5.53-10.96) ug/dL TSH 3rd Generation (0.47-4.68) mIU/L Urine Color (Yellow) Urine Appearance (Clear) Urine pH (4.6-8.0) Ur Specific [place] (1.005-1.030) Urine Protein (Negative) Urine Glucose (UA) (Negative) mg/dL Urine Ketones (Negative) Urine Blood (Negative) Urine Nitrite (Negative) Urine Bilirubin (Negative) Urine Urobilinogen (0.2) mg/dL Ur Leukocyte Esterase (Negative) U Hyaline Cast (Auto) (0-2) /LPF Urine Microscopic RBC (0-5) /HPF Urine Microscopic WBC (0-5) /HPF Ur Epithelial Cells (None Seen) /HPF Urine Bacteria (None Seen) /HPF Urine Culture Reflexed (NO) Influenza Type A Ag (NEGATIVE) Influenza Type B Ag (NEGATIVE) RSV (PCR) (NEGATIVE) SARS-CoV-2 (PCR) (NEGATIVE) Slides for Path Review Micro Results-Entire Visit: Accuchecks Date 11/28/22 Time 06:53 - Radiology Exams Ordered Rad Exams-Entire Visit: Radiology Procedures Category Date Time Status CERVICAL SPINE WO CONTRAST [CT] Stat Exams 11/27/22 15:16 Completed CHEST 1 VIEW (PORTABLE) Routine Exams 11/28/22 12:49 Ordered CHEST WITHOUT CONTRAST [CT] Stat Exams 11/27/22 18:24 Completed ECHO W/2D AND DOPPLER [US] Routine Exams 11/28/22 09:37 Taken FACIAL BONES WO CONTRAST [CT] Stat Exams 11/27/22 15:16 Completed HEAD WITHOUT CONTRAST [CT] Stat Exams 11/27/22 15:15 Completed HEAD WITHOUT CONTRAST [CT] Stat Exams 11/28/22 13:34 Ordered - Procedures and Test Procedures and Tests throughout Hospitalization: Therapy Orders & Screens 11/27/22 22:29 Oxygen Nasal Cannula 2 lpm Comment: 11/27/22 22:35 BiPap/CPAP ROUTINE Comment: Diagnosis: New O2 requirement with Pneumonia Oxygen Nasal Cannula 2 lpm Comment: Diagnosis: New O2 requirement with Pneumonia 11/28/22 05:24 EKG STAT Comment: Diagnosis: Shortness of Breath 11/28/22 11:49 PT Eval & Treat ( Order) ONCE Reason for Eval:: fall at home on rug Diagnosis: Shortness of Breath Discharge Exam General Appearance: moderate distress, obese Neurologic Exam: other (intubated), No motor deficits Eye Exam: PERRL, EOMI, eyes nml inspection Ears, Nose, Throat Exam: normal ENT inspection, pharynx normal, moist mucous membranes Neck Exam: normal inspection, non-tender, supple, full range of motion Respiratory Exam: normal breath sounds, lungs clear, No respiratory distress Cardiovascular Exam: regular rate/rhythm, normal heart sounds Gastrointestinal/Abdomen Exam: soft, No tenderness, No mass Male Genitalia Exam: deferred Rectal Exam: deferred Back Exam: normal inspection, normal range of motion, No CVA tenderness, No vertebral tenderness Extremity Exam: normal inspection, normal range of motion Skin Exam: normal color, warm, dry Final Diagnosis/Problem List - Final Discharge Diagnosis/Problem (1) CHF (congestive heart failure) Current Visit: Yes Status: Acute Code(s): I50.9 - HEART FAILURE, UNSPECIFIED (2) Pneumonia Current Visit: Yes Status: Acute Code(s): J18.9 - PNEUMONIA, UNSPECIFIED ORGANISM (3) Acute on chronic renal failure Current Visit: Yes Status: Acute Code(s): N17.9 - ACUTE KIDNEY FAILURE, UNSPECIFIED; N18.9 - CHRONIC KIDNEY DISEASE, UNSPECIFIED (4) Anasarca Current Visit: Yes Status: Acute Code(s): R60.1 - GENERALIZED EDEMA (5) Elevated troponin Current Visit: Yes Status: Acute Code(s): R79.89 - OTHER SPECIFIED ABNORMAL FINDINGS OF BLOOD CHEMISTRY (6) Lactic acidosis Current Visit: No Status: Acute Code(s): E87.20 - ACIDOSIS, UNSPECIFIED (7) Sleep apnea Current Visit: No Status: Chronic Code(s): G47.30 - SLEEP APNEA, UNSPECIFIED (8) HTN (hypertension) Current Visit: No Status: Chronic Code(s): I10 - ESSENTIAL (PRIMARY) HYPERTENSION (9) Nasal bone fractures Current Visit: Yes Status: Acute Code(s): S02.2XXA - FRACTURE OF NASAL BONES, INIT ENCNTR FOR CLOSED FRACTURE (10) Fall at home Current Visit: Yes Status: Acute Code(s): W19.XXXA - UNSPECIFIED FALL, INITIAL ENCOUNTER; Y92.009 - UNSP PLACE IN UNSP NON-INSTITUT (PRIVATE) RESIDENCE PLACE (11) Respiratory failure Current Visit: Yes Status: Acute Assessment & Plan: 1) CHF (congestive heart failure) Current Visit: Yes Status: Acute Assessment & Plan: - BNP 77616 - Lasix 40mg IV BID started last night on admisssion- held today due to kidney function - resume tomorrow if able. - tele - O2 PRN - Echo - Cardiology consult - Continue ASA, Coreg, Norvasc, Xarelto - 2 runs of v-tach last night and HR in 30's last night Code(s): I50.9 - HEART FAILURE, UNSPECIFIED (2) Pneumonia Current Visit: Yes Status: Acute Assessment & Plan: - Procal elevated at 0.681 - BC x2 - ceftriaxone and zithromax daily - Chest CT 11/27: IMPRESSION: 1. Mild ground-glass opacities in the posterior basal segment of both lower lobes which could represent pneumonia or sequelae of a previous inflammatory process. 2. Bilateral pleural effusion, mild. 3. Non-calcified pulmonary nodules with the largest measuring 4.3 mm in the right upper lobe. Follow-up is suggested. 4. Right lower paratracheal lymphadenopathy may be reactive. 5. Minimal ascites along the liver edge. 6. Consider gallbladder stone. Ultrasound correlation is suggested. 7. Subcutaneous edema along the lateral aspects of both upper abdominal salgado. 8. The rest of the findings as detailed above. - Will need to f/u with Pulm OP Code(s): J18.9 - PNEUMONIA, UNSPECIFIED ORGANISM (3) Acute on chronic renal failure Current Visit: Yes Status: Acute Assessment & Plan: - Creat 37.4- baseline 56 - BUN 46, GRF 37.4- worse today- trend - Lasix held today Code(s): N17.9 - ACUTE KIDNEY FAILURE, UNSPECIFIED; N18.9 - CHRONIC KIDNEY DISEASE, UNSPECIFIED (4) Anasarca Current Visit: Yes Status: Acute Assessment & Plan: - 2:2 CHF and SERA - improved today with lasix overnight - no pitting edema in extremities today. - abd. distended. Code(s): R60.1 - GENERALIZED EDEMA (5) Elevated troponin Current Visit: Yes Status: Acute Assessment & Plan: - 0.048, 0.060, 0.054 - cardiology consulted - tele - denies CP - echo Code(s): R79.89 - OTHER SPECIFIED ABNORMAL FINDINGS OF BLOOD CHEMISTRY (6) Lactic acidosis Current Visit: No Status: Acute Assessment & Plan: - LA remains the same since last night at 3.6 - unable to give fluid bolus due to CHF. Code(s): E87.20 - ACIDOSIS, UNSPECIFIED (7) Sleep apnea Current Visit: No Status: Chronic Assessment & Plan: - Cpap - May take home mask used in hospital at d/c per RT Code(s): G47.30 - SLEEP APNEA, UNSPECIFIED (8) HTN (hypertension) Current Visit: No Status: Chronic Qualifiers: Hypertension type: essential hypertension Qualified Code(s): I10 - [place] l (primary) hypertension Assessment & Plan: - Controlled - Continue home meds Code(s): I10 - ESSENTIAL (PRIMARY) HYPERTENSION (9) Nasal bone fractures Current Visit: Yes Status: Acute Assessment & Plan: - As seen on CT nasal bone fxs with mild displacement. - Will need to f/u with ENT OP. Code(s): S02.2XXA - FRACTURE OF NASAL BONES, INIT ENCNTR FOR CLOSED FRACTURE (10) Fall at home Current Visit: Yes Status: Acute Assessment & Plan: - CT cervical spine - no new acute findings. - Pt reports he fell by slipping on a decorative rug in home. - PT eval 11. Resp failure - Pt intubated and art line placed - Hold xarelto until stat head CT back - Levophed gtt for hypotension Code(s): J96.90 - RESPIRATORY FAILURE, UNSP, UNSP W HYPOXIA OR HYPERCAPNIA - Discharge Discharge Date: 11/28/22 Disposition: DC TO [facility] Condition: Critical Prescriptions: New Norepinephrine Bitartrate/D5w [Norepinephrine 8 mg/250 ml-D5w] 8 mg IV .[id number] PRN PRN Reason: HYPOTENSION Ceftriaxone 1 GM/50 ML PREMIX* [ROCEPHIN 1 Gm-D5w 50 ml Bag] 1 g IV Q24H10 iv piggy Calcium Carbonate 750 mg [Tums EX 750 MG] 750 mg PO Q6-8HPRN PRN tablet PRN Reason: Indigestion Acetaminophen 325 mg [Tylenol 325 mg] 650 mg PO Q6H PRN PRN #0 tablet PRN Reason: Pain And/Or Fever Azithromycin 500 mg/250 ml [Zithromax 500 MG/ 250 ML NaCl Premix] 500 mg IV Q24H10 iv piggy Continue Aspirin EC 81 mg [Ecotrin 81 mg] 81 mg PO DAILY Potassium Chloride Tab* [Klor Con] 20 meq PO BID Hydrochlorothiazide 25 mg [hydroDIURIL 25 MG] 25 mg PO DAILY Amlodipine Besylate [Norvasc] 10 mg PO DAILY #30 tablet Topiramate 25 mg [Topamax 25 MG] 100 mg PO BID Rivaroxaban [Xarelto] 20 mg PO HS carvediloL [Coreg] 25 mg PO BID Furosemide 40 mg [Lasix 40 MG] 40 mg PO DAILY 30 Days #30 tablet Follow up with: EDWIN RATLIFF MD [Primary Care Provider] -
--- NOTE | 2022-11-28 14:09 | ANESPROCNO ---
Anesthesia Procedure Note - Anesthesia Procedure Note Procedure Date:: 11/28/22 Procedure Time:: 12:00 Anesthesia Procedure Note: Responded to code room 102. Intubated patient with glidescope 4 #8.0 OETT. Positive ETCO2, Positive gabrielle breath sounds. No complications. OGT placed. ER physicain requests central line access. Right neck sterile prep and drape usign full body drape. Sterile gown, gloves utilized. Using ultrasound guidance, the right internal jugular vein was accessed and a guidewire placed. A triple lumen 7F CVL was placed over wire after tract dilation and wire removed. All lumens with brisk venous blood return and flushed easily. A sterile occlusive dressing was applied. There were no complications. Stat portable CXR ordered. Catheter tip resides in SVC.
[2022-11-28 14:15] VITALS: BP 91/69
--- NOTE | 2022-11-28 14:17 | XRAY ---
Indication: Central line placement and intubation. Comparison: November 18, 2022 Portable chest demonstrates new endotracheal tube tip approximately 2.7 cm above rolo, new right jugular central venous access catheter without pneumothorax, and new NG tube tip traversing chest with tip in stomach. Heart is now enlarged with central vascular prominence and tiny bibasilar effusions either cardiac decompensation/CHF versus fluid overload. Bony thorax intact.
[2022-11-28] MEDS ORDERED: NON-FORMULARY ITEM (Rivaroxaban [Xarelto] 20 MG Tablet) PO SCH (22:00)
[2022-11-28] MEDS ORDERED: XARELTO 10 MG TABLET PO SCH (22:00)
[2022-11-29] MEDS ORDERED: ROCEPHIN 1 Gm-D5w 50 ml Bag** 1 G/50 ML IVPB IV SCH (10:00)
== END 2022-11-28 14:15 | disposition home or self-care (01) ==
LOC: ED 14:46 → MED SURG 22:14 → ICU 11-28 12:45
PROVIDERS: ADMIT Student in an Organized Health Care Education/Training Program; ATTEND Student in an Organized Health Care Education/Training Program
DX: I13.0 Hypertensive heart and chronic kidney disease with heart failure and stage 1 through stage 4 chronic kidney disease, or unspecified chronic kidney disease (principal); I11.0 Hypertensive heart disease with heart failure; I50.9 Heart failure, unspecified; J18.9 Pneumonia, unspecified organism; N18.9 Chronic kidney disease, unspecified; R60.1 Generalized edema; R79.89 Other specified abnormal findings of blood chemistry; E87.20 Acidosis, unspecified; G47.30 Sleep apnea, unspecified; S02.2XXA Fracture of nasal bones, initial encounter for closed fracture; I48.91 Unspecified atrial fibrillation; W19.XXXA Unspecified fall, initial encounter; J96.90 Respiratory failure, unspecified, unspecified whether with hypoxia or hypercapnia; I25.2 Old myocardial infarction; Z79.01 Long term (current) use of anticoagulants; Z79.899 Other long term (current) drug therapy; Z20.828 Contact with and (suspected) exposure to other viral communicable diseases; Z86.718 Personal history of other venous thrombosis and embolism
CPT/HCPCS: 0241U; 31500; 36415; 36556; 36600; 70450; 70486; 71045; 71250; 72125; 80053; 81001; 82375; 82803; 82947; 83605; 83735; 83880; 84100; 84145; 84436; 84443; 84484; 85025; 85027; 85610; 85730; 87040; 90471; 93005; 93306; 94002; 94660; 94760; 94762; 94799; 96365; 96374; 99284; 76942; 90715; 93268; 99140; J0456; J0696; J1940; J2250; Q3014; A9270-GY; G0378